=== PATIENT | female | born 1960 | race Caucasian/White ===

== ENCOUNTER 2018-05-29 12:53 | Observation (INO) | payer MEDICARE, BC ==
[~2018-05-29] VITALS: Ht 160 cm; Wt 66.4 kg
[~2018-05-29 12:53] MED LIST: ALBU18HF IH; BUME0.5T PO; DIGO250T PO; DOCU-144 PO; DULO60CA6 PO; FURO40TA4 PO; LISI2.5T80 PO; METO-448 PO; NITR0.4T39 SL; OMEP20CA9 PO; RANO500T2 PO; UBID50TA PO
--- NOTE | 2018-05-29 13:37 | ERD ---
ER Documentation Chief Complaint Chief Complaint Diarrhea HPI The patient is a 57-year-old female, presenting with chronic diarrhea, chronic dyspnea. She was seen by her physician Dr. Amaro who would like to admit her for further evaluation. She denies headache, fever, complains of chronic abdominal discomfort, denies dysuria, polyuria. She smokes and drinks lives alone Medical history: Depression, history of CVA, history of CHF, CAD, cardiomyopathy, hypertension, atrial fibrillation, insomnia Past surgical history: Pacemaker, cholecystectomy, urinary bladder surgery ROS All systems reviewed and are negative except as per history of present illness. Medications Home Meds Reported Medications Apixaban* (Eliquis*) 2.5 Mg Tablet, 5 MG PO BID, TAB 05/29/18 Metoprolol Tartrate* (Lopressor*) 50 Mg Tab, 50 MG PO BID 05/29/18 Zolpidem Tartrate* (Zolpidem Tartrate*) 10 Mg Tablet, 10 MG PO QHS PRN for SLEEP 05/29/18 Digoxin* (Digox*) 125 Mcg Tablet, 125 MG PO DAILY 05/29/18 Discontinued Reported Medications Nicotine* (Nicotine* Patch) 21 mg/day Patch, 1 EACH TD DAILY, PATCH 05/29/18 Propranolol Hcl* (Propranolol Hcl*) 20 Mg Tablet, 20 MG PO DAILY PRN for PRN, TAB 05/29/18 Dexlansoprazole (Dexilant) 30 Mg Cap., 30 MG PO DAILY, #30 CAP 05/29/18 Metoclopramide Hcl* (Metoclopramide Hcl*) 5 Mg Tablet, 5 MG PO BID PRN for NAUSEA 05/29/18 Hydrocodone/Acetaminophen ([place] 10-325 Tablet) 1 Each Tablet, 1 EACH PO DAILY PRN for SEVERE PAIN LEVEL 7-10, TAB 05/29/18 Digoxin* (Digoxin*) 0.25 Mg Tab, 0.25 MG PO DAILY, TAB 08/15/14 Furosemide* (Furosemide*) 40 Mg Tablet, 40 MG PO DAILY, TAB 08/15/14 Albuterol Sulfate* (Ventolin HFA*) 18 Gm Hfa.aer.ad, 2 PUFF IH Q4H PRN for WHEEZING AND RESP DISTRESS, EA 08/15/14 Ubidecarenone (COQ10) 50 Mg Tab.chew, 50 MG PO DAILY, TAB.CHEW 08/15/14 Duloxetine Hcl* (Cymbalta*) 60 Mg Capsule.dr, 60 MG PO DAILY, CAP 08/15/14 Omeprazole* (Prilosec*) 20 Mg Capsule.dr, 20 MG PO HS, CAP 02/17/14 Discontinued Scripts Bumetanide* (Bumetanide*) 0.5 Mg Tab, 0.5 MG PO BID DIURETICS for 30 Days Prov:REGTREERNINO 10/26/14 Nitroglycerin* (Nitrostat*) 25 Tab Subl, 0.4 MG SL Q5M PRN for CHEST PAIN, #30 Prov:REGIDONINO Koenig 10/26/14 Ranolazine* (Ranexa*) 500 Mg Tabsr, 1000 MG PO Q12 for 30 Days Prov:REGNINO BLACK 10/07/14 Metoprolol Tartrate* (Lopressor*) 25 Mg Tab, 25 MG PO BID for 30 Days, TAB Prov:REGNINO BLACK 10/07/14 Lisinopril* (Zestril*) 2.5 Mg Tablet, 2.5 MG PO DAILY for 30 Days, TAB Prov:REGNINO BLACK 09/27/14 Docusate Sodium* (Colace*) 100 Mg Cap, 100 MG PO BID for 30 Days Prov:REGNINO BLACK 09/27/14 Allergies Allergies: Coded Allergies: No Known Drug Allergies (Verified Allergy, Unknown, 12/01/14) PMhx/Soc Anesthesia Reaction: No Hx 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 Disorder: Yes (STROKE WITH LEFT FACIAL DROOP,"DON'T REMEMBER WHEN ") Hx Respiratory Disorders: Yes (CHF) Hx Cardiac Disorders: Yes (CAD,PACEMAKER,4X SMALL UT,CARDIOMYOPATHY) Hx Psychiatric Problems: No Hx Miscellaneous Medical Probl: Yes (R occipital stroke,A-fib, hyperlip., CAD w microvasc disuse, HTN, obesity, ) Hx Alcohol Use: No (DENIED) Hx Substance Use: No Hx Tobacco Use: Yes (5-6 CIGARETTES/D, LAST TIME WAS YESTERDAY) Physical Exam Vitals Vital Signs Date Temp Pulse Resp B/P (MAP) Pulse Ox O2 O2 Flow FiO2 Time Delivery Rate 05/29/18 99.5 70 18 107/68 92 13:06 (81) Physical Exam Const: No acute distress. Head: Atraumatic. Eyes: Normal Conjunctiva. ENT: Normal External Ears, Nose and Mouth. Neck: Full range of motion. No meningismus. Resp: Clear to auscultation bilaterally. Cardio: Irregularly irregular Abd: Soft, non distended, normal bowel sounds, non tender. Skin: No petechiae or rashes. Back: No midline or flank tenderness. Ext: No cyanosis, or edema. Neur: Awake and alert. No focal deficit Psych: Normal Mood and Affect. Result Diagram: 05/29/18 1450 05/29/18 1450 Results 24 hrs Laboratory Tests Test 05/29/18 14:50 White Blood Count 8.3 10^3/ul Red Blood Count 5.55 10^6/ul Hemoglobin 15.3 g/dl Hematocrit 48.3 % Mean Corpuscular Volume 87.0 fl Mean Corpuscular Hemoglobin 27.6 pg Mean Corpuscular Hemoglobin Concent 31.7 g/dl Red Cell Distribution Width 17.3 % Platelet Count 288 10^3/UL Mean Platelet Volume 10.6 fl Immature Granulocytes % 0.400 % Neutrophils % 71.0 % Lymphocytes % 16.9 % Monocytes % 7.0 % Eosinophils % 3.6 % Basophils % 1.1 % Nucleated Red Blood Cells % 0.0 /100WBC Immature Granulocytes # 0.030 10^3/ul Neutrophils # 5.9 10^3/ul Lymphocytes # 1.4 10^3/ul Monocytes # 0.6 10^3/ul Eosinophils # 0.3 10^3/ul Basophils # 0.1 10^3/ul Nucleated Red Blood Cells # 0.0 10^3/ul Sodium Level 140 mmol/L Potassium Level 4.2 mmol/L Chloride Level 103 mmol/L Carbon Dioxide Level 25 mmol/L Anion Gap 12 Blood Urea Nitrogen 10 mg/dl Creatinine 0.86 mg/dl Est Glomerular Filtrat Rate mL/min > 60 mL/min Glucose Level 97 mg/dl Calcium Level 10.3 mg/dl Total Bilirubin 1.2 mg/dl Direct Bilirubin 0.10 mg/dl Indirect Bilirubin 1.1 mg/dl Aspartate Amino Transf (AST/SGOT) 27 IU/L Alanine Aminotransferase (ALT/SGPT) 12 IU/L Alkaline Phosphatase 182 IU/L Total Protein 8.5 g/dl Albumin 4.5 g/dl Globulin 4.00 g/dl Albumin/Globulin Ratio 1.12 Lipase 68 U/L Ethyl Alcohol Level < 10.0 mg/dl Procedures/MDM MEDICAL MAKING DECISION: The patient is a 57-year-old female, presenting with g eneralized weakness, chronic diarrhea, chronic dyspnea and chronic abdominal discomfort. She will be admitted for further evaluation per her family doctor request The differential diagnoses considered include but are not limited to IBS, malabsorption, choledocholithiasis, cholangitis, pancreatitis, hepatitis, gastritis, peptic ulcer disease, gastric ulcer, appendicitis, cystitis, diverticulitis, partial small bowel obstruction. Departure Diagnosis: Primary Impression: Weakness Additional Impressions: Diarrhea Abnormal LFTs Condition: Stable Additional Instructions: I discussed the findings with the patient. I discussed the patient with Dr Amaro. who was made aware of the lab, the treatment, the patient condition. The patient is admitted to [facility] Disclaimer: Inadvertent spelling and grammatical errors are likely due to EHR/dictation software use and do not reflect on the overall quality of patient care. Also, please note that the electronic time recorded on this note does not necessarily reflect the actual time of the patient encounter. DORETHA RAMIREZ MD May 29, 2018 13:37
[2018-05-29] MEDS ORDERED: HYDR-3980 PO (14:40)
[2018-05-29] MEDS ORDERED: DEXL30CA2 PO (14:42)
[2018-05-29] MEDS ORDERED: ZOLP10TA5 PO (14:42)
[2018-05-29] MEDS ORDERED: METO5TAB2 PO (14:42)
[2018-05-29] MEDS ORDERED: DIGO125T19 PO (14:42)
[2018-05-29] MEDS ORDERED: METO-429 PO (14:42)
[2018-05-29] MEDS ORDERED: APIX2.5T PO (14:44)
[2018-05-29] MEDS ORDERED: PROP20TA4 PO (14:44)
[2018-05-29] MEDS ORDERED: NICO-546 TD (14:45)
[2018-05-29 18:20] VITALS: BP 130/82; PULSE 70; RESP 20
[2018-05-29 18:25] VITALS: Ht 160 cm; Wt 66.4 kg
[2018-05-29] MEDS ORDERED: METOCLOPRAMIDE 10 MG INJ IV PRN (20:30)
[2018-05-29] MEDS ORDERED: HYDROCODONE/APAP (10/325) TAB PO PRN (20:30)
[2018-05-29] MEDS ORDERED: PROPRANOLOL 20 MG TAB PO PRN (20:30)
[2018-05-29] MEDS ORDERED: ZOLPIDEM 5 MG TAB PO PRN (21:00)
[2018-05-29] MEDS: METOPROLOL 50 MG TAB PO SCH (21:00)
[2018-05-29] MEDS ORDERED: ACETAMINOPHEN 500 MG TAB PO PRN (21:00)
[2018-05-29] MEDS ORDERED: DEXTROSE 5%-0.9% NACL 1,000 ML IV SCH (21:00)
[2018-05-29 21:26] VITALS: BP 112/77; PULSE 70; RESP 16
[2018-05-29] MEDS: ALBUTEROL/IPRATROPIUM (NEB) 3 ML AMP HHN SCH (21:30)
[2018-05-29] MEDS: APIXABAN 5 MG TABLET PO SCH (22:41)
[2018-05-30 02:14] VITALS: BP 91/60; PULSE 66; RESP 16
[2018-05-30 03:30] VITALS: BP 100/64
[2018-05-30] MEDS: PANTOPRAZOLE 40 MG INJ IV SCH (05:44)
[2018-05-30 08:00] VITALS: BP 108/72; PULSE 72; RESP 18
[2018-05-30] MEDS: ALBUTEROL/IPRATROPIUM (NEB) 3 ML AMP HHN SCH ×3 (08:35→23:46)
--- NOTE | 2018-05-30 08:47 | HP ---
Date/Time of Note Date/Time of Note DATE: 05/30/18 TIME: 08:40 Assessment/Plan VTE Prophylaxis Risk score (from Ns)>0 risk: 5 SCD applied (from [facility] [place]): Yes SCD contraindicated: low risk/ambulating, other Pharmacological prophylaxis: LMWH Lines/Catheters IV C[facility]ter Type [facility]from [facility] [place] line still needed: No Urinary Cath still in place: No Reason Cath still needed: urinary retention Assessment/Plan Assessment/Plan 1. Respiratory distress got worse 2. COPD exacerbation 3. Status post left subclavian area pacemaker implantation AV sequential not checked for last 2 years. 4. Right pleural effusion-plan to tap 5. Diarrhea for years being on antimotility medications mainly low material with mild improvement. 6. Episodes of constipation 7. Significant weight loss according to her about 40 kg during the last 24 years,; but by calculations it becomes like about 25-20 kg. 8. Hearing impairment 9. Permanent deconditioning with severe muscular weakness unable to get up and stand by herself with severe decrease of muscular tone was strained mass 10. Urinary and fecal incontinence 11. Status post cholecystectomy 12. Nicotine addiction 13. PTSD 14. Mild elevation of the CEA 15. Kyphosis 16. Osteoporosis 17. Diabetes type 2 blood sugar improved after weight loss 18. Dehydration 19. Malnourishment 20. Noncompliance 21. Irritable bowel syndrome 22. Hemorrhoidal disease with recurrent rectal bleeding 23.incomplete data Result Diagram: 05/30/18 0515 05/30/18 0515 Results 24hrs Laboratory Tests Test 05/29/18 14:30 05/29/18 14:50 05/30/18 01:48 05/30/18 05:15 Magnesium Level 2.0 Iron Level 55 Total Iron Binding 545 H Capacity Percent Iron 10 L Saturation White Blood Count 8.3 5.7 # Red Blood Count 5.55 #H 4.85 Hemoglobin 15.3 # 13.2 Hematocrit 48.3 #H 42.6 Mean Corpuscular 87.0 87.8 Volume Mean Corpuscular 27.6 L 27.2 L Hemoglobin Mean Corpuscular 31.7 L 31.0 L Hemoglobin Concent Red Cell 17.3 H 17.0 H Distribution Width Platelet Count 288 229 # Mean Platelet Volume 10.6 #H 10.1 Immature 0.400 0.400 Granulocytes % Neutrophils % 71.0 59.7 Lymphocytes % 16.9 25.4 Monocytes % 7.0 9.3 Eosinophils % 3.6 4.1 Basophils % 1.1 1.1 Nucleated Red Blood 0.0 0.0 Cells % Immature 0.030 0.020 Granulocytes # Neutrophils # 5.9 3.4 Lymphocytes # 1.4 1.4 Monocytes # 0.6 0.5 Eosinophils # 0.3 0.2 Basophils # 0.1 0.1 Nucleated Red Blood 0.0 0.0 Cells # Sodium Level 140 139 Potassium Level 4.2 3.9 Chloride Level 103 105 Carbon Dioxide Level 25 22 Anion Gap 12 12 Blood Urea Nitrogen 10 11 Creatinine 0.86 0.73 Est Glomerular > 60 > 60 Filtrat Rate mL/min Glucose Level 97 78 Calcium Level 10.3 H 9.7 Total Bilirubin 1.2 1.0 Direct Bilirubin 0.10 0.00 Indirect Bilirubin 1.1 1.0 Aspartate Amino 27 27 Transf (AST/SGOT) Alanine 12 L 11 L Aminotransferase (AL T/SGPT) Alkaline Phosphatase 182 H 136 H Total Protein 8.5 H 7.0 # Albumin 4.5 3.8 Globulin 4.00 H 3.20 Albumin/Globulin 1.12 1.18 Ratio Lipase 68 Ethyl Alcohol Level < 10.0 H Carcinoembryonic 5.7 H Antigen HPI/ROS Admit Date/Time Admit Date/Time May 29, 2018 at 16:08 Hx of Present Illness Worsening of her shortness of breath. Status post episode of fall at home. I will sitting on the toilet seat. I was unable to get up myself. I am very weak. With night put a strained to my legs to get up I had darkness in front of my eyes my eyes and fell down no loss of consciousness but they do not remember exact sequence of events. No fever or chills. 3 days ago I had more frequent bowel movements with bad smell then the day before admission I was unable to go to the toilet and to abdominal bowel. I am having also irregular heartbeats. I could stop smoking I will wait a week. I can take care of myself. I am afraid to get up and walk because of recurrent episodes of fall. Can stand by myself. Totally I lost about 40-60 pounds may be more during the last couple of years. And I have mostly. I had also rectal bleeding I have hemorrhoids too. I am afraid to eat because every time when I eat. Immediately I would like to go to the toilet and I can. Now I realize it is better for me to drink 100 cc of alcohol-containing drinks usually balzam, like substituted calories not to eat because when I during bowel exam I am not going to toilet so frequently. ROS Constitutional: chills, disoriented, fatigue, nausea, poor po, weight change; No no complaints, No improved, No diaphoresis, No febrile, No other Eyes: redness, visual change, other (My vision is getting worse and worse particularly last 1 year without her glasses I do not see that he is getting more blurry.); No no complaints, No pain, No discharge ENT: congestion, sore throat; No no complaints, No bleeding, No pain, No discharge, No dysphagia, No other Respiratory: cough, pleuritic pain, shortness of breath, sputum, wheezing (.); No no complaints, No pain, No other Cardiovascular: chest pain, lightheadedness, orthopenea, palpitations, paroxysmal nocturnal dyspnea; No no complaints, No edema, No other Gastrointestinal: pain, blood, constipation, decreased appetite, diarrhea, flatus, nausea, passing stool, other (In the immediate they must go to the toilet this reason I am refusing to eat.); No no complaints, No vomiting Genitourinary: dysuria, flank pain; No no complaints, No bleeding, No discharge, No hematuria, No other Musculoskeletal: back pain, bone/joint pain, neck pain; No no complaints, No restricted range of motion, No swelling, No other Skin: rash; No no complaints, No bruising, No erythema, No laceration, No pruritis, No skin lesions, No other Neurologic: confusion, dizziness, headache, syncope (Near syncopal episodes but more frequent falls.); No no complaints, No focal-weakness, No seizure, No other Endocrine: No no complaints, No polyuria, No polydypsia, No dry skin, No temp intolerance, No weight change, No other Lymphatic: No no complaints, No adenopathy, No tender nodes, No lymphadema, No other Psychological: anxiety, depression, other (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 from other people for help.); No no complaints, No nl mood/affect, No confusion, No suicidal Immunologic: No no complaints, No immunodeficiency, No pruritis, No rhinitis, No urticaria, No other PMH/Family/Social Past Medical History Medical History: angina, colitis, congestive heart failure, coronary artery disease, diabetes, gallstones (Removed gallbladder.), GERD, GI bleed, hepatitis, high cholesterol, irritable bowel syndrome, pancreatitis, renal disease, urinary tract infection Medications Current Medications Albuterol/ Ipratropium (Duoneb) 3 ml Q8H RESP THERAPY HHN Last administered on 05/30/18at 08:35; Admin Dose 3 ML; Start 05/29/18 at 21:30 Acetaminophen/ Hydrocodone Bitart ([place] (10/325)) 1 tab Q8H PRN PO PAIN; Start 05/29/18 at 20:30 Metoclopramide HCl (Reglan) 5 mg Q8H PRN IV NAUSEA AND/OR VOMITING; Start 05/29/18 at 20:30 Nicotine (Nicoderm 14 Mg/ 24hr) 1 patch DAILY TRANSDERM ; Start 05/30/18 at 09:00 Propranolol HCl (Inderal) 20 mg Q8H PRN PO ELEVATED BP; Start 05/29/18 at 20:30 Pantoprazole (Protonix Iv) 40 mg DAILY@06 IV Last administered on 05/30/18at 05:44; Admin Dose 40 MG; Start 05/30/18 at 06:00 Digoxin (Digoxin) 125 mg DAILY@1300 PO ; Start 05/30/18 at 13:00 Metoprolol Tartrate (Lopressor) 50 mg BID PO ; Start 05/29/18 at 21:00 Zolpidem Tartrate (Ambien) 10 mg QHS PRN PO SLEEP Last administered on 05/29/18at 23:08; Admin Dose 10 MG; Start 05/29/18 at 21:00 Apixaban (Eliquis) 5 mg BID PO Last administered on 05/29/18at 22:41; Admin Dose 5 MG; Start 05/29/18 at 21:00 Dextrose/Sodium Chloride 1,000 ml @ 50 mls/hr Q20H IV Last administered on 05/29/18at 22:41; Admin Dose 50 MLS/HR; Start 05/29/18 at 21:00 Acetaminophen (Tylenol Tab) 500 mg Q6H PRN PO MILD PAIN(1-3)OR ELEVATED TEMP; Start 05/29/18 at 21:00 Multivitamins 10 ml/Thiamine HCl 100 mg/Folic Acid 1 mg/Sodium Chloride 1,011.2 ml @ 125 mls/ hr DAILY@09 IVPB ; Start 05/30/18 at 09:00; Stop 05/31/18 at 08:59 Coded Allergies: No Known Drug Allergies (Verified Allergy, Unknown, 12/01/14) Past Surgical History Past Surgical Hx: noncontributory, cholecystectomy, other (Status post pacemaker implantation in 2012; change of pacemaker from [employer] to 7 Jorge section in 1985 he has she has a son hemorrhoidal disease visual impairment) Family History Significant Family History: no pertinent family hx Social History Alcohol Use: other (On and off 100 cc according to the patientbalzam, to prevent going to the toilet frequently) Smoking Status: Heavy tobacco smoker Drug Use: none Exam/Review of Systems Vital Signs Vitals Vital Signs Date Temp Pulse Resp B/P (MAP) Pulse Ox O2 O2 Flow FiO2 Time Delivery Rate 05/30/18 2.0 08:36 05/30/18 18 96 Nasal 08:36 Cannula 05/30/18 100/64 03:30 (76) 05/30/18 98.1 66 02:14 Intake and Output 05/29/18 05/29/18 05/30/18 1515:00 23:00 07:00 IntakeIntake Total 150 ml 35 ml BalanceBalance 150 ml 35 ml Exam Constitutional: alert, oriented, well developed, distress, frail, other (Responds to questions slowly. Concentration intellectualize actions after explanation of presence of fluid in the right pleural cavity and her smoking h abit and intention to do the tap get the impression that she did not get the connection face between her smoking habit and COPD on the right pleural effusion. Otherwise very intelligent respect to again slowing response); No non-verbal Psych: anxiety, confusion, depression; No no complaints, No nl mood/affect, No suicidal, No other Head: normocephalic (On and off), atraumatic; No lacerations, No hematomas, No other Eyes: EOMI, nl lids, PERRL, other (Severe visual impairment 20/60 20/80.); No nl conjunctiva, No nl sclera, No icteric, No fundi, disc ENMT: nl lips & teeth (Dry blurry), nl nasal mucosa & septum (Mild septal deviation to right); No nl external ears & nose, No mucosa pink and moist, No intubated, No tympanic membranes, No other Neck: No supple, No non-tender, No jvd, No bruits, No masses, No thyromegaly, No nuchal rigidity, No other Respiratory: normal air movement (Decreased breath sounds on the right side.), congested cough, crackles/rales, diminished breath sounds, intercostal retraction, wheezing; No clear to auscultation, No labored breathing, No respirations, No tactile fremitus, No other Cardiovascular: regular rate and rhythm, nl pulses, bruits, edema, jugular venous distention (JVD), murmurs/extra sounds, systolic murmur; No diastolic murmur, No gallop, No irregular rhythm, No rub, No S3, No S4, No other Gastrointestinal: soft, nl liver, spleen, bowel sounds, surgical scars (Well- healed postsurgical scar in lower abdominal area after section.), other; No non-tender, No ascites, No distended, No firm, No hepatomegaly, No mass, No rebound or guarding, No splenomegaly, No tender Genitourinary - Female: nl adnexae, nl external genitalia; No CMT, No CVA tenderness, No uterus, No other Musculoskeletal: nl gait and stance (Very unstable gait.), joint tenderness, muscle tone (Tender joints), muscle weakness, range of motion ( severe decreased muscular tone severe muscular weakness and atrophy of muscles muscles), other; No nl extremities to inspection, No spine non-tender, No swelling Extremities: normal pulses, cyanosis, edema 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: IRON PILER II-XII intact (Visual and hearing impairment), nl mental status (Cooperative only slowing response forgetful), nl speech, nl strength (Severe decrease of a muscular strain); No confused, No DTR's symmetric, No focal weakness, No lethargic, No numbness, No reflexes, No unresponsive, No other Skin: nl turgor, ecchymosis; No rash or lesions, No diaphoresis, No laceration, No puncture, No other Lymph: No nl lymph nodes, No enlarged, No nontender, No other LANNY SMITH MD May 30, 2018 08:46
[2018-05-30] MEDS ORDERED: MULTIVITAMINS 10 ML, THIAMINE 100 MG, FOLIC ACID 1 MG in SOD CHLORIDE 0.9% 1,000 ML IVPB SCH (09:00)
[2018-05-30] MEDS: METOPROLOL 50 MG TAB PO SCH (09:00)
--- NOTE | 2018-05-30 09:36 | CONDCODE ---
Medicare Criteria-> INP to OBS Patient still in hospital: Yes SI/IS Criteria met: Yes Attending MD agrees w/change: Yes Order entered in Pt. record: Yes Pt. does not meet Inp Criteria: Yes Medicare Inp->Obs Criteria met: Yes UR Phys Advisor eSign required: Yes External PA Confirmation from External PA: Yes I personally scribed for SAMAN THOMASON MD ([email or web address]) on 05/30/18 at 09:36. Electronically submitted by Charly Navarro [facility] ([email or web address]). SAMAN THOMASON MD May 30, 2018 09:36
--- NOTE | 2018-05-30 09:36 | CONDCODE ---
Medicare Criteria-> INP to OBS Patient still in hospital: Yes SI/IS Criteria met: Yes Attending MD agrees w/change: Yes Order entered in Pt. record: Yes Pt. does not meet Inp Criteria: Yes Medicare Inp->Obs Criteria met: Yes UR Phys Advisor eSign required: Yes I personally scribed for LANNY SMITH MD ([email or web address]) on 05/30/18 at 09:36. [email or web address] LANNY SMITH MD May 30, 2018 09:36
[2018-05-30] MEDS: APIXABAN 5 MG TABLET PO SCH (09:44)
[2018-05-30] MEDS: NICOTINE (14 MG/24 HR) PATCH TRANSDERM SCH (09:44)
--- NOTE | 2018-05-30 10:47 | CONS ---
Assessment/Plan Assessment/Plan Hospital Course (Demo Recall) Acute on chronic systolic heart failure: mild rales on exam. Will hold fluids NICM (prior EF <30%) BiV ICD for primary prevention: ([employer], initial implant 2012, then 2014 with LV lead) Paroxysmal vs chronic afib: on Eliquis AV node ablation COPD Active tobacco use DM -hold IVF -check echo -agreeable to trying metoprolol succinate 25mg daily. Explained that propranolol is not approved for cardiomyopathy -will try adding ACEI tomorrow if she agrees -continue digoxin (being used for cardiomyopathy) -check dig level in am -Eliquis 5mg BID. Hold at least 24 hrs if thoracentesis needed -check ICD Consultation Date/Type/Reason Admit Date/Time May 29, 2018 at 16:08 Date of Consultation: May 30, 2018 Type of Consult Cardiology Reason for Consultation CHF, ICD Requesting Provider: LANNY SMITH MD Date/Time of Note DATE: 05/30/18 TIME: 10:38 Hx of Present Illness 57 yo F with a h/o chronic systolic heart failure, NICM (prior EF <30%), BiV ICD for primary prevention ([employer], initial implant 2012, then 2014 with LV lead), paroxysmal vs chronic afib, AV node ablation, COPD, active tobacco use, DM, who presented with weakness and loose stools. She has not seen a research and development chemist in >1 yr and has not had the ICD checked in 2 years. She has not had syncope but has had episodes of dizziness/weakness when she stands up. She also feels her heart beating harder but not necessarily faster. No chest pain. 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 Currently no SOB. per HPI Past Medical History per HPI Medical History: angina, colitis, congestive heart failure, coronary artery disease, diabetes, gallstones (Removed gallbladder.), GERD, GI bleed, hepatitis, high cholesterol, irritable bowel syndrome, pancreatitis, renal disease, urinary tract infection Home Meds Reported Medications Apixaban* (Eliquis*) 2.5 Mg Tablet, 5 MG PO BID, TAB 05/29/18 Metoprolol Tartrate* (Lopressor*) 50 Mg Tab, 50 MG PO BID 05/29/18 Zolpidem Tartrate* (Zolpidem Tartrate*) 10 Mg Tablet, 10 MG PO QHS PRN for SLEEP 05/29/18 Digoxin* (Digox*) 125 Mcg Tablet, 125 MG PO DAILY 05/29/18 Discontinued Reported Medications Nicotine* (Nicotine* Patch) 21 mg/day Patch, 1 EACH TD DAILY, PATCH 05/29/18 Propranolol Hcl* (Propranolol Hcl*) 20 Mg Tablet, 20 MG PO DAILY PRN for PRN, TAB 05/29/18 Dexlansoprazole (Dexilant) 30 Mg Cap..mp, 30 MG PO DAILY, #30 CAP 05/29/18 Metoclopramide Hcl* (Metoclopramide Hcl*) 5 Mg Tablet, 5 MG PO BID PRN for NAUSEA 05/29/18 Hydrocodone/Acetaminophen ([place] 10-325 Tablet) 1 Each Tablet, 1 EACH PO DAILY PRN for SEVERE PAIN LEVEL 7-10, TAB 05/29/18 Digoxin* (Digoxin*) 0.25 Mg Tab, 0.25 MG PO DAILY, TAB 08/15/14 Furosemide* (Furosemide*) 40 Mg Tablet, 40 MG PO DAILY, TAB 08/15/14 Albuterol Sulfate* (Ventolin HFA*) 18 Gm Hfa.aer.ad, 2 PUFF IH Q4H PRN for WHEEZING AND RESP DISTRESS, EA 08/15/14 Ubidecarenone (COQ10) 50 Mg Tab.chew, 50 MG PO DAILY, TAB.CHEW 08/15/14 Duloxetine Hcl* (Cymbalta*) 60 Mg Capsule.dr, 60 MG PO DAILY, CAP 08/15/14 Omeprazole* (Prilosec*) 20 Mg Capsule.dr, 20 MG PO HS, CAP 02/17/14 Discontinued Scripts Bumetanide* (Bumetanide*) 0.5 Mg Tab, 0.5 MG PO BID DIURETICS for 30 Days Prov:NINO RAMSEY 10/26/14 Nitroglycerin* (Nitrostat*) 25 Tab Subl, 0.4 MG SL Q5M PRN for CHEST PAIN, #30 Prov:NINO RAMSEY 10/26/14 Ranolazine* (Ranexa*) 500 Mg Tabsr, 1000 MG PO Q12 for 30 Days Prov:NINO RAMSEY 10/07/14 Metoprolol Tartrate* (Lopressor*) 25 Mg Tab, 25 MG PO BID for 30 Days, TAB Prov:NINO RAMSEY 10/07/14 Lisinopril* (Zestril*) 2.5 Mg Tablet, 2.5 MG PO DAILY for 30 Days, TAB Prov:MIKE RAMSEYNELL 09/27/14 Docusate Sodium* (Colace*) 100 Mg Cap, 100 MG PO BID for 30 Days Prov:MIKE RAMSEYNELL 09/27/14 Medications Current Medications Albuterol/ Ipratropium (Duoneb) 3 ml Q8H RESP THERAPY HHN Last administered on 05/30/18at 08:35; Admin Dose 3 ML; Start 05/29/18 at 21:30 Acetaminophen/ Hydrocodone Bitart ([place] (10325)) 1 tab Q8H PRN PO PAIN; Start 05/29/18 at 20:30 Metoclopramide HCl (Reglan) 5 mg Q8H PRN IV NAUSEA AND/OR VOMITING; Start 05/29/18 at 20:30 Nicotine (Nicoderm 14 Mg/ 24hr) 1 patch DAILY TRANSDERM ; Start 05/30/18 at 09:00 Propranolol HCl (Inderal) 20 mg Q8H PRN PO ELEVATED BP; Start 05/29/18 at 20:30 Pantoprazole (Protonix Iv) 40 mg DAILY@06 IV Last administered on 05/30/18at 05:44; Admin Dose 40 MG; Start 05/30/18 at 06:00 Digoxin (Digoxin) 125 mg DAILY@1300 PO ; Start 05/30/18 at 13:00 Metoprolol Tartrate (Lopressor) 50 mg BID PO ; Start 05/29/18 at 21:00 Zolpidem Tartrate (Ambien) 10 mg QHS PRN PO SLEEP Last administered on 05/29/18at 23:08; Admin Dose 10 MG; Start 05/29/18 at 21:00 Apixaban (Eliquis) 5 mg BID PO Last administered on 05/29/18at 22:41; Admin Dose 5 MG; Start 05/29/18 at 21:00 Dextrose/Sodium Chloride 1,000 ml @ 50 mls/hr Q20H IV Last administered on 05/29/18at 22:41; Admin Dose 50 MLS/HR; Start 05/29/18 at 21:00 Acetaminophen (Tylenol Tab) 500 mg Q6H PRN PO MILD PAIN(1-3)OR ELEVATED TEMP; Start 05/29/18 at 21:00 Multivitamins 10 ml/Thiamine HCl 100 mg/Folic Acid 1 mg/Sodium Chloride 1,011.2 ml @ 125 mls/ hr DAILY@09 IVPB ; Start 05/30/18 at 09:00; Stop 05/31/18 at 08:59 Allergies: Coded Allergies: No Known Drug Allergies (Verified Allergy, Unknown, 12/01/14) Past Surgical History Past Surgical Hx: noncontributory, cholecystectomy, other (Status post pacemaker implantation in 2012; change of pacemaker from [employer] to 7 Jorge section in 1985 he has she has a son hemorrhoidal disease visual impairment) Social History Alcohol Use: other (On and off 100 cc according to the patientbalzam, to prevent going to the toilet frequently) Smoking Status: Heavy tobacco smoker Drug Use: none Exam/Review of Systems Exam Vitals Vital Signs Date Temp Pulse Resp B/P (MAP) Pulse Ox O2 O2 Flow FiO2 Time Delivery Rate 05/30/18 2.0 08:36 05/30/18 18 96 Nasal 08:36 Cannula 05/30/18 98.7 72 108/72 08:00 (84) Intake and Output 05/29/18 05/29/18 05/30/18 1515:00 23:00 07:00 IntakeIntake Total 150 ml 35 ml BalanceBalance 150 ml 35 ml Constitutional: alert, oriented Psych: no complaints, nl mood/affect Head: normocephalic, atraumatic Neck: jvd (7-8cm) Respiratory: crackles/rales, diminished breath sounds; No clear to auscultation Cardiovascular: regular rate and rhythm, edema (trace-1+); No systolic murmur Gastrointestinal: soft, non-tender; No distended 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: nl mental status, nl speech Results Result Diagram: 05/30/1851405/30/1815 Results 24hrs Laboratory Tests Test 05/29/18 14:30 05/29/18 14:50 05/30/18 01:48 05/30/18 05:15 Magnesium Level 2.0 Iron Level 55 Total Iron Binding 545 H Capacity Percent Iron 10 L Saturation White Blood Count 8.3 5.7 # Red Blood Count 5.55 #H 4.85 Hemoglobin 15.3 # 13.2 Hematocrit 48.3 #H 42.6 Mean Corpuscular 87.0 87.8 Volume Mean Corpuscular 27.6 L 27.2 L Hemoglobin Mean Corpuscular 31.7 L 31.0 L Hemoglobin Concent Red Cell 17.3 H 17.0 H Distribution Width Platelet Count 288 229 # Mean Platelet Volume 10.6 #H 10.1 Immature 0.400 0.400 Granulocytes % Neutrophils % 71.0 59.7 Lymphocytes % 16.9 25.4 Monocytes % 7.0 9.3 Eosinophils % 3.6 4.1 Basophils % 1.1 1.1 Nucleated Red Blood 0.0 0.0 Cells % Immature 0.030 0.020 Granulocytes # Neutrophils # 5.9 3.4 Lymphocytes # 1.4 1.4 Monocytes # 0.6 0.5 Eosinophils # 0.3 0.2 Basophils # 0.1 0.1 Nucleated Red Blood 0.0 0.0 Cells # Sodium Level 140 139 Potassium Level 4.2 3.9 Chloride Level 103 105 Carbon Dioxide Level 25 22 Anion Gap 12 12 Blood Urea Nitrogen 10 11 Creatinine 0.86 0.73 Est Glomerular > 60 > 60 Filtrat Rate mL/min Glucose Level 97 78 Calcium Level 10.3 H 9.7 Total Bilirubin 1.2 1.0 Direct Bilirubin 0.10 0.00 Indirect Bilirubin 1.1 1.0 Aspartate Amino 27 27 Transf (AST/SGOT) Alanine 12 L 11 L Aminotransferase (AL T/SGPT) Alkaline Phosphatase 182 H 136 H Total Protein 8.5 H 7.0 # Albumin 4.5 3.8 Globulin 4.00 H 3.20 Albumin/Globulin 1.12 1.18 Ratio Lipase 68 Ethyl Alcohol Level < 10.0 H Carcinoembryonic 5.7 H Antigen Hemoglobin A1c 6.0 H Digoxin Level 0.9 L Medications Medication Current Medications Albuterol/ Ipratropium (Duoneb) 3 ml Q8H RESP THERAPY HHN Last administered on 05/30/18at 08:35; Admin Dose 3 ML; Start 05/29/18 at 21:30 Acetaminophen/ Hydrocodone Bitart ([place] (10/325)) 1 tab Q8H PRN PO PAIN; Start 05/29/18 at 20:30 Metoclopramide HCl (Reglan) 5 mg Q8H PRN IV NAUSEA AND/OR VOMITING; Start 05/29/18 at 20:30 Nicotine (Nicoderm 14 Mg/ 24hr) 1 patch DAILY TRANSDERM ; Start 05/30/18 at 09:00 Propranolol HCl (Inderal) 20 mg Q8H PRN PO ELEVATED BP; Start 05/29/18 at 20:30 Pantoprazole (Protonix Iv) 40 mg DAILY@06 IV Last administered on 05/30/18at 05:44; Admin Dose 40 MG; Start 05/30/18 at 06:00 Digoxin (Digoxin) 125 mg DAILY@1300 PO ; Start 05/30/18 at 13:00 Metoprolol Tartrate (Lopressor) 50 mg BID PO ; Start 05/29/18 at 21:00 Zolpidem Tartrate (Ambien) 10 mg QHS PRN PO SLEEP Last administered on 05/29/18at 23:08; Admin Dose 10 MG; Start 05/29/18 at 21:00 Apixaban (Eliquis) 5 mg BID PO Last administered on 05/29/18at 22:41; Admin Dose 5 MG; Start 05/29/18 at 21:00 Dextrose/Sodium Chloride 1,000 ml @ 50 mls/hr Q20H IV Last administered on 05/29/18at 22:41; Admin Dose 50 MLS/HR; Start 05/29/18 at 21:00 Acetaminophen (Tylenol Tab) 500 mg Q6H PRN PO MILD PAIN(1-3)OR ELEVATED TEMP; Start 05/29/18 at 21:00 Multivitamins 10 ml/Thiamine HCl 100 mg/Folic Acid 1 mg/Sodium Chloride 1,011.2 ml @ 125 mls/ hr DAILY@09 IVPB ; Start 05/30/18 at 09:00; Stop 05/31/18 at 08:59 KETAN GAMBOA May 30, 2018 10:47
[2018-05-30] MEDS: METOPROLOL (XL) 25 MG TAB PO SCH (11:00)
[2018-05-30] MEDS ORDERED: DIGOXIN 0.125 MG TAB PO SCH (13:00)
[2018-05-30] MEDS: DIGOXIN 0.125 MG TAB PO SCH (13:53)
[2018-05-30 14:00] VITALS: BP 110/75; PULSE 68; RESP 18
[2018-05-30] MEDS ORDERED: ALBUTEROL HFA 8 GM INHALER INH PRN (15:00)
[2018-05-30] MEDS ORDERED: LIDOCAINE 1% (MPF) 5 ML VIAL ONE (15:58)
--- NOTE | 2018-05-30 17:25 | CONS ---
Assessment/Plan Assessment/Plan Assessment/Plan (Daily) 1. Hypercalcemia 2. acute on chronic systolic heart failure 3. H/o NICM with EF 35% s/p AICD placement 4. H/o paroxysmal atrial fibrillation s/p AV node ablation 5. h/o HTN 6. H/o DM II 7. Fluid overload with moderate R pleural euffusion s/p R thoracentesis 1 L removed on 05/29/18 8. H/o HL Plan: S/p thoracentesis today 1 L removed, BP stable D/c IVF I will order UA, Urine prot/cr ration to asses for proteinuria, Pt has hyperclacemia with weight loss, Cardiology has been following pt will need GI consult for her chronic diarrhea and weight loss history Thanks for consultation, I will continue to follow up Consultation Date/Type/Reason Admit Date/Time May 29, 2018 at 16:08 Date of Consultation: May 30, 2018 Type of Consult NEPHROLOGY Reason for Consultation hypercalcemia, acute fluid overload, pleural effusion Right Requesting Provider: LANNY SMITH MD Date/Time of Note DATE: 05/30/18 TIME: 17:24 Hx of Present Illness 57 yo F with a h/o chronic systolic heart failure, NICM (prior EF <30%), BiV ICD for primary prevention ([employer], initial implant 2012, then 2014 with LV lead), paroxysmal vs chronic afib, AV node ablation, COPD, active tobacco use, DM, who presented with weakness and loose stools., pt lost approximately 40 lbs in last 6 months, she had al ow EF, on lab she is noted to have hypercalcemia with Ca level 10.3- due to hypercalcemi and weight loss and chronic diarrhea, worried about malignancy. renal has been consulted for acute hypercalcemia, fluid overload and pleural effusion. Constitutional: poor po, other (weakness) Eyes: no complaints ENT: no complaints Respiratory: no complaints Cardiovascular: no complaints Gastrointestinal: diarrhea, nausea Genitourinary: no complaints Musculoskeletal: bone/joint pain, neck pain; No no complaints Skin: no complaints Neurologic: no complaints Endocrine: no complaints Lymphatic: no complaints Psychological: no complaints Immunologic: no complaints Past Medical History Medical History: angina, colitis, congestive heart failure, coronary artery disease, diabetes, gallstones (Removed gallbladder.), GERD, GI bleed, hepatitis, high cholesterol, irritable bowel syndrome, pancreatitis, renal disease, urinary tract infection Home Meds Reported Medications Apixaban* (Eliquis*) 2.5 Mg Tablet, 5 MG PO BID, TAB 05/29/18 Metoprolol Tartrate* (Lopressor*) 50 Mg Tab, 50 MG PO BID 05/29/18 Zolpidem Tartrate* (Zolpidem Tartrate*) 10 Mg Tablet, 10 MG PO QHS PRN for SLEEP 05/29/18 Digoxin* (Digox*) 125 Mcg Tablet, 125 MG PO DAILY 05/29/18 Discontinued Reported Medications Nicotine* (Nicotine* Patch) 21 mg/day Patch, 1 EACH TD DAILY, PATCH 05/29/18 Propranolol Hcl* (Propranolol Hcl*) 20 Mg Tablet, 20 MG PO DAILY PRN for PRN, TAB 05/29/18 Dexlansoprazole (Dexilant) 30 Mg Cap., 30 MG PO DAILY, #30 CAP 05/29/18 Metoclopramide Hcl* (Metoclopramide Hcl*) 5 Mg Tablet, 5 MG PO BID PRN for NAUSEA 05/29/18 Hydrocodone/Acetaminophen ([place] 10-325 Tablet) 1 Each Tablet, 1 EACH PO DAILY PRN for SEVERE PAIN LEVEL 7-10, TAB 05/29/18 Digoxin* (Digoxin*) 0.25 Mg Tab, 0.25 MG PO DAILY, TAB 08/15/14 Furosemide* (Furosemide*) 40 Mg Tablet, 40 MG PO DAILY, TAB 08/15/14 Albuterol Sulfate* (Ventolin HFA*) 18 Gm Hfa.aer.ad, 2 PUFF IH Q4H PRN for WHEEZING AND RESP DISTRESS, EA 08/15/14 Ubidecarenone (COQ10) 50 Mg Tab.chew, 50 MG PO DAILY, TAB.CHEW 08/15/14 Duloxetine Hcl* (Cymbalta*) 60 Mg Capsule.dr, 60 MG PO DAILY, CAP 08/15/14 Omeprazole* (Prilosec*) 20 Mg Capsule.dr, 20 MG PO HS, CAP 02/17/14 Discontinued Scripts Bumetanide* (Bumetanide*) 0.5 Mg Tab, 0.5 MG PO BID DIURETICS for 30 Days Prov:NINO RAMSEY 10/26/14 Nitroglycerin* (Nitrostat*) 25 Tab Subl, 0.4 MG SL Q5M PRN for CHEST PAIN, #30 Prov:NINO RAMSEY 10/26/14 Ranolazine* (Ranexa*) 500 Mg Tabsr, 1000 MG PO Q12 for 30 Days Prov:MOUSTAPHANINO BLACK 10/07/14 Metoprolol Tartrate* (Lopressor*) 25 Mg Tab, 25 MG PO BID for 30 Days, TAB Prov:NINO RAMSEY 10/07/14 Lisinopril* (Zestril*) 2.5 Mg Tablet, 2.5 MG PO DAILY for 30 Days, TAB Prov:ROMEONINO Koenig 09/27/14 Docusate Sodium* (Colace*) 100 Mg Cap, 100 MG PO BID for 30 Days Prov:NINO RAMSEY 09/27/14 Medications Current Medications Albuterol/ Ipratropium (Duoneb) 3 ml Q8H RESP THERAPY HHN Last administered on 05/30/18at 08:35; Admin Dose 3 ML; Start 05/29/18 at 21:30 Acetaminophen/ Hydrocodone Bitart ([place] (10/325)) 1 tab Q8H PRN PO PAIN; Start 05/29/18 at 20:30 Metoclopramide HCl (Reglan) 5 mg Q8H PRN IV NAUSEA AND/OR VOMITING; Start 05/29/18 at 20:30 Nicotine (Nicoderm 14 Mg/ 24hr) 1 patch DAILY TRANSDERM Last administered on 05/30/18at 09:44; Admin Dose 1 PATCH; Start 05/30/18 at 09:00 Pantoprazole (Protonix Iv) 40 mg DAILY@06 IV Last administered on 05/30/18at 05:44; Admin Dose 40 MG; Start 05/30/18 at 06:00 Zolpidem Tartrate (Ambien) 10 mg QHS PRN PO SLEEP Last administered on 05/29/18at 23:08; Admin Dose 10 MG; Start 05/29/18 at 21:00 Acetaminophen (Tylenol Tab) 500 mg Q6H PRN PO MILD PAIN(1-3)OR ELEVATED TEMP; Start 05/29/18 at 21:00 Metoprolol Succinate (Toprol Xl) 25 mg DAILY PO ; Start 05/30/18 at 11:00 Digoxin (Digoxin) 0.125 mg DAILY@1300 PO Last administered on 05/30/18at 13:53; Admin Dose 0.125 MG; Start 05/30/18 at 13:46 Albuterol (Ventolin Hfa) 2 puff Q8H RESP THERAPY PRN INH SHORTNESS OF BREATH; Start 05/30/18 at 15:00 Allergies: Coded Allergies: No Known Drug Allergies (Verified Allergy, Unknown, 12/01/14) Past Surgical History Past Surgical Hx: noncontributory, cholecystectomy, other (Status post pacemaker implantation in 2012; change of pacemaker from [employer] to 7 Jorge section in 1985 he has she has a son hemorrhoidal disease visual impairment) Social History Alcohol Use: none Smoking Status: Heavy tobacco smoker Drug Use: none Exam/Review of Systems Exam Vitals Vital Signs Date Temp Pulse Resp B/P (MAP) Pulse Ox O2 O2 Flow FiO2 Time Delivery Rate 05/30/18 98.6 68 18 110/75 96 14:00 (87) 05/30/18 Nasal 2.0 10:45 Cannula Intake and Output 05/29/18 05/29/18 05/30/18 1515:00 23:00 07:00 IntakeIntake Total 150 ml 35 ml BalanceBalance 150 ml 35 ml Constitutional: alert Head: normocephalic Eyes: nl conjunctiva ENMT: nl external ears & nose Neck: supple Respiratory: crackles/rales, diminished breath sounds Cardiovascular: regular rate and rhythm, nl pulses Gastrointestinal: soft, non-tender Musculoskeletal: nl extremities to inspection, swelling Extremities: normal pulses 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: APPLIQUER II-XII intact, nl mental status, nl speech, nl strength Skin: nl turgor Lymph: nl lymph nodes Results Result Diagram: 05/30/18 1305 05/30/18 0515 Results 24hrs Laboratory Tests Test 05/30/18 01:48 05/30/18 05:15 05/30/18 10:00 05/30/18 13:05 Carcinoembryonic 5.7 H Antigen White Blood Count 5.7 # Red Blood Count 4.85 Hemoglobin 13.2 Hematocrit 42.6 Mean Corpuscular 87.8 Volume Mean Corpuscular 27.2 L Hemoglobin Mean Corpuscular 31.0 L Hemoglobin Concen t Red Cell 17.0 H Distribution Width Platelet Count 229 # 248 Mean Platelet 10.1 Volume Immature 0.400 Granulocytes % Neutrophils % 59.7 Lymphocytes % 25.4 Monocytes % 9.3 Eosinophils % 4.1 Basophils % 1.1 Nucleated Red 0.0 Blood Cells % Immature 0.020 Granulocytes # Neutrophils # 3.4 Lymphocytes # 1.4 Monocytes # 0.5 Eosinophils # 0.2 Basophils # 0.1 Nucleated Red 0.0 Blood Cells # Sodium Level 139 Potassium Level 3.9 Chloride Level 105 Carbon Dioxide 22 Level Anion Gap 12 Blood Urea 11 Nitrogen Creatinine 0.73 Est Glomerular > 60 Filtrat Rate mL/min Glucose Level 78 Hemoglobin A1c 6.0 H Calcium Level 9.7 Total Bilirubin 1.0 Direct Bilirubin 0.00 Indirect 1.0 Bilirubin Aspartate Amino 27 Transf (AST/SGOT) Alanine 11 L Aminotransferase (ALT/SGPT) Alkaline 136 H Phosphatase Total Protein 7.0 # Albumin 3.8 Globulin 3.20 Albumin/Globulin 1.18 Ratio Digoxin Level 0.9 L Stool Occult NEGATIVE Blood Prothrombin Time 22.9 H Prothrombin Time 1.8 Ratio INR International 2.02 Normalized Ratio Activated 41.9 H Partial Thrombopl ast Time Thrombin Time 15.7 Test 05/30/18 15:30 Body Fluid Type THORACENTESIS FL UID Body Fluid Volume 1050.0 Body Fluid Color YELLOW Body Fluid CLEAR Appearance Body Fluid WBC 173 Body Fluid RBC 0 (Auto) Body Fluid 28.4 Polynuclear WBCs (%) Body Fluid 71.6 Mononuclear Cells % Auto Body Fluid 87 Glucose Body Fluid Total 2.6 Protein Body Fluid 199 Lactate Dehydroge nase Medications Medication Current Medications Albuterol/ Ipratropium (Duoneb) 3 ml Q8H RESP THERAPY HHN Last administered on 05/30/18at 08:35; Admin Dose 3 ML; Start 05/29/18 at 21:30 Acetaminophen/ Hydrocodone Bitart ([place] (10/325)) 1 tab Q8H PRN PO PAIN; Start 05/29/18 at 20:30 Metoclopramide HCl (Reglan) 5 mg Q8H PRN IV NAUSEA AND/OR VOMITING; Start 05/29/18 at 20:30 Nicotine (Nicoderm 14 Mg/ 24hr) 1 patch DAILY TRANSDERM Last administered on 05/30/18at 09:44; Admin Dose 1 PATCH; Start 05/30/18 at 09:00 Pantoprazole (Protonix Iv) 40 mg DAILY@06 IV Last administered on 05/30/18at 05:44; Admin Dose 40 MG; Start 05/30/18 at 06:00 Zolpidem Tartrate (Ambien) 10 mg QHS PRN PO SLEEP Last administered on 05/29/18at 23:08; Admin Dose 10 MG; Start 05/29/18 at 21:00 Acetaminophen (Tylenol Tab) 500 mg Q6H PRN PO MILD PAIN(1-3)OR ELEVATED TEMP; Start 05/29/18 at 21:00 Metoprolol Succinate (Toprol Xl) 25 mg DAILY PO ; Start 05/30/18 at 11:00 Digoxin (Digoxin) 0.125 mg DAILY@1300 PO Last administered on 05/30/18at 13:53; Admin Dose 0.125 MG; Start 05/30/18 at 13:46 Albuterol (Ventolin Hfa) 2 puff Q8H RESP THERAPY PRN INH SHORTNESS OF BREATH; Start 05/30/18 at 15:00 MARIA M HOLT MD May 30, 2018 17:25
[2018-05-30] MEDS ORDERED: POLYETHYLENE GLYCOL 3350 119 GM POWDER PO ONE (18:30)
--- NOTE | 2018-05-30 18:58 | CONS ---
DATE OF ADMISSION: 05/29/2018 DATE OF CONSULTATION: TYPE OF CONSULTATION: Pulmonary. REASON FOR CONSULTATION: Shortness of breath. Thank you, Dr. Escalona, for this consultation. HISTORY OF PRESENT ILLNESS: This is a 57-year-old lady with a history of congestive cardiac failure, COPD, urinary incontinence, ongoing tobacco use, presents with several-day history of increasing debra rtness of breath, orthopnea, PND, found to have right pleural effusion versus significant pneumonia a nd recent mechanical fall. Per chart, it appears she has had significant weight loss also with decre ased appetite. In addition, the patient appears to have significant history of alcohol use. PAST MEDICAL HISTORY: As above. MEDICATIONS: Per chart. ALLERGIES: NONE. SOCIAL HISTORY: Positive tobacco and alcohol history. SYSTEMS REVIEW: A 12-point review of systems was negative other than that mentioned above. PHYSICAL EXAMINATION: GENERAL: Chronically ill-appearing lady, appears comfortable at rest, in no acute distress. VITAL SIGNS: Currently afebrile, pulse is 68, blood pressure 110/75, O2 saturation 96% on 2 liters n petr cannula. NECK: Supple. No JVD or lymphadenopathy. CARDIAC: S1, S2. No added sounds or murmur. CHEST: Diminished air entry bilaterally. ABDOMEN: Soft, nontender. No guarding or rebound. EXTREMITIES: No cyanosis, clubbing, edema. NEUROLOGIC: Generalized weakness. No focal deficits. DIAGNOSTIC DATA: Chest x-ray shows right pleural effusion. LABORATORIES: White count 5.7, hemoglobin 13.2. Chemistry: BUN 11, creatinine 0.73. INR was 2.02. IMPRESSION AND PLAN: Significant tobacco history and alcohol history with right pleural effusion con cerning for either malignant or transudative effusion from underlying possible liver disease. The mani danielle will require thoracentesis with pleural fluid studies; however currently has elevated INR and i s on Eliquis. I will stop her Eliquis. We will wait for INR to become subtherapeutic and then proce ed with pleural fluid studies and thoracentesis. Dictated By: ANA TREJO MD SV/NTS Conf#: [id number] DID#: [id number] CC: LANNY SMITH MD; KETAN GAMBOA MD;*End*
[2018-05-30] MEDS: LACTULOSE 30ML CUP PO SCH (20:24)
[2018-05-30] MEDS ORDERED: LACTULOSE 30ML CUP PO SCH (21:00)
[2018-05-30 21:27] VITALS: BP 120/61; PULSE 66; RESP 18
[2018-05-31] VITALS (8 sets, daily range): BP systolic 95–118; BP diastolic 56–78; PULSE 62–72; RESP 16–18
--- NOTE | 2018-05-31 00:02 | CONS ---
DATE OF ADMISSION: 05/29/2018 DATE OF CONSULTATION: TYPE OF CONSULTATION: Gastroenterology. Dear Dr. Blunt: Thank you for asking me to see Mrs. Hadley in GI consultation. HISTORY OF PRESENT ILLNESS: The patient, as you know, is a 57-year-old Stateless female, who was admit renetta to the hospital because of history of shortness of breath and she had a thoracentesis done today. She has multiple other medical problems including the fact that she is not able to walk. GI consulta tion was requested because of persistent diarrhea. She says the diarrhea has been going on for a num marni of years. Many years ago, she had a normal colonoscopy. She says she does have difficulty havin g bowel movements as soon as she eats. Sometimes she has diarrhea even when she does not eat. MEDICATIONS: She has been on multiple medications prior to the admission, which includes: 1. Albuterol 2. Hydrocodone. 3. Reglan. 4. Nicoderm. 5. Inderal. 6. Protonix. 7. Digoxin. 8. Lopressor. 9. Ambien. 10. Eliquis. 11. Tylenol. 12. Multivitamins. REVIEW OF SYSTEM: Uses a wheelchair and a walker because of the inability to walk from the stroke. From the GI standpoint, she has no nausea, no vomiting, no GI bleeding. She has no significant abdom inal pain. Apparently, she also smokes again. Again, review of system as mentioned earlier, she has multiple pr oblems which includes pacemaker insertion, pleural effusion, weight loss. She lost 80 pounds of weig ht. Hearing impairment. Sometimes she has got urinary and fecal incontinence, history of cholecyste ctomy, diabetes, irritable bowel syndrome. 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 PHYSICAL EXAMINATION: GENERAL: The patient is a 57-year-old Stateless female. She appears to be well-built. VITAL SIGNS: Temperature 98.6, pulse is 68, blood pressure is 110/75. CARDIOVASCULAR: Normal heart sounds. RESPIRATORY: Normal breath sounds. ABDOMEN: Showed soft abdomen with no palpable masses. No tenderness. No distention. LABORATORY WORKUP: WBC count is 5700, hemoglobin is 13.2. The chemistry shows potassium 3.9, biliru bin 1.2, AST 27, ALT 12, alkaline phosphatase 182, lipase of 68. CEA is 5.7. Chest x-ray shows bila teral pleural effusion with atelectasis. X-ray of the abdomen showed a haustral markings thickening, hepatomegaly, prior cholecystectomy. CLINICAL IMPRESSION: From the GI standpoint, the patient has chronic diarrhea. Based on the fact th at there is some haustral thickening, the KUB could be suggestive of chronic ulcerative colitis and d oubt C. difficile colitis, doubt colonic malignancy, although it could not be excluded. Other medical problems essentially as mentioned above. PLAN: Recommend colonoscopy then further management based on the colonoscopic findings. Once again, Dr. Blunt, thank you for this consultation. Dictated By: JULIO CARNES MD [place]/NTS Conf#: [id number] DID#: [id number] CC: LANNY BLUNT MD;*EndCC*
[2018-05-31] MEDS: LACTULOSE 30ML CUP PO SCH ×4 (00:33→11:50)
[2018-05-31] MEDS: PANTOPRAZOLE 40 MG INJ IV SCH (05:25)
--- NOTE | 2018-05-31 07:10 | CONS ---
DATE OF ADMISSION: 05/29/2018 DATE OF CONSULTATION: Dear Dr. Blunt: Thank you for asking me to see Mrs. Hadley in GI consultation. As you know, patient is a 57-yea r-old [place] female who was admitted to the hospital because of respiratory distress and that she naranjo d a thoracentesis done today. Dictated By: JULIO VALENCIA/NTS Conf#: [id number] DID#: [id number]
--- NOTE | 2018-05-31 07:56 | RADRPT ---
Echocardiogram Report Patient Name: Catalina CORRIGAN ID: [id number] : 1960 (57y 8m)Study Date: 05/30/2018 2:13:19 PM Gender: FAccession #: [id number] Tech: Driss Kelly [facility] Location: [facility]- Ref.Physician: KETAN GARNER Height(Cm): BSA: Weight(Kg): Quality: AdequateAccount #: Procedures: Echocardiographic Report: Transthoracic echocardiogram with complete 2D, M-Mode, and doppler examination. Indications: Cardiomyopathy, and Congestive Heart Failure. Measurements: 2D/M Mode Doppler Measurement Value Normal Range Measurement Value Normal Range LVIDd 2D 4.8 [ 3.8 - 5.2 ] cm AV Peak Eric 0.8 [ 100.0 - 170.0 ] cm/sec LVIDs 2D 3.9 [ 2.2 - 3.5 ] cm AV Peak PG 3.0 [ 2.0 - 9.0 ] mmHg LVPWd 2D 1.2 [ 0.6 - 0.9 ] cm LVOT Peak Eric 0.6 [ 70.0 - 110.0 ] cm/sec IVSd 2D 1.2 [ 0.6 - 0.9 ] cm LVOT Peak PG 2.0 [ 2.0 - 6.0 ] mmHg AoR Diam 2D 2.2 [ 2.3 - 3.1 ] cm MV E Peak Eric 0.7 [ 60.0 - 130.0 ] cm/sec EDV 2D 108.0 [ 46.0 - 106.0 ] ml MV A Peak Eric 0.2 [ 100.0 - 120.0 ] cm/sec ESV 2D 64.3 [ 14.0 - 42.0 ] ml MV E/A 3.7 [ 0.8 - 1.5 ] ratio EF 2D 40.5 [ 54.0 - 74.0 ] percent MV Decel Time 117 [ 104 - 258 ] msec LA Dimen 2D 4.7 [ 2.7 - 3.8 ] cm Lat E` Eric 0.1 [ 10.0 - 15.0 ] cm/sec Lateral E/E` 13.5 [ 1.0 - 2.0 ] ratio Med E` Eric 0.1 cm/sec MV E/A 3.7 [ 0.8 - 1.5 ] ratio TAPSE 1.3 [ 1.7 - 3.0 ] cm TR Peak Eric 3.8 [ 100.0 - 280.0 ] cm/sec TR Peak PG 58.0 mmHg RVSP 66.0 [ 10.0 - 36.0 ] mmHg Findings: Left Ventricle: Normal left ventricular cavity size. Mild concentric left ventricular hypertrophy. Severe global left ventricular systolic dysfunction. Ejection fraction is visually estimated at 25-30 %. Right Ventricle: Mild enlargement of right ventricle. Moderate right ventricular hypokinesis. Linear artifact in right ventricle suggestive of catheter, pacer lead, or ICD lead. Left Atrium: There is severe enlargement of left atrium. Right Atrium: There is severe enlargement of right atrium. Mitral Valve: Mild mitral leaflet calcification. Mild mitral annular calcification. Trace mitral regurgitation. Aortic Valve: Normal appearance of the aortic valve. No significant aortic stenosis or insufficiency. Tricuspid Valve: Normal appearance of the tricuspid valve. Estimated peak PA systolic pressure 66 mmHg. There is mild to moderate tricuspid regurgitation. Pulmonic Valve: Pulmonic valve not well visualized. Pericardium: Normal pericardium with no significant pericardial effusion. Aorta: Normal aortic root. IVC: Normal size with poor respiratory collapse consistent with elevated right atrial pressure. Conclusions: Normal left ventricular cavity size. Mild concentric left ventricular hypertrophy. Severe global left ventricular systolic dysfunction. Ejection fraction is visually estimated at 25-30 %. Mild enlargement of right ventricle. Moderate right ventricular hypokinesis. There is mild to moderate tricuspid regurgitation. Linear artifact in right ventricle suggestive of catheter, pacer lead, or ICD lead. There is severe enlargement of left atrium.There is severe enlargement of right atrium. Moderate pulmonary hypertension with estimated peak PA systolic pressure 66 mmHg based on RA pressure of 8 mmHg. Electronically Signed By: Ketan Garner 2018-05-31 07:55:33 PST
--- NOTE | 2018-05-31 08:21 | CONS ---
Assessment/Plan Assessment/Plan Hospital Course (Demo Recall) Acute on chronic systolic heart failure: euvolemic now NICM: EF 25-30% BiV ICD for primary prevention: ([employer], initial implant 2012, then 2014 with LV lead). Interrogation 05/30 normal, no events, 4.5 yrs left Paroxysmal vs chronic afib: on Eliquis AV node ablation Pulm HTN: PAP 60s on echo. Multifactorial including intrinsic lung disease and left heart failure Pleural effusion: s/p thora 05/30 with 1 L removed Chronic diarrhea COPD Active tobacco use DM -ok to proceed with colonoscopy as pt is optimized. -metoprolol succinate 25mg daily -will try adding ACEI if she agrees -continue digoxin (being used for cardiomyopathy). Level ok -restart Eliquis 5mg BID after procedures complete Consultation Date/Type/Reason Admit Date/Time May 29, 2018 at 16:08 Initial Consult Date 05/30/18 Type of Consult Cardiology Requesting Provider: LANNY SMITH MD Date/Time of Note DATE: 05/31/18 TIME: 08:17 24 HR Interval Summary Free Text/Dictation s/p thoracentesis yesterday with 1 L removed. Plan for colonoscopy today No complaints Exam/Review of Systems Exam Vitals Vital Signs Date Temp Pulse Resp B/P (MAP) Pulse Ox O2 O2 Flow FiO2 Time Delivery Rate 05/31/18 98.1 71 16 97/62 (74) 96 02:45 05/30/18 21 23:46 05/30/18 Nasal 2.0 19:30 Cannula Intake and Output 05/30/18 05/30/18 05/31/18 1515:00 23:00 07:00 IntakeIntake Total 150 ml BalanceBalance 150 ml Constitutional: alert, oriented Psych: no complaints, nl mood/affect Neck: No jvd Respiratory: wheezing (mild anterior ); No clear to auscultation Cardiovascular: regular rate and rhythm; No edema, No systolic murmur Gastrointestinal: soft, non-tender; No distended 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: nl mental status, nl speech Results Result Diagram: 05/31/182 05/31/18441 Results 24hrs Laboratory Tests Test 05/30/18 10:00 05/30/18 13:05 05/30/18 15:30 05/31/18 02:30 Stool Occult NEGATIVE Blood Platelet Count 248 Prothrombin Time 22.9 H Prothrombin Time 1.8 Ratio INR International 2.02 Normalized Ratio Activated 41.9 H Partial Thrombopl ast Time Thrombin Time 15.7 Body Fluid Type THORACENTESIS FL UID Body Fluid Volume 1050.0 Body Fluid Color YELLOW Body Fluid CLEAR Appearance Body Fluid WBC 173 Body Fluid RBC 0 (Auto) Body Fluid 28.4 Polynuclear WBCs (%) Body Fluid 71.6 Mononuclear Cells % Auto Body Fluid 87 Glucose Body Fluid Total 2.6 Protein Body Fluid 199 Lactate Dehydroge nase Urine Color YELLOW Urine Clarity CLEAR Urine pH 6.0 Urine Specific 1.008 [place] Urine Ketones NEGATIVE Urine Nitrite NEGATIVE Urine Bilirubin NEGATIVE Urine 2+ H Urobilinogen Urine Leukocyte NEGATIVE Esterase Urine Eosinophils 0.0 % Urine Hemoglobin NEGATIVE Urine Random 65.42 Creatinine Urine Random 24 L Sodium Urine 0.36 Protein/Creatinin e Ratio Urine Glucose NEGATIVE Urine Total NEGATIVE Protein Urine Opiates Positive Screen Urine Negative Barbiturates Urine Negative Amphetamines Screen Urine Positive Benzodiazepines Screen Urine Cocaine Negative Screen Urine Negative Cannabinoids Test 05/31/18 04:42 Platelet Count 246 Prothrombin Time 18.7 H Prothrombin Time 1.5 Ratio INR International 1.55 Normalized Ratio Activated 37.0 H Partial Thrombopl ast Time Thrombin Time 16.0 Sodium Level 141 Potassium Level 3.9 Chloride Level 106 Carbon Dioxide 25 Level Anion Gap 10 Blood Urea 9 Nitrogen Creatinine 0.84 Est Glomerular > 60 Filtrat Rate mL/min Glucose Level 96 Calcium Level 10.0 Total Bilirubin 1.5 H Direct Bilirubin 0.30 #H Indirect 1.2 H Bilirubin Aspartate Amino 26 Transf (AST/SGOT) Alanine 7 L Aminotransferase (ALT/SGPT) Alkaline 146 H Phosphatase Total Protein 7.4 Albumin 4.1 Digoxin Level 0.7 L Medications Medication Current Medications Albuterol/ Ipratropium (Duoneb) 3 ml Q8H RESP THERAPY HHN Last administered on 05/30/18at 23:46; Admin Dose 3 ML; Start 05/29/18 at 21:30 Acetaminophen/ Hydrocodone Bitart ([place] (10/325)) 1 tab Q8H PRN PO PAIN; Start 05/29/18 at 20:30 Metoclopramide HCl (Reglan) 5 mg Q8H PRN IV NAUSEA AND/OR VOMITING; Start 05/29/18 at 20:30 Nicotine (Nicoderm 14 Mg/ 24hr) 1 patch DAILY TRANSDERM Last administered on 05/30/18at 09:44; Admin Dose 1 PATCH; Start 05/30/18 at 09:00 Pantoprazole (Protonix Iv) 40 mg DAILY@06 IV Last administered on 05/31/18at 05:25; Admin Dose 40 MG; Start 05/30/18 at 06:00 Zolpidem Tartrate (Ambien) 10 mg QHS PRN PO SLEEP Last administered on 05/29/18at 23:08; Admin Dose 10 MG; Start 05/29/18 at 21:00 Acetaminophen (Tylenol Tab) 500 mg Q6H PRN PO MILD PAIN(1-3)OR ELEVATED TEMP; Start 05/29/18 at 21:00 Metoprolol Succinate (Toprol Xl) 25 mg DAILY PO ; Start 05/30/18 at 11:00 Digoxin (Digoxin) 0.125 mg DAILY@1300 PO Last administered on 05/30/18at 13:53; Admin Dose 0.125 MG; Start 05/30/18 at 13:46 Albuterol (Ventolin Hfa) 2 puff Q8H RESP THERAPY PRN INH SHORTNESS OF BREATH; Start 05/30/18 at 15:00 Lactulose (Enulose) 20 gm Q3 PO Last administered on 05/31/18at 05:25; Admin Dos e 20 GM; Start 05/30/18 at 21:00 KETAN GAMBOA May 31, 2018 08:21
--- NOTE | 2018-05-31 08:47 | PN ---
Date/Time of Note Date/Time of Note DATE: 05/31/18 TIME: 08:40 Assessment/Plan VTE Prophylaxis Risk score (from Nsg)>0 risk: 5 SCD applied (from Ns): Yes SCD contraindicated: low risk/ambulating Pharmacological prophylaxis: apixaban Lines/Catheters IV Catheter Type (from Nrs): [place] Lock Central line still needed: No Urinary Cath still in place: No Reason Cath still needed: urinary retention, other (indicate) (On and off incontinent. On and off fecal incontinence.) Assessment/Plan Assessment/Plan 1. Respiratory distress got worse 2. COPD exacerbation 3. Status post left subclavian area pacemaker implantation AV sequential not checked for last 2 years. 4. Right pleural effusion-s/p one liter of pleural fluid evacuation. 5. Diarrhea for years being on antimotility medications mainly low material with mild improvement. 6. Episodes of constipation 7. Significant weight loss according to her about 40 kg during the last 24 years,; but by calculations it becomes like about 25-20 kg. 8. Hearing impairment 9. Permanent deconditioning with severe muscular weakness unable to get up and stand by herself with severe decrease of muscular tone was strained mass 10. Urinary and fecal incontinence 11. Status post cholecystectomy 12. Nicotine addiction 13. PTSD 14. Mild elevation of the CEA 15. Kyphosis 16. Osteoporosis 17. Diabetes type 2 blood sugar improved after weight loss 18. Dehydration 19. Malnourishment 20. Noncompliance 21. Irritable bowel syndrome 22. Hemorrhoidal disease with recurrent rectal bleeding 23.Hx of paroxysmal a. fibrillation with low LVEF- on ICD 24. Tricuspid insufficiency with a very large left and right atrium on echo cardiography 25. Pulmonary hypertension with systolic pressure in the pulmonary artery 66 mm of hg. 26. Elevation of central venous pressure 25.incomplete data Result Diagram: 05/31/18 0442 05/31/18 0442 Results 24hrs Laboratory Tests Test 05/30/18 10:00 05/30/18 13:05 05/30/18 15:30 05/31/18 02:30 Stool Occult NEGATIVE Blood Platelet Count 248 Prothrombin Time 22.9 H Prothrombin Time 1.8 Ratio INR International 2.02 Normalized Ratio Activated 41.9 H Partial Thrombopl ast Time Thrombin Time 15.7 Body Fluid Type THORACENTESIS FL UID Body Fluid Volume 1050.0 Body Fluid Color YELLOW Body Fluid CLEAR Appearance Body Fluid WBC 173 Body Fluid RBC 0 (Auto) Body Fluid 28.4 Polynuclear WBCs (%) Body Fluid 71.6 Mononuclear Cells % Auto Body Fluid 87 Glucose Body Fluid Total 2.6 Protein Body Fluid 199 Lactate Dehydroge nase Urine Color YELLOW Urine Clarity CLEAR Urine pH 6.0 Urine Specific 1.008 [place] Urine Ketones NEGATIVE Urine Nitrite NEGATIVE Urine Bilirubin NEGATIVE Urine 2+ H Urobilinogen Urine Leukocyte NEGATIVE Esterase Urine Eosinophils 0.0 % Urine Hemoglobin NEGATIVE Urine Random 65.42 Creatinine Urine Random 24 L Sodium Urine 0.36 Protein/Creatinin e Ratio Urine Glucose NEGATIVE Urine Total NEGATIVE Protein Urine Opiates Positive Screen Urine Negative Barbiturates Urine Negative Amphetamines Screen Urine Positive Benzodiazepines Screen Urine Cocaine Negative Screen Urine Negative Cannabinoids Test 05/31/18 04:42 Platelet Count 246 Prothrombin Time 18.7 H Prothrombin Time 1.5 Ratio INR International 1.55 Normalized Ratio Activated 37.0 H Partial Thrombopl ast Time Thrombin Time 16.0 Sodium Level 141 Potassium Level 3.9 Chloride Level 106 Carbon Dioxide 25 Level Anion Gap 10 Blood Urea 9 Nitrogen Creatinine 0.84 Est Glomerular > 60 Filtrat Rate mL/min Glucose Level 96 Calcium Level 10.0 Total Bilirubin 1.5 H Direct Bilirubin 0.30 #H Indirect 1.2 H Bilirubin Aspartate Amino 26 Transf (AST/SGOT) Alanine 7 L Aminotransferase (ALT/SGPT) Alkaline 146 H Phosphatase Total Protein 7.4 Albumin 4.1 Digoxin Level 0.7 L Subjective 24 Hr Interval Summary Free Text/Dictation My breathing improved. Having diarrhea. I cannot control my urination and defecation. No fever and chills. Afraid to eat. Discussed the necessity of colonoscopy. Discussed elevation of liver function tests including alkaline phosphatase and total bili. Constitutional: poor po, requiring IVF, requiring O2 Eyes: No no complaints, No pain, No discharge, No redness, No visual change, No other ENT: No no complaints, No bleeding, No pain, No congestion, No discharge, No dysphagia, No sore throat, No other Respiratory: cough, shortness of breath, sputum, wheezing; No no complaints, No pain, No pleuritic pain, No other Cardiovascular: chest pain, edema, orthopenea, palpitations, paroxysmal nocturnal dyspnea; No no complaints, No lightheadedness, No other Gastrointestinal: pain, decreased appetite, diarrhea, flatus, nausea, passing stool; No no complaints, No blood, No constipation, No vomiting, No other Genitourinary: dysuria, flank pain; No no complaints, No bleeding, No discharge, No hematuria, No other Musculoskeletal: back pain, bone/joint pain, neck pain; No no complaints, No restricted range of motion, No swelling, No other Skin: pruritis, rash; No no complaints, No bruising, No erythema, No laceration, No skin lesions, No other Neurologic: confusion (On and off. Very passive. Also very cautious with the fearful unable to get up without assistance. Severe deconditioning.), dizziness, headache; No no complaints, No focal-weakness, No syncope, No seizure, No other Endocrine: dry skin; No no complaints, No polyuria, No polydypsia, No temp intolerance, No other Lymphatic: No no complaints, No adenopathy, No tender nodes, No lymphadema, No other Psychological: anxiety, confusion; No no complaints, No nl mood/affect, No depression, No suicidal, No other Exam/Review of Systems Exam Vitals Vital Signs Date Temp Pulse Resp B/P (MAP) Pulse Ox O2 O2 Flow FiO2 Time Delivery Rate 05/31/18 97.8 70 16 97/63 (74) 96 Room Air 07:20 05/30/18 21 23:46 05/30/18 2.0 19:30 Intake and Output 05/30/18 05/30/18 05/31/18 1515:00 23:00 07:00 IntakeIntake Total 150 ml BalanceBalance 150 ml Constitutional: alert, oriented, well developed, distress, frail, obese; No non-verbal, No other Psych: anxiety, depression; No no complaints, No nl mood/affect, No confusion, No suicidal, No other Head: normocephalic, atraumatic; No lacerations, No hematomas, No other Eyes: EOMI, nl lids, PERRL; No nl conjunctiva, No nl sclera, No icteric, No fundi, disc, No other ENMT: mucosa pink and moist, tympanic membranes; No nl external ears & nose, No nl lips & teeth, No nl nasal mucosa & septum, No intubated, No other Neck: jvd, bruits, thyromegaly, nuchal rigidity; No supple, No non-tender, No masses, No other Respiratory: normal air movement, congested cough, crackles/rales, diminished breath sounds, intercostal retraction Cardiovascular: nl pulses, bruits, edema, jugular venous distention (JVD), systolic murmur; No regular rate and rhythm, No diastolic murmur, No gallop, No irregular rhythm, No murmurs/extra sounds, No rub, No S3, No S4, No other Gastrointestinal: soft, nl liver, spleen, bowel sounds (Increased.), distended; No non-tender, No ascites, No firm, No hepatomegaly, No mass, No rebound or guarding, No splenomegaly, No surgical scars, No tender, No other Musculoskeletal: muscle tone, muscle weakness (Severely decreased.); No nl extremities to inspection, No nl gait and stance, No joint tenderness, No range of motion, No spine non-tender, No swelling, No other Extremities: No normal pulses, No calf tenderness, No cyanosis, No clubbing, No edema, No pitting pedal edema, No palpable cord, No tenderness, No other 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: ELECTRICAL JOURNEYMAN II-XII intact; No nl mental status, No nl speech, No nl strength, No confused, No DTR's symmetric, No focal weakness, No lethargic, No numbness, No reflexes, No unrespo nsive, No other Results Results 24hrs Laboratory Tests Test 05/30/18 10:00 05/30/18 13:05 05/30/18 15:30 05/31/18 02:30 Stool Occult NEGATIVE Blood Platelet Count 248 Prothrombin Time 22.9 H Prothrombin Time 1.8 Ratio INR International 2.02 Normalized Ratio Activated 41.9 H Partial Thrombopl ast Time Thrombin Time 15.7 Body Fluid Type THORACENTESIS FL UID Body Fluid Volume 1050.0 Body Fluid Color YELLOW Body Fluid CLEAR Appearance Body Fluid WBC 173 Body Fluid RBC 0 (Auto) Body Fluid 28.4 Polynuclear WBCs (%) Body Fluid 71.6 Mononuclear Cells % Auto Body Fluid 87 Glucose Body Fluid Total 2.6 Protein Body Fluid 199 Lactate Dehydroge nase Urine Color YELLOW Urine Clarity CLEAR Urine pH 6.0 Urine Specific 1.008 [place] Urine Ketones NEGATIVE Urine Nitrite NEGATIVE Urine Bilirubin NEGATIVE Urine 2+ H Urobilinogen Urine Leukocyte NEGATIVE Esterase Urine Eosinophils 0.0 % Urine Hemoglobin NEGATIVE Urine Random 65.42 Creatinine Urine Random 24 L Sodium Urine 0.36 Protein/Creatinin e Ratio Urine Glucose NEGATIVE Urine Total NEGATIVE Protein Urine Opiates Positive Screen Urine Negative Barbiturates Urine Negative Amphetamines Screen Urine Positive Benzodiazepines Screen Urine Cocaine Negative Screen Urine Negative Cannabinoids Test 05/31/18 04:42 Platelet Count 246 Prothrombin Time 18.7 H Prothrombin Time 1.5 Ratio INR International 1.55 Normalized Ratio Activated 37.0 H Partial Thrombopl ast Time Thrombin Time 16.0 Sodium Level 141 Potassium Level 3.9 Chloride Level 106 Carbon Dioxide 25 Level Anion Gap 10 Blood Urea 9 Nitrogen Creatinine 0.84 Est Glomerular > 60 Filtrat Rate mL/min Glucose Level 96 Calcium Level 10.0 Total Bilirubin 1.5 H Direct Bilirubin 0.30 #H Indirect 1.2 H Bilirubin Aspartate Amino 26 Transf (AST/SGOT) Alanine 7 L Aminotransferase (ALT/SGPT) Alkaline 146 H Phosphatase Total Protein 7.4 Albumin 4.1 Digoxin Level 0.7 L Medications Medication Current Medications Albuterol/ Ipratropium (Duoneb) 3 ml Q8H RESP THERAPY HHN Last administered on 05/30/18at 23:46; Admin Dose 3 ML; Start 05/29/18 at 21:30 Acetaminophen/ Hydrocodone Bitart ([place] (10/325)) 1 tab Q8H PRN PO PAIN; Start 05/29/18 at 20:30 Metoclopramide HCl (Reglan) 5 mg Q8H PRN IV NAUSEA AND/OR VOMITING; Start 05/29/18 at 20:30 Nicotine (Nicoderm 14 Mg/ 24hr) 1 patch DAILY TRANSDERM Last administered on 05/30/18at 09:44; Admin Dose 1 PATCH; Start 05/30/18 at 09:00 Pantoprazole (Protonix Iv) 40 mg DAILY@06 IV Last administered on 05/31/18at 05:25; Admin Dose 40 MG; Start 05/30/18 at 06:00 Zolpidem Tartrate (Ambien) 10 mg QHS PRN PO SLEEP Last administered on 05/29/18at 23:08; Admin Dose 10 MG; Start 05/29/18 at 21:00 Acetaminophen (Tylenol Tab) 500 mg Q6H PRN PO MILD PAIN(1-3)OR ELEVATED TEMP; Start 05/29/18 at 21:00 Metoprolol Succinate (Toprol Xl) 25 mg DAILY PO ; Start 05/30/18 at 11:00 Digoxin (Digoxin) 0.125 mg DAILY@1300 PO Last administered on 05/30/18at 13:53; Admin Dose 0.125 MG; Start 05/30/18 at 13:46 Albuterol (Ventolin Hfa) 2 puff Q8H RESP THERAPY PRN INH SHORTNESS OF BREATH; Start 05/30/18 at 15:00 Lactulose (Enulose) 20 gm Q3 PO Last administered on 05/31/18at 05:25; Admin Dose 20 GM; Start 05/30/18 at 21:00 LANNY SMITH MD May 31, 2018 08:47
[2018-05-31] MEDS: ALBUTEROL/IPRATROPIUM (NEB) 3 ML AMP HHN SCH ×2 (09:41→16:00)
[2018-05-31] MEDS: NICOTINE (14 MG/24 HR) PATCH TRANSDERM SCH (09:58)
[2018-05-31] MEDS: METOPROLOL (XL) 25 MG TAB PO SCH (09:58)
--- NOTE | 2018-05-31 10:25 | CONS ---
Assessment/Plan Assessment/Plan Assessment/Plan (Daily) 1. Hypercalcemia 2. acute on chronic systolic heart failure 3. H/o NICM with EF 35% s/p AICD placement 4. H/o paroxysmal atrial fibrillation s/p AV node ablation 5. h/o HTN 6. H/o DM II 7. Fluid overload with moderate R pleural euffusion s/p R thoracentesis 1 L removed on 05/29/18 8. H/o HL Plan: S/p thoracentesis today 1 L removed, BUN/Cr remained stable, IVF stopped Pulmonary has been consulted on the case will follow up , Ca normal today Consultation Date/Type/Reason Admit Date/Time May 29, 2018 at 16:08 Initial Consult Date 05/30/18 Type of Consult NEPHROLOGY Requesting Provider: LANNY SMITH MD Date/Time of Note DATE: 05/31/18 TIME: 10:25 Exam/Review of Systems Exam Vitals Vital Signs Date Temp Pulse Resp B/P (MAP) Pulse Ox O2 O2 Flow FiO2 Time Delivery Rate 05/31/18 70 18 98 21 09:41 05/31/18 97.8 97/63 (74) Room Air 07:20 05/30/18 2.0 19:30 Intake and Output 05/30/18 05/30/18 05/31/18 1515:00 23:00 07:00 IntakeIntake Total 150 ml BalanceBalance 150 ml Exam Constitutional: alert Respiratory: crackles/rales, diminished breath sounds Cardiovascular: regular rate and rhythm, nl pulses Gastrointestinal: soft, non-tender Musculoskeletal: nl extremities to inspection, swelling Extremities: normal pulses 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: EXCHANGE OPERATOR II-XII intact, nl mental status, nl speech, nl strength Results Result Diagram: 05/31/1844105/31/18441 Results 24hrs Laboratory Tests Test 05/30/18 13:05 05/30/18 15:30 05/31/18 02:30 05/31/18 04:42 Platelet Count 248 246 Prothrombin Time 22.9 H 18.7 H Prothrombin Time 1.8 1.5 Ratio INR International 2.02 1.55 Normalized Ratio Activated 41.9 H 37.0 H Partial Thrombopl ast Time Thrombin Time 15.7 16.0 Body Fluid Type THORACENTESIS FL UID Body Fluid Volume 1050.0 Body Fluid Color YELLOW Body Fluid CLEAR Appearance Body Fluid WBC 173 Body Fluid RBC 0 (Auto) Body Fluid 28.4 Polynuclear WBCs (%) Body Fluid 71.6 Mononuclear Cells % Auto Body Fluid 87 Glucose Body Fluid Total 2.6 Protein Body Fluid 199 Lactate Dehydroge nase Urine Color YELLOW Urine Clarity CLEAR Urine pH 6.0 Urine Specific 1.008 [place] Urine Ketones NEGATIVE Urine Nitrite NEGATIVE Urine Bilirubin NEGATIVE Urine 2+ H Urobilinogen Urine Leukocyte NEGATIVE Esterase Urine Eosinophils 0.0 % Urine Hemoglobin NEGATIVE Urine Random 65.42 Creatinine Urine Random 24 L Sodium Urine 0.36 Protein/Creatinin e Ratio Urine Glucose NEGATIVE Urine Total NEGATIVE Protein Urine Opiates Positive Screen Urine Negative Barbiturates Urine Negative Amphetamines Screen Urine Positive Benzodiazepines Screen Urine Cocaine Negative Screen Urine Negative Cannabinoids Sodium Level 141 Potassium Level 3.9 Chloride Level 106 Carbon Dioxide 25 Level Anion Gap 10 Blood Urea 9 Nitrogen Creatinine 0.84 Est Glomerular > 60 Filtrat Rate mL/min Glucose Level 96 Calcium Level 10.0 Total Bilirubin 1.5 H Direct Bilirubin 0.30 #H Indirect 1.2 H Bilirubin Aspartate Amino 26 Transf (AST/SGOT) Alanine 7 L Aminotransferase (ALT/SGPT) Alkaline 146 H Phosphatase Total Protein 7.4 Albumin 4.1 Digoxin Level 0.7 L Medications Medication Current Medications Albuterol/ Ipratropium (Duoneb) 3 ml Q8H RESP THERAPY HHN Last administered on 05/31/18at 09:41; Admin Dose 3 ML; Start 05/29/18 at 21:30 Acetaminophen/ Hydrocodone Bitart ([place] (10/325)) 1 tab Q8H PRN PO PAIN; Start 05/29/18 at 20:30 Metoclopramide HCl (Reglan) 5 mg Q8H PRN IV NAUSEA AND/OR VOMITING; Start 05/29/18 at 20:30 Nicotine (Nicoderm 14 Mg/ 24hr) 1 patch DAILY TRANSDERM Last administered on 05/31/18at 09:58; Admin Dose 1 PATCH; Start 05/30/18 at 09:00 Pantoprazole (Protonix Iv) 40 mg DAILY@06 IV Last administered on 05/31/18at 05:25; Admin Dose 40 MG; Start 05/30/18 at 06:00 Zolpidem Tartrate (Ambien) 10 mg QHS PRN PO SLEEP Last administered on 05/29/18at 23:08; Admin Dose 10 MG; Start 05/29/18 at 21:00 Acetaminophen (Tylenol Tab) 500 mg Q6H PRN PO MILD PAIN(1-3)OR ELEVATED TEMP; Start 05/29/18 at 21:00 Metoprolol Succinate (Toprol Xl) 25 mg DAILY PO Last administered on 05/31/18at 09:58; Admin Dose 25 MG; Start 05/30/18 at 11:00 Digoxin (Digoxin) 0.125 mg DAILY@1300 PO Last administered on 05/30/18at 13:53; Admin Dose 0.125 MG; Start 05/30/18 at 13:46 Albuterol (Ventolin Hfa) 2 puff Q8H RESP THERAPY PRN INH SHORTNESS OF BREATH; Start 05/30/18 at 15:00 Lactulose (Enulose) 20 gm Q3 PO Last administered on 05/31/18at 05:25; Admin Dose 20 GM; Start 05/30/18 at 21:00 MARIA M HOLT MD May 31, 2018 10:25
--- NOTE | 2018-05-31 12:22 | CONS ---
Consult Date/Type/Reason Admit Date/Time May 29, 2018 at 16:08 Initial Consult Date 05/30/18 Type of Consult Pulmonary Requesting Provider: LANNY SMITH MD Date/Time of Note DATE: 05/31/18 TIME: 12:21 Subjective Patient comfortable this morning following thoracentesis 1 L. Pending EGD and colonoscopy. Objective Vital Signs Date Temp Pulse Resp B/P (MAP) Pulse Ox O2 O2 Flow FiO2 Time Delivery Rate 05/31/18 70 18 98 21 09:41 05/31/18 Nasal 2.0 08:30 Cannula 05/31/18 97.8 97/63 (74) 07:20 Intake and Output 05/30/18 05/30/18 05/31/18 1515:00 23:00 07:00 IntakeIntake Total 150 ml BalanceBalance 150 ml Exam PHYSICAL EXAMINATION: GENERAL: Chronically ill-appearing lady, appears comfortable at rest, in no acute distress. VITAL SIGNS: NECK: Supple. No JVD or lymphadenopathy. CARDIAC: S1, S2. No added sounds or murmur. CHEST: Diminished air entry bilaterally. ABDOMEN: Soft, nontender. No guarding or rebound. EXTREMITIES: No cyanosis, clubbing, edema. NEUROLOGIC: Generalized weakness. No focal deficits. Vent Setting Fraction of Inspired Oxygen pe: 21 Results/Medications Result Diagram: 05/31/182 05/31/182 Results 24 hrs Laboratory Tests Test 05/30/18 13:05 05/30/18 15:30 05/31/18 02:30 05/31/18 04:42 Platelet Count 248 246 Prothrombin Time 22.9 H 18.7 H Prothrombin Time 1.8 1.5 Ratio INR International 2.02 1.55 Normalized Ratio Activated 41.9 H 37.0 H Partial Thrombopl ast Time Thrombin Time 15.7 16.0 Body Fluid Type THORACENTESIS FL UID Body Fluid Volume 1050.0 Body Fluid Color YELLOW Body Fluid CLEAR Appearance Body Fluid WBC 173 Body Fluid RBC 0 (Auto) Body Fluid 28.4 Polynuclear WBCs (%) Body Fluid 71.6 Mononuclear Cells % Auto Body Fluid 87 Glucose Body Fluid Total 2.6 Protein Body Fluid 199 Lactate Dehydroge nase Urine Color YELLOW Urine Clarity CLEAR Urine pH 6.0 Urine Specific 1.008 [place] Urine Ketones NEGATIVE Urine Nitrite NEGATIVE Urine Bilirubin NEGATIVE Urine 2+ H Urobilinogen Urine Leukocyte NEGATIVE Esterase Urine Eosinophils 0.0 % Urine Hemoglobin NEGATIVE Urine Random 65.42 Creatinine Urine Random 24 L Sodium Urine 0.36 Protein/Creatinin e Ratio Urine Glucose NEGATIVE Urine Total NEGATIVE Protein Urine Opiates Positive Screen Urine Negative Barbiturates Urine Negative Amphetamines Screen Urine Positive Benzodiazepines Screen Urine Cocaine Negative Screen Urine Negative Cannabinoids Sodium Level 141 Potassium Level 3.9 Chloride Level 106 Carbon Dioxide 25 Level Anion Gap 10 Blood Urea 9 Nitrogen Creatinine 0.84 Est Glomerular > 60 Filtrat Rate mL/min Glucose Level 96 Calcium Level 10.0 Total Bilirubin 1.5 H Direct Bilirubin 0.30 #H Indirect 1.2 H Bilirubin Aspartate Amino 26 Transf (AST/SGOT) Alanine 7 L Aminotransferase (ALT/SGPT) Alkaline 146 H Phosphatase Total Protein 7.4 Albumin 4.1 Digoxin Level 0.7 L Medications Current Medications Albuterol/ Ipratropium (Duoneb) 3 ml Q8H RESP THERAPY HHN Last administered on 05/31/18 09:41; Admin Dose 3 ML; Start 05/29/18 at 21:30 Acetaminophen/ Hydrocodone Bitart ([place] (10/325)) 1 tab Q8H PRN PO PAIN; Start 05/29/18 at 20:30 Metoclopramide HCl (Reglan) 5 mg Q8H PRN IV NAUSEA AND/OR VOMITING; Start 05/29/18 at 20:30 Nicotine (Nicoderm 14 Mg/ 24hr) 1 patch DAILY TRANSDERM Last administered on 05/31/18 09:58; Admin Dose 1 PATCH; Start 05/30/18 at 09:00 Pantoprazole (Protonix Iv) 40 mg DAILY@06 IV Last administered on 05/31/18 05 :25; Admin Dose 40 MG; Start 05/30/18 at 06:00 Zolpidem Tartrate (Ambien) 10 mg QHS PRN PO SLEEP Last administered on 05/29/18 23:08; Admin Dose 10 MG; Start 05/29/18 at 21:00 Acetaminophen (Tylenol Tab) 500 mg Q6H PRN PO MILD PAIN(1-3)OR ELEVATED TEMP; Start 05/29/18 at 21:00 Metoprolol Succinate (Toprol Xl) 25 mg DAILY PO Last administered on 05/31/18 09:58; Admin Dose 25 MG; Start 05/30/18 at 11:00 Digoxin (Digoxin) 0.125 mg DAILY@1300 PO Last administered on 05/30/18at 13:53; Admin Dose 0.125 MG; Start 05/30/18 at 13:46 Albuterol (Ventolin Hfa) 2 puff Q8H RESP THERAPY PRN INH SHORTNESS OF BREATH; Start 05/30/18 at 15:00 Lactulose (Enulose) 20 gm Q3 PO Last administered on 05/31/18at 11:50; Admin Dose 20 GM; Start 05/30/18 at 21:00 Assessment/Plan Hospital Course (Demo Recall) Impression 1. Pleural effusion of unclear etiology. Patient has significant prior tobacco history concerning for malignant effusion. 2. Significant anemia of unclear source. 3. History of significant EtOH Plan 1. Await cytology 2. Colonoscopy EGD today GI recommendations 3. Encourage out of bed ANA TREJO MD, [facility] May 31, 2018 12:22
[2018-05-31] MEDS: DIGOXIN 0.125 MG TAB PO SCH (13:49)
--- NOTE | 2018-05-31 16:34 | PREAC ---
Date/Time of Note Date/Time of Note DATE: 05/31/18 TIME: 16:30 Anesthesia Eval and Record Evaluation Time Pre-Procedure Interview DATE: 05/31/18 TIME: 16:30 Age 57 Sex female NPO: 8 hrs Preoperative diagnosis Chronic Diarrhea Planned procedure Colonoscopy Past Medical History Past Medical History: Includes Cardio: CHF, Other (ICD placement) Pulm: COPD GI: Other (IBD) Surgery & Anesthesia Issues No known issue Meds Anticoagulation: No Beta Arturo within 24 hr: Yes Reported Medications Apixaban* (Eliquis*) 2.5 Mg Tablet, 5 MG PO BID, TAB 05/29/18 Metoprolol Tartrate* (Lopressor*) 50 Mg Tab, 50 MG PO BID 05/29/18 Zolpidem Tartrate* (Zolpidem Tartrate*) 10 Mg Tablet, 10 MG PO QHS PRN for SLEEP 05/29/18 Digoxin* (Digox*) 125 Mcg Tablet, 125 MG PO DAILY 05/29/18 Discontinued Reported Medications Nicotine* (Nicotine* Patch) 21 mg/day Patch, 1 EACH TD DAILY, PATCH 05/29/18 Propranolol Hcl* (Propranolol Hcl*) 20 Mg Tablet, 20 MG PO DAILY PRN for PRN, TAB 05/29/18 Dexlansoprazole (Dexilant) 30 Mg Cap., 30 MG PO DAILY, #30 CAP 05/29/18 Metoclopramide Hcl* (Metoclopramide Hcl*) 5 Mg Tablet, 5 MG PO BID PRN for NAUSEA 05/29/18 Hydrocodone/Acetaminophen ([place] 10-325 Tablet) 1 Each Tablet, 1 EACH PO DAILY PRN for SEVERE PAIN LEVEL 7-10, TAB 05/29/18 Digoxin* (Digoxin*) 0.25 Mg Tab, 0.25 MG PO DAILY, TAB 08/15/14 Furosemide* (Furosemide*) 40 Mg Tablet, 40 MG PO DAILY, TAB 08/15/14 Albuterol Sulfate* (Ventolin HFA*) 18 Gm Hfa.aer.ad, 2 PUFF IH Q4H PRN for WHEEZING AND RESP DISTRESS, EA 08/15/14 Ubidecarenone (COQ10) 50 Mg Tab.chew, 50 MG PO DAILY, TAB.CHEW 08/15/14 Duloxetine Hcl* (Cymbalta*) 60 Mg Capsule.dr, 60 MG PO DAILY, CAP 08/15/14 Omeprazole* (Prilosec*) 20 Mg Capsule.dr, 20 MG PO HS, CAP 02/17/14 Discontinued Scripts Bumetanide* (Bumetanide*) 0.5 Mg Tab, 0.5 MG PO BID DIURETICS for 30 Days Prov:NINO RAMSEY 10/26/14 Nitroglycerin* (Nitrostat*) 25 Tab Subl, 0.4 MG SL Q5M PRN for CHEST PAIN, #30 Prov:NINO RAMSEY 10/26/14 Ranolazine* (Ranexa*) 500 Mg Tabsr, 1000 MG PO Q12 for 30 Days Prov:NINO RAMSEY 10/07/14 Metoprolol Tartrate* (Lopressor*) 25 Mg Tab, 25 MG PO BID for 30 Days, TAB Prov:NINO RAMSEY 10/07/14 Lisinopril* (Zestril*) 2.5 Mg Tablet, 2.5 MG PO DAILY for 30 Days, TAB Prov:NINO RAMSEY 09/27/14 Docusate Sodium* (Colace*) 100 Mg Cap, 100 MG PO BID for 30 Days Prov:NINO RAMSEY 09/27/14 Current Medications Albuterol/ Ipratropium (Duoneb) 3 ml Q8H RESP THERAPY HHN Last administered on 05/31/18at 09:41; Admin Dose 3 ML; Start 05/29/18 at 21:30 Acetaminophen/ Hydrocodone Bitart ([place] (10/325)) 1 tab Q8H PRN PO PAIN; Start 05/29/18 at 20:30 Metoclopramide HCl (Reglan) 5 mg Q8H PRN IV NAUSEA AND/OR VOMITING; Start 05/29/18 at 20:30 Nicotine (Nicoderm 14 Mg/ 24hr) 1 patch DAILY TRANSDERM Last administered on 05/31/18at 09:58; Admin Dose 1 PATCH; Start 05/30/18 at 09:00 Pantoprazole (Protonix Iv) 40 mg DAILY@06 IV Last administered on 05/31/18at 05:25; Admin Dose 40 MG; Start 05/30/18 at 06:00 Zolpidem Tartrate (Ambien) 10 mg QHS PRN PO SLEEP Last administered on 05/29/18at 23:08; Admin Dose 10 MG; Start 05/29/18 at 21:00 Acetaminophen (Tylenol Tab) 500 mg Q6H PRN PO MILD PAIN(1-3)OR ELEVATED TEMP; Start 05/29/18 at 21:00 Metoprolol Succinate (Toprol Xl) 25 mg DAILY PO Last administered on 05/31/18at 09:58; Admin Dose 25 MG; Start 05/30/18 at 11:00 Digoxin (Digoxin) 0.125 mg DAILY@1300 PO Last administered on 05/31/18at 13:49; Admin Dose 0.125 MG; Start 05/30/18 at 13:46 Albuterol (Ventolin Hfa) 2 puff Q8H RESP THERAPY PRN INH SHORTNESS OF BREATH; Start 05/30/18 at 15:00 Meds reviewed: Yes Allergies Coded Allergies: No Known Drug Allergies (Verified Allergy, Unknown, 12/01/14) Allergies Reviewed: Yes Labs/Studies Labs Reviewed: Reviewed by anesthesiologist Result Diagram: 05/31/18 0442 05/31/18 044 Laboratory Tests 05/31/18 04:42 test: N/A Studies: ECG (n/a), CXR (n/a) Pre-procedure Exam Last vitals Vital Signs Date Temp Pulse Resp B/P (MAP) Pulse Ox O2 O2 Flow FiO2 Time Delivery Rate 05/31/18 97.1 70 18 112/75 98 Room Air 16:21 (87) 05/31/18 21 09:41 05/31/18 2.0 08:30 Airway: Adequate mouth opening, Adequate thyromental dist Mallampati: Mallampati II Teeth: Normal Lung: Normal Heart: Normal ASA Physical Status ASA physical status: 3 Emergency: None Planned Anesthetic General/MAC: MAC Planned Pain Management Parenteral pain med Pre-operative Attestations Prior to commencing anesthesia and surgery, the patient was re-evaluated, there was verification of: *The patient's identity *The results of appropriate recent lab work and preoperative vital signs *The above evaluation not changing prior to induction *Anesthetic plan, risk benefits, alternative and complications discussed with patient/family; questions answered; patient/family understands, accepts and wishes to proceed. DAVID GARDNER MD May 31, 2018 16:34
[2018-05-31] MEDS ORDERED: PHENYLephrine (100 MCG/ML) 10ML SYG ONE (16:39)
[2018-05-31] MEDS ORDERED: PROPOFOL 20 ML ONE (16:56)
[2018-05-31] MEDS ORDERED: EPHEDrine 25 MG/5 ML SYG ONE (16:57)
--- NOTE | 2018-05-31 16:58 | PAC ---
Date/Time of Note Date/Time of Note DATE: 05/31/18 TIME: 16:58 Post-Anesthesia Notes Post-Anesthesia Note Last documented vital signs Vital Signs Date Temp Pulse Resp B/P (MAP) Pulse Ox O2 O2 Flow FiO2 Time Delivery Rate 05/31/18 97.1 70 18 112/75 98 Room Air 17:21 (87) 05/31/18 21 09:41 05/31/18 2.0 08:30 Activity: WNL Respiratory function: WNL Cardiovascular function: WNL Mental status: Baseline Pain reasonably controlled: Yes Hydration appropriate: Yes Nausea/Vomiting absent: Yes DAVID GARDNER MD May 31, 2018 16:58
[2018-05-31] MEDS ORDERED: HYDROmorphONE 1 MG/5 ML IV SYRINGE IV PRN (17:00)
[2018-05-31] MEDS ORDERED: hydrALAzine 20 MG INJ IV PRN (17:00)
[2018-05-31] MEDS ORDERED: METOCLOPRAMIDE 10 MG INJ IV PRN (17:00)
[2018-05-31] MEDS ORDERED: ONDANSETRON 4 MG INJ IV PRN (17:00)
[2018-05-31] MEDS ORDERED: EPHEDrine SULFATE 50 MG/5 ML SYG IV PRN (17:00)
[2018-05-31] MEDS ORDERED: FENTAnyl 50 MCG/ML VIAL IV PRN (17:00)
[2018-05-31] MEDS ORDERED: LABETALOL HCL 20MG INJ IV PRN (17:00)
[2018-05-31] MEDS ORDERED: PANTOPRAZOLE 40 MG INJ IV ONE (23:00)
[2018-05-31] MEDS ORDERED: PANT40VI7 PO (23:51)
--- NOTE | 2018-05-31 23:52 | PDOCDIS ---
Discharge Instructions DIAGNOSIS Discharge Diagnosis 1. Respiratory distress got worse 2. COPD exacerbation 3. Status post left subclavian area pacemaker implantation AV sequential not checked for last 2 years. 4. Right pleural effusion-s/p one liter of pleural fluid evacuation. 5. Diarrhea for years being on antimotility medications mainly low material with mild improvement. 6. Episodes of constipation 7. Significant weight loss according to her about 40 kg during the last 24 years,; but by calculations it becomes like about 25-20 kg. 8. Hearing impairment 9. Permanent deconditioning with severe muscular weakness unable to get up and stand by herself with severe decrease of muscular tone was strained mass 10. Urinary and fecal incontinence 11. Status post cholecystectomy 12. Nicotine addiction 13. PTSD 14. Mild elevation of the CEA 15. Kyphosis 16. Osteoporosis 17. Diabetes type 2 blood sugar improved after weight loss 18. Dehydration 19. Malnourishment 20. Noncompliance 21. Irritable bowel syndrome 22. Hemorrhoidal disease with recurrent rectal bleeding 23.Hx of paroxysmal a. fibrillation with low LVEF- on ICD 24. Tricuspid insufficiency with a very large left and right atrium on echo cardiography 25. Pulmonary hypertension with systolic pressure in the pulmonary artery 66 mm of hg. 26. Elevation of central venous pressure 25.incomplete data Result Diagram: CONDITION [id number] Patient Condition: [id number] Guarded HOME CARE INSTRUCTIONS: [id number] Diet Instructions: [id number] y [id number] Bathing Restrictions: [id number] Shower FOLLOW UP/APPOINTMENTS Follow-up Plan In one week to in 2 weeks to . SCHOOL/WORK RELEASE May return to School/Work with: With Restrictions (no.) LANNY SMITH MD May 31, 2018 23:52
[2018-06-01] MEDS: ALBUTEROL/IPRATROPIUM (NEB) 3 ML AMP HHN SCH ×2 (00:55→08:40)
[2018-06-01 02:00] VITALS: BP 95/65; PULSE 68; RESP 18
[2018-06-01] MEDS: PANTOPRAZOLE 40 MG INJ IV SCH (05:08)
[2018-06-01 08:00] VITALS: BP 100/72; PULSE 68; RESP 18
[2018-06-01] MEDS: NICOTINE (14 MG/24 HR) PATCH TRANSDERM SCH (09:06)
[2018-06-01] MEDS: METOPROLOL (XL) 25 MG TAB PO SCH (09:08)
--- NOTE | 2018-06-01 11:43 | CONS ---
Assessment/Plan Assessment/Plan Assessment/Plan (Daily) 1. Hypercalcemia 2. acute on chronic systolic heart failure 3. H/o NICM with EF 35% s/p AICD placement 4. H/o paroxysmal atrial fibrillation s/p AV node ablation 5. h/o HTN 6. H/o DM II 7. Fluid overload with moderate R pleural euffusion s/p R thoracentesis 1 L removed on 05/29/18 8. H/o HL Plan: S/p thoracentesis today 1 L removed, BUN/Cr remained stable, IVF stopped Pulmonary has been consulted on the case ok to d/c home today Consultation Date/Type/Reason Admit Date/Time May 29, 2018 at 16:08 Initial Consult Date 05/30/18 Type of Consult NEPHROLOGY Requesting Provider: LANNY SMITH MD Date/Time of Note DATE: 06/01/18 TIME: 11:43 Exam/Review of Systems Exam Vitals Vital Signs Date Temp Pulse Resp B/P (MAP) Pulse Ox O2 O2 Flow FiO2 Time Delivery Rate 06/01/18 Nasal 2.0 10:20 Cannula 06/01/18 71 18 95 21 08:40 06/01/18 98.8 100/72 08:00 (81) Intake and Output 05/31/18 05/31/18 06/01/18 1515:00 23:00 07:00 IntakeIntake Total 1500 ml BalanceBalance 1500 ml Exam Constitutional: alert Respiratory: crackles/rales, diminished breath sounds Cardiovascular: regular rate and rhythm, nl pulses Gastrointestinal: soft, non-tender Musculoskeletal: nl extremities to inspection, swelling Extremities: normal pulses 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: COIL WINDER REPAIR II-XII intact, nl mental status, nl speech, nl strength Results Result Diagram: 05/31/1844105/31/18441 Medications Medication Current Medications Albuterol/ Ipratropium (Duoneb) 3 ml Q8H RESP THERAPY HHN Last administered on 06/01/18at 08:40; Admin Dose 3 ML; Start 05/29/18 at 21:30 Acetaminophen/ Hydrocodone Bitart ([place] (10/325)) 1 tab Q8H PRN PO PAIN; S tart 05/29/18 at 20:30 Metoclopramide HCl (Reglan) 5 mg Q8H PRN IV NAUSEA AND/OR VOMITING Last admin istered on 05/31/18 22:41; Admin Dose 5 MG; Start 05/29/18 at 20:30 Nicotine (Nicoderm 14 Mg/ 24hr) 1 patch DAILY TRANSDERM Last administered on 06/01/18 09:06; Admin Dose 1 PATCH; Start 05/30/18 at 09:00 Pantoprazole (Protonix Iv) 40 mg DAILY@06 IV Last administered on 06/01/18 05:08; Admin Dose 40 MG; Start 05/30/18 at 06:00 Zolpidem Tartrate (Ambien) 10 mg QHS PRN PO SLEEP Last administered on 05/29/18 23:08; Admin Dose 10 MG; Start 05/29/18 at 21:00 Acetaminophen (Tylenol Tab) 500 mg Q6H PRN PO MILD PAIN(1-3)OR ELEVATED TEMP; Start 05/29/18 at 21:00 Metoprolol Succinate (Toprol Xl) 25 mg DAILY PO Last administered on 06/01/18 09:08; Admin Dose 25 MG; Start 05/30/18 at 11:00 Digoxin (Digoxin) 0.125 mg DAILY@1300 PO Last administered on 05/31/18at 13:49; Admin Dose 0.125 MG; Start 05/30/18 at 13:46 Albuterol (Ventolin Hfa) 2 puff Q8H RESP THERAPY PRN INH SHORTNESS OF BREATH; Start 05/30/18 at 15:00 MARIA M HOLT MD Jun 01, 2018 11:43
--- NOTE | 2018-06-01 13:36 | RADRPT ---
Vent Rate: 70 bpm RR Interval: 0 msec IA Interval: 0 msec QRS Duration: 158 msec QT Interval: 444 msec QTC Interval: 479 msec P-R-T [place]: 0 - 0 - 71 degrees Suspect arm lead reversal, interpretation assumes no reversal Atrial flutter Nonspecific intraventricular block Possible Right ventricular hypertrophy Lateral infarct , age undetermined Inferior infarct , age undetermined Abnormal ECG Electronically Signed By: Abran Blanc
== END 2018-06-01 13:14 | disposition home or self-care (01) ==
LOC: E/R 12:53 → PP2 16:08 → UNDOADMOB 16:08 → INTOOBSV 16:08 → CANBEDREQ 20:36
PROVIDERS: ADMIT Family Medicine; ATTEND Family Medicine
DX: R19.7 Diarrhea, unspecified (principal); I11.0 Hypertensive heart disease with heart failure; I50.23 Acute on chronic systolic (congestive) heart failure; E11.9 Type 2 diabetes mellitus without complications; J90 Pleural effusion, not elsewhere classified; I25.10 Atherosclerotic heart disease of native coronary artery without angina pectoris; I48.0 Paroxysmal atrial fibrillation; F32.9 Major depressive disorder, single episode, unspecified; E78.5 Hyperlipidemia, unspecified; F17.210 Nicotine dependence, cigarettes, uncomplicated; D64.9 Anemia, unspecified; G47.00 Insomnia, unspecified; Z95.0 Presence of cardiac pacemaker; Z86.73 Personal history of transient ischemic attack (TIA), and cerebral infarction without residual deficits; Z79.01 Long term (current) use of anticoagulants
CPT/HCPCS: 32555; 36415; 45380; 71045; 74018; 76705; 80048; 80053; 80076; 80162; 80307; 81003; 82042; 82270; 82378; 82570; 82945; 83036; 83540; 83615; 83690; 83735; 84157; 84300; 85025; 85049; 85610; 85670; 85730; 87070; 87102; 87116; 87205; 88104; 88305; 89051; 89190; 93005; 93306; 94640; 94664; 97162; 99285; C9113; G0378; J2370; J2765; J3411; J7030; J7042; 99217

== ENCOUNTER 2018-06-27 10:18 | Observation (INO) | payer MEDICARE, BC ==
[~2018-06-27] VITALS: Ht 160 cm; Wt 65.2 kg
[~2018-06-27 10:18] MED LIST changes: -ALBU18HF IH; +APIX2.5T PO; -BUME0.5T PO; +DIGO125T19 PO; -DIGO250T PO; -DOCU-144 PO; -DULO60CA6 PO; -FURO40TA4 PO; -LISI2.5T80 PO; +METO-429 PO; -METO-448 PO; -NITR0.4T39 SL; -OMEP20CA9 PO; +PANT40VI7 PO; -RANO500T2 PO; -UBID50TA PO; +ZOLP10TA5 PO
--- NOTE | 2018-06-27 12:33 | ERD ---
ER Documentation Chief Complaint Chief Complaint SEND BY DR TREVIZO FOR THORACENTHESIS HPI 57-year-old woman with a greater than [id number] history of tobacco smoking presents with increasing shortness of breath, she was referred here by her PMD for bilateral thoracentesis as she does have a recent history of large pleural effusions. She states she has been feeling weak recently as well and has not been eating or drinking much. She denies chest pain, no fevers or chills, no calf or leg swelling, no headache or blurry vision, no loss of consciousness. ROS All systems reviewed and are negative except as per history of present illness. Medications Home Meds Reported Medications Pantoprazole* (Pantoprazole*) 40 Mg Tablet.dr, 40 MG PO AC BREAKFAST, TAB 06/27/18 Ubidecarenone* (Co Q-10*) 200 Mg Capsule, 200 MG PO BID, CAP 06/27/18 Diphenhydramine Hcl* (Benadryl*) 25 Mg Cap, 25 MG PO NEEDED PRN for ITCHING, CAP 06/27/18 Apixaban* (Eliquis*) 5 Mg Tablet, 5 MG PO BID, TAB 06/27/18 Hydrocodone/Acetaminophen ([place] 10-325 Tablet) 1 Each Tablet, 1 EACH PO NEEDED, TAB 06/27/18 Lorazepam* (Lorazepam*) 1 Mg Tablet, 1 MG PO NEEDED PRN for ANXIETY, #30 TAB 06/27/18 Furosemide* (Furosemide*) 40 Mg Tablet, 40 MG PO DAILY, TAB 06/27/18 Zolpidem Tartrate* (Zolpidem Tartrate*) 10 Mg Tablet, 10 MG PO QHS PRN for SLEEP 05/29/18 Digoxin* (Digox*) 125 Mcg Tablet, 125 MG PO DAILY 05/29/18 Discontinued Reported Medications Apixaban* (Eliquis*) 2.5 Mg Tablet, 5 MG PO BID, TAB 05/29/18 Metoprolol Tartrate* (Lopressor*) 50 Mg Tab, 50 MG PO BID 05/29/18 Discontinued Scripts Pantoprazole* (Protonix* IV) 40 Mg Soln, 40 MG PO DAILY@06 for 30 Days, #30 Prov:LANNY SMITH MD 05/31/18 Allergies Allergies: Coded Allergies: No Known Drug Allergies (Verified Allergy, Unknown, 06/27/18) PMhx/Soc History of hypercalcemia and nonischemic cardiomyopathy with LVEF of 35%, AICD placement, paroxysmal atrial fibrillation status post ablation, hypertension, diabetes mellitus type 2, history of pleural effusions, hyperlipidemia, COPD History of Surgery: Yes (pacemaker, cholecystectomy, blader, cataract, c- section) Anesthesia Reaction: No Hx 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 Disorder: Yes (Chronic pain in legs) Hx Respiratory Disorders: Yes (COPD) Hx Cardiac Disorders: Yes (stroke, Heart failure, pacemaker, PA) Hx Psychiatric Problems: Yes (anxiety, depression) Hx Miscellaneous Medical Probl: No Hx Alcohol Use: Yes (social) Hx Substance Use: No Hx Tobacco Use: Yes FmHx Family History: No diabetes Physical Exam Vitals Vital Signs Date Temp Pulse Resp B/P (MAP) Pulse Ox O2 O2 Flow FiO2 Time Delivery Rate 06/27/18 98.0 69 20 121/82 95 Room Air 16:21 (95) 06/27/18 98.2 71 18 115/77 100 Room Air 14:56 (90) 06/27/18 98.2 87 18 110/72 99 10:36 (85) Physical Exam GENERAL: Well-developed, well-nourished, appears dehydrated, afebrile HEENT: Dry mucous membranes, pink conjunctiva, no cervical spine tenderness or step-off deformities, no goiter NEURO: Alert and oriented 3, cranial nerves II through XII intact bilaterally, pupils equal round reactive to light, no focal deficits or facial asymmetry, sensation intact distally Strength 5/5 in upper and lower extremities bilaterally CARDIAC: Regular rate and rhythm, no murmurs rubs or gallops LUNGS: Crackles at the bases, no wheezing or stridor ABDOMEN: Soft nontender, no guarding, no rigidity, no rebound, no psoas sign no obturator sign. SKIN: Warm and dry to touch, no abrasions, contusions, or hematomas, no lacerations, no ecchymosis, no target lesions, and without ulcers EXTREMITIES: No clubbing cyanosis or edema, calves are bilaterally symmetrical, no Homans sign, no popliteal cord sign. Distal pulses equal and bilateral PSYCH: Normal affect without agitation or irritability Result Diagram: 06/27/18 1523 06/27/18 1523 Results 24 hrs Laboratory Tests Test 3/27/19 15:23 White Blood Count 6.4 10^3/ul Red Blood Count 5.54 10^6/ul Hemoglobin 15.2 g/dl Hematocrit 48.5 % Mean Corpuscular Volume 87.5 fl Mean Corpuscular Hemoglobin 27.4 pg Mean Corpuscular Hemoglobin Concent 31.3 g/dl Red Cell Distribution Width 17.5 % Platelet Count 220 10^3/UL Mean Platelet Volume 10.1 fl Immature Granulocytes % 0.300 % Neutrophils % 61.0 % Lymphocytes % 27.3 % Monocytes % 6.6 % Eosinophils % 3.9 % Basophils % 0.9 % Nucleated Red Blood Cells % 0.0 /100WBC Immature Granulocytes # 0.020 10^3/ul Neutrophils # 3.9 10^3/ul Lymphocytes # 1.8 10^3/ul Monocytes # 0.4 10^3/ul Eosinophils # 0.3 10^3/ul Basophils # 0.1 10^3/ul Nucleated Red Blood Cells # 0.0 10^3/ul Prothrombin Time 14.6 Sec Prothrombin Time Ratio 1.1 INR International Normalized Ratio 1.13 Activated Partial Thromboplast Time 34.7 Sec Sodium Level 141 mmol/L Potassium Level 3.9 mmol/L Chloride Level 102 mmol/L Carbon Dioxide Level 25 mmol/L Anion Gap 14 Blood Urea Nitrogen 8 mg/dl Creatinine 0.76 mg/dl Est Glomerular Filtrat Rate mL/min > 60 mL/min Glucose Level 103 mg/dl Calcium Level 10.4 mg/dl Total Bilirubin 0.8 mg/dl Direct Bilirubin 0.00 mg/dl Indirect Bilirubin 0.8 mg/dl Aspartate Amino Transf (AST/SGOT) 32 IU/L Alanine Aminotransferase (ALT/SGPT) 16 IU/L Alkaline Phosphatase 166 IU/L Troponin I 0.042 ng/ml B-Type Natriuretic Peptide 2770 PG/ML Total Protein 8.9 g/dl Albumin 4.8 g/dl Globulin 4.10 g/dl Albumin/Globulin Ratio 1.17 Lipase 52 U/L Procedures/MDM IV line was established patient was placed on monitoring manager rhythm strip revealed a sinus rhythm at about 70 bpm with upright P and T waves. Patient was afebrile EKG performed, read by me revealed a paced wide-complex rhythm at 70 bpm, left axis deviation, no concerning ST elevation or depression noted. 1 view chest x-ray performed, read by me reveals a large right pleural effusion and a pacemaker in the left chest, no acute infiltrates, no pneumothorax. CBC and electrolytes were within normal limits, liver function tests were normal, troponin was negative, BNP elevated consistent with decompensated heart failure. I spoke to her PMD Dr. Smith who recommended admission to telemetry setting and thoracentesis. I placed the order for thoracentesis with radiology department and spoke to radiologist who agreed to plan. Departure Diagnosis: Primary Impression: Pleural effusion Additional Impressions: Dehydration CHF (congestive heart failure) Heart failure type: combined systolic and diastolic Heart failure chronicity: acute on chronic Qualified Codes: I50.43 - Acute on chronic combined systolic (congestive) and diastolic (congestive) heart failure Condition: JULI Farr MD Jun 27, 2018 12:33
[2018-06-27] MEDS ORDERED: FURO40TA4 PO (15:37)
[2018-06-27] MEDS ORDERED: LORA1TAB PO (15:38)
[2018-06-27] MEDS ORDERED: APIX5TAB PO (15:39)
[2018-06-27] MEDS ORDERED: HYDR-3980 PO (15:39)
[2018-06-27] MEDS ORDERED: BEN25 PO (15:40)
[2018-06-27] MEDS ORDERED: UBID200C36 PO (15:41)
[2018-06-27] MEDS ORDERED: PANT40TA4 PO (16:02)
[2018-06-27 16:21] VITALS: BP 121/82; PULSE 69; RESP 20
[2018-06-27] MEDS ORDERED: LIDOCAINE 1% (MPF) 5 ML VIAL ONE (16:43)
[2018-06-27 16:51] VITALS: BP 114/70; PULSE 72; RESP 20
[2018-06-27 21:39] VITALS: PULSE 71
[2018-06-27 21:47] VITALS: BP 104/69; PULSE 70; RESP 20
[2018-06-27 21:56] VITALS: Ht 160 cm; Wt 65.2 kg
--- NOTE | 2018-06-27 21:58 | HP ---
Date/Time of Note Date/Time of Note DATE: 06/27/18 TIME: 21:45 Assessment/Plan VTE Prophylaxis SCD contraindicated: low risk/ambulating Pharmacological prophylaxis: LMWH Pharm contraindication: low risk/ambulating (High risk of bladder) Lines/Catheters IV Catheter Type (from Nrsg): Sal[place] [employer] Central line still needed: No Urinary Cath still in place: No Reason Cath still needed: urinary retention Assessment/Plan Assessment/Plan 1. Respiratory distress got worse 2. COPD exacerbation 3. Status post left subclavian area pacemaker implantation AV sequential not checked for last 2 years. 4. Right pleural effusion-s/p one liter of pleural fluid evacuation. 5. Diarrhea for years being on antimotility medications mainly low material with mild improvement. 6. Episodes of constipation 7. Significant weight loss according to her about 40 kg during the last 24 years,; but by calculations it becomes like about 25-20 kg. 8. Hearing impairment 9. Permanent deconditioning with severe muscular weakness unable to get up and stand by herself with severe decrease of muscular tone was strained mass 10. Urinary and fecal incontinence 11. Status post cholecystectomy 12. Nicotine addiction 13. PTSD 14. Mild elevation of the CEA 15. Kyphosis 16. Osteoporosis 17. Diabetes type 2 blood sugar improved after weight loss 18. Dehydration 19. Malnourishment 20. Noncompliance 21. Irritable bowel syndrome 22. Hemorrhoidal disease with recurrent rectal bleeding 23.Hx of paroxysmal a. fibrillation with low LVEF- on ICD 24. Tricuspid insufficiency with a very large left and right atrium on echo cardiography 25. Pulmonary hypertension with systolic pressure in the pulmonary artery 66 mm of hg. 26. Elevation of central venous pressure 25.incomplete data Result Diagram: 06/27/18 1523 06/27/18 1523 Results 24hrs Laboratory Tests Test 06/27/18 15:23 White Blood Count 6.4 Red Blood Count 5.54 H Hemoglobin 15.2 Hematocrit 48.5 H Mean Corpuscular Volume 87.5 Mean Corpuscular Hemoglobin 27.4 L Mean Corpuscular Hemoglobin Concent 31.3 L Red Cell Distribution Width 17.5 H Platelet Count 220 Mean Platelet Volume 10.1 Immature Granulocytes % 0.300 Neutrophils % 61.0 Lymphocytes % 27.3 Monocytes % 6.6 Eosinophils % 3.9 Basophils % 0.9 Nucleated Red Blood Cells % 0.0 Immature Granulocytes # 0.020 Neutrophils # 3.9 Lymphocytes # 1.8 Monocytes # 0.4 Eosinophils # 0.3 Basophils # 0.1 Nucleated Red Blood Cells # 0.0 Prothrombin Time 14.6 # Prothrombin Time Ratio 1.1 INR International Normalized Ratio 1.13 Activated Partial Thromboplast Time 34.7 Sodium Level 141 Potassium Level 3.9 Chloride Level 102 Carbon Dioxide Level 25 Anion Gap 14 H Blood Urea Nitrogen 8 Creatinine 0.76 Est Glomerular Filtrat Rate mL/min > 60 Glucose Level 103 Calcium Level 10.4 H Total Bilirubin 0.8 Direct Bilirubin 0.00 Indirect Bilirubin 0.8 Aspartate Amino Transf (AST/SGOT) 32 Alanine Aminotransferase (ALT/SGPT) 16 Alkaline Phosphatase 166 H Troponin I 0.042 B-Type Natriuretic Peptide 2770 H Total Protein 8.9 H Albumin 4.8 Globulin 4.10 H Albumin/Globulin Ratio 1.17 Lipase 52 HPI/ROS Admit Date/Time Admit Date/Time Jun 27, 2018 at 16:19 Hx of Present Illness Worsening of her shortness of breath. Unable to take care of herself. Wheelchair-bound. Persistent diarrhea. Refusing to eat. Made a home visit. It was evident that she needs hospitalization because of her respiratory distress CHF unable to take care of herself and having episodes of confusion while being depressed and refusing to take her medications. ROS Conversation with ER physician. Decision was made to perform a thoracentesis as soon as possible. About a liter of fluid was evacuated. Patient's condition improved. She wanted to go home. I think it was too risky for her. Asked to stay overnight to recheck the chest x-ray to rule out pneumothorax reassess her condition and is discharged tomorrow if stable. Subjective hx not possible: pt critical Constitutional: chills, fatigue, febrile, nausea; No no complaints, No improved, No diaphoresis, No disoriented, No poor po, No weight change, No other Eyes: redness; No no complaints, No pain, No discharge, No visual change, No other ENT: congestion, dysphagia, sore throat; No no complaints, No bleeding, No pain, No discharge, No other Respiratory: cough, pleuritic pain, shortness of breath, wheezing Cardiovascular: chest pain, edema, lightheadedness, orthopenea, palpitations Gastrointestinal: decreased appetite, flatus, passing stool; No no complaints, No pain, No blood, No constipation, No diarrhea, No nausea, No vomiting, No other Genitourinary: dysuria, flank pain; No no complaints, No bleeding, No discharge, No hematuria, No other Musculoskeletal: back pain, bone/joint pain, neck pain; No no complaints, No restricted range of motion, No swelling, No other Skin: bruising, pruritis, rash; No no complaints, No erythema, No laceration, No skin lesions, No other Neurologic: confusion, dizziness, headache Endocrine: polydypsia, dry skin, temp intolerance, weight change Lymphatic: No no complaints, No adenopathy, No tender nodes, No lymphadema, No other Psychological: anxiety, confusion, depression; No no complaints, No nl mood/affect, No suicidal, No other Immunologic: No no complaints, No immunodeficiency, No pruritis, No rhinitis, No urticaria, No other PMH/Family/Social Past Medical History Medical History: angina, colitis, congestive heart failure, coronary artery disease, GERD, GI bleed, high cholesterol, hypertension, irritable bowel syndrome, pancreatitis, peptic ulcer disease, urinary tract infection Coded Allergies: No Known Drug Allergies (Verified Allergy, Unknown, 06/27/18) Past Surgical History Past Surgical Hx: noncontributory, cholecystectomy, other Family History Significant Family History: no pertinent family hx Social History Alcohol Use: none Smoking Status: Current every day smoker Drug Use: none Exam/Review of Systems Vital Signs Vitals Vital Signs Date Temp Pulse Resp B/P (MAP) Pulse Ox O2 O2 Flow FiO2 Time Delivery Rate 06/27/18 72 20 114/70 95 Room Air 16:51 (85) 06/27/18 98.0 16:21 Exam Constitutional: alert, oriented, well developed, distress, frail; No non-verbal, No other Psych: anxiety, confusion, depression; No no complaints, No nl mood/affect, No suicidal, No other Head: normocephalic, atraumatic, hematomas; No lacerations, No other Eyes: EOMI, nl lids, PERRL; No nl conjunctiva, No nl sclera, No icteric, No fundi, disc, No other ENMT: nl nasal mucosa & septum; No nl external ears & nose, No nl lips & teeth, No mucosa pink and moist, No intubated, No tympanic membranes, No other Neck: jvd, bruits, masses, nuchal rigidity; No supple, No non-tender, No thyromegaly, No other Respiratory: congested cough, crackles/rales, diminished breath sounds, tactile fremitus, other (Pleural friction rub left side.) Cardiovascular: nl pulses, bruits, edema, jugular venous distention (JVD), systolic murmur, other (Left-sided subclavian pacemaker bodies palpable with no fluid accumulation no erythema.); No regular rate and rhythm, No diastolic murmur, No gallop, No irregular rhythm, No murmurs/extra sounds, No rub, No S3, No S4 Gastrointestinal: soft, nl liver, spleen, bowel sounds, distended, rebound or guarding; No non-tender, No ascites, No firm, No hepatomegaly, No mass, No splenomegaly, No surgical scars, No tender, No other Genitourinary - Female: CVA tenderness; No nl adnexae, No nl external genitalia, No CMT, No uterus, No other Musculoskeletal: nl gait and stance, joint tenderness (Abnormal unable to walk), muscle tone, muscle weakness (Decrease of muscular tone almost absence severe weakness of all muscular groups with folding of the skin in all parts of the body.); No nl extremities to inspection, No range of motion, No spine non-tender, No swelling, No other 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: MINER HELPER II-XII intact, nl speech, confused, numbness, unresponsive (Getting lethargic) Skin: nl turgor, ecchymosis; No rash or lesions, No diaphoresis, No laceration, No puncture, No other Lymph: nl lymph nodes; No enlarged, No nontender, No other LANNY SMITH MD Jun 27, 2018 21:57
[2018-06-27] MEDS ORDERED: HYDROCODONE/APAP (10/325) TAB PO PRN (22:15)
[2018-06-27] MEDS ORDERED: NACL 3% FOR INHALATION 15 ML NEBU NEB ONE (22:30)
[2018-06-27] MEDS ORDERED: LORAZEPAM 1 MG TAB PO PRN (22:30)
[2018-06-27] MEDS ORDERED: DIPHENHYDRAMINE 25 MG CAP PO PRN (22:30)
[2018-06-27] MEDS ORDERED: METHYLPREDNISOLONE 125 MG INJ IV ONE (22:30)
[2018-06-27] MEDS: AZITHROMYCIN 500MG/NS (PMX) 250 ML IVPB SCH (22:30)
[2018-06-27] MEDS ORDERED: ZOLPIDEM 5 MG TAB PO PRN (22:30)
[2018-06-27] MEDS: ALBUTEROL/IPRATROPIUM (NEB) 3 ML AMP HHN SCH (23:21)
[2018-06-28] VITALS (12 sets, daily range): BP systolic 97–110; BP diastolic 54–73; PULSE 70–76; RESP 18–19
[2018-06-28] MEDS: ALBUTEROL/IPRATROPIUM (NEB) 3 ML AMP HHN SCH ×4 (03:00→20:39)
[2018-06-28] MEDS ORDERED: METHYLPREDNISOLONE 125 MG INJ IV ONE ×3 (06:30→21:00)
[2018-06-28] MEDS: PANTOPRAZOLE (EC) 40 MG TAB PO SCH (06:46)
[2018-06-28] MEDS: FUROSEMIDE 40 MG TAB PO SCH (09:21)
--- NOTE | 2018-06-28 10:44 | PN ---
Date/Time of Note Date/Time of Note DATE: 06/28/18 TIME: 10:39 Assessment/Plan VTE Prophylaxis SCD applied (from Nsg): Yes SCD contraindicated: low risk/ambulating Pharmacological prophylaxis: LMWH Lines/Catheters IV Catheter Type (from Nrsg): [place] [employer] Central line still needed: No Urinary Cath still in place: No Reason Cath still needed: urinary retention Assessment/Plan Assessment/Plan 1. Respiratory distress got worse 2. COPD exacerbation 3. Status post left subclavian area pacemaker implantation AV sequential not checked for last 2 years. 4. Right pleural effusion-s/p one liter of pleural fluid evacuation. 5. Diarrhea for years being on antimotility medications mainly low material with mild improvement. 6. Episodes of constipation 7. Significant weight loss according to her about 40 kg during the last 24 years,; but by calculations it becomes like about 25-20 kg. 8. Hearing impairment 9. Permanent deconditioning with severe muscular weakness unable to get up and stand by herself with severe decrease of muscular tone was strained mass 10. Urinary and fecal incontinence 11. Status post cholecystectomy 12. Nicotine addiction 13. PTSD 14. Mild elevation of the CEA 15. Kyphosis 16. Osteoporosis 17. Diabetes type 2 blood sugar improved after weight loss 18. Dehydration 19. Malnourishment 20. Noncompliance 21. Irritable bowel syndrome 22. Hemorrhoidal disease with recurrent rectal bleeding 23.Hx of paroxysmal a. fibrillation with low LVEF- on ICD 24. Tricuspid insufficiency with a very large left and right atrium on echo cardiography 25. Pulmonary hypertension with systolic pressure in the pulmonary artery 66 mm of hg. 26. Elevation of central venous pressure 25.incomplete data Result Diagram: 06/28/1827 06/28/18 0627 Results 24hrs Laboratory Tests Test 06/27/18 15:23 06/27/18 15:52 06/28/18 06:27 White Blood Count 6.4 6.6 Red Blood Count 5.54 H 5.49 H Hemoglobin 15.2 14.8 Hematocrit 48.5 H 48.2 H Mean Corpuscular Volume 87.5 87.8 Mean Corpuscular Hemoglobin 27.4 L 27.0 L Mean Corpuscular Hemoglobin Concent 31.3 L 30.7 L Red Cell Distribution Width 17.5 H 18.2 H Platelet Count 220 233 Mean Platelet Volume 10.1 11.1 H Immature Granulocytes % 0.300 0.300 Neutrophils % 61.0 72.9 Lymphocytes % 27.3 18.2 Monocytes % 6.6 5.7 Eosinophils % 3.9 2.0 Basophils % 0.9 0.9 Nucleated Red Blood Cells % 0.0 0.0 Immature Granulocytes # 0.020 0.020 Neutrophils # 3.9 4.8 Lymphocytes # 1.8 1.2 Monocytes # 0.4 0.4 Eosinophils # 0.3 0.1 Basophils # 0.1 0.1 Nucleated Red Blood Cells # 0.0 0.0 Prothrombin Time 14.6 # Prothrombin Time Ratio 1.1 INR International Normalized Ratio 1.13 Activated Partial Thromboplast Time 34.7 Sodium Level 141 143 Potassium Level 3.9 4.0 Chloride Level 102 98 Carbon Dioxide Level 25 30 Anion Gap 14 H 15 H Blood Urea Nitrogen 8 10 Creatinine 0.76 0.87 Est Glomerular Filtrat Rate mL/min > 60 > 60 Glucose Level 103 104 Calcium Level 10.4 H 10.3 H Total Bilirubin 0.8 1.0 Direct Bilirubin 0.00 0.00 Indirect Bilirubin 0.8 1.0 Aspartate Amino Transf (AST/SGOT) 32 33 Alanine Aminotransferase (ALT/SGPT) 16 11 L Alkaline Phosphatase 166 H 138 H Troponin I 0.042 B-Type Natriuretic Peptide 2770 H Total Protein 8.9 H 8.3 H Albumin 4.8 4.6 Globulin 4.10 H 3.70 H Albumin/Globulin Ratio 1.17 1.24 Lipase 52 Magnesium Level 1.9 Iron Level 60 Total Iron Binding Capacity 493 H Percent Iron Saturation 12 L Digoxin Level 1.0 Subjective 24 Hr Interval Summary Free Text/Dictation Severe weakness. Unable to get up without help. On unable to turn from [id number]. Weakness memory impairment. Admits of being unable to decrease given the amount of cigarettes while knowing the negative side effects including exacerbation of shortness of breath. Positive for nausea positive for vomiting on and off posterior diarrhea with episodes of inability to hold his. She is unable to control urination. Subjective hx not possible: pt critical, pt critical status Constitutional: diaphoresis, disoriented, poor po, requiring IVF, requiring O2; No no complaints, No improved, No chills, No febrile, No other Eyes: discharge, redness; No no complaints, No pain, No visual change, No other ENT: congestion, discharge; No no complaints, No bleeding, No pain, No dysphagia, No sore throat, No other Respiratory: cough, pleuritic pain, shortness of breath; No no complaints, No pain, No sputum, No wheezing, No other Cardiovascular: chest pain, lightheadedness, orthopenea Gastrointestinal: pain, decreased appetite, flatus, nausea; No no complaints, No blood, No constipation, No diarrhea, No passing stool, No vomiting, No other Genitourinary: flank pain; No no complaints, No bleeding, No dysuria, No discharge, No hematuria, No other Musculoskeletal: back pain, bone/joint pain, neck pain Skin: erythema, pruritis Neurologic: confusion, dizziness, headache; No no complaints, No focal-weakness, No syncope, No seizure, No other Endocrine: polyuria, polydypsia, dry skin, temp intolerance Lymphatic: No no complaints, No adenopathy, No tender nodes, No lymphadema, No other Psychological: anxiety, confusion, depression; No no complaints, No nl mood/affect, No suicidal, No other Exam/Review of Systems Exam Vitals Vital Signs Date Temp Pulse Resp B/P (MAP) Pulse Ox O2 O2 Flow FiO2 Time Delivery Rate 06/28/18 70 08:34 06/28/18 18 97 21 08:12 06/28/18 97.5 110/72 07:44 (85) 06/28/18 Room Air 03:40 Intake and Output 06/27/18 06/27/18 06/28/18 1515:00 23:00 07:00 IntakeIntake Total 1000 ml BalanceBalance 1000 ml Constitutional: alert, oriented, well developed, distress, frail Psych: anxiety, depression; No no complaints, No nl mood/affect, No confusion, No suicidal, No other Head: normocephalic, atraumatic; No lacerations, No hematomas, No other Eyes: EOMI, nl lids, PERRL; No nl conjunctiva, No nl sclera, No icteric, No fundi, disc, No other ENMT: No nl external ears & nose, No nl lips & teeth, No nl nasal mucosa & septum, No mucosa pink and moist, No intubated, No tympanic membranes, No other Neck: jvd, bruits, thyromegaly, nuchal rigidity; No supple, No non-tender, No masses, No other Respiratory: congested cough, crackles/rales, diminished breath sounds, labored breathing; No clear to auscultation, No normal air movement, No intercostal retraction, No respirations, No tactile fremitus, No wheezing, No other Cardiovascular: regular rate and rhythm, nl pulses, bruits, systolic murmur; No diastolic murmur, No edema, No gallop, No irregular rhythm, No jugular venous distention (JVD), No murmurs/extra sounds, No rub, No S3, No S4, No other Gastrointestinal: nl liver, spleen, ascites, bowel sounds, surgical scars Musculoskeletal: joint tenderness, muscle tone, muscle weakness (Decreased muscle strength and mass.); No nl extremities to inspection, No nl gait and stance, No range of motion, No spine non-tender, No swelling, No other Extremities: edema, pitting pedal edema 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: DEFENSIVE SECONDARY COACH II-XII intact, confused, lethargic; No nl mental status, No nl speech, No nl strength, No DTR's symmetric, No focal weakness, No numbness, No reflexes, No unresponsive, No other Skin: nl turgor (Decreased turgor.), ecchymosis; No rash or lesions, No diaphoresis, No laceration, No puncture, No other Results Results 24hrs Laboratory Tests Test 06/27/18 15:23 06/27/18 15:52 06/28/18 06:27 White Blood Count 6.4 6.6 Red Blood Count 5.54 H 5.49 H Hemoglobin 15.2 14.8 Hematocrit 48.5 H 48.2 H Mean Corpuscular Volume 87.5 87.8 Mean Corpuscular Hemoglobin 27.4 L 27.0 L Mean Corpuscular Hemoglobin Concent 31.3 L 30.7 L Red Cell Distribution Width 17.5 H 18.2 H Platelet Count 220 233 Mean Platelet Volume 10.1 11.1 H Immature Granulocytes % 0.300 0.300 Neutrophils % 61.0 72.9 Lymphocytes % 27.3 18.2 Monocytes % 6.6 5.7 Eosinophils % 3.9 2.0 Basophils % 0.9 0.9 Nucleated Red Blood Cells % 0.0 0.0 Immature Granulocytes # 0.020 0.020 Neutrophils # 3.9 4.8 Lymphocytes # 1.8 1.2 Monocytes # 0.4 0.4 Eosinophils # 0.3 0.1 Basophils # 0.1 0.1 Nucleated Red Blood Cells # 0.0 0.0 Prothrombin Time 14.6 # Prothrombin Time Ratio 1.1 INR International Normalized Ratio 1.13 Activated Partial Thromboplast Time 34.7 Sodium Level 141 143 Potassium Level 3.9 4.0 Chloride Level 102 98 Carbon Dioxide Level 25 30 Anion Gap 14 H 15 H Blood Urea Nitrogen 8 10 Creatinine 0.76 0.87 Est Glomerular Filtrat Rate mL/min > 60 > 60 Glucose Level 103 104 Calcium Level 10.4 H 10.3 H Total Bilirubin 0.8 1.0 Direct Bilirubin 0.00 0.00 Indirect Bilirubin 0.8 1.0 Aspartate Amino Transf (AST/SGOT) 32 33 Alanine Aminotransferase (ALT/SGPT) 16 11 L Alkaline Phosphatase 166 H 138 H Troponin I 0.042 B-Type Natriuretic Peptide 2770 H Total Protein 8.9 H 8.3 H Albumin 4.8 4.6 Globulin 4.10 H 3.70 H Albumin/Globulin Ratio 1.17 1.24 Lipase 52 Magnesium Level 1.9 Iron Level 60 Total Iron Binding Capacity 493 H Percent Iron Saturation 12 L Digoxin Level 1.0 Medications Medication Current Medications Acetaminophen/ Hydrocodone Bitart ([place] (10/325)) 1 tab Q8H PRN PO MODERATE PAIN LEVEL 4-6; Start 06/27/18 at 22:15 Digoxin (Digoxin) 0.125 mg DAILY@1300 PO ; Start 06/28/18 at 13:00 Diphenhydramine HCl (Benadryl) 25 mg QID PRN PO ITCHING; Start 06/27/18 at 22 :30 Furosemide (Lasix) 40 mg DAILY PO Last administered on 06/28/18at 09:21; Admin Dose 40 MG; Start 06/28/18 at 09:00 Lorazepam (Ativan) 1 mg Q8HWA RESP THERAPY PRN PO ANXIETY; Start 06/27/18 at 22:30 Pantoprazole (Protonix Tab) 40 mg AC BREAKFAST PO Last administered on 06/28/18at 06:46; Admin Dose 40 MG; Start 06/28/18 at 07:25 Zolpidem Tartrate (Ambien) 10 mg QHS PRN PO SLEEP; Start 06/27/18 at 22:30 Albuterol/ Ipratropium (Duoneb) 3 ml Q6H RESP THERAPY HHN Last administered on 06/28/18at 08:02; Admin Dose 3 ML; Start 06/27/18 at 22:30 Methylprednisolone Sodium Succinate (Solu-Medrol) 40 mg ONCE ONCE IV ; Start 06/29/18 at 06:30; Stop 06/29/18 at 06:31 LANNY SMITH MD Jun 28, 2018 10:44
[2018-06-28] MEDS: AZITHROMYCIN 500MG/NS (PMX) 250 ML IVPB SCH (11:12)
--- NOTE | 2018-06-28 11:25 | CONS ---
Assessment/Plan Assessment/Plan Assessment/Plan (Daily) Assessment and recommendations; 1. Patient admitted with shortness of breath due to CHF exacerbation with right pleural effusion, status post right thoracentesis with significant clinical and radiological improvement. Chest x-ray post thoracentesis not showing any infiltrative changes in the right lung. 2. Multiple other comorbidities include history of cardiac arrhythmia, history of GI bleed, irritable bowel syndrome, history of pancreatitis, and possibly underlying COPD as well. Continue current supportive care. Patient possibly could benefit from being placed in a [facility] facility. Consultation Date/Type/Reason Admit Date/Time Jun 27, 2018 at 16:19 Date of Consultation: Jun 28, 2018 Type of Consult Pulmonary Pulmonary consult requested for evaluation of right pleural effusion. Patient is a 57-year-old lady who saw Dr. Smith and was found to be hypoxemic patient was advised admission. Upon further evaluation chest x-ray was done which showed a moderate right pleural effusion, patient underwent right thoracentesis yesterday a liter of fluid was removed. Patient reports improved shortness of breath. She had been complaining of shortness of breath and coughing for the last 2 weeks. Denies any fever chills sputum production hemoptysis. Patient has a multiple comorbidities. However by the time I saw her, patient is laying comfortably in bed and was given a meaningful history by himself. Past medical history; 1. CHF. 2. Cardiomyopathy. 3. Cardiac arrhythmia, status post pacemaker placement in the past. 4. History of GI bleed due to peptic ulcer disease. 5. History of pancreatitis. 6. CAD. 7. Irritable bowel syndrome. Medications; reviewed. Allergies; none. Social history; smokes about a pack a day. Family history; she is single, lives with her son. Occupational history; patient is on disability. Review of systems; denies any headache, seizures, visual changes. Any postnasal drip. Denies any chest pain, complains of scant cough. Shortness of breath has improved. Denies any sputum production hemoptysis. Denies any abdominal pain, nausea vomiting. Complains of chronic diarrhea due to irritable bowel syndrome. Patient is not much active physically. Denies any weight loss. Has good appetite. Denies any urinary symptoms. General exam; middle-aged woman, awake alert, currently in no distress. Date/Time of Note DATE: 06/28/18 TIME: 11:20 Past Medical History Medical History: angina, colitis, congestive heart failure, coronary artery disease, GERD, GI bleed, high cholesterol, hypertension, irritable bowel syndrome, pancreatitis, peptic ulcer disease, urinary tract infection Home Meds Reported Medications Pantoprazole* (Pantoprazole*) 40 Mg Tablet.dr, 40 MG PO AC BREAKFAST, TAB 06/27/18 Ubidecarenone* (Co Q-10*) 200 Mg Capsule, 200 MG PO BID, CAP 06/27/18 Diphenhydramine Hcl* (Benadryl*) 25 Mg Cap, 25 MG PO NEEDED PRN for ITCHING, CAP 06/27/18 Apixaban* (Eliquis*) 5 Mg Tablet, 5 MG PO BID, TAB 06/27/18 Hydrocodone/Acetaminophen ([place] 10-325 Tablet) 1 Each Tablet, 1 EACH PO NEEDED, TAB 06/27/18 Lorazepam* (Lorazepam*) 1 Mg Tablet, 1 MG PO NEEDED PRN for ANXIETY, #30 TAB 06/27/18 Furosemide* (Furosemide*) 40 Mg Tablet, 40 MG PO DAILY, TAB 06/27/18 Zolpidem Tartrate* (Zolpidem Tartrate*) 10 Mg Tablet, 10 MG PO QHS PRN for SLEEP 05/29/18 Digoxin* (Digox*) 125 Mcg Tablet, 125 MG PO DAILY 05/29/18 Discontinued Reported Medications Apixaban* (Eliquis*) 2.5 Mg Tablet, 5 MG PO BID, TAB 05/29/18 Metoprolol Tartrate* (Lopressor*) 50 Mg Tab, 50 MG PO BID 05/29/18 Discontinued Scripts Pantoprazole* (Protonix* IV) 40 Mg Soln, 40 MG PO DAILY@06 for 30 Days, #30 Prov:LANNY SMITH MD 05/31/18 Medications Current Medications Acetaminophen/ Hydrocodone Bitart ([place] (10/325)) 1 tab Q8H PRN PO MODERATE PAIN LEVEL 4-6; Start 06/27/18 at 22:15 Digoxin (Digoxin) 0.125 mg DAILY@1300 PO ; Start 06/28/18 at 13:00 Diphenhydramine HCl (Benadryl) 25 mg QID PRN PO ITCHING; Start 06/27/18 at 22:30 Furosemide (Lasix) 40 mg DAILY PO Last administered on 06/28/18at 09:21; Admin D ose 40 MG; Start 06/28/18 at 09:00 Lorazepam (Ativan) 1 mg Q8HWA RESP THERAPY PRN PO ANXIETY; Start 06/27/18 at 22:30 Pantoprazole (Protonix Tab) 40 mg AC BREAKFAST PO Last administered on 06/28/18at 06:46; Admin Dose 40 MG; Start 06/28/18 at 07:25 Zolpidem Tartrate (Ambien) 10 mg QHS PRN PO SLEEP; Start 06/27/18 at 22:30 Albuterol/ Ipratropium (Duoneb) 3 ml Q6H RESP THERAPY HHN Last administered on 06/28/18at 08:02; Admin Dose 3 ML; Start 06/27/18 at 22:30 Methylprednisolone Sodium Succinate (Solu-Medrol) 40 mg ONCE ONCE IV ; Start 06/29/18 at 06:30; Stop 06/29/18 at 06:31 Allergies: Coded Allergies: No Known Drug Allergies (Verified Allergy, Unknown, 06/27/18) Past Surgical History Past Surgical Hx: noncontributory, cholecystectomy, other Social History Alcohol Use: none Smoking Status: Current some day smoker Drug Use: none Exam/Review of Systems Exam Vitals Vital Signs Date Temp Pulse Resp B/P (MAP) Pulse Ox O2 O2 Flow FiO2 Time Delivery Rate 06/28/18 70 08:34 06/28/18 18 97 21 08:12 06/28/18 97.5 110/72 07:44 (85) 06/28/18 Room Air 03:40 Intake and Output 06/27/18 06/27/18 06/28/18 1515:00 23:00 07:00 IntakeIntake Total 1000 ml BalanceBalance 1000 ml Exam HEENT exam; supple neck, positive JVD. No lymphadenopathy. Midline trachea. No thyromegaly. Pharynx is clear. Patient has fair dentition. No neck masses. Chest exam; diminished but clear breath sounds. S1-S2 audible, no murmurs. Regular rhythm. Pacemaker in left chest wall. Abdomen exam; soft, no organomegaly. Bowel sounds audible. Nontender. Nondistended. Extremity exam; trace edema. GOVERNMENT PROPERTY INSPECTOR exam; no focal motor deficit. Results Result Diagram: 3/28/19 0627 06/28/18 0627 Results 24hrs Laboratory Tests Test 06/27/18 15:23 06/27/18 15:52 06/28/18 06:27 White Blood Count 6.4 6.6 Red Blood Count 5.54 H 5.49 H Hemoglobin 15.2 14.8 Hematocrit 48.5 H 48.2 H Mean Corpuscular Volume 87.5 87.8 Mean Corpuscular Hemoglobin 27.4 L 27.0 L Mean Corpuscular Hemoglobin Concent 31.3 L 30.7 L Red Cell Distribution Width 17.5 H 18.2 H Platelet Count 220 233 Mean Platelet Volume 10.1 11.1 H Immature Granulocytes % 0.300 0.300 Neutrophils % 61.0 72.9 Lymphocytes % 27.3 18.2 Monocytes % 6.6 5.7 Eosinophils % 3.9 2.0 Basophils % 0.9 0.9 Nucleated Red Blood Cells % 0.0 0.0 Immature Granulocytes # 0.020 0.020 Neutrophils # 3.9 4.8 Lymphocytes # 1.8 1.2 Monocytes # 0.4 0.4 Eosinophils # 0.3 0.1 Basophils # 0.1 0.1 Nucleated Red Blood Cells # 0.0 0.0 Prothrombin Time 14.6 # Prothrombin Time Ratio 1.1 INR International Normalized Ratio 1.13 Activated Partial Thromboplast Time 34.7 Sodium Level 141 143 Potassium Level 3.9 4.0 Chloride Level 102 98 Carbon Dioxide Level 25 30 Anion Gap 14 H 15 H Blood Urea Nitrogen 8 10 Creatinine 0.76 0.87 Est Glomerular Filtrat Rate mL/min > 60 > 60 Glucose Level 103 104 Calcium Level 10.4 H 10.3 H Total Bilirubin 0.8 1.0 Direct Bilirubin 0.00 0.00 Indirect Bilirubin 0.8 1.0 Aspartate Amino Transf (AST/SGOT) 32 33 Alanine Aminotransferase (ALT/SGPT) 16 11 L Alkaline Phosphatase 166 H 138 H Troponin I 0.042 B-Type Natriuretic Peptide 2770 H Total Protein 8.9 H 8.3 H Albumin 4.8 4.6 Globulin 4.10 H 3.70 H Albumin/Globulin Ratio 1.17 1.24 Lipase 52 Magnesium Level 1.9 Iron Level 60 Total Iron Binding Capacity 493 H Percent Iron Saturation 12 L Digoxin Level 1.0 Medications Medication Current Medications Acetaminophen/ Hydrocodone Bitart ([place] (10/325)) 1 tab Q8H PRN PO MODERATE PAIN LEVEL 4-6; Start 06/27/18 at 22:15 Digoxin (Digoxin) 0.125 mg DAILY@1300 PO ; Start 06/28/18 at 13:00 Diphenhydramine HCl (Benadryl) 25 mg QID PRN PO ITCHING; Start 06/27/18 at 22:30 Furosemide (Lasix) 40 mg DAILY PO Last administered on 06/28/18at 09:21; Admin Dose 40 MG; Start 06/28/18 at 09:00 Lorazepam (Ativan) 1 mg Q8HWA RESP THERAPY PRN PO ANXIETY; Start 06/27/18 at 22:30 Pantoprazole (Protonix Tab) 40 mg AC BREAKFAST PO Last administered on 06/28/18at 06:46; Admin Dose 40 MG; Start 06/28/18 at 07:25 Zolpidem Tartrate (Ambien) 10 mg QHS PRN PO SLEEP; Start 06/27/18 at 22:30 Albuterol/ Ipratropium (Duoneb) 3 ml Q6H RESP THERAPY HHN Last administered on 06/28/18at 08:02; Admin Dose 3 ML; Start 06/27/18 at 22:30 Methylprednisolone Sodium Succinate (Solu-Medrol) 40 mg ONCE ONCE IV ; Start 06/29/18 at 06:30; Stop 06/29/18 at 06:31 TRACEE DEE 28, 2019 11:25
[2018-06-28] MEDS: DIGOXIN 0.125 MG TAB PO SCH (13:00)
[2018-06-29] VITALS (7 sets, daily range): BP systolic 71–110; BP diastolic 65–73; PULSE 70–76; RESP 17–19
[2018-06-29] MEDS: ALBUTEROL/IPRATROPIUM (NEB) 3 ML AMP HHN SCH ×3 (01:53→13:26)
[2018-06-29] MEDS: PANTOPRAZOLE (EC) 40 MG TAB PO SCH (05:27)
[2018-06-29] MEDS ORDERED: METHYLPREDNISOLONE 40 MG INJ IV ONE ×2 (06:30→08:00)
[2018-06-29] MEDS ORDERED: AZITHROMYCIN 250 MG TAB PO ONE (08:00)
[2018-06-29] MEDS: FUROSEMIDE 40 MG TAB PO SCH (08:54)
--- NOTE | 2018-06-29 10:37 | CONS ---
Assessment/Plan Assessment/Plan Assessment/Plan (Daily) Chest x-ray was reviewed from yesterday afternoon which are essentially clear. Assessment recommendations; 1. Patient admitted with shortness of breath due to CHF exacerbation with right pleural effusion, status post thoracentesis with significant improvement in symptoms as well as radiological stability without any evidence of further recurrence of pleural effusion. 2. Other comorbidities include history of irritable bowel syndrome, history of GI bleed, pancreatitis, cardiac arrhythmia, pacemaker placement, 3. Possibly acute bronchitis as well. Clinically improved. Continue current supportive care. Consider discharge. Obtain follow-up chest x-ray on an outpatient basis in about a week's time. Consultation Date/Type/Reason Admit Date/Time Jun 27, 2018 at 16:19 Initial Consult Date 06/28/18 Type of Consult Pulmonary Pulmonary consult requested for evaluation of right pleural effusion. Patient is a 57-year-old lady who saw Dr. Blunt and was found to be hypoxemic patient was advised admission. Upon further evaluation chest x-ray was done which showed a moderate right pleural effusion, patient underwent right thoracentesis yesterday a liter of fluid was removed. Patient reports improved shortness of breath. She had been complaining of shortness of breath and coughing for the last 2 weeks. Denies any fever chills sputum production hemoptysis. Patient has a multiple comorbidities. However by the time I saw her, patient is laying comfortably in bed and was given a meaningful history by himself. Past medical history; 1. CHF. 2. Cardiomyopathy. 3. Cardiac arrhythmia, status post pacemaker placement in the past. 4. History of GI bleed due to peptic ulcer disease. 5. History of pancreatitis. 6. CAD. 7. Irritable bowel syndrome. Medications; reviewed. Allergies; none. Social history; smokes about a pack a day. Family history; she is single, lives with her son. Occupational history; patient is on disability. Review of systems; denies any headache, seizures, visual changes. Any postnasal drip. Denies any chest pain, complains of scant cough. Shortness of breath has improved. Denies any sputum production hemoptysis. Denies any abdominal pain, nausea vomiting. Complains of chronic diarrhea due to irritable bowel syndrome. Patient is not much active physically. Denies any weight loss. Has good appetite. Denies any urinary symptoms. General exam; middle-aged woman, awake alert, currently in no distress. Date/Time of Note DATE: 06/29/18 TIME: 10:34 24 HR Interval Summary Free Text/Dictation Patient's condition is stable. Wants to go home. Denies any shortness of breath at rest, complains of minimal dyspnea on exertion, denies any coughing, sputum production wheezing. General exam; middle-aged female, awake alert, currently no distress. Exam/Review of Systems Exam Vitals Vital Signs Date Temp Pulse Resp B/P (MAP) Pulse Ox O2 O2 Flow FiO2 Time Delivery Rate 06/29/18 93 21 09:50 06/29/18 68 20 09:49 06/29/18 98.2 110/73 07:15 (85) 06/29/18 2.0 02:03 06/28/18 Room Air 03:40 Intake and Output 06/28/18 06/28/18 06/29/18 1515:00 23:00 07:00 IntakeIntake Total 200 ml 700 ml 800 ml BalanceBalance 200 ml 700 ml 800 ml Exam H EENT exam; supple neck, positive JVD. No lymphadenopathy. Midline trachea. No thyromegaly. Pharynx is clear. No neck masses. Chest exam; clear to auscultation. S1-S2 audible, no murmurs. Regular rhythm. Pacemaker in left chest wall. Abdomen exam; soft, no organomegaly. Bowel sounds audible. Nontender. Extremity exam; no peripheral edema clubbing. TEMPERATURE INSPECTOR exam; no focal deficit. Results Result Diagram: 06/28/1862606/28/18626 Medications Medication Current Medications Acetaminophen/ Hydrocodone Bitart ([place] (10/325)) 1 tab Q8H PRN PO MODERATE PAIN LEVEL 4-6; Start 06/27/18 at 22:15 Digoxin (Digoxin) 0.125 mg DAILY@1300 PO ; Start 06/28/18 at 13:00 Diphenhydramine HCl (Benadryl) 25 mg QID PRN PO ITCHING Last administered on 06/28/18at 13:11; Admin Dose 25 MG; Start 06/27/18 at 22:30 Furosemide (Lasix) 40 mg DAILY PO Last administered on 06/29/18at 08:54; Admin Dose 40 MG; Start 06/28/18 at 09:00 Lorazepam (Ativan) 1 mg Q8HWA RESP THERAPY PRN PO ANXIETY; Start 06/27/18 at 22:30 Pantoprazole (Protonix Tab) 40 mg AC BREAKFAST PO Last administered on 06/29/18at 05:27; Admin Dose 40 MG; Start 06/28/18 at 07:25 Zolpidem Tartrate (Ambien) 10 mg QHS PRN PO SLEEP; Start 06/27/18 at 22:30 Albuterol/ Ipratropium (Duoneb) 3 ml Q6H RESP THERAPY HHN Last administered on 06/29/18at 01:53; Admin Dose 3 ML; Start 06/27/18 at 22:30 TRACEE DEE Jun 29, 2018 10:37
[2018-06-29] MEDS: DIGOXIN 0.125 MG TAB PO SCH (12:29)
--- NOTE | 2018-06-29 18:05 | PDOCDIS ---
Discharge Instructions DIAGNOSIS Discharge Diagnosis 1. Respiratory distress got worse 2. COPD exacerbation 3. Status post left subclavian area pacemaker implantation AV sequential not checked for last 2 years. 4. Right pleural effusion-s/p one liter of pleural fluid evacuation. 5. Diarrhea for years being on antimotility medications mainly low material with mild improvement. 6. Episodes of constipation 7. Significant weight loss according to her about 40 kg during the last 24 years,; but by calculations it becomes like about 25-20 kg. 8. Hearing impairment 9. Permanent deconditioning with severe muscular weakness unable to get up and stand by herself with severe decrease of muscular tone was strained mass 10. Urinary and fecal incontinence 11. Status post cholecystectomy 12. Nicotine addiction 13. PTSD 14. Mild elevation of the CEA 15. Kyphosis 16. Osteoporosis 17. Diabetes type 2 blood sugar improved after weight loss 18. Dehydration 19. Malnourishment 20. Noncompliance 21. Irritable bowel syndrome 22. Hemorrhoidal disease with recurrent rectal bleeding 23.Hx of paroxysmal a. fibrillation with low LVEF- on ICD 24. Tricuspid insufficiency with a very large left and right atrium on echo cardiography 25. Pulmonary hypertension with systolic pressure in the pulmonary artery 66 mm of hg. 26. Elevation of central venous pressure 25.incomplete data CONDITION [id number] Patient Condition: [id number] Guarded HOME CARE INSTRUCTIONS: [id number] Diet Instructions: [id number] Reduced Sodium ACTIVITY: [id number] Activity Restrictions: [id number] Slowly Increase Activity [id number] Bathing Restrictions: [id number] Tub Bath FOLLOW UP/APPOINTMENTS Follow-up Plan In 3-4 days to primary care physician. SCHOOL/WORK RELEASE May return to School/Work with: None. LANNY SMITH MD Jun 29, 2018 18:05
--- NOTE | 2018-06-29 18:11 | DS ---
Date/Time of Note Date/Time of Note DATE: 06/29/18 TIME: 18:06 Discharge Summary Admission/Discharge Info Admit Date/Time Jun 27, 2018 at 16:19 Discharge Date/Time Jun 29, 2018 at 14:54 Discharge Diagnosis 1. Respiratory distress got worse 2. COPD exacerbation 3. Status post left subclavian area pacemaker implantation AV sequential not checked for last 2 years. 4. Right pleural effusion-s/p one liter of pleural fluid evacuation. 5. Diarrhea for years being on antimotility medications mainly low material with mild improvement. 6. Episodes of constipation 7. Significant weight loss according to her about 40 kg during the last 24 years,; but by calculations it becomes like about 25-20 kg. 8. Hearing impairment 9. Permanent deconditioning with severe muscular weakness unable to get up and stand by herself with severe decrease of muscular tone was strained mass 10. Urinary and fecal incontinence 11. Status post cholecystectomy 12. Nicotine addiction 13. PTSD 14. Mild elevation of the CEA 15. Kyphosis 16. Osteoporosis 17. Diabetes type 2 blood sugar improved after weight loss 18. Dehydration 19. Malnourishment 20. Noncompliance 21. Irritable bowel syndrome 22. Hemorrhoidal disease with recurrent rectal bleeding 23.Hx of paroxysmal a. fibrillation with low LVEF- on ICD 24. Tricuspid insufficiency with a very large left and right atrium on echo cardiography 25. Pulmonary hypertension with systolic pressure in the pulmonary artery 66 mm of hg. 26. Elevation of central venous pressure 25.incomplete data Patient Condition: Guarded Hx of Present Illness Worsening of her shortness of breath. Unable to take care of herself. Wheelchair-bound. Persistent diarrhea. Refusing to eat. Made a home visit. It was evident that she needs hospitalization because of her respiratory distress CHF unable to take care of herself and having episodes of confusion while being depressed and refusing to take her medications. Hospital Course The patient was admitted for worsening of the CHF along with diarrhea and episode of fall. The patient had explained me that at night prior to coming to hospital to 4 days before she felt some shock in her chest now she is getting realization probably that was a ICD. Neither before nor after that patient did not have similar episodes. Patient is noticing that on and off she is forg etting what is happening with her. She disclosed that she is using the alcohol in the form of whiskey or vodka for about 50 cc for sleep. She regrets that amount of cigarettes she smokes is more than pack a day reaching to 2 packs. After reviewing above-mentioned comments including her continued diarrhea advised the patient as much as she can decrease to decrease the amount of the cigarettes and stop alcohol because of its interference with current medications. After thoracentesis there was no pneumothorax by repeat chest x- ray. She had a skin reaction to the Zithromax which she did not have before. Initially she refused to take the Solu-Medrol. I explained that the at least inflammatory component to control this is a good medication to start with while continuing tapering down at home. She agreed. She continues to lose significant weight she is very much concerned about her mother. She is unable to concentrate well for her future plans and she interrupts conversation in the middle way later coming back and forgetting what we are talking about. While in the hospital condition improved significantly particularly breathing incentive spirometry was used. She continues to have a lot of secretions. Home Meds Reported Medications Pantoprazole* (Pantoprazole*) 40 Mg Tablet.dr, 40 MG PO AC BREAKFAST, TAB 06/27/18 Ubidecarenone* (Co Q-10*) 200 Mg Capsule, 200 MG PO BID, CAP 06/27/18 Diphenhydramine Hcl* (Benadryl*) 25 Mg Cap, 25 MG PO NEEDED PRN for ITCHING, CAP 06/27/18 Apixaban* (Eliquis*) 5 Mg Tablet, 5 MG PO BID, TAB 06/27/18 Hydrocodone/Acetaminophen ([place] 10-325 Tablet) 1 Each Tablet, 1 EACH PO NEEDED, TAB 06/27/18 Lorazepam* (Lorazepam*) 1 Mg Tablet, 1 MG PO NEEDED PRN for ANXIETY, #30 TAB 06/27/18 Furosemide* (Furosemide*) 40 Mg Tablet, 40 MG PO DAILY, TAB 06/27/18 Zolpidem Tartrate* (Zolpidem Tartrate*) 10 Mg Tablet, 10 MG PO QHS PRN for SLEEP 05/29/18 Digoxin* (Digox*) 125 Mcg Tablet, 125 MG PO DAILY 05/29/18 Discontinued Reported Medications Apixaban* (Eliquis*) 2.5 Mg Tablet, 5 MG PO BID, TAB 05/29/18 Metoprolol Tartrate* (Lopressor*) 50 Mg Tab, 50 MG PO BID 05/29/18 Discontinued Scripts Pantoprazole* (Protonix* IV) 40 Mg Soln, 40 MG PO DAILY@06 for 30 Days, #30 Prov:LESLIE SMITH MD 05/31/18 Follow-up Plan In 3-4 days to primary care physician. Primary Care Provider Leslie Smith MD Time spent on discharge: > 30 minutes LESLIE SMITH MD Jun 29, 2018 18:11
== END 2018-06-29 14:54 | disposition home or self-care (01) ==
LOC: E/R 10:18 → TEL 16:19
PROVIDERS: ADMIT Family Medicine; ATTEND Family Medicine
DX: R06.03 Acute respiratory distress (principal); J44.9 Chronic obstructive pulmonary disease, unspecified; R19.7 Diarrhea, unspecified; H91.90 Unspecified hearing loss, unspecified ear; F17.200 Nicotine dependence, unspecified, uncomplicated; E11.9 Type 2 diabetes mellitus without complications; K58.9 Irritable bowel syndrome, unspecified; R32 Unspecified urinary incontinence; M40.209 Unspecified kyphosis, site unspecified; E86.0 Dehydration; I27.20 Pulmonary hypertension, unspecified
CPT/HCPCS: 32555; 36415; 71045; 71046; 80053; 80162; 83540; 83690; 83735; 83880; 84155; 84165; 84484; 85025; 85610; 85730; 87070; 89220; 93005; 94640; 94664; 97116; 97162; 97530; 99285; G0378; J0456; J2920; J2930

== ENCOUNTER 2018-07-19 10:41 | Observation (INO) | payer MEDICARE, BC ==
[~2018-07-19] VITALS: Ht 160 cm; Wt 58.7 kg
[~2018-07-19 10:41] MED LIST changes: -APIX2.5T PO; +APIX5TAB PO; +BEN25 PO; +FURO40TA4 PO; +HYDR-3980 PO; +LORA1TAB PO; -METO-429 PO; +PANT40TA4 PO; -PANT40VI7 PO; +UBID200C36 PO
[2018-07-19] MEDS ORDERED: OMEP20CA16 PO (11:47)
[2018-07-19] MEDS ORDERED: BUPR100T7 PO (11:47)
[2018-07-19] MEDS ORDERED: PROP20TA4 PO (12:05)
[2018-07-19] MEDS ORDERED: ACETAMINOPHEN 325 MG TAB PO PRN (13:30)
[2018-07-19] MEDS ORDERED: ONDANSETRON 4 MG INJ IV PRN (13:30)
[2018-07-19 14:34] VITALS: BP 102/74; PULSE 72; RESP 18
[2018-07-19 14:43] VITALS: Ht 160 cm; Wt 58.7 kg
--- NOTE | 2018-07-19 15:16 | HP ---
Date/Time of Note Date/Time of Note DATE: 07/19/18 TIME: 15:04 Assessment/Plan VTE Prophylaxis SCD contraindicated: other (high risk .) Pharmacological prophylaxis: apixaban, other (now on hold.) Lines/Catheters IV Catheter Type (from Nrsg): Saline Lock Central line still needed: No Urinary Cath still in place: No Reason Cath still needed: urinary retention Assessment/Plan Assessment/Plan 1. Respiratory distress got worse-planned right thoracentesis. 2. COPD exacerbation 3. Status post left subclavian area pacemaker implantation AV sequential not ch ecked for last 2 years. 4. Right pleural effusion-s/p one liter of pleural fluid evacuation. 5. Diarrhea for years being on antimotility medications mainly low material with mild improvement.Now less frequent. 6. Episodes of constipation 7. Significant weight loss according to her about 40 kg during the last 24 years,; but by calculations it becomes like about 25-20 kg. 8. Hearing impairment 9. Permanent deconditioning with severe muscular weakness unable to get up and stand by herself with severe decrease of muscular tone was strained mass 10. Urinary and fecal incontinence 11. Status post cholecystectomy 12. Nicotine addiction-making progress 13. PTSD 14. Mild elevation of the CEA 15. Kyphosis 16. Osteoporosis 17. Diabetes type 2 blood sugar improved after weight loss 18. Dehydration 19. Malnourishment 20. Noncompliance 21. Irritable bowel syndrome 22. Hemorrhoidal disease with recurrent rectal bleeding 23.Hx of paroxysmal a. fibrillation with low LVEF- on ICD 24. Tricuspid insufficiency with a very large left and right atrium on echo cardiography 25. Pulmonary hypertension with systolic pressure in the pulmonary artery 66 mm of hg. 26. Elevation of central venous pressure 25.incomplete data Result Diagram: 07/19/18 1158 07/19/18 1158 Results 24hrs Laboratory Tests Test 07/19/18 11:58 07/19/18 12:00 White Blood Count 6.2 Red Blood Count 5.37 Hemoglobin 15.0 Hematocrit 47.3 H Mean Corpuscular Volume 88.1 Mean Corpuscular Hemoglobin 27.9 L Mean Corpuscular Hemoglobin Concent 31.7 L Red Cell Distribution Width 18.2 H Platelet Count 257 Mean Platelet Volume 10.3 Immature Granulocytes % 0.500 H Neutrophils % 62.1 Lymphocytes % 24.6 Monocytes % 8.3 Eosinophils % 3.2 Basophils % 1.3 Nucleated Red Blood Cells % 0.0 Immature Granulocytes # 0.030 Neutrophils # 3.9 Lymphocytes # 1.5 Monocytes # 0.5 Eosinophils # 0.2 Basophils # 0.1 Nucleated Red Blood Cells # 0.0 Prothrombin Time 14.3 Prothrombin Time Ratio 1.1 INR International Normalized Ratio 1.10 Activated Partial Thromboplast Time 34.2 Sodium Level 140 Potassium Level 4.1 Chloride Level 97 Carbon Dioxide Level 30 Anion Gap 13 Blood Urea Nitrogen 12 Creatinine 0.89 Est Glomerular Filtrat Rate mL/min > 60 Glucose Level 108 Calcium Level 10.4 H Total Bilirubin 0.8 Direct Bilirubin 0.00 Indirect Bilirubin 0.8 Aspartate Amino Transf (AST/SGOT) 31 Alanine Aminotransferase (ALT/SGPT) 20 Alkaline Phosphatase 104 Troponin I 0.096 B-Type Natriuretic Peptide 2850 H Total Protein 8.3 H Albumin 4.6 Globulin 3.70 H Albumin/Globulin Ratio 1.24 Amylase Level 74 Lipase 59 POC Venous Lactate 1.4 HPI/ROS Admit Date/Time Admit Date/Time Jul 19, 2018 at 13:21 Hx of Present Illness Worsening of sob and dizziness. Unstable gate. ROS Subjective hx not possible: pt critical Constitutional: chills, disoriented, fatigue, nausea, poor po, weight change; No no complaints, No improved, No diaphoresis, No febrile, No other Eyes: discharge; No no complaints, No pain, No redness, No visual change, No other ENT: pain, dysphagia; No no complaints, No bleeding, No discharge, No sore throat, No other Respiratory: cough, pleuritic pain, shortness of breath, wheezing; No no complaints, No pain, No sputum, No other Cardiovascular: chest pain, edema, orthopenea, palpitations, paroxysmal nocturnal dyspnea; No no complaints, No lightheadedness, No other Gastrointestinal: blood, constipation, diarrhea, flatus, nausea, passing stool; No no complaints, No pain, No decreased appetite, No vomiting, No other Genitourinary: dysuria, flank pain Musculoskeletal: back pain, bone/joint pain, neck pain; No no complaints, No restricted range of motion, No swelling, No other Skin: bruising, erythema, pruritis, rash Neurologic: confusion, dizziness, headache, other (s/p fall.); No no complaints, No focal-weakness, No syncope, No seizure Endocrine: polydypsia, dry skin, weight change; No no complaints, No polyuria, No temp intolerance, No other Lymphatic: No no complaints, No adenopathy, No tender nodes, No lymphadema, No other Psychological: anxiety, confusion, depression; No no complaints, No nl mood/affect, No suicidal, No other Immunologic: pruritis, rhinitis PMH/Family/Social Past Medical History Medical History: angina, colitis, congestive heart failure, coronary artery disease, deep vein thrombosis, diverticulitis, gallstones, GERD, GI bleed, high cholesterol, hypertension, irritable bowel syndrome, peptic ulcer disease Medications Current Medications Ondansetron HCl (Zofran Inj) 4 mg BRIDGE ORDER PRN IV NAUSEA/VOMITING; Start 07/19/18 at 13:30; Stop 07/20/18 at 13:29 Acetaminophen (Tylenol Tab) 650 mg ER BRIDGE PRN PO .MILD PAIN 1-3 OR TEMP; Start 07/19/18 at 13:30; Stop 07/20/18 at 13:29 Coded Allergies: No Known Drug Allergies (Verified Allergy, Unknown, 07/19/18) Past Surgical History Past Surgical Hx: noncontributory, cholecystectomy, other Family History Significant Family History: no pertinent family hx Social History Alcohol Use: occasionally Smoking Status: Current every day smoker Drug Use: none Exam/Review of Systems Vital Signs Vitals Vital Signs Date Temp Pulse Resp B/P (MAP) Pulse Ox O2 O2 Flow FiO2 Time Delivery Rate 07/19/18 97.2 72 18 102/74 99 14:34 (83) 07/19/18 Room Air 13:28 Exam Constitutional: alert, oriented, well developed, distress; No non-verbal, No frail, No other Psych: anxiety, confusion, depression; No no complaints, No nl mood/affect, No suicidal, No other Head: normocephalic, atraumatic Eyes: EOMI, nl lids, PERRL; No nl conjunctiva, No nl sclera, No icteric, No fundi, disc, No other ENMT: tympanic membranes; No nl external ears & nose, No nl lips & teeth, No nl nasal mucosa & septum, No mucosa pink and moist, No intubated, No other Neck: non-tender, jvd, bruits, masses, nuchal rigidity; No supple, No thyromegaly, No other Respiratory: clear to auscultation Cardiovascular: nl pulses, bruits, edema, jugular venous distention (JVD), systolic murmur, other (s/p pacemaker implantation.) Gastrointestinal: No soft, No nl liver, spleen, No non-tender, No ascites, No bowel sounds, No distended, No firm, No hepatomegaly, No mass, No rebound or guarding, No splenomegaly, No surgical scars, No tender, No other Genitourinary - Female: nl adnexae, nl external genitalia; No CMT, No CVA tenderness, No uterus, No other Musculoskeletal: joint tenderness, muscle tone, muscle weakness; No nl extremities to inspection, No nl gait and stance, No range of motion, No spine non-tender, No swelling, No other Extremities: normal pulses, pitting pedal edema; No calf tenderness, No cyanosis, No clubbing, No edema, No palpable cord, No tenderness, No other 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: [employer] II-XII intact (hearing impairment.), confused (on and off.), lethargic, numbness Skin: nl turgor (decresed.), rash or lesions, ecchymosis; No diaphoresis, No laceration, No puncture, No other Lymph: nl lymph nodes; No enlarged, No nontender, No other LANNY SMITH MD Jul 19, 2018 15:14
[2018-07-19] MEDS ORDERED: ZOLPIDEM 5 MG TAB PO PRN (15:30)
[2018-07-19] MEDS ORDERED: LORAZEPAM 1 MG TAB PO PRN (15:30)
[2018-07-19] MEDS ORDERED: DIPHENHYDRAMINE 25 MG CAP PO PRN (15:30)
[2018-07-19 16:16] VITALS: BP 99/70; PULSE 71; RESP 19
[2018-07-19] MEDS ORDERED: LIDOCAINE 1% (MPF) 5 ML VIAL ONE (16:50)
[2018-07-19 17:05] VITALS: BP 95/68; PULSE 72; RESP 19
--- NOTE | 2018-07-19 17:48 | PDOCDIS ---
Discharge Instructions DIAGNOSIS Discharge Diagnosis 1. Respiratory distress got worse-s/p right thoracentesis. 2. COPD exacerbation 3. Status post left subclavian area pacemaker implantation AV sequential not checked for last 2 years. 4. Right pleural effusion-s/p one liter of pleural fluid evacuation. 5. Diarrhea for years being on antimotility medications mainly low material with mild improvement.Now less frequent. 6. Episodes of constipation 7. Significant weight loss according to her about 40 kg during the last 24 years,; but by calculations it becomes like about 25-20 kg. 8. Hearing impairment 9. Permanent deconditioning with severe muscular weakness unable to get up and stand by herself with severe decrease of muscular tone was strained mass 10. Urinary and fecal incontinence 11. Status post cholecystectomy 12. Nicotine addiction-making progress 13. PTSD 14. Mild elevation of the CEA 15. Kyphosis 16. Osteoporosis 17. Diabetes type 2 blood sugar improved after weight loss 18. Dehydration 19. Malnourishment 20. Noncompliance 21. Irritable bowel syndrome 22. Hemorrhoidal disease with recurrent rectal bleeding 23.Hx of paroxysmal a. fibrillation with low LVEF- on ICD 24. Tricuspid insufficiency with a very large left and right atrium on echo cardiography 25. Pulmonary hypertension with systolic pressure in the pulmonary artery 66 mm of hg. 26. Elevation of central venous pressure 25.incomplete data CONDITION [id number] Patient Condition: [id number] Guarded HOME CARE INSTRUCTIONS: [id number] Diet Instructions: [id number] Regular ACTIVITY: [id number] Activity Restrictions: [id number] Slowly Increase Activity [id number] Bathing Restrictions: [id number] Sponge Bath FOLLOW UP/APPOINTMENTS Follow-up Plan in 3 days to in 5 days to LANNY Morales MD Jul 19, 2018 17:48
[2018-07-19] MEDS ORDERED: UBID200C36 PO (17:50)
[2018-07-19] MEDS ORDERED: PANT40TA4 PO (17:50)
[2018-07-19] MEDS ORDERED: NICO-544 TRANSDERM (17:50)
[2018-07-19] MEDS ORDERED: PROPRANOLOL 20 MG TAB ONE (19:44)
[2018-07-19 20:00] VITALS: BP 106/69; PULSE 71; RESP 19
[2018-07-19] MEDS ORDERED: HYDROCODONE/APAP (10/325) TAB PO SCH (21:00)
[2018-07-19] MEDS ORDERED: NON-FORMULARY/PATIENT OWN MED (Ubidecarenone* (Co Q-10*) 200 MG) PO SCH (21:00)
[2018-07-19] MEDS ORDERED: HYDROCODONE/APAP (10/325) TAB PO PRN (21:00)
[2018-07-19] MEDS: PROPRANOLOL 20 MG TAB PO SCH (21:06)
[2018-07-19] MEDS: NICOTINE (14 MG/24 HR) PATCH TRANSDERM SCH (21:23)
[2018-07-20 02:00] VITALS: BP 95/60; PULSE 70; RESP 18
[2018-07-20] MEDS ORDERED: PANTOPRAZOLE (EC) 40 MG TAB PO SCH (06:00)
[2018-07-20] MEDS: PROPRANOLOL 20 MG TAB PO SCH (06:00)
[2018-07-20 06:04] VITALS: BP 99/59; PULSE 70
--- NOTE | 2018-07-20 07:24 | ERD ---
ER Documentation Chief Complaint Chief Complaint SENT FOR THORACENTESIS; C/O DIZZINESS, SOB. SENT BY PMD. HPI This is a 57-year-old very pleasant female with a past medical history of COPD, left subclavian pacemaker, pulmonary hypertension, type 2 diabetes, and previous pleural effusions requiring thoracentesis. Patient was seen 3 days ago at her primary care physician's office for difficulty breathing. She was instructed to come to the emergency department to be further evaluated. She attempted to improve her symptoms at home but given that the difficulty breathing worsened she presented to the emergency department today. Her primary care physician is Dr. Smith. She had no fevers or shaking or chills. She denies any swelling of her lower extremities. ROS All systems reviewed and are negative except as per history of present illness. Medications Home Meds Active Scripts Pantoprazole* (Pantoprazole*) 40 Mg Tablet.dr, 40 MG PO DAILY@06 for 30 Days, #30 Prov:LANNY SMITH MD 07/19/18 Nicotine* (Nicotine* Patch) 7 mg/day Patch, 1 PATCH TRANSDERM DAILY for 28 Days, #30 Prov:LANNY SMITH MD 07/19/18 Ubidecarenone* (Co Q-10*) 200 Mg Capsule, 200 MG PO BID for 30 Days, #60 CAP Prov:LANNY SMITH MD 07/19/18 Reported Medications Bupropion Hcl* (Bupropion Hcl SR*) 100 Mg Tablet.sa, 100 MG PO NEEDED, TAB.SA 07/19/18 Diphenhydramine Hcl* (Benadryl*) 25 Mg Cap, 25 MG PO NEEDED PRN for ITCHING, CAP 06/27/18 Hydrocodone/Acetaminophen ([place] 10-325 Tablet) 1 Each Tablet, 1 EACH PO NEEDED, TAB 06/27/18 Lorazepam* (Lorazepam*) 1 Mg Tablet, 1 MG PO NEEDED PRN for ANXIETY, #30 TAB 06/27/18 Furosemide* (Furosemide*) 40 Mg Tablet, 40 MG PO DAILY, TAB 06/27/18 Zolpidem Tartrate* (Zolpidem Tartrate*) 10 Mg Tablet, 10 MG PO QHS PRN for SLEEP 05/29/18 Digoxin* (Digox*) 125 Mcg Tablet, 125 MG PO DAILY 05/29/18 Discontinued Reported Medications Propranolol Hcl* (Propranolol Hcl*) 20 Mg Tablet, 20 MG PO NEEDED, TAB 07/19/18 Omeprazole* (Omeprazole*) 20 Mg Capsule.dr, 20 MG PO DAILY, #30 CAP 07/19/18 Pantoprazole* (Pantoprazole*) 40 Mg Tablet.dr, 40 MG PO AC BREAKFAST, TAB 06/27/18 Apixaban* (Eliquis*) 5 Mg Tablet, 5 MG PO BID, TAB 06/27/18 Allergies Allergies: Coded Allergies: No Known Drug Allergies (Verified Allergy, Unknown, 07/19/18) PMhx/Soc History of Surgery: Yes ( 1985, Cholcystectomy 1999, Tubal Ligation, cataract sx,bladder sx) Anesthesia Reaction: No Hx 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 Disorder: No Hx Respiratory Disorders: Yes (COPD) Hx Cardiac Disorders: Yes (CHF, Cardiomyopathy, Afib, Pacemaker/AICD, CAD,[place], Stroke) Hx Miscellaneous Medical Probl: No Hx Alcohol Use: Yes (socially) Hx Substance Use: No Hx Tobacco Use: Yes Smoking Status: Current every day smoker Physical Exam Vitals Vital Signs Date Temp Pulse Resp B/P (MAP) Pulse Ox O2 O2 Flow FiO2 Time Delivery Rate 07/19/18 97.6 74 22 112/70 97 10:58 (84) Physical Exam Constitutional:Well-developed. Cachectic HEENT:Normocephalic. Atraumatic.Pupils were equal round reactive to light. Moist mucous membranes.No tonsillar exudates. Neck: No nuchal rigidity. No lymphadenopathy. No posterior cervical spine tenderness or step-offs. Respiratory: Not using accessory muscles of respiration. Lungs are clear to auscultation on the left. Decreased breath sounds heard in the right lower lung base.. No rhonchi. No rales. No wheezing. Cardiovascular: Regular rate regular rhythm.No murmurs. No rubs were appreciated.S1, S2 normal. Distal pulses are palpable 2+ bilaterally. GI: Abdomen was soft. Nontender. Non Distended. No pulsatile abdominal masses or bruits. No rebound. No guarding. Bowel sounds were present and normal. Muscle skeletal: Full range of motion of both the upper and lower extremities bilaterally.Normal muscle tone.No assymetrical calf tenderness or swelling. Skin: No petechia, no purpura. No lesions on the palms or the soles of the feet. No maculopapular rash. NEURO: Patient was alert, awake, orientated x3.No facial droop. Gait observed and normal with no ataxia.Speech had regular rate and rhythm. No focal ne urological deficits. Result Diagram: 07/19/18 1158 07/19/18 1158 Results 24 hrs Laboratory Tests Test 07/19/18 11:58 07/19/18 12:00 White Blood Count 6.2 10^3/ul Red Blood Count 5.37 10^6/ul Hemoglobin 15.0 g/dl Hematocrit 47.3 % Mean Corpuscular Volume 88.1 fl Mean Corpuscular Hemoglobin 27.9 pg Mean Corpuscular Hemoglobin Concent 31.7 g/dl Red Cell Distribution Width 18.2 % Platelet Count 257 10^3/UL Mean Platelet Volume 10.3 fl Immature Granulocytes % 0.500 % Neutrophils % 62.1 % Lymphocytes % 24.6 % Monocytes % 8.3 % Eosinophils % 3.2 % Basophils % 1.3 % Nucleated Red Blood Cells % 0.0 /100WBC Immature Granulocytes # 0.030 10^3/ul Neutrophils # 3.9 10^3/ul Lymphocytes # 1.5 10^3/ul Monocytes # 0.5 10^3/ul Eosinophils # 0.2 10^3/ul Basophils # 0.1 10^3/ul Nucleated Red Blood Cells # 0.0 10^3/ul Prothrombin Time 14.3 Sec Prothrombin Time Ratio 1.1 INR International Normalized Ratio 1.10 Activated Partial Thromboplast Time 34.2 Sec Sodium Level 140 mmol/L Potassium Level 4.1 mmol/L Chloride Level 97 mmol/L Carbon Dioxide Level 30 mmol/L Anion Gap 13 Blood Urea Nitrogen 12 mg/dl Creatinine 0.89 mg/dl Est Glomerular Filtrat Rate mL/min > 60 mL/min Glucose Level 108 mg/dl Calcium Level 10.4 mg/dl Total Bilirubin 0.8 mg/dl Direct Bilirubin 0.00 mg/dl Indirect Bilirubin 0.8 mg/dl Aspartate Amino Transf (AST/SGOT) 31 IU/L Alanine Aminotransferase (ALT/SGPT) 20 IU/L Alkaline Phosphatase 104 IU/L Troponin I 0.096 ng/ml B-Type Natriuretic Peptide 2850 PG/ML Total Protein 8.3 g/dl Albumin 4.6 g/dl Globulin 3.70 g/dl Albumin/Globulin Ratio 1.24 Amylase Level 74 U/L Lipase 59 U/L POC Venous Lactate 1.4 mmol/L Procedures/MDM The patient presented to the emergency department with dyspnea. My differential diagnosis included but was not limited to upper airway obstruction, CHF, pulmonary embolism, cardiac ischemia, pneumonia, pneumothorax, anemia, drug overdose, pulmonary edema, COPD or asthma. The patient was refusing any nebulizer treatments at this time and she did not appear to be having a COPD exacerbation. I did feel the patient's dyspnea was likely secondary to her right pleural effusion. I spoke with her primary care physician Dr. Smith and who kindly stated he will admit the patient to undergo a pleurocentesis. 1 view chest radiograph have been ordered and reviewed by myself and the radiologist and indicated the following: Mild cardiomegaly. Mild pulmonary vascular congestion. Moderate right pleural effusion Calcified aorta consistent with atherosclerotic disease. The patient had an elevated BNP at 2850. She had no rhonchi on physical examination no shortness of breath. I did feel her symptoms were more likely result of the pleural effusion versus a congestive heart failure exacerbation. She will be admitted to the medical surgical floor to undergo paracentesis. Departure Diagnosis: Primary Impression: Pleural effusion Condition: Serious RYAN GILMORE MD Jul 20, 2018 07:24
[2018-07-20 07:45] VITALS: BP 96/64; PULSE 76; RESP 16
[2018-07-20] MEDS ORDERED: FUROSEMIDE 40 MG TAB PO SCH (09:00)
[2018-07-20] MEDS ORDERED: DIGOXIN 0.125 MG TAB PO SCH ×2 (09:00→10:00)
[2018-07-20] MEDS ORDERED: BUPROPION (SR) 100 MG TAB PO SCH (09:00)
[2018-07-20] MEDS ORDERED: FUROSEMIDE 20 MG INJ IV SCH (09:00)
[2018-07-20] MEDS ORDERED: NICOTINE (7 MG/24 HR) PATCH TRANSDERM SCH (09:00)
[2018-07-20] MEDS: NICOTINE (14 MG/24 HR) PATCH TRANSDERM SCH (09:07)
--- NOTE | 2018-07-20 09:19 | DS ---
Date/Time of Note Date/Time of Note DATE: 07/20/18 TIME: 09:17 Discharge Summary Admission/Discharge Info Admit Date/Time Jul 19, 2018 at 13:21 Discharge Date/Time After 2018 10 AM. Discharge Diagnosis 1. Respiratory distress got worse-s/p right thoracentesis. 2. COPD exacerbation 3. Status post left subclavian area pacemaker implantation AV sequential not checked for last 2 years. 4. Right pleural effusion-s/p one liter of pleural fluid evacuation. 5. Diarrhea for years being on antimotility medications mainly low material with mild improvement.Now less frequent. 6. Episodes of constipation 7. Significant weight loss according to her about 40 kg during the last 24 years,; but by calculations it becomes like about 25-20 kg. 8. Hearing impairment 9. Permanent deconditioning with severe muscular weakness unable to get up and stand by herself with severe decrease of muscular tone was strained mass 10. Urinary and fecal incontinence 11. Status post cholecystectomy 12. Nicotine addiction-making progress 13. PTSD 14. Mild elevation of the CEA 15. Kyphosis 16. Osteoporosis 17. Diabetes type 2 blood sugar improved after weight loss 18. Dehydration 19. Malnourishment 20. Noncompliance 21. Irritable bowel syndrome 22. Hemorrhoidal disease with recurrent rectal bleeding 23.Hx of paroxysmal a. fibrillation with low LVEF- on ICD 24. Tricuspid insufficiency with a very large left and right atrium on echo cardiography 25. Pulmonary hypertension with systolic pressure in the pulmonary artery 66 mm of hg. 26. Elevation of central venous pressure 25.incomplete data Patient Condition: Guarded Hx of Present Illness Worsening of sob and dizziness. Unstable gate. Hospital Course The patient was admitted mainly for performing a thoracentesis. Due to of multiple medical problems and very fragile health condition being unable to take care of herself and having frequent complications decision was made to keep the patient 1 more day to check in the morning chest x-rays for the absence of pneumothorax the discharge. No pneumothorax on the chest x-ray DC home. Hemodynamically she is stable although she is slightly hypotensive but overall condition is improved we will see as an outpatient in 3-4 days. Home Meds Active Scripts Pantoprazole* (Pantoprazole*) 40 Mg Tablet., 40 MG PO DAILY@06 for 30 Days, #30 Prov:LESLIE SMITH MD 07/19/18 Nicotine* (Nicotine* Patch) 7 mg/day Patch, 1 PATCH TRANSDERM DAILY for 28 Days, #30 Prov:LESLIE SMITH MD 07/19/18 Ubidecarenone* (Co Q-10*) 200 Mg Capsule, 200 MG PO BID for 30 Days, #60 CAP Prov:LESLIE SMITH MD 07/19/18 Reported Medications Bupropion Hcl* (Bupropion Hcl SR*) 100 Mg Tablet.sa, 100 MG PO NEEDED, TAB.SA 07/19/18 Diphenhydramine Hcl* (Benadryl*) 25 Mg Cap, 25 MG PO NEEDED PRN for ITCHING, CAP 06/27/18 Hydrocodone/Acetaminophen ([place] 10-325 Tablet) 1 Each Tablet, 1 EACH PO NEEDED, TAB 06/27/18 Lorazepam* (Lorazepam*) 1 Mg Tablet, 1 MG PO NEEDED PRN for ANXIETY, #30 TAB 06/27/18 Furosemide* (Furosemide*) 40 Mg Tablet, 40 MG PO DAILY, TAB 06/27/18 Zolpidem Tartrate* (Zolpidem Tartrate*) 10 Mg Tablet, 10 MG PO QHS PRN for SLEEP 05/29/18 Digoxin* (Digox*) 125 Mcg Tablet, 125 MG PO DAILY 05/29/18 Discontinued Reported Medications Propranolol Hcl* (Propranolol Hcl*) 20 Mg Tablet, 20 MG PO NEEDED, TAB 07/19/18 Omeprazole* (Omeprazole*) 20 Mg Capsule.dr, 20 MG PO DAILY, #30 CAP 07/19/18 Pantoprazole* (Pantoprazole*) 40 Mg Tablet.dr, 40 MG PO AC BREAKFAST, TAB 06/27/18 Apixaban* (Eliquis*) 5 Mg Tablet, 5 MG PO BID, TAB 06/27/18 Follow-up Plan in 3 days to in [address] Garner Primary Care Provider Leslie Smith MD Time spent on discharge: > 30 minutes Pending Labs Laboratory Tests Test 07/19/18 11:58 07/19/18 12:00 07/19/18 16:00 07/19/18 18:50 White Blood 6.2 Count 10^3/ul (4.8-10 .8) Red Blood 5.37 Count 10^6/ul (4.20-5 .40) Hemoglobin 15.0 g/dl (12.0-16.0 ) Hematocrit 47.3 % (37.0-47.0) Mean 88.1 Corpuscular fl (82.0-101.0) Volume Mean 27.9 Corpuscular pg (29.0-33.0) Hemoglobin Mean 31.7 Corpuscular g/dl (32.0-37.0 Hemoglobin Conc ) ent Red Cell 18.2 Distribution % (11.5-14.5) Width Platelet Count 257 10^3/UL (140-41 5) Mean Platelet 10.3 Volume fl (7.4-10.4) Immature 0.500 Granulocytes % % (0.001-0.429) Neutrophils % 62.1 % (39.0-77.0) Lymphocytes % 24.6 % (15.0-51.0) Monocytes % 8.3 % (0.0-11.0) Eosinophils % 3.2 % (0.0-7.0) Basophils % 1.3 % (0.0-2.0) Nucleated Red 0.0 Blood Cells % /100WBC (0.0-0. 0) Immature 0.030 Granulocytes # 10^3/ul (0.0-0. 031) Neutrophils # 3.9 10^3/ul (1.6-7. 5) Lymphocytes # 1.5 10^3/ul (0.8-2. 9) Monocytes # 0.5 10^3/ul (0.3-0. 9) Eosinophils # 0.2 10^3/ul (0.0-0. 5) Basophils # 0.1 10^3/ul (0.0-0. 1) Nucleated Red 0.0 Blood Cells # 10^3/ul (0.0-0. 0) Prothrombin 14.3 Time Sec (11.9-14.9) Prothrombin 1.1 Time Ratio INR 1.10 International Normalized Rati o Activated 34.2 Partial Thrombo Sec (23.0-35.0) plast Time Sodium Level 140 mmol/L (135-144 ) Potassium 4.1 Level mmol/L (3.5-5.1 ) Chloride Level 97 mmol/L (97-110) Carbon Dioxide 30 Level mmol/L (21-31) Anion Gap 13 (5-13) Blood Urea 12 mg/dl (7-20) Nitrogen Creatinine 0.89 mg/dl (0.44-1.0 0) Est Glomerular > 60 Filtrat mL/min (>60) Rate mL/min Glucose Level 108 mg/dl (70-220) Calcium Level 10.4 mg/dl (8.4-10.2 ) Total 0.8 Bilirubin mg/dl (0.2-1.3) Direct 0.00 Bilirubin mg/dl (0.00-0.2 0) Indirect 0.8 Bilirubin mg/dl (0-1.1) Aspartate Amino 31 IU/L (15-46) Transf (AST/SGO T) Alanine 20 IU/L (13-69) Aminotransferas e (ALT/SGPT) Alkaline 104 Phosphatase IU/L (42-121) Troponin I 0.096 ng/ml (0.000-0. 120) B-Type 2850 2670 Natriuretic PG/ML (0-125) PG/ML (0-125) Peptide Total Protein 8.3 g/dl (6.1-8.1) Albumin 4.6 g/dl (3.3-4.9) Globulin 3.70 g/dl (1.3-3.2) Albumin/Globuli 1.24 n Ratio Amylase Level 74 U/L (11-123) Lipase 59 U/L (23-300) POC Venous 1.4 Lactate mmol/L (0.5-2. 0) Body Fluid Type PLEURAL Body Fluid 750.0 ml Volume Body Fluid YELLOW Color Body Fluid SLIGHTLY CLOUD Appearance Y Body Fluid WBC 272 /cmm Body Fluid RBC 1000 /uL (Auto) Body Fluid 34.2 % Polynuclear WBCs (%) Body Fluid 65.8 % Mononuclear Cells % Auto Magnesium 2.2 Level mg/dl (1.7-2.5 ) Iron Level 37 ug/dl (35-150) Total Iron 488 Binding ug/dl (241-421 Capacity ) Percent Iron 8 % Saturation SAT (22-52) Digoxin Level 0.8 ng/ml (1.0-2.0 ) LESLIE SMITH MD Jul 20, 2018 09:19
== END 2018-07-20 11:40 | disposition home or self-care (01) ==
LOC: E/R 10:41 → PP2 13:21
PROVIDERS: ADMIT Family Medicine; ATTEND Family Medicine
DX: J44.1 Chronic obstructive pulmonary disease with (acute) exacerbation (principal); R06.03 Acute respiratory distress; J90 Pleural effusion, not elsewhere classified; K59.00 Constipation, unspecified; F17.200 Nicotine dependence, unspecified, uncomplicated; E11.9 Type 2 diabetes mellitus without complications; K58.9 Irritable bowel syndrome, unspecified; I48.2 Chronic atrial fibrillation; E86.0 Dehydration; R06.02 Shortness of breath
CPT/HCPCS: 32555; 71045; 71046; 80053; 80162; 82042; 82150; 83540; 83605; 83690; 83735; 83880; 83986; 84155; 84165; 84484; 85025; 85610; 85730; 87070; 87102; 87116; 88104; 88305; 89051; 93005; 99285; G0378; J1940

== ENCOUNTER 2018-09-03 18:59 | Inpatient (IN) | payer MEDICARE, BC ==
[~2018-09-03] VITALS: Ht 160 cm; Wt 68.0 kg
[~2018-09-03 18:59] MED LIST changes: -APIX5TAB PO; +BUPR100T7 PO; +NICO-544 TRANSDERM
[2018-09-03 22:24] VITALS: PULSE 64
[2018-09-03 23:14] VITALS: Ht 160 cm; Wt 68.0 kg
[2018-09-03 23:22] VITALS: PULSE 85
[2018-09-04] VITALS (23 sets, daily range): BP systolic 91–131; BP diastolic 55–93; PULSE 70–74; RESP 18–36
[2018-09-04] MEDS: FUROSEMIDE 20 MG INJ IV SCH ×4 (01:00→21:04)
[2018-09-04] MEDS ORDERED: ALBUTEROL/IPRATROPIUM (NEB) 3 ML AMP HHN SCH (01:00)
[2018-09-04] MEDS: POTASSIUM CHLORIDE (SR) 20 MEQ TAB PO SCH ×4 (01:36→21:03)
[2018-09-04] MEDS: ZOLPIDEM 5 MG TAB PO PRN ×2 (01:37→21:02)
[2018-09-04] MEDS: NICOTINE (7 MG/24 HR) PATCH TRANSDERM SCH ×2 (01:52→09:00)
[2018-09-04] MEDS: ALBUTEROL/IPRATROPIUM (NEB) 3 ML AMP HHN SCH ×4 (08:00→22:17)
[2018-09-04] MEDS: SPIRONOLACTONE 25 MG TAB PO SCH (08:28)
[2018-09-04] MEDS: ENALAPRIL 2.5 MG TAB PO SCH (08:30)
[2018-09-04] MEDS ORDERED: SPIRONOLACTONE 25 MG TAB PO SCH (09:00)
--- NOTE | 2018-09-04 09:02 | HP ---
Date/Time of Note Date/Time of Note DATE: 09/04/18 TIME: 08:52 Assessment/Plan VTE Prophylaxis SCD applied (from Nsg): Yes SCD contraindicated: other (on) Pharmacological prophylaxis: other (No; for thoracentesis.) Pharm contraindication: patient refusal Lines/Catheters IV Catheter Type (from Nrsg): Peripheral IV Central line still needed: No Urinary Cath still in place: Yes Reason Cath still needed: other (indicate) (incontinence.) Assessment/Plan Hospital Course Patient was seen 1:30 PM in ICU. Chest x-ray reviewed no basilar pneumothorax as was stated in previous chest x-ray. She is doing fine we will keep in ICU repeat one more time x-rays at about 6 PM and if stable transfer to the floor. Assessment/Plan 1. Respiratory distress got worse-planned right thoracentesis. 2. COPD exacerbation-still smokes. Discussed. 3. Status post left subclavian area pacemaker implantation AV sequential not checked for last 2 years. 4. Right pleural effusion-s/p one liter of pleural fluid evacuation. 5. Diarrhea for years being on antimotility medications mainly, with mild improvement.Now less frequent. 6. Episodes of constipation 7. Significant weight loss according to her about 38 kg during the last 24 years,; but by calculations it becomes like about 25-20 kg. 8. Hearing impairment 9. Permanent deconditioning with severe muscular weakness unable to get up and stand by herself with severe decrease of muscular tone was strained mass 10. Urinary and fecal incontinence 11. Status post cholecystectomy 12. Nicotine addiction-making progress 13. PTSD 14. Mild elevation of the CEA 15. Kyphosis 16. Osteoporosis 17. Diabetes type 2 blood sugar improved after weight loss 18. Dehydration 19. Malnourishment 20. Noncompliance 21. Irritable bowel syndrome 22. Hemorrhoidal disease with recurrent rectal bleeding 23. Hx of paroxysmal a. fibrillation with low LVEF- on ICD 24. Tricuspid insufficiency with a very large left and right atrium on echo cardiography 25. Pulmonary hypertension with systolic pressure in the pulmonary artery 66 mm of hg. 26. Elevation of central venous pressure 25.incomplete data Result Diagram: 09/04/1810109/04/18 0102 Results 24hrs Laboratory Tests Test 09/04/18 01:02 White Blood Count 7.6 # Red Blood Count 4.60 Hemoglobin 13.1 Hematocrit 41.4 Mean Corpuscular Volume 90.0 Mean Corpuscular Hemoglobin 28.5 L Mean Corpuscular Hemoglobin Concent 31.6 L Red Cell Distribution Width 17.9 H Platelet Count 283 Mean Platelet Volume 10.4 Immature Granulocytes % 0.400 Neutrophils % 65.5 Lymphocytes % 17.8 Monocytes % 8.2 Eosinophils % 6.9 Basophils % 1.2 Nucleated Red Blood Cells % 0.0 Immature Granulocytes # 0.030 Neutrophils # 5.0 Lymphocytes # 1.4 Monocytes # 0.6 Eosinophils # 0.5 Basophils # 0.1 Nucleated Red Blood Cells # 0.0 Erythrocyte Sedimentation Rate 25 Prothrombin Time 16.0 H Prothrombin Time Ratio 1.3 INR International Normalized Ratio 1.27 Activated Partial Thromboplast Time 37.6 H Sodium Level 141 Potassium Level 3.7 Chloride Level 101 Carbon Dioxide Level 31 Anion Gap 9 Blood Urea Nitrogen 8 Creatinine 0.89 Est Glomerular Filtrat Rate mL/min > 60 Glucose Level 89 Calcium Level 9.7 Magnesium Level 2.1 Iron Level 38 Total Iron Binding Capacity 431 H Percent Iron Saturation 9 L C-Reactive Protein High Sensitivity 0.96 H Thyroid Stimulating Hormone (TSH) 2.420 HPI/ROS Admit Date/Time Admit Date/Time Sep 03, 2018 at 22:34 Hx of Present Illness Worsening of her shortness of breath developing gradually after the last discharge more than a month ago. She felt much better after quitting more than a liter of fluid from the right pleural cavity. Viral warts last year she never felt so good in terms of improving breathing and decreasing edema of both lower extremities and being able to sleep. Seen patient patient 3 days ago at home recommended hospitalization due to of decreased breathing sounds on the right side on JVD and worsening of shortness of breath. Lasix was increased to twice a day with potassium chloride before coming to the hospital. She was having problems with the transportation I advised her not to call 911 but the consultation service with somebody we will will drive her to the hospital finally she did eat yesterday. Patient is getting also home health service. It is apparent that she continues to smoke. Occasionally uses alcohol. He forgets to take medications. ROS Subjective hx not possible: pt critical Constitutional: improved, chills, diaphoresis, fatigue, nausea, poor po, weight change; No no complaints, No disoriented, No febrile, No other Eyes: No no complaints, No pain, No discharge, No redness, No visual change, No other ENT: congestion, dysphagia, sore throat; No no complaints, No bleeding, No pain, No discharge, No other Respiratory: cough, shortness of breath; No no complaints, No pain, No pleuritic pain, No sputum, No wheezing, No other Cardiovascular: chest pain, edema; No no complaints, No lightheadedness, No orthopenea, No palpitations, No paroxysmal nocturnal dyspnea, No other Gastrointestinal: diarrhea, flatus, nausea, passing stool; No no complaints, No pain, No blood, No constipation, No decreased appetite, No vomiting, No other Genitourinary: dysuria; No no complaints, No bleeding, No discharge, No flank pain, No hematuria, No other Musculoskeletal: back pain, bone/joint pain, neck pain, restricted range of motion; No no complaints, No swelling, No other Skin: No no complaints, No bruising, No erythema, No laceration, No pruritis, No rash, No skin lesions, No other Neurologic: confusion, headache; No no complaints, No dizziness, No focal-weakness, No syncope, No seizure, No other Endocrine: polydypsia; No no complaints, No polyuria, No dry skin, No temp intolerance, No weight change, No other Lymphatic: No no complaints, No adenopathy, No tender nodes, No lymphadema, No other Psychological: anxiety, depression; No no complaints, No nl mood/affect, No confusion, No suicidal, No other Immunologic: No no complaints, No immunodeficiency, No pruritis, No rhinitis, No urticaria, No other PMH/Family/Social Past Medical History Medical History: angina, colitis, congestive heart failure, coronary artery disease, diabetes, diverticulitis, gallstones, GERD, GI bleed, high cholesterol, hypertension, irritable bowel syndrome, renal disease, urinary tract infection Medications Current Medications Potassium Chloride (Klor-Con 20) 20 meq Q8 PO Last administered on 09/04/18at 05:16; Admin Dose 20 MEQ; Start 09/04/18 at 01:00 Furosemide (Lasix) 20 mg Q8 IV ; Start 09/04/18 at 01:00 Nicotine (Nicoderm 7 Mg/ 24 Hr) 1 patch DAILY TRANSDERM Last administered on 09/04/18at 01:52; Admin Dose 1 PATCH; Start 09/04/18 at 01:00 Albuterol/ Ipratropium (Duoneb) 3 ml Q8 PRN HHN SHORTNESS OF BREATH; Start 09/04/18 at 01:00 Enalapril Maleate (Vasotec) 2.5 mg DAILY PO ; Start 09/04/18 at 09:00 Carvedilol (Coreg) 3.125 mg BID PO Last administered on 09/04/18at 08:29; Admin Dose 3.125 MG; Start 09/04/18 at 09:00 Spironolactone (Aldactone) 25 mg DAILY PO Last administered on 09/04/18at 08:28; Admin Dose 25 MG; Start 09/04/18 at 09:00 Zolpidem Tartrate (Ambien) 5 mg HS MAY REPEAT X 1 PRN PO INSOMNIA Last administered on 09/04/18at 01:37; Admin Dose 5 MG; Start 09/04/18 at 01:30 Albuterol/ Ipratropium (Duoneb) 3 ml Q8 HHN ; Start 09/04/18 at 08:00 Coded Allergies: No Known Drug Allergies (Verified Allergy, Unknown, 07/19/18) Past Surgical History Past Surgical Hx: noncontributory, cholecystectomy, other Family History Significant Family History: no pertinent family hx Social History Alcohol Use: occasionally Smoking Status: Current every day smoker Drug Use: none Exam/Review of Systems Vital Signs Vitals Vital Signs Date Temp Pulse Resp B/P (MAP) Pulse Ox O2 O2 Flow FiO2 Time Delivery Rate 09/04/18 70 08:12 09/04/18 98.0 18 110/75 98 07:42 (87) Intake and Output 09/03/18 09/03/18 09/04/18 1515:00 23:00 07:00 IntakeIntake Total 400 ml BalanceBalance 400 ml Exam Constitutional: alert, oriented, well developed, distress, frail (Very high risk of fall and actual episodes of fall..); No non-verbal, No other Psych: anxiety, depression; No no complaints, No nl mood/affect, No confusion, No suicidal, No other Head: normocephalic, atraumatic; No lacerations, No hematomas, No other Eyes: EOMI, nl lids, PERRL; No nl conjunctiva, No nl sclera, No icteric, No fundi, disc, No other ENMT: nl external ears & nose, nl nasal mucosa & septum, tympanic membranes; No nl lips & teeth, No mucosa pink and moist, No intubated, No other Neck: jvd, bruits, thyromegaly; No supple, No non-tender, No masses, No nuchal rigidity, No other Respiratory: congested cough, crackles/rales, diminished breath sounds (Right more than left side.); No clear to auscultation, No normal air movement, No intercostal retraction, No labored breathing, No respirations, No tactile fremitus, No wheezing, No other Cardiovascular: regular rate and rhythm, bruits, edema, jugular venous distention (JVD), systolic murmur, other (Left subclavian area palpable body of a pacemaker.); No nl pulses, No diastolic murmur, No gallop, No irregular rhythm, No murmurs/extra sounds, No rub, No S3, No S4 Gastrointestinal: soft, ascites, bowel sounds, distended, rebound or guarding; No nl liver, spleen, No non-tender, No firm, No hepatomegaly, No mass, No splenomegaly, No surgical scars, No tender, No other Genitourinary - Female: nl adnexae, nl external genitalia; No CMT, No CVA tenderness, No uterus, No other Musculoskeletal: muscle tone, muscle weakness; No nl extremities to inspection, No nl gait and stance, No joint tenderness, No range of motion, No spine non-tender, No swelling, No other Extremities: No normal pulses, No calf tenderness, No cyanosis, No clubbing, No edema, No pitting pedal edema, No palpable cord, No tenderness, No other 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: 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
--- NOTE | 2018-09-04 09:14 | CONS ---
Consultation Date/Type/Reason Admit Date/Time Sep 03, 2018 at 22:34 Type of Consult Cardiology Date/Time of Note DATE: 09/04/18 TIME: 09:12 Hx of Present Illness Pt with recurrent pleural effusion - CHF/ICD - Dr. Meyers saw last months with good fxn. Will monitor post thoracocenteses # [id number]. Past Medical History Home Meds Active Scripts Pantoprazole* (Pantoprazole*) 40 Mg Tablet.dr, 40 MG PO DAILY@06 for 30 Days, #30 Prov:LANNY SMITH MD 07/19/18 Nicotine* (Nicotine* Patch) 7 mg/day Patch, 1 PATCH TRANSDERM DAILY for 28 Days, #30 Prov:LANNY SMITH MD 07/19/18 Ubidecarenone* (Co Q-10*) 200 Mg Capsule, 200 MG PO BID for 30 Days, #60 CAP Prov:LANNY SMITH MD 07/19/18 Reported Medications Bupropion Hcl* (Bupropion Hcl SR*) 100 Mg Tablet.sa, 100 MG PO NEEDED, TAB.SA 07/19/18 Diphenhydramine Hcl* (Benadryl*) 25 Mg Cap, 25 MG PO NEEDED PRN for ITCHING, CAP 06/27/18 Hydrocodone/Acetaminophen ([place] 10-325 Tablet) 1 Each Tablet, 1 EACH PO NEEDED, TAB 06/27/18 Lorazepam* (Lorazepam*) 1 Mg Tablet, 1 MG PO NEEDED PRN for ANXIETY, #30 TAB 06/27/18 Furosemide* (Furosemide*) 40 Mg Tablet, 40 MG PO DAILY, TAB 06/27/18 Zolpidem Tartrate* (Zolpidem Tartrate*) 10 Mg Tablet, 10 MG PO QHS PRN for SLEEP 05/29/18 Digoxin* (Digox*) 125 Mcg Tablet, 125 MG PO DAILY 05/29/18 Medications Current Medications Potassium Chloride (Klor-Con 20) 20 meq Q8 PO Last administered on 09/04/18at 05:16; Admin Dose 20 MEQ; Start 09/04/18 at 01:00 Furosemide (Lasix) 20 mg Q8 IV ; Start 09/04/18 at 01:00 Nicotine (Nicoderm 7 Mg/ 24 Hr) 1 patch DAILY TRANSDERM Last administered on 09/04/18at 01:52; Admin Dose 1 PATCH; Start 09/04/18 at 01:00 Albuterol/ Ipratropium (Duoneb) 3 ml Q8 PRN HHN SHORTNESS OF BREATH; Start 09/04/18 at 01:00 Enalapril Maleate (Vasotec) 2.5 mg DAILY PO ; Start 09/04/18 at 09:00 Carvedilol (Coreg) 3.125 mg BID PO Last administered on 09/04/18at 08:29; Admin Dose 3.125 MG; Start 09/04/18 at 09:00 Spironolactone (Aldactone) 25 mg DAILY PO Last administered on 09/04/18at 08:28; Admin Dose 25 MG; Start 09/04/18 at 09:00 Zolpidem Tartrate (Ambien) 5 mg HS MAY REPEAT X 1 PRN PO INSOMNIA Last administered on 09/04/18at 01:37; Admin Dose 5 MG; Start 09/04/18 at 01:30 Albuterol/ Ipratropium (Duoneb) 3 ml Q8 HHN ; Start 09/04/18 at 08:00 Ferric Sodium Gluconate Complex 125 mg/Sodium Chloride 100 ml @ 100 mls/hr DAILY@1300 IVPB ; Start 09/04/18 at 13:00; Stop 09/06/18 at 13:59 Pantoprazole (Protonix Iv) 40 mg DAILY@06 IV ; Start 09/05/18 at 06:00; Status UNV Allergies: Coded Allergies: No Known Drug Allergies (Verified Allergy, Unknown, 07/19/18) Past Surgical History Past Surgical Hx: noncontributory, cholecystectomy, other Social History Alcohol Use: occasionally Smoking Status: Current every day smoker Drug Use: none Exam/Review of Systems Vital Signs Vitals Vital Signs Date Temp Pulse Resp B/P (MAP) Pulse Ox O2 O2 Flow FiO2 Time Delivery Rate 09/04/18 70 08:12 09/04/18 98.0 18 110/75 98 07:42 (87) Intake and Output 09/03/18 09/03/18 09/04/18 1515:00 23:00 07:00 IntakeIntake Total 400 ml BalanceBalance 400 ml Labs Result Diagram: 09/04/18 0102 09/04/18 0102 Results 24hrs Laboratory Tests Test 09/04/18 01:02 09/04/18 02:40 White Blood Count 7.6 # Red Blood Count 4.60 Hemoglobin 13.1 Hematocrit 41.4 Mean Corpuscular Volume 90.0 Mean Corpuscular Hemoglobin 28.5 L Mean Corpuscular Hemoglobin Concent 31.6 L Red Cell Distribution Width 17.9 H Platelet Count 283 Mean Platelet Volume 10.4 Immature Granulocytes % 0.400 Neutrophils % 65.5 Lymphocytes % 17.8 Monocytes % 8.2 Eosinophils % 6.9 Basophils % 1.2 Nucleated Red Blood Cells % 0.0 Immature Granulocytes # 0.030 Neutrophils # 5.0 Lymphocytes # 1.4 Monocytes # 0.6 Eosinophils # 0.5 Basophils # 0.1 Nucleated Red Blood Cells # 0.0 Erythrocyte Sedimentation Rate 25 Prothrombin Time 16.0 H Prothrombin Time Ratio 1.3 INR International Normalized Ratio 1.27 Activated Partial Thromboplast Time 37.6 H Sodium Level 141 Potassium Level 3.7 Chloride Level 101 Carbon Dioxide Level 31 Anion Gap 9 Blood Urea Nitrogen 8 Creatinine 0.89 Est Glomerular Filtrat Rate mL/min > 60 Glucose Level 89 Calcium Level 9.7 Magnesium Level 2.1 Iron Level 38 Total Iron Binding Capacity 431 H Percent Iron Saturation 9 L C-Reactive Protein High Sensitivity 0.96 H Thyroid Stimulating Hormone (TSH) 2.420 Urine Color YELLOW Urine Clarity CLEAR Urine pH 6.0 Urine Specific [place] 1.011 Urine Ketones NEGATIVE Urine Nitrite NEGATIVE Urine Bilirubin NEGATIVE Urine Urobilinogen 2+ H Urine Leukocyte Esterase NEGATIVE Urine Hemoglobin NEGATIVE Urine Glucose NEGATIVE Urine Total Protein NEGATIVE Medications Medications Current Medications Potassium Chloride (Klor-Con 20) 20 meq Q8 PO Last administered on 09/04/18at 05:16; Admin Dose 20 MEQ; Start 09/04/18 at 01:00 Furosemide (Lasix) 20 mg Q8 IV ; Start 09/04/18 at 01:00 Nicotine (Nicoderm 7 Mg/ 24 Hr) 1 patch DAILY TRANSDERM Last administered on 09/04/18at 01:52; Admin Dose 1 PATCH; Start 09/04/18 at 01:00 Albuterol/ Ipratropium (Duoneb) 3 ml Q8 PRN HHN SHORTNESS OF BREATH; Start 09/04/18 at 01:00 Enalapril Maleate (Vasotec) 2.5 mg DAILY PO ; Start 6/4/19 at 09:00 Carvedilol (Coreg) 3.125 mg BID PO Last administered on 09/04/18at 08:29; Admin Dose 3.125 MG; Start 09/04/18 at 09:00 Spironolactone (Aldactone) 25 mg DAILY PO Last administered on 09/04/18at 08:28; Admin Dose 25 MG; Start 09/04/18 at 09:00 Zolpidem Tartrate (Ambien) 5 mg HS MAY REPEAT X 1 PRN PO INSOMNIA Last administered on 09/04/18at 01:37; Admin Dose 5 MG; Start 09/04/18 at 01:30 Albuterol/ Ipratropium (Duoneb) 3 ml Q8 HHN ; Start 09/04/18 at 08:00 Ferric Sodium Gluconate Complex 125 mg/Sodium Chloride 100 ml @ 100 mls/hr DAILY@1300 IVPB ; Start 09/04/18 at 13:00; Stop 09/06/18 at 13:59 Pantoprazole (Protonix Iv) 40 mg DAILY@06 IV ; Start 09/05/18 at 06:00; Status MELBA REDDY MD Sep 04, 2018 09:14
[2018-09-04] MEDS ORDERED: LIDOCAINE 1% (MPF) 5 ML VIAL ONE (10:03)
--- NOTE | 2018-09-04 10:11 | CONS ---
DATE OF ADMISSION: 09/03/2018 DATE OF CONSULTATION: 09/04/2018 TYPE OF CONSULTATION: Cardiology. REFERRING PHYSICIAN: Dr. Blunt. REASON FOR EVALUATION: Shortness of breath, pacemaker. HISTORY OF PRESENT ILLNESS: Ms. Hadley is a 57-year-old woman known from prior admission, has a history of hypertension, dyslipidemia, history of recurrent pleural effusion with negative malignanc y workup, history of pacemaker per Dr. Damon, history of mildly elevated CA, diabetes, noncomplianc e, irritable bowel syndrome who comes in hospital now for solution of increased shortness of breath. The patient is with bilateral pleural effusion and she is going to have thoracocentesis to follow up and I see patient in consultation because of cardiac problem. The patient was on apixaban prior to 5 mg p.o. b.i.d. The patient's pacemaker has been checked by Dr. Damon according to her months ago and it was with good function. I think for now, we are going to wait for a pleural effusion to be d rained and follow expectantly. I think the patient does have a history of paroxysmal atrial fibrilla tion. She is with low EF and defibrillator and I think it is reasonable to hold her Eliquis as neede d. ALLERGIES: No known rashes. SOCIAL HISTORY: The patient has history of tobacco. She does not drink, does not use drugs. FAMILY HISTORY: Negative for sudden cardiac or premature coronary artery disease. History of diabetes in the family. MEDICATIONS: The patient's medications include: 1. Protonix. 2. Coreg 3.125. 3. Prolactin 25. 4. Albuterol 5. Zolpidem. 6. Lasix 20 mg IV. 7. Nicotine patch. 8. Albuterol nebulizer has been held. REVIEW OF SYSTEMS: CONSTITUTIONAL: No fever, no chills. Recent increased shortness of breath. HEENT: No changes in vision or hearing. CARDIAC: Chest pain reported now. RESPIRATORY: Short of breath. Acute on chronic. GASTROINTESTINAL: No nausea, vomiting. GENITOURINARY: No dysuria or hematuria. NEUROLOGIC: No focal deficits. HEMATOLOGIC: No easy bruising. PSYCHIATRIC: History of anxiety.: IMAGING STUDIES: Chest x-ray reviewed by me shows that the patient has ICD in place. She has a larg e right-sided effusion as well as a likely small pleural effusion. PHYSICAL EXAMINATION: VITAL SIGNS: Temperature 98.0, heart rate is 70, blood pressure 110/75. GENERAL: She is thin woman in no acute distress, alert and oriented x3, aware of her condition. HEAD: Normocephalic, atraumatic. Eyes are anicteric. NECK: Supple. JVD 6 cm. There is no lymphadenopathy. HEART: Regular, ICD is in place. LUNGS: Coarse with decreased lung sounds on the right side at the base. ABDOMEN: Soft. GENITOURINARY: Intact. EXTREMITIES: Shows no edema. LABORATORY DATA: White blood cell count 7.6, hemoglobin 7.1, platelets 283. INR is 1.2. Sodium 140 , potassium 3.7, BUN is 8, creatinine 0.8. Troponin is negative at 0.096. ASSESSMENT AND PLAN: 1. Cardiomyopathy. The patient has cardiomyopathy with poor systolic. The patient does have recurr ent pleural effusion, which will be followed upon. For now continue gentle diuresis. 2. Secondary hypercoagulable state, the patient has history of secondary hypercoagulable state, paro xysmal atrial fibrillation, now in sinus rhythm. She was on Eliquis prior, but now it has been held for the procedure. 3. ICD. The patient has ICD per self-report, it is a [employer] device. It was checked by Dr. Ordonez r months ago. She is placed on telemetry. No further intervention required. 4. Chronic obstructive pulmonary disease. Continue chronic obstructive pulmonary disease therapy as indicated. 5. Hypertension. Blood pressure well controlled. 6. Chronic obstructive pulmonary disease. Continue chronic obstructive pulmonary disease therapy as noted. I would like to thank Dr. Blunt for referring this patient for my evaluation. Dictated By: MELBA REYES MD ML/NTS Conf#: [id number] DID#: [id number] CC: LANNY BLUNT MD;*EndCC*
[2018-09-04] MEDS: SOD FERRIC GLUC COMPLX 125 MG in SOD CHLORIDE 0.9% 100 ML IVPB SCH (13:51)
[2018-09-04] MEDS: PANTOPRAZOLE (EC) 40 MG TAB PO SCH (14:41)
--- NOTE | 2018-09-04 17:33 | CONS ---
DATE OF ADMISSION: 09/03/2018 DATE OF CONSULTATION: REASON FOR CONSULTATION: Pneumothorax and pleural effusion. Thank you, Dr. Silva, for this consultation. HISTORY OF PRESENT ILLNESS: This is a 57-year-old lady with extensive tobacco history, smoking 2 pac ks per day, presented with increasing shortness of breath, orthopnea, PND, also have moderate right p leural effusion, underwent thoracentesis today with 1300 mL removed but development of a small locula renetta pneumothorax. The patient had mild respiratory distress, was transferred down to the intensive c are unit for further monitoring. Here, she remains hemodynamically stable with no repeat chest x-ray showing interval improvement in right basilar pneumothorax. PAST MEDICAL HISTORY: 1. COPD with extensive tobacco use. 2. History of congestive cardiac failure with ICD. 3. Prior history of cholecystectomy. MEDICATIONS: Per chart. ALLERGIES: NONE. SOCIAL HISTORY: Positive tobacco history. No alcohol, no history of drug use. FAMILY HISTORY: Noncontributory. SYSTEMS REVIEW: A 12-point review of systems was negative, other than mentioned as above. PHYSICAL EXAMINATION: GENERAL: Well-nourished, well-developed lady, comfortable at rest, no acute distress. VITAL SIGNS: Currently afebrile, pulse is 70, blood pressure 112/73, O2 saturation 97% on 4 liters. NECK: Supple. No JVD or lymphadenopathy. CARDIAC: S1, S2, no added sounds or murmurs. CHEST: Diminished air entry bilaterally. ABDOMEN: Soft, nontender. No guarding or rebound. DIAGNOSTIC STUDIES: Chest x-ray findings as above. LABORATORY DATA: White count 7.6, hemoglobin 13.1, platelets of 283. BUN 8, creatinine 0.89. BNP w as elevated at 3100. Arterial blood gas post-thoracentesis, pH 7.37, pCO2 of 26, pO2 of 72, bicarbon ate was 15.1. IMPRESSION AND PLAN: 1. Right pleural effusion in a patient with extensive tobacco history concerning for possible malign tae. 2. Underlying history of severe chronic obstructive pulmonary disease with ongoing tobacco use. 3. Congestive cardiac failure with AICD. 4. Post-pneumothorax residual loculated pneumothorax. The patient will require: 1. Continued on a nonrebreather O2 for nitrogen washout and reexpansion of pneumothorax. 2. Continue bronchodilator use. 3. Trial of steroids for probable chronic obstructive pulmonary disease exacerbation. 4. CT chest to evaluate lung parenchyma. 5. Advice on smoking cessation. 6. Correction of metabolic acidosis. 7. Deep vein thrombosis and gastrointestinal prophylaxis. Dictated By: ANA TREJO MD SV/[place] Conf#: [id number] DID#: [id number] CC: LANNY SMITH MD;*EndCC*
[2018-09-04] MEDS: ALBUTEROL/IPRATROPIUM (NEB) 3 ML AMP HHN PRN (17:40)
[2018-09-04] MEDS: CHLORDIAZEPOXIDE 5 MG CAP PO SCH ×2 (18:18→23:17)
[2018-09-05] VITALS (23 sets, daily range): BP systolic 88–123; BP diastolic 20–98; PULSE 70–94; RESP 17–43
[2018-09-05] MEDS: ALBUTEROL/IPRATROPIUM (NEB) 3 ML AMP HHN PRN (00:57)
[2018-09-05] MEDS: PANTOPRAZOLE (EC) 40 MG TAB PO SCH (05:05)
[2018-09-05] MEDS: POTASSIUM CHLORIDE (SR) 20 MEQ TAB PO SCH (05:05)
[2018-09-05] MEDS: CHLORDIAZEPOXIDE 5 MG CAP PO SCH ×3 (05:06→17:36)
[2018-09-05] MEDS: FUROSEMIDE 20 MG INJ IV SCH ×3 (05:06→22:00)
[2018-09-05] MEDS ORDERED: PANTOPRAZOLE 40 MG INJ IV SCH (06:00)
[2018-09-05] MEDS: ALBUTEROL/IPRATROPIUM (NEB) 3 ML AMP HHN SCH ×5 (06:01→19:44)
[2018-09-05] MEDS ORDERED: ALBUTEROL/IPRATROPIUM (NEB) 3 ML AMP HHN PRN (06:30)
--- NOTE | 2018-09-05 08:43 | CONS ---
Consult Date/Type/Reason Admit Date/Time Sep 03, 2018 at 22:34 Initial Consult Date Type of Consult Pulmonary Date/Time of Note DATE: 09/05/18 TIME: 08:41 Subjective Patient continues nonrebreather. Still having difficulty breathing. Objective Vital Signs Date Temp Pulse Resp B/P (MAP) Pulse Ox O2 O2 Flow FiO2 Time Delivery Rate 09/05/18 70 33 100 Non 15.0 100 08:05 Rebreather Mask 09/05/18 98.6 123/91 06:00 (102) Intake and Output 09/04/18 09/04/18 09/05/18 1515:00 23:00 07:00 IntakeIntake Total 350 ml 400 ml 150 ml OutputOutput Total 300 ml 650 ml BalanceBalance 350 ml 100 ml -500 ml Exam PHYSICAL EXAMINATION: GENERAL: Well-nourished, well-developed lady, comfortable at rest, no acute distress. VITAL SIGNS: NECK: Supple. No JVD or lymphadenopathy. CARDIAC: S1, S2, no added sounds or murmurs. CHEST: Diminished air entry bilaterally. Bilateral expiratory wheezing ABDOMEN: Soft, nontender. No guarding or rebound. Vent Setting Fraction of Inspired Oxygen pe: 100 Results/Medications Result Diagram: 09/05/18 0429 09/05/18 0429 Results 24 hrs Laboratory Tests Test 09/04/18 10:00 09/04/18 11:30 09/05/18 04:29 09/05/18 07:00 Pathologist Y Review (Hematol ogy) Body Fluid Type PLEURAL FLUID Body Fluid 1050.0 Volume Body Fluid YELLOW Color Body Fluid SLIGHTLY HAZY Appearance Body Fluid WBC 229 Body Fluid RBC 0 (Auto) Body Fluid 39.8 Polynuclear WBCs (%) Body Fluid 60.2 Mononuclear Cells % Auto Body Fluid 107 Glucose Body Fluid 2.4 Total Protein Body Fluid 212 Lactate Dehydro genase Blood Gas Blood arterial Blood arterial Specimen Source Arterial Blood 09/04/2018 1:15:4 09/05/2018 7:02:1 Date Drawn 7 PM 1 AM Arterial Blood 7.379 7.346 L pH (Temp corrected ) Arterial Blood 26.1 L 48.9 H pCO2 (Temp correct) Arterial Blood 72.5 L 168.7 H pO2 (Temp corrected ) Arterial Blood 15.1 L 26.1 H HCO3 Arterial Blood -8.2 L -0.2 Base Excess Arterial Blood 92.0 L 99.2 H Oxygen Saturati on Dandre Test ACCEPTAB ACCEPTAB Arterial Blood Left Radial Left Radial Gas Puncture Site Arterial 0.4 0.5 Blood Carboxyhe moglobin Arterial Blood 0.3 0.3 Methemoglobin Blood Gas A-a 132.3 H 495.4 H O2 Differential Oxyhemoglobin 91.4 L 98.4 Percent Blood Gas 37.0 37.0 Temperature Blood Gas NASAL CANNULA MASK - NRB Modality FiO2 33.0 100.0 Blood Gas TM TM Notified Whom Blood Gas 09/04/2018 1:24:4 09/05/2018 7:15:4 Notified Time 2 PM 4 AM White Blood 12.2 #H Count Red Blood Count 4.91 Hemoglobin 14.1 Hematocrit 46.1 Mean 93.9 Corpuscular Volume Mean 28.7 L Corpuscular Hemoglobin Mean 30.6 L Corpuscular Hemoglobin Conc ent Red Cell 17.2 H Distribution Width Platelet Count 297 Mean Platelet 10.4 Volume Immature 0.500 H Granulocytes % Neutrophils % 82.6 H Lymphocytes % 8.9 L Monocytes % 5.6 Eosinophils % 1.7 Basophils % 0.7 Nucleated Red 0.0 Blood Cells % Immature 0.060 H Granulocytes # Neutrophils # 10.1 H Lymphocytes # 1.1 Monocytes # 0.7 Eosinophils # 0.2 Basophils # 0.1 Nucleated Red 0.0 Blood Cells # Sodium Level 140 Potassium Level 5.2 H Chloride Level 102 Carbon Dioxide 30 Level Anion Gap 8 Blood Urea 10 Nitrogen Creatinine 0.78 Est Glomerular > 60 Filtrat Rate mL/min Glucose Level 89 Calcium Level 9.8 Phosphorus 3.5 Level Magnesium Level 2.2 Total Bilirubin 1.4 H Direct 0.00 Bilirubin Indirect 1.4 H Bilirubin Aspartate Amino 40 Transf (AST/SGO T) Alanine 16 Aminotransferas e (ALT/SGPT) Alkaline 108 Phosphatase Total Protein 7.9 Albumin 4.2 Globulin 3.70 H Albumin/Globuli 1.13 n Ratio Medications Current Medications Potassium Chloride (Klor-Con 20) 20 meq Q8 PO Last administered on 09/05/18at 05:05; Admin Dose 20 MEQ; Start 09/04/18 at 01:00 Furosemide (Lasix) 20 mg Q8 IV Last administered on 09/05/18at 05:06; Admin Dose 20 MG; Start 09/04/18 at 01:00 Nicotine (Nicoderm 7 Mg/ 24 Hr) 1 patch DAILY TRANSDERM Last administered on 09/04/18at 01:52; Admin Dose 1 PATCH; Start 09/04/18 at 01:00 Enalapril Maleate (Vasotec) 2.5 mg DAILY PO ; Start 09/04/18 at 09:00 Carvedilol (Coreg) 3.125 mg BID PO Last administered on 09/04/18at 08:29; Admin Dose 3.125 MG; Start 09/04/18 at 09:00 Spironolactone (Aldactone) 25 mg DAILY PO Last administered on 09/04/18at 08:28; Admin Dose 25 MG; Start 09/04/18 at 09:00 Zolpidem Tartrate (Ambien) 5 mg HS MAY REPEAT X 1 PRN PO INSOMNIA Last administered on 09/04/18at 21:02; Admin Dose 5 MG; Start 09/04/18 at 01:30 Ferric Sodium Gluconate Complex 125 mg/Sodium Chloride 100 ml @ 100 mls/hr DAILY@1300 IVPB Last administered on 09/04/18at 13:51; Admin Dose 100 MLS/HR; Start 09/04/18 at 13:00; Stop 09/06/18 at 13:59 Pantoprazole (Protonix Tab) 40 mg DAILY@06 PO Last administered on 09/05/18at 05:05; Admin Dose 40 MG; Start 09/04/18 at 10:00 Multivitamins Therapeutic (Theragran) 1 tab DAILY PO ; Start 09/05/18 at 09:00 Chlordiazepoxide (Librium) 20 mg Q6 PO Last administered on 09/05/18at 05:06; Admin Dose 20 MG; Start 09/04/18 at 18:00 Albuterol/ Ipratropium (Duoneb) 3 ml Q8H RESP THERAPY PRN HHN SHORTNESS OF BREATH Last administered on 09/05/18at 08:05; Admin Dose 3 ML; Start 09/05/18 at 06:30 Albuterol/ Ipratropium (Duoneb) 3 ml Q4H RESP THERAPY HHN ; Start 09/05/18 at 09:00 Assessment/Plan Hospital Course (Demo Recall) IMPRESSION 1. Right pleural effusion in a patient with extensive tobacco history concerning for possible malignancy. Status post thoracentesis with iatrogenic pneumothorax 2. Underlying history of severe chronic obstructive pulmonary disease with ongoing tobacco use. 3. Congestive cardiac failure with AICD. 4. Probable acute COPD exacerbation Plan 1. Continued on a nonrebreather O2 for nitrogen washout and reexpansion of pneumothorax. CT chest noncontrast 2. Continue bronchodilator use. 3. Trial of steroids for probable chronic obstructive pulmonary disease exacerbation. 4. Aspiration precautions 5. Advice on smoking cessation. 6. Deep vein thrombosis and gastrointestinal prophylaxis. Critical care time 40 minutes Keep in ICU. ANA TREJO MD, [facility] Sep 05, 2018 08:43
[2018-09-05] MEDS: NICOTINE (7 MG/24 HR) PATCH TRANSDERM SCH (08:51)
[2018-09-05] MEDS: MULTIVITAMINS THERAPEUTIC TAB PO SCH (08:53)
[2018-09-05] MEDS: SPIRONOLACTONE 25 MG TAB PO SCH (08:53)
[2018-09-05] MEDS: ENALAPRIL 2.5 MG TAB PO SCH (09:00)
--- NOTE | 2018-09-05 09:26 | PN ---
Date/Time of Note Date/Time of Note DATE: 09/05/18 TIME: 09:21 Assessment/Plan VTE Prophylaxis Risk score (from Nsg)>0 risk: 3 SCD applied (from Nsg): Yes SCD contraindicated: other (on.) Pharmacological prophylaxis: LMWH Lines/Catheters IV Catheter Type (from Nrsg): Peripheral IV Central line still needed: No Urinary Cath still in place: No Assessment/Plan Hospital Course Patient was seen 1:30 PM in ICU. Chest x-ray reviewed no basilar pneumothorax as was stated in previous chest x-ray. She is doing fine we will keep in ICU repeat one more time x-rays at about 6 PM and if stable transfer to the floor. Assessment/Plan 1. Respiratory distress status post right thoracentesis. Pneumothorax resolved. 2. COPD exacerbation-still smokes. Discussed. 3. Status post left subclavian area pacemaker implantation AV sequential not checked for last 2 years. 4. Right pleural effusion-s/p one liter of pleural fluid evacuation. 5. Diarrhea for years being on antimotility medications mainly, with mild improvement.Now less frequent. 6. Episodes of constipation 7. Significant weight loss according to her about 38 kg during the last 24 years,; but by calculations it becomes like about 25-20 kg. 8. Hearing impairment 9. Permanent deconditioning with severe muscular weakness unable to get up and stand by herself with severe decrease of muscular tone was strained mass 10. Urinary and fecal incontinence 11. Status post cholecystectomy 12. Nicotine addiction-making progress 13. PTSD 14. Mild elevation of the CEA 15. Kyphosis 16. Osteoporosis 17. Diabetes type 2 blood sugar improved after weight loss 18. Dehydration 19. Malnourishment 20. Noncompliance 21. Irritable bowel syndrome 22. Hemorrhoidal disease with recurrent rectal bleeding 23. Hx of paroxysmal a. fibrillation with low LVEF- on ICD 24. Tricuspid insufficiency with a very large left and right atrium on echo car diography 25. Pulmonary hypertension with systolic pressure in the pulmonary artery 66 mm of hg. 26. Elevation of central venous pressure 27. Hyperkalemia-continue monitoring 28. Altered level of consciousness on and off being lethargic most of the time which did not happen with her during my previous months of follow-up. 26.incomplete data Result Diagram: 09/05/18 0429 09/05/18 0429 Results 24hrs Laboratory Tests Test 09/04/18 10:00 09/04/18 11:30 09/05/18 04:29 09/05/18 07:00 Pathologist Y Review (Hematol ogy) Body Fluid Type PLEURAL FLUID Body Fluid 1050.0 Volume Body Fluid YELLOW Color Body Fluid SLIGHTLY HAZY Appearance Body Fluid WBC 229 Body Fluid RBC 0 (Auto) Body Fluid 39.8 Polynuclear WBCs (%) Body Fluid 60.2 Mononuclear Cells % Auto Body Fluid 107 Glucose Body Fluid 2.4 Total Protein Body Fluid 212 Lactate Dehydro genase Blood Gas Blood arterial Blood arterial Specimen Source Arterial Blood 09/04/2018 1:15:4 09/05/2018 7:02:1 Date Drawn 7 PM 1 AM Arterial Blood 7.379 7.346 L pH (Temp corrected ) Arterial Blood 26.1 L 48.9 H pCO2 (Temp correct) Arterial Blood 72.5 L 168.7 H pO2 (Temp corrected ) Arterial Blood 15.1 L 26.1 H HCO3 Arterial Blood -8.2 L -0.2 Base Excess Arterial Blood 92.0 L 99.2 H Oxygen Saturati on Dandre Test ACCEPTAB ACCEPTAB Arterial Blood Left Radial Left Radial Gas Puncture Site Arterial 0.4 0.5 Blood Carboxyhe moglobin Arterial Blood 0.3 0.3 Methemoglobin Blood Gas A-a 132.3 H 495.4 H O2 Differential Oxyhemoglobin 91.4 L 98.4 Percent Blood Gas 37.0 37.0 Temperature Blood Gas NASAL CANNULA MASK - NRB Modality FiO2 33.0 100.0 Blood Gas TM TM Notified Whom Blood Gas 09/04/2018 1:24:4 09/05/2018 7:15:4 Notified Time 2 PM 4 AM White Blood 12.2 #H Count Red Blood Count 4.91 Hemoglobin 14.1 Hematocrit 46.1 Mean 93.9 Corpuscular Volume Mean 28.7 L Corpuscular Hemoglobin Mean 30.6 L Corpuscular Hemoglobin Conc ent Red Cell 17.2 H Distribution Width Platelet Count 297 Mean Platelet 10.4 Volume Immature 0.500 H Granulocytes % Neutrophils % 82.6 H Lymphocytes % 8.9 L Monocytes % 5.6 Eosinophils % 1.7 Basophils % 0.7 Nucleated Red 0.0 Blood Cells % Immature 0.060 H Granulocytes # Neutrophils # 10.1 H Lymphocytes # 1.1 Monocytes # 0.7 Eosinophils # 0.2 Basophils # 0.1 Nucleated Red 0.0 Blood Cells # Sodium Level 140 Potassium Level 5.2 H Chloride Level 102 Carbon Dioxide 30 Level Anion Gap 8 Blood Urea 10 Nitrogen Creatinine 0.78 Est Glomerular > 60 Filtrat Rate mL/min Glucose Level 89 Calcium Level 9.8 Phosphorus 3.5 Level Magnesium Level 2.2 Total Bilirubin 1.4 H Direct 0.00 Bilirubin Indirect 1.4 H Bilirubin Aspartate Amino 40 Transf (AST/SGO T) Alanine 16 Aminotransferas e (ALT/SGPT) Alkaline 108 Phosphatase Total Protein 7.9 Albumin 4.2 Globulin 3.70 H Albumin/Globuli 1.13 n Ratio Subjective 24 Hr Interval Summary Free Text/Dictation Shortness of breath. I am sleepy. More detailed questioning revealed that patient is using alcohol more than usual. She states that she decreased the amount of cigarette numbers recently. Exam/Review of Systems Exam Vitals Vital Signs Date Temp Pulse Resp B/P (MAP) Pulse Ox O2 O2 Flow FiO2 Time Delivery Rate 09/05/18 70 33 100 Non 15.0 100 08:05 Rebreather Mask 09/05/18 98.6 123/91 06:00 (102) Intake and Output 09/04/18 09/04/18 09/05/18 1515:00 23:00 07:00 IntakeIntake Total 350 ml 400 ml 150 ml OutputOutput Total 300 ml 650 ml BalanceBalance 350 ml 100 ml -500 ml Constitutional: alert, oriented (Not in time.), well developed, distress, frail, obese Psych: nl mood/affect, anxiety, confusion; No no complaints, No depression, No suicidal, No other Head: normocephalic, atraumatic Eyes: EOMI, nl lids, PERRL; No nl conjunctiva, No nl sclera, No icteric, No fundi, disc, No other ENMT: nl external ears & nose, nl lips & teeth, nl nasal mucosa & septum Neck: No supple, No non-tender, No jvd, No bruits, No masses, No thyromegaly, No nuchal rigidity, No other Respiratory: crackles/rales, diminished breath sounds, wheezing; No clear to auscultation, No normal air movement, No congested cough, No intercostal retraction, No labored breathing, No respirations, No tactile fremitus, No other Cardiovascular: regular rate and rhythm, edema, jugular venous distention (JVD), systolic murmur; No nl pulses, No bruits, No diastolic murmur, No gallop, No irregular rhythm, No murmurs/extra sounds, No rub, No S3, No S4, No other Gastrointestinal: soft, non-tender, bowel sounds, distended; No nl liver, spleen, No ascites, No firm, No hepatomegaly, No mass, No rebound or guarding, No splenomegaly, No surgical scars, No tender, No other Genitourinary - Female: nl adnexae, nl external genitalia Musculoskeletal: joint tenderness, muscle tone, muscle weakness; No nl extremities to inspection, No nl gait and stance, No range of motion, No spine non-tender, No swelling, No other Extremities: normal pulses, clubbing, pitting pedal edema 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: 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 intact, nl speech (Slurred speech getting tired even by talking.), confused, lethargic; No nl mental status, No nl strength, No DTR's symmetric, No focal weakness, No numbness, No reflexes, No unresponsive, No other Skin: nl turgor (decreased.), ecchymosis Lymph: No nl lymph nodes, No enlarged, No nontender, No other Results Results 24hrs Laboratory Tests Test 09/04/18 10:00 09/04/18 11:30 09/05/18 04:29 09/05/18 07:00 Pathologist Y Review (Hematol ogy) Body Fluid Type PLEURAL FLUID Body Fluid 1050.0 Volume Body Fluid YELLOW Color Body Fluid SLIGHTLY HAZY Appearance Body Fluid WBC 229 Body Fluid RBC 0 (Auto) Body Fluid 39.8 Polynuclear WBCs (%) Body Fluid 60.2 Mononuclear Cells % Auto Body Fluid 107 Glucose Body Fluid 2.4 Total Protein Body Fluid 212 Lactate Dehydro genase Blood Gas Blood arterial Blood arterial Specimen Source Arterial Blood 09/04/2018 1:15:4 09/05/2018 7:02:1 Date Drawn 7 PM 1 AM Arterial Blood 7.379 7.346 L pH (Temp corrected ) Arterial Blood 26.1 L 48.9 H pCO2 (Temp correct) Arterial Blood 72.5 L 168.7 H pO2 (Temp corrected ) Arterial Blood 15.1 L 26.1 H HCO3 Arterial Blood -8.2 L -0.2 Base Excess Arterial Blood 92.0 L 99.2 H Oxygen Saturati on Dandre Test ACCEPTAB ACCEPTAB Arterial Blood Left Radial Left Radial Gas Puncture Site Arterial 0.4 0.5 Blood Carboxyhe moglobin Arterial Blood 0.3 0.3 Methemoglobin Blood Gas A-a 132.3 H 495.4 H O2 Differential Oxyhemoglobin 91.4 L 98.4 Percent Blood Gas 37.0 37.0 Temperature Blood Gas NASAL CANNULA MASK - NRB Modality FiO2 33.0 100.0 Blood Gas TM TM Notified Whom Blood Gas 09/04/2018 1:24:4 09/05/2018 7:15:4 Notified Time 2 PM 4 AM White Blood 12.2 #H Count Red Blood Count 4.91 Hemoglobin 14.1 Hematocrit 46.1 Mean 93.9 Corpuscular Volume Mean 28.7 L Corpuscular Hemoglobin Mean 30.6 L Corpuscular Hemoglobin Conc ent Red Cell 17.2 H Distribution Width Platelet Count 297 Mean Platelet 10.4 Volume Immature 0.500 H Granulocytes % Neutrophils % 82.6 H Lymphocytes % 8.9 L Monocytes % 5.6 Eosinophils % 1.7 Basophils % 0.7 Nucleated Red 0.0 Blood Cells % Immature 0.060 H Granulocytes # Neutrophils # 10.1 H Lymphocytes # 1.1 Monocytes # 0.7 Eosinophils # 0.2 Basophils # 0.1 Nucleated Red 0.0 Blood Cells # Sodium Level 140 Potassium Level 5.2 H Chloride Level 102 Carbon Dioxide 30 Level Anion Gap 8 Blood Urea 10 Nitrogen Creatinine 0.78 Est Glomerular > 60 Filtrat Rate mL/min Glucose Level 89 Calcium Level 9.8 Phosphorus 3.5 Level Magnesium Level 2.2 Total Bilirubin 1.4 H Direct 0.00 Bilirubin Indirect 1.4 H Bilirubin Aspartate Amino 40 Transf (AST/SGO T) Alanine 16 Aminotransferas e (ALT/SGPT) Alkaline 108 Phosphatase Total Protein 7.9 Albumin 4.2 Globulin 3.70 H Albumin/Globuli 1.13 n Ratio Medications Medication Current Medications Potassium Chloride (Klor-Con 20) 20 meq Q8 PO Last administered on 09/05/18at 05:05; Admin Dose 20 MEQ; Start 09/04/18 at 01:00 Furosemide (Lasix) 20 mg Q8 IV Last administered on 09/05/18at 05:06; Admin Dose 20 MG; Start 09/04/18 at 01:00 Nicotine (Nicoderm 7 Mg/ 24 Hr) 1 patch DAILY TRANSDERM Last administered on 09/05/18 08:51; Admin Dose 1 PATCH; Start 09/04/18 at 01:00 Enalapril Maleate (Vasotec) 2.5 mg DAILY PO ; Start 09/04/18 at 09:00 Carvedilol (Coreg) 3.125 mg BID PO Last administered on 09/05/18 08:54; Admin Dose 3.125 MG; Start 09/04/18 at 09:00 Spironolactone (Aldactone) 25 mg DAILY PO Last administered on 09/05/18 08:53; Admin Dose 25 MG; Start 09/04/18 at 09:00 Zolpidem Tartrate (Ambien) 5 mg HS MAY REPEAT X 1 PRN PO INSOMNIA Last administered on 09/04/18 21:02; Admin Dose 5 MG; Start 09/04/18 at 01:30 Ferric Sodium Gluconate Complex 125 mg/Sodium Chloride 100 ml @ 100 mls/hr DAILY@1300 IVPB Last administered on 09/04/18 13:51; Admin Dose 100 MLS/HR; Start 09/04/18 at 13:00; Stop 09/06/18 at 13:59 Pantoprazole (Protonix Tab) 40 mg DAILY@06 PO Last administered on 09/05/18 05:05; Admin Dose 40 MG; Start 09/04/18 at 10:00 Multivitamins Therapeutic (Theragran) 1 tab DAILY PO Last administered on 09/05/18 08:53; Admin Dose 1 TAB; Start 09/05/18 at 09:00 Chlordiazepoxide (Librium) 20 mg Q6 PO Last administered on 09/05/18 05:06; Admin Dose 20 MG; Start 09/04/18 at 18:00 Albuterol/ Ipratropium (Duoneb) 3 ml Q8H RESP THERAPY PRN HHN SHORTNESS OF BREATH Last administered on 09/05/18 08:05; Admin Dose 3 ML; Start 09/05/18 at 06:30 Albuterol/ Ipratropium (Duoneb) 3 ml Q4H RESP THERAPY HHN ; Start 09/05/18 at 09:00 LANNY SMITH MD Sep 05, 2018 09:26
[2018-09-05] MEDS ORDERED: SOD CHLORIDE 0.9% 100 ML ONE (09:44)
[2018-09-05] MEDS ORDERED: IOHEXOL 100 ML ONE (09:44)
--- NOTE | 2018-09-05 12:45 | CONS ---
Assessment/Plan Assessment/Plan Assessment/Plan Renal Consult dictated Mild hyperkalemia sec to aldactone and KCL admin in setting of needed ARB Meds modified and will repeat K+ now Will follow. Consultation Date/Type/Reason Admit Date/Time Sep 03, 2018 at 22:34 Type of Consult Nephrology Date/Time of Note DATE: 09/05/18 TIME: 12:43 Past Medical History Home Meds Active Scripts Pantoprazole* (Pantoprazole*) 40 Mg Tablet.dr, 40 MG PO DAILY@06 for 30 Days, #30 Prov:LANNY SMITH MD 07/19/18 Nicotine* (Nicotine* Patch) 7 mg/day Patch, 1 PATCH TRANSDERM DAILY for 28 Days, #30 Prov:LANNY SMITH MD 07/19/18 Ubidecarenone* (Co Q-10*) 200 Mg Capsule, 200 MG PO BID for 30 Days, #60 CAP Prov:LANNY SMITH MD 07/19/18 Reported Medications Bupropion Hcl* (Bupropion Hcl SR*) 100 Mg Tablet.sa, 100 MG PO NEEDED, TAB.SA 07/19/18 Diphenhydramine Hcl* (Benadryl*) 25 Mg Cap, 25 MG PO NEEDED PRN for ITCHING, CAP 06/27/18 Hydrocodone/Acetaminophen ([place] 10-325 Tablet) 1 Each Tablet, 1 EACH PO NEEDED, TAB 06/27/18 Lorazepam* (Lorazepam*) 1 Mg Tablet, 1 MG PO NEEDED PRN for ANXIETY, #30 TAB 06/27/18 Furosemide* (Furosemide*) 40 Mg Tablet, 40 MG PO DAILY, TAB 06/27/18 Zolpidem Tartrate* (Zolpidem Tartrate*) 10 Mg Tablet, 10 MG PO QHS PRN for SLEEP 05/29/18 Digoxin* (Digox*) 125 Mcg Tablet, 125 MG PO DAILY 05/29/18 Medications Current Medications Potassium Chloride (Klor-Con 20) 20 meq Q8 PO Last administered on 09/05/18at 05:05; Admin Dose 20 MEQ; Start 09/04/18 at 01:00 Furosemide (Lasix) 20 mg Q8 IV Last administered on 09/05/18at 05:06; Admin Dose 20 MG; Start 09/04/18 at 01:00 Nicotine (Nicoderm 7 Mg/ 24 Hr) 1 patch DAILY TRANSDERM Last administered on 09/05/18at 08:51; Admin Dose 1 PATCH; Start 09/04/18 at 01:00 Enalapril Maleate (Vasotec) 2.5 mg DAILY PO ; Start 09/04/18 at 09:00 Carvedilol (Coreg) 3.125 mg BID PO Last administered on 09/05/18 08:54; Admin Dose 3.125 MG; Start 09/04/18 at 09:00 Spironolactone (Aldactone) 25 mg DAILY PO Last administered on 09/05/18 08:53; Admin Dose 25 MG; Start 09/04/18 at 09:00 Zolpidem Tartrate (Ambien) 5 mg HS MAY REPEAT X 1 PRN PO INSOMNIA Last administered on 09/04/18at 21:02; Admin Dose 5 MG; Start 09/04/18 at 01:30 Ferric Sodium Gluconate Complex 125 mg/Sodium Chloride 100 ml @ 100 mls/hr DAILY@1300 IVPB Last administered on 09/04/18at 13:51; Admin Dose 100 MLS/HR; Start 09/04/18 at 13:00; Stop 09/06/18 at 13:59 Pantoprazole (Protonix Tab) 40 mg DAILY@06 PO Last administered on 09/05/18 05:05; Admin Dose 40 MG; Start 09/04/18 at 10:00 Multivitamins Therapeutic (Theragran) 1 tab DAILY PO Last administered on 09/05/18 08:53; Admin Dose 1 TAB; Start 09/05/18 at 09:00 Chlordiazepoxide (Librium) 20 mg Q6 PO Last administered on 09/05/18 05:06; Admin Dose 20 MG; Start 09/04/18 at 18:00 Albuterol/ Ipratropium (Duoneb) 3 ml Q8H RESP THERAPY PRN HHN SHORTNESS OF BREATH Last administered on 09/05/18 08:05; Admin Dose 3 ML; Start 09/05/18 at 06:30 Albuterol/ Ipratropium (Duoneb) 3 ml Q4H RESP THERAPY HHN ; Start 09/05/18 at 09:00 Allergies: Coded Allergies: No Known Drug Allergies (Verified Allergy, Unknown, 07/19/18) Past Surgical History Past Surgical Hx: noncontributory, cholecystectomy, other Social History Alcohol Use: occasionally Smoking Status: Current every day smoker Drug Use: none Exam/Review of Systems Vital Signs Vitals Vital Signs Date Temp Pulse Resp B/P (MAP) Pulse Ox O2 O2 Flow FiO2 Time Delivery Rate 09/05/18 70 30 100 60 11:10 09/05/18 109/58 Non 15.0 11:00 (75) Rebreather 09/05/18 98.6 06:00 Intake and Output 09/04/18 09/04/18 09/05/18 1515:00 23:00 07:00 IntakeIntake Total 350 ml 400 ml 150 ml OutputOutput Total 300 ml 650 ml BalanceBalance 350 ml 100 ml -500 ml Labs Result Diagram: 09/05/18 0429 09/05/18 0429 Results 24hrs Laboratory Tests Test 09/05/18 04:29 09/05/18 07:00 White Blood Count 12.2 #H Red Blood Count 4.91 Hemoglobin 14.1 Hematocrit 46.1 Mean Corpuscular Volume 93.9 Mean Corpuscular Hemoglobin 28.7 L Mean Corpuscular Hemoglobin Concent 30.6 L Red Cell Distribution Width 17.2 H Platelet Count 297 Mean Platelet Volume 10.4 Immature Granulocytes % 0.500 H Neutrophils % 82.6 H Lymphocytes % 8.9 L Monocytes % 5.6 Eosinophils % 1.7 Basophils % 0.7 Nucleated Red Blood Cells % 0.0 Immature Granulocytes # 0.060 H Neutrophils # 10.1 H Lymphocytes # 1.1 Monocytes # 0.7 Eosinophils # 0.2 Basophils # 0.1 Nucleated Red Blood Cells # 0.0 Sodium Level 140 Potassium Level 5.2 H Chloride Level 102 Carbon Dioxide Level 30 Anion Gap 8 Blood Urea Nitrogen 10 Creatinine 0.78 Est Glomerular Filtrat Rate mL/min > 60 Glucose Level 89 Calcium Level 9.8 Phosphorus Level 3.5 Magnesium Level 2.2 Total Bilirubin 1.4 H Direct Bilirubin 0.00 Indirect Bilirubin 1.4 H Aspartate Amino Transf (AST/SGOT) 40 Alanine Aminotransferase (ALT/SGPT) 16 Alkaline Phosphatase 108 Total Protein 7.9 Albumin 4.2 Globulin 3.70 H Albumin/Globulin Ratio 1.13 Blood Gas Specimen Source Blood arterial Arterial Blood Date Drawn 09/05/2018 7:02:11 AM Arterial Blood pH (Temp corrected) 7.346 L Arterial Blood pCO2 (Temp correct) 48.9 H Arterial Blood pO2 (Temp corrected) 168.7 H Arterial Blood HCO3 26.1 H Arterial Blood Base Excess -0.2 Arterial Blood Oxygen Saturation 99.2 H Dandre Test ACCEPTAB Arterial Blood Gas Puncture Site Left Radial Arterial Blood Carboxyhemoglobin 0.5 Arterial Blood Methemoglobin 0.3 Blood Gas A-a O2 Differential 495.4 H Oxyhemoglobin Percent 98.4 Blood Gas Temperature 37.0 Blood Gas Modality MASK - NRB FiO2 100.0 Blood Gas Notified Whom TM Blood Gas Notified Time 09/05/2018 7:15:44 AM Medications Medications Current Medications Potassium Chloride (Klor-Con 20) 20 meq Q8 PO Last administered on 09/05/18 05:05; Admin Dose 20 MEQ; Start 09/04/18 at 01:00 Furosemide (Lasix) 20 mg Q8 IV Last administered on 09/05/18 05:06; Admin Dose 20 MG; Start 09/04/18 at 01:00 Nicotine (Nicoderm 7 Mg/ 24 Hr) 1 patch DAILY TRANSDERM Last administered on 09/05/18 08:51; Admin Dose 1 PATCH; Start 09/04/18 at 01:00 Enalapril Maleate (Vasotec) 2.5 mg DAILY PO ; Start 09/04/18 at 09:00 Carvedilol (Coreg) 3.125 mg BID PO Last administered on 09/05/18 08:54; Admin Dose 3.125 MG; Start 09/04/18 at 09:00 Spironolactone (Aldactone) 25 mg DAILY PO Last administered on 09/05/18 08:53; Admin Dose 25 MG; Start 09/04/18 at 09:00 Zolpidem Tartrate (Ambien) 5 mg HS MAY REPEAT X 1 PRN PO INSOMNIA Last administered on 09/04/18 21:02; Admin Dose 5 MG; Start 09/04/18 at 01:30 Ferric Sodium Gluconate Complex 125 mg/Sodium Chloride 100 ml @ 100 mls/hr DAILY@1300 IVPB Last administered on 09/04/18 13:51; Admin Dose 100 MLS/HR; Start 09/04/18 at 13:00; Stop 09/06/18 at 13:59 Pantoprazole (Protonix Tab) 40 mg DAILY@06 PO Last administered on 09/05/18at 05:05; Admin Dose 40 MG; Start 09/04/18 at 10:00 Multivitamins Therapeutic (Theragran) 1 tab DAILY PO Last administered on 09/05/18at 08:53; Admin Dose 1 TAB; Start 09/05/18 at 09:00 Chlordiazepoxide (Librium) 20 mg Q6 PO Last administered on 09/05/18at 05:06; Admin Dose 20 MG; Start 09/04/18 at 18:00 Albuterol/ Ipratropium (Duoneb) 3 ml Q8H RESP THERAPY PRN HHN SHORTNESS OF BREATH Last administered on 09/05/18at 08:05; Admin Dose 3 ML; Start 09/05/18 at 06:30 Albuterol/ Ipratropium (Duoneb) 3 ml Q4H RESP THERAPY HHN ; Start 09/05/18 at 09:00 MELBA SINHA MD Sep 05, 2018 12:45
[2018-09-05] MEDS: SOD FERRIC GLUC COMPLX 125 MG in SOD CHLORIDE 0.9% 100 ML IVPB SCH (13:07)
--- NOTE | 2018-09-05 13:44 | CONS ---
Assessment/Plan Assessment/Plan Hospital Course (Demo Recall) IMP: 1.CHF-systolic acute on chronic 2.Cardiomyopathy-EF 25-30% by echo 05/22 3.pleural effusion s/p thoracentesis c/b PTX and transferred to ICU 4..Hypotension-borderline 5.Renal insufficiency/hyperkalemia-mild 6.H/O ICD-v pacing 100% 7.Tobacco dependence 8. ? COPD 9. AF/AFL REcc: -Now in ICU -Follow PTX ith possible need for CT placement -Contineu coreg -Continue lasix diuresis as tolerated -CT surgical consult pnding -Contineu bronchodilators -Follow K with ARB currently held for this reason Consultation Date/Type/Reason Admit Date/Time Sep 03, 2018 at 22:34 Initial Consult Date 09/04/18 Type of Consult Cardiology Reason for Consultation cardiomyopathy/CHF Requesting Provider: LANNY SMITH MD Date/Time of Note DATE: 09/05/18 TIME: 13:37 Exam/Review of Systems Vital Signs Vitals Vital Signs Date Temp Pulse Resp B/P (MAP) Pulse Ox O2 O2 Flow FiO2 Time Delivery Rate 09/05/18 70 26 100 60 12:45 09/05/18 109/58 Non 15.0 11:00 (75) Rebreather 09/05/18 98.6 06:00 Intake and Output 09/04/18 09/04/18 09/05/18 1515:00 23:00 07:00 IntakeIntake Total 350 ml 400 ml 150 ml OutputOutput Total 300 ml 650 ml BalanceBalance 350 ml 100 ml -500 ml Exam Exam Review of Systems: CONSTITUTIONAL: No fevers, chills. PULMONARY: mild sob CARDIOVASCULAR: No chest pain/palpitations GASTROINTESTINAL: No nausea/vomiting. GENITOURINARY: No hematuria/dysuria. MUSCULOSKELETAL: No myagias/arthalgias. PSYCHIATRIC: The patient denies depression. NEUROLOGIC: No weakness Constitutional: alert Psych: no complaints Head: normocephalic ENMT: mucosa pink and moist Neck: supple, jvd (9 cm water) Respiratory: diminished breath sounds Cardiovascular: regular rate and rhythm Gastrointestinal: soft, non-tender Musculoskeletal: muscle tone (normal) Extremities: edema (normal) 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: other (No focal deficits) Labs Result Diagram: 09/05/18 0429 09/05/189 Results 24hrs Laboratory Tests Test 09/05/18 04:29 09/05/18 07:00 White Blood Count 12.2 #H Red Blood Count 4.91 Hemoglobin 14.1 Hematocrit 46.1 Mean Corpuscular Volume 93.9 Mean Corpuscular Hemoglobin 28.7 L Mean Corpuscular Hemoglobin Concent 30.6 L Red Cell Distribution Width 17.2 H Platelet Count 297 Mean Platelet Volume 10.4 Immature Granulocytes % 0.500 H Neutrophils % 82.6 H Lymphocytes % 8.9 L Monocytes % 5.6 Eosinophils % 1.7 Basophils % 0.7 Nucleated Red Blood Cells % 0.0 Immature Granulocytes # 0.060 H Neutrophils # 10.1 H Lymphocytes # 1.1 Monocytes # 0.7 Eosinophils # 0.2 Basophils # 0.1 Nucleated Red Blood Cells # 0.0 Sodium Level 140 Potassium Level 5.2 H Chloride Level 102 Carbon Dioxide Level 30 Anion Gap 8 Blood Urea Nitrogen 10 Creatinine 0.78 Est Glomerular Filtrat Rate mL/min > 60 Glucose Level 89 Calcium Level 9.8 Phosphorus Level 3.5 Magnesium Level 2.2 Total Bilirubin 1.4 H Direct Bilirubin 0.00 Indirect Bilirubin 1.4 H Aspartate Amino Transf (AST/SGOT) 40 Alanine Aminotransferase (ALT/SGPT) 16 Alkaline Phosphatase 108 Total Protein 7.9 Albumin 4.2 Globulin 3.70 H Albumin/Globulin Ratio 1.13 Blood Gas Specimen Source Blood arterial Arterial Blood Date Drawn 09/05/2018 7:02:11 AM Arterial Blood pH (Temp corrected) 7.346 L Arterial Blood pCO2 (Temp correct) 48.9 H Arterial Blood pO2 (Temp corrected) 168.7 H Arterial Blood HCO3 26.1 H Arterial Blood Base Excess -0.2 Arterial Blood Oxygen Saturation 99.2 H Dandre Test ACCEPTAB Arterial Blood Gas Puncture Site Left Radial Arterial Blood Carboxyhemoglobin 0.5 Arterial Blood Methemoglobin 0.3 Blood Gas A-a O2 Differential 495.4 H Oxyhemoglobin Percent 98.4 Blood Gas Temperature 37.0 Blood Gas Modality MASK - NRB FiO2 100.0 Blood Gas Notified Whom TM Blood Gas Notified Time 09/05/2018 7:15:44 AM Medications Medications Current Medications Furosemide (Lasix) 20 mg Q8 IV Last administered on 09/05/18at 05:06; Admin Dose 20 MG; Start 09/04/18 at 01:00 Nicotine (Nicoderm 7 Mg/ 24 Hr) 1 patch DAILY TRANSDERM Last administered on 09/05/18 08:51; Admin Dose 1 PATCH; Start 09/04/18 at 01:00 Carvedilol (Coreg) 3.125 mg BID PO Last administered on 09/05/18 08:54; Admin Dose 3.125 MG; Start 09/04/18 at 09:00 Zolpidem Tartrate (Ambien) 5 mg HS MAY REPEAT X 1 PRN PO INSOMNIA Last administered on 09/04/18 21:02; Admin Dose 5 MG; Start 09/04/18 at 01:30 Ferric Sodium Gluconate Complex 125 mg/Sodium Chloride 100 ml @ 100 mls/hr DAILY@1300 IVPB Last administered on 09/05/18 13:07; Admin Dose 100 MLS/HR; Start 09/04/18 at 13:00; Stop 09/06/18 at 13:59 Pantoprazole (Protonix Tab) 40 mg DAILY@06 PO Last administered on 09/05/18 05:05; Admin Dose 40 MG; Start 09/04/18 at 10:00 Multivitamins Therapeutic (Theragran) 1 tab DAILY PO Last administered on 09/05/18 08:53; Admin Dose 1 TAB; Start 09/05/18 at 09:00 Chlordiazepoxide (Librium) 20 mg Q6 PO Last administered on 09/05/18 13:08; Admin Dose 20 MG; Start 09/04/18 at 18:00 Albuterol/ Ipratropium (Duoneb) 3 ml Q8H RESP THERAPY PRN HHN SHORTNESS OF BREATH Last administered on 09/05/18 08:05; Admin Dose 3 ML; Start 09/05/18 at 06:30 Albuterol/ Ipratropium (Duoneb) 3 ml Q4H RESP THERAPY HHN Last administered on 09/05/18 12:45; Admin Dose 3 ML; Start 09/05/18 at 09:00 ALLAN WARD Sep 05, 2018 13:43
--- NOTE | 2018-09-05 15:57 | CONS ---
DATE OF ADMISSION: 09/03/2018 DATE OF CONSULTATION: 09/05/2018 TYPE OF CONSULTATION: Nephrology. Thank you very much, Dr. Smith, for allowing me to evaluate the above patient admitted with short ness of breath and mild hyperkalemia. HISTORICAL EVENTS: As you well know, this patient was admitted via the ER with increasing shortness of breath and recurrent right pleural effusion. She underwent a thoracentesis yesterday with post-in tervention pneumothorax for which chest tube was required. She remains dyspneic but has no presently substernal chest pain. She denies any abdominal pain. Has no difficulty voiding, albeit there is n o Zabala catheter in place. PAST MEDICAL HISTORY INCLUDES: 1. Known coronary artery disease, having suffered a prior infarction. 2. History of pulmonary hypertension. 3. Chronic obstructive pulmonary disease. 4. History of diabetes. PRESENT MEDICATIONS: 1. IV iron. 2. Coreg 3.125 b.i.d. 3. Librium p.r.n. 4. Enalapril 2.5 mg daily. 5. Lasix 20 mg q.8h. 6. Transdermal Nicotine patch. 7. Protonix 40 mg per day. 8. KCl 20 mEq q.8h. 9. Aldactone 25 mg per day. 10. Ambien. PHYSICAL EXAMINATION: VITAL SIGNS: BP 109/58, pulse was 80, respirations were 22. She was afebrile. EYES: Extraocular muscles were full. NOSE, MOUTH, AND THROAT: Mucous membranes unrevealing. NECK: No JVD. LUNGS: Wheezes bilaterally. No rales. HEART: Rhythm regular. ABDOMEN: Nontender. EXTREMITIES: No edema, no calf tenderness. Flanks no edema. LABORATORY AND DIAGNOSTIC STUDIES: Hematocrit 41.4 on admission, 46.1 today. White count increased from 7600 to 12,200, platelets were normal. Digoxin was 1.0. Urinalysis: 2+ urobilinogen, otherwis e unrevealing. On admission, electrolytes were normal. BUN and creatinine 8 and 0.9 respectively. Potassium was 5.2 today. BNP was 3100. TSH was normal. Liver tests were normal. Protime INR 1.27, PTT 37.6, blood gases on 100% oxygen, pH 7.346, pCO2 48.9, pO2 168.7. IMAGING STUDIES including a CTA of the chest with no PE was noted. There was right-sided pneumothora x measuring 20% to 30%, moderate large right pleural effusion with compressive atelectasis and pulmon davida edema. Chest x-ray on admission revealing moderate pleural effusion and right basilar consolidat ion consistent with compressive atelectasis with no evidence of congestive heart failure. IMPRESSION: 1. Mild hyperkalemia related to Aldactone, KCl replacement in the setting of being on an ARB. Her m eds were modified. 2. Recurrent right pleural effusion with CHF thought the likely cause. Malignancy is being consider ed. 3. History of diabetes. 4. Known coronary artery disease. PLAN: Will follow with you. Dictated By: MELBA SINHA MD MR/NTS Conf#: [id number] DID#: [id number] CC: LANNY SMITH MD;*EndCC*
[2018-09-05] MEDS ORDERED: ALBUTEROL/IPRATROPIUM (NEB) 3 ML AMP HHN SCH (16:00)
[2018-09-06] VITALS (25 sets, daily range): BP systolic 50–109; BP diastolic 17–76; PULSE 70–76; RESP 18–36
[2018-09-06] MEDS: CHLORDIAZEPOXIDE 5 MG CAP PO SCH ×5 (00:29→23:44)
[2018-09-06] MEDS: ALBUTEROL/IPRATROPIUM (NEB) 3 ML AMP HHN SCH ×6 (01:15→20:04)
[2018-09-06] MEDS: FUROSEMIDE 20 MG INJ IV SCH ×3 (05:29→22:00)
[2018-09-06] MEDS: PANTOPRAZOLE (EC) 40 MG TAB PO SCH (06:01)
--- NOTE | 2018-09-06 07:56 | CONS ---
Assessment/Plan Assessment/Plan Assessment/Plan (Daily) 1. Hyperkalemia has resolvedwith dc aldactone, ARB and kcl, resume now per cards 2. Right pleural effusion sec to cardiac dysfx (reduced eject fx), if continue to diurese may need BP support. 3. Well preserved renal function 4. Will gladly see on request. Consultation Date/Type/Reason Admit Date/Time Sep 03, 2018 at 22:34 Initial Consult Date Requesting Provider: LANNY SMITH MD Date/Time of Note DATE: 09/06/18 TIME: 07:53 Detailed Summary Respiratory: shortness of breath (is less) Cardiovascular: No chest pain Gastrointestinal: no complaints Genitourinary: no complaints Exam/Review of Systems Exam Vitals Vital Signs Date Temp Pulse Resp B/P (MAP) Pulse Ox O2 O2 Flow FiO2 Time Delivery Rate 09/06/18 70 27 98/76 (83) 99 High Flow 06:00 09/06/18 60 05:31 09/06/18 98.7 04:00 09/05/18 15.0 11:00 Intake and Output 09/05/18 09/05/18 09/06/18 1515:00 23:00 07:00 IntakeIntake Total 340 ml 500 ml 500 ml BalanceBalance 340 ml 500 ml 500 ml Neck: No jvd Respiratory: diminished breath sounds; No crackles/rales, No wheezing Cardiovascular: regular rate and rhythm; No S3 Gastrointestinal: soft Extremities: No edema (leg and sacral) Results Result Diagram: 09/06/18 0431 09/06/18 0431 Results 24hrs Laboratory Tests Test 09/05/18 14:21 09/06/18 04:31 09/06/18 07:00 Sodium Level 137 138 Potassium Level 4.6 4.1 Chloride Level 101 101 Carbon Dioxide Level 30 28 Anion Gap 6 9 Blood Urea Nitrogen 10 11 Creatinine 0.84 0.72 Est Glomerular Filtrat > 60 > 60 Rate mL/min Glucose Level 95 104 Calcium Level 9.4 9.5 White Blood Count 12.1 H Red Blood Count 4.39 Hemoglobin 12.6 Hematocrit 40.3 Mean Corpuscular Volume 91.8 Mean Corpuscular Hemoglobin 28.7 L Mean Corpuscular 31.3 L Hemoglobin Concent Red Cell Distribution Width 17.2 H Platelet Count 278 Mean Platelet Volume 10.5 H Immature Granulocytes % 0.400 Neutrophils % 80.1 H Lymphocytes % 8.9 L Monocytes % 6.5 Eosinophils % 3.6 Basophils % 0.5 Nucleated Red Blood Cells % 0.0 Immature Granulocytes # 0.050 H Neutrophils # 9.7 H Lymphocytes # 1.1 Monocytes # 0.8 Eosinophils # 0.4 Basophils # 0.1 Nucleated Red Blood Cells # 0.0 Phosphorus Level 2.6 Magnesium Level 2.0 Blood Gas Specimen Source Blood arterial Arterial Blood Date Drawn 09/06/2018 7:24:06 AM Arterial Blood pH 7.440 (Temp corrected) Arterial Blood pCO2 41.0 (Temp correct) Arterial Blood pO2 112.2 H (Temp corrected) Arterial Blood HCO3 27.2 H Arterial Blood Base Excess 2.8 Arterial Blood 98.3 H Oxygen Saturation Dandre Test ACCEPTAB Arterial Blood Gas Left Radial Puncture Site Arterial 0.5 Blood Carboxyhemoglobin Arterial Blood Methemoglobin 0.4 Blood Gas A-a O2 Differential 270.5 H Oxyhemoglobin Percent 97.4 Blood Gas Temperature 37.0 Blood Gas Modality HFNC FiO2 60.0 Blood Gas Notified Whom TM Blood Gas Notified Time 09/06/2018 7:47:41 AM Medications Medication Current Medications Furosemide (Lasix) 20 mg Q8 IV Last administered on 09/05/18 05:06; Admin Dose 20 MG; Start 09/04/18 at 01:00 Nicotine (Nicoderm 7 Mg/ 24 Hr) 1 patch DAILY TRANSDERM Last administered on 09/05/18 08:51; Admin Dose 1 PATCH; Start 09/04/18 at 01:00 Carvedilol (Coreg) 3.125 mg BID PO Last administered on 09/05/18at 08:54; Admin Dose 3.125 MG; Start 09/04/18 at 09:00 Zolpidem Tartrate (Ambien) 5 mg HS MAY REPEAT X 1 PRN PO INSOMNIA Last administered on 09/04/18 21:02; Admin Dose 5 MG; Start 09/04/18 at 01:30 Ferric Sodium Gluconate Complex 125 mg/Sodium Chloride 100 ml @ 100 mls/hr DAILY@1300 IVPB Last administered on 09/05/18 13:07; Admin Dose 100 MLS/HR; Start 09/04/18 at 13:00; Stop 09/06/18 at 13:59 Pantoprazole (Protonix Tab) 40 mg DAILY@06 PO Last administered on 09/06/18 06:01; Admin Dose 40 MG; Start 09/04/18 at 10:00 Multivitamins Therapeutic (Theragran) 1 tab DAILY PO Last administered on 09/05/18at 08:53; Admin Dose 1 TAB; Start 09/05/18 at 09:00 Chlordiazepoxide (Librium) 20 mg Q6 PO Last administered on 09/06/18 06:01; Admin Dose 20 MG; Start 09/04/18 at 18:00 Albuterol/ Ipratropium (Duoneb) 3 ml Q8H RESP THERAPY PRN HHN SHORTNESS OF BREATH Last administered on 09/05/18 08:05; Admin Dose 3 ML; Start 09/05/18 at 06:30 Albuterol/ Ipratropium (Duoneb) 3 ml Q4H RESP THERAPY HHN Last administered on 09/06/18 05:31; Admin Dose 3 ML; Start 09/05/18 at 09:00 MELBA SINHA MD Sep 06, 2018 07:56
[2018-09-06] MEDS: NICOTINE (7 MG/24 HR) PATCH TRANSDERM SCH (08:32)
[2018-09-06] MEDS: MULTIVITAMINS THERAPEUTIC TAB PO SCH (08:32)
--- NOTE | 2018-09-06 08:58 | CONS ---
Assessment/Plan Assessment/Plan Assessment/Plan (Daily) Chest x-ray was reviewed from today which is showing CHF pattern I could not appreciate any pneumothorax on the right side. Assessment and recommendations; 1. Patient admitted with CHF exacerbation status post right thoracentesis with postprocedure small right pneumothorax with significant clinical and radiological improvement. 2. History of tobacco abuse. Pleural fluid cytology is pending. 3. History of hypertension. 4. History of cardiac arrhythmia. 5. History of systemic hypertension. Continue current supportive care. Wean down FiO2 as tolerated. Based upon examination and chest x-ray I do not see an indication for chest tube placement at this time. Consultation Date/Type/Reason Admit Date/Time Sep 03, 2018 at 22:34 Initial Consult Date Type of Consult Pulmonary/critical care Patient's condition is stable. Remains hemodynamically stable. Still on high flow nasal cannula at 60% FiO2. General exam; middle-aged female, awake alert, currently no distress. Reason for Consultation HEENT exam; supple neck, positive JVD. No lymphadenopathy. Midline trachea. No thyromegaly. Patient has fair dentition. On high flow nasal cannula. Chest exam; diminished breath sounds bilaterally with scattered crackles.. S1- S2 audible, no murmurs. Regular rhythm. Pacemaker in left chest wall. Abdomen exam; soft, nontender. No organomegaly. Bowel sounds audible. Extremity exam; no edema clubbing. 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 Requesting Provider: LANNY SMITH MD Date/Time of Note DATE: 09/06/18 TIME: 08:55 Exam/Review of Systems Exam Vitals Vital Signs Date Temp Pulse Resp B/P (MAP) Pulse Ox O2 O2 Flow FiO2 Time Delivery Rate 09/06/18 98.6 70 26 101/70 99 High Flow 08:00 (80) 09/06/18 60 05:31 09/05/18 15.0 11:00 Intake and Output 09/05/18 09/05/18 09/06/18 1515:00 23:00 07:00 IntakeIntake Total 340 ml 500 ml 500 ml BalanceBalance 340 ml 500 ml 500 ml Results Result Diagram: 09/06/18 0431 09/06/18 0431 Results 24hrs Laboratory Tests Test 09/05/18 14:21 09/06/18 04:31 09/06/18 07:00 Sodium Level 137 138 Potassium Level 4.6 4.1 Chloride Level 101 101 Carbon Dioxide Level 30 28 Anion Gap 6 9 Blood Urea Nitrogen 10 11 Creatinine 0.84 0.72 Est Glomerular Filtrat > 60 > 60 Rate mL/min Glucose Level 95 104 Calcium Level 9.4 9.5 White Blood Count 12.1 H Red Blood Count 4.39 Hemoglobin 12.6 Hematocrit 40.3 Mean Corpuscular Volume 91.8 Mean Corpuscular Hemoglobin 28.7 L Mean Corpuscular 31.3 L Hemoglobin Concent Red Cell Distribution Width 17.2 H Platelet Count 278 Mean Platelet Volume 10.5 H Immature Granulocytes % 0.400 Neutrophils % 80.1 H Lymphocytes % 8.9 L Monocytes % 6.5 Eosinophils % 3.6 Basophils % 0.5 Nucleated Red Blood Cells % 0.0 Immature Granulocytes # 0.050 H Neutrophils # 9.7 H Lymphocytes # 1.1 Monocytes # 0.8 Eosinophils # 0.4 Basophils # 0.1 Nucleated Red Blood Cells # 0.0 Phosphorus Level 2.6 Magnesium Level 2.0 Blood Gas Specimen Source Blood arterial Arterial Blood Date Drawn 09/06/2018 7:24:06 AM Arterial Blood pH 7.440 (Temp corrected) Arterial Blood pCO2 41.0 (Temp correct) Arterial Blood pO2 112.2 H (Temp corrected) Arterial Blood HCO3 27.2 H Arterial Blood Base Excess 2.8 Arterial Blood 98.3 H Oxygen Saturation Dandre Test ACCEPTAB Arterial Blood Gas Left Radial Puncture Site Arterial 0.5 Blood Carboxyhemoglobin Arterial Blood Methemoglobin 0.4 Blood Gas A-a O2 Differential 270.5 H Oxyhemoglobin Percent 97.4 Blood Gas Temperature 37.0 Blood Gas Modality HFNC FiO2 60.0 Blood Gas Notified Whom TM Blood Gas Notified Time 09/06/2018 7:47:41 AM Medications Medication Current Medications Furosemide (Lasix) 20 mg Q8 IV Last administered on 09/05/18 05:06; Admin Dose 20 MG; Start 09/04/18 at 01:00 Nicotine (Nicoderm 7 Mg/ 24 Hr) 1 patch DAILY TRANSDERM Last administered on 09/06/18 08:32; Admin Dose 1 PATCH; Start 09/04/18 at 01:00 Carvedilol (Coreg) 3.125 mg BID PO Last administered on 09/05/18 08:54; Admin Dose 3.125 MG; Start 09/04/18 at 09:00 Zolpidem Tartrate (Ambien) 5 mg HS MAY REPEAT X 1 PRN PO INSOMNIA Last administered on 09/04/18at 21:02; Admin Dose 5 MG; Start 09/04/18 at 01:30 Ferric Sodium Gluconate Complex 125 mg/Sodium Chloride 100 ml @ 100 mls/hr DAILY@1300 IVPB Last administered on 09/05/18 13:07; Admin Dose 100 MLS/HR; Start 09/04/18 at 13:00; Stop 09/06/18 at 13:59 Pantoprazole (Protonix Tab) 40 mg DAILY@06 PO Last administered on 09/06/18 06:01; Admin Dose 40 MG; Start 09/04/18 at 10:00 Multivitamins Therapeutic (Theragran) 1 tab DAILY PO Last administered on 09/06/18at 08:32; Admin Dose 1 TAB; Start 09/05/18 at 09:00 Chlordiazepoxide (Librium) 20 mg Q6 PO Last administered on 09/06/18at 06:01; Admin Dose 20 MG; Start 09/04/18 at 18:00 Albuterol/ Ipratropium (Duoneb) 3 ml Q8H RESP THERAPY PRN HHN SHORTNESS OF BREATH Last administered on 09/05/18 08:05; Admin Dose 3 ML; Start 09/05/18 at 06:30 Albuterol/ Ipratropium (Duoneb) 3 ml Q4H RESP THERAPY HHN Last administered on 09/06/18 05:31; Admin Dose 3 ML; Start 09/05/18 at 09:00 TRACEE DEE Sep 06, 2018 08:58
--- NOTE | 2018-09-06 09:12 | PN ---
Date/Time of Note Date/Time of Note DATE: 09/06/18 TIME: 09:05 Assessment/Plan VTE Prophylaxis Risk score (from Ns)>0 risk: 3 SCD applied (from Ns): Yes SCD contraindicated: other Pharmacological prophylaxis: other (Pending thoracentesis.) Pharm contraindication: other (Pending thoracentesis.) Lines/Catheters [facility] [place] [employer] line still needed: No Urinary Cath still in place: No Reason Cath still needed: urinary retention Assessment/Plan Hospital Course Patient was seen 1:30 PM in ICU. Chest x-ray reviewed no basilar pneumothorax as was stated in previous chest x-ray. She is doing fine we will keep in ICU repeat one more time x-rays at about 6 PM and if stable transfer to the floor. Assessment/Plan 1. Respiratory distress status post right thoracentesis. Pneumothorax resolved. 2. COPD exacerbation-still smokes. Discussed. 3. Status post left subclavian area pacemaker implantation AV sequential not checked for last 2 years. 4. Right pleural effusion-s/p one liter of pleural fluid evacuation. 5. Diarrhea for years being on antimotility medications mainly, with mild improvement.Now less frequent. 6. Episodes of constipation 7. Significant weight loss according to her about 38 kg during the last 24 years,; but by calculations it becomes like about 25-20 kg. 8. Hearing impairment 9. Permanent deconditioning with severe muscular weakness unable to get up and stand by herself with severe decrease of muscular tone was strained mass 10. Urinary and fecal incontinence 11. Status post cholecystectomy 12. Nicotine addiction-making progress 13. PTSD 14. Mild elevation of the CEA 15. Kyphosis 16. Osteoporosis 17. Diabetes type 2 blood sugar improved after weight loss 18. Dehydration 19. Malnourishment 20. Noncompliance 21. Irritable bowel syndrome 22. Hemorrhoidal disease with recurrent rectal bleeding 23. Hx of paroxysmal a. fibrillation with low LVEF- on ICD 24. Tricuspid insufficiency with a very large left and right atrium on echo cardiography 25. Pulmonary hypertension with systolic pressure in the pulmonary artery 66 mm of hg. 26. Elevation of central venous pressure 27. Hyperkalemia-improved. 28. Altered level of consciousness on and off being lethargic most of the time which did not happen with her during my previous months of follow-up. 26.incomplete data Result Diagram: 09/06/18 0431 09/06/18 0431 Results 24hrs Laboratory Tests Test 09/05/18 14:21 09/06/18 04:31 09/06/18 07:00 Sodium Level 137 138 Potassium Level 4.6 4.1 Chloride Level 101 101 Carbon Dioxide Level 30 28 Anion Gap 6 9 Blood Urea Nitrogen 10 11 Creatinine 0.84 0.72 Est Glomerular Filtrat > 60 > 60 Rate mL/min Glucose Level 95 104 Calcium Level 9.4 9.5 White Blood Count 12.1 H Red Blood Count 4.39 Hemoglobin 12.6 Hematocrit 40.3 Mean Corpuscular Volume 91.8 Mean Corpuscular Hemoglobin 28.7 L Mean Corpuscular 31.3 L Hemoglobin Concent Red Cell Distribution Width 17.2 H Platelet Count 278 Mean Platelet Volume 10.5 H Immature Granulocytes % 0.400 Neutrophils % 80.1 H Lymphocytes % 8.9 L Monocytes % 6.5 Eosinophils % 3.6 Basophils % 0.5 Nucleated Red Blood Cells % 0.0 Immature Granulocytes # 0.050 H Neutrophils # 9.7 H Lymphocytes # 1.1 Monocytes # 0.8 Eosinophils # 0.4 Basophils # 0.1 Nucleated Red Blood Cells # 0.0 Phosphorus Level 2.6 Magnesium Level 2.0 Blood Gas Specimen Source Blood arterial Arterial Blood Date Drawn 09/06/2018 7:24:06 AM Arterial Blood pH 7.440 (Temp corrected) Arterial Blood pCO2 41.0 (Temp correct) Arterial Blood pO2 112.2 H (Temp corrected) Arterial Blood HCO3 27.2 H Arterial Blood Base Excess 2.8 Arterial Blood 98.3 H Oxygen Saturation Dandre Test ACCEPTAB Arterial Blood Gas Left Radial Puncture Site Arterial 0.5 Blood Carboxyhemoglobin Arterial Blood Methemoglobin 0.4 Blood Gas A-a O2 Differential 270.5 H Oxyhemoglobin Percent 97.4 Blood Gas Temperature 37.0 Blood Gas Modality HFNC FiO2 60.0 Blood Gas Notified Whom TM Blood Gas Notified Time 09/06/2018 7:47:41 AM Subjective 24 Hr Interval Summary Free Text/Dictation I am tired. Can you give me more medications that they will be able to sleep. I am forgetful. Constitutional: improved, diaphoresis, poor po; No no complaints, No chills, No disoriented, No febrile, No requiring IVF, No requiring O2, No other Eyes: No no complaints, No pain, No discharge, No redness, No visual change, No other ENT: congestion, dysphagia; No no complaints, No bleeding, No pain, No discharge, No sore throat, No other Respiratory: cough, pleuritic pain, shortness of breath; No no complaints, No pain, No sputum, No wheezing, No other Cardiovascular: chest pain, edema; No no complaints, No lightheadedness, No orthopenea, No palpitations, No paroxysmal nocturnal dyspnea, No other Gastrointestinal: decreased appetite; No no complaints, No pain, No blood, No constipation, No diarrhea, No flatus, No nausea, No passing stool, No vomiting, No other Genitourinary: dysuria; No no complaints, No bleeding, No discharge, No flank pain, No hematuria, No other Musculoskeletal: back pain, bone/joint pain Skin: erythema, pruritis; No no complaints, No bruising, No laceration, No rash, No skin lesions, No other Neurologic: confusion, dizziness Endocrine: No no complaints, No polyuria, No polydypsia, No dry skin, No temp intolerance, No other Lymphatic: adenopathy, tender nodes; No no complaints, No lymphadema, No other Psychological: no complaints, anxiety, confusion Immunologic: No no complaints, No immunodeficiency, No pruritis, No rhinitis, No urticaria, No other Exam/Review of Systems Exam Vitals Vital Signs Date Temp Pulse Resp B/P (MAP) Pulse Ox O2 O2 Flow FiO2 Time Delivery Rate 09/06/18 98.6 70 26 101/70 99 High Flow 08:00 (80) 09/06/18 60 05:31 09/05/18 15.0 11:00 Intake and Output 09/05/18 09/05/18 09/06/18 1515:00 23:00 07:00 IntakeIntake Total 340 ml 500 ml 500 ml BalanceBalance 340 ml 500 ml 500 ml Constitutional: distress, frail, other (Lethargic arousable goes by to sleep after 2 to 3 minutes of conversation.); No alert, No oriented, No well developed, No non-verbal, No obese Psych: anxiety, confusion (On and off), depression; No no complaints, No nl mood/affect, No suicidal, No other Head: normocephalic, atraumatic; No lacerations, No hematomas, No other Eyes: EOMI, nl lids, PERRL; No nl conjunctiva, No nl sclera, No icteric, No fundi, disc, No other ENMT: nl external ears & nose, nl lips & teeth; No nl nasal mucosa & septum, No mucosa pink and moist, No intubated, No tympanic membranes, No other Neck: jvd, bruits, nuchal rigidity; No supple, No non-tender, No masses, No thyromegaly, No other Respiratory: congested cough, crackles/rales, diminished breath sounds; No clear to auscultation, No normal air movement, No intercostal retraction, No labored breathing, No respirations, No tactile fremitus, No wheezing, No other Cardiovascular: regular rate and rhythm, nl pulses, jugular venous distention (JVD), systolic murmur; No bruits, No diastolic murmur, No edema, No gallop, No irregular rhythm, No murmurs/extra sounds, No rub, No S3, No S4, No other Gastrointestinal: soft, nl liver, spleen, bowel sounds; No non-tender, No ascites, No distended, No firm, No hepatomegaly, No mass, No rebound or guarding, No splenomegaly, No surgical scars, No tender, No other Musculoskeletal: joint tenderness; No nl extremities to inspection, No nl gait and stance, No muscle tone, No muscle weakness, No range of motion, No spine non-tender, No swelling, No other Extremities: edema; No normal pulses, No calf tenderness, No cyanosis, No clubbing, No pitting pedal edema, No palpable cord, No tenderness, No other 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: 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, nl mental status (Asks more questions now which are inappropriate to the current situation of [facility] nl strength (Severely decreased.), confused, lethargic, numbness, other (Is becoming more evident that she is using alcohol more than I was expecting and longer than that I was informed.); No nl speech, No DTR's symmetric, No focal weakness, No reflexes, No unresponsive Skin: nl turgor (Decreased.), ecchymosis; No rash or lesions, No diaphoresis, No laceration, No puncture, No other Results Results 24hrs Laboratory Tests Test 09/05/18 14:21 6/6/19 04:31 09/06/18 07:00 Sodium Level 137 138 Potassium Level 4.6 4.1 Chloride Level 101 101 Carbon Dioxide Level 30 28 Anion Gap 6 9 Blood Urea Nitrogen 10 11 Creatinine 0.84 0.72 Est Glomerular Filtrat > 60 > 60 Rate mL/min Glucose Level 95 104 Calcium Level 9.4 9.5 White Blood Count 12.1 H Red Blood Count 4.39 Hemoglobin 12.6 Hematocrit 40.3 Mean Corpuscular Volume 91.8 Mean Corpuscular Hemoglobin 28.7 L Mean Corpuscular 31.3 L Hemoglobin Concent Red Cell Distribution Width 17.2 H Platelet Count 278 Mean Platelet Volume 10.5 H Immature Granulocytes % 0.400 Neutrophils % 80.1 H Lymphocytes % 8.9 L Monocytes % 6.5 Eosinophils % 3.6 Basophils % 0.5 Nucleated Red Blood Cells % 0.0 Immature Granulocytes # 0.050 H Neutrophils # 9.7 H Lymphocytes # 1.1 Monocytes # 0.8 Eosinophils # 0.4 Basophils # 0.1 Nucleated Red Blood Cells # 0.0 Phosphorus Level 2.6 Magnesium Level 2.0 Blood Gas Specimen Source Blood arterial Arterial Blood Date Drawn 09/06/2018 7:24:06 AM Arterial Blood pH 7.440 (Temp corrected) Arterial Blood pCO2 41.0 (Temp correct) Arterial Blood pO2 112.2 H (Temp corrected) Arterial Blood HCO3 27.2 H Arterial Blood Base Excess 2.8 Arterial Blood 98.3 H Oxygen Saturation Dandre Test ACCEPTAB Arterial Blood Gas Left Radial Puncture Site Arterial 0.5 Blood Carboxyhemoglobin Arterial Blood Methemoglobin 0.4 Blood Gas A-a O2 Differential 270.5 H Oxyhemoglobin Percent 97.4 Blood Gas Temperature 37.0 Blood Gas Modality HFNC FiO2 60.0 Blood Gas Notified Whom TM Blood Gas Notified Time 09/06/2018 7:47:41 AM Medications Medication Current Medications Furosemide (Lasix) 20 mg Q8 IV Last administered on 09/05/18at 05:06; Admin Dose 20 MG; Start 09/04/18 at 01:00 Nicotine (Nicoderm 7 Mg/ 24 Hr) 1 patch DAILY TRANSDERM Last administered on 09/06/18at 08:32; Admin Dose 1 PATCH; Start 09/04/18 at 01:00 Carvedilol (Coreg) 3.125 mg BID PO Last administered on 09/05/18 08:54; Admin Dose 3.125 MG; Start 09/04/18 at 09:00 Zolpidem Tartrate (Ambien) 5 mg HS MAY REPEAT X 1 PRN PO INSOMNIA Last administered on 09/04/18 21:02; Admin Dose 5 MG; Start 09/04/18 at 01:30 Ferric Sodium Gluconate Complex 125 mg/Sodium Chloride 100 ml @ 100 mls/hr DAILY@1300 IVPB Last administered on 09/05/18 13:07; Admin Dose 100 MLS/HR; Start 09/04/18 at 13:00; Stop 09/06/18 at 13:59 Pantoprazole (Protonix Tab) 40 mg DAILY@06 PO Last administered on 09/06/18 06:01; Admin Dose 40 MG; Start 09/04/18 at 10:00 Multivitamins Therapeutic (Theragran) 1 tab DAILY PO Last administered on 09/06/18 08:32; Admin Dose 1 TAB; Start 09/05/18 at 09:00 Chlordiazepoxide (Librium) 20 mg Q6 PO Last administered on 09/06/18 06:01; Admin Dose 20 MG; Start 09/04/18 at 18:00 Albuterol/ Ipratropium (Duoneb) 3 ml Q8H RESP THERAPY PRN HHN SHORTNESS OF BREATH Last administered on 09/05/18 08:05; Admin Dose 3 ML; Start 09/05/18 at 06:30 Albuterol/ Ipratropium (Duoneb) 3 ml Q4H RESP THERAPY HHN Last administered on 09/06/18 05:31; Admin Dose 3 ML; Start 09/05/18 at 09:00 LANNY SMITH MD Sep 06, 2018 09:12
[2018-09-06] MEDS ORDERED: LIDOCAINE 1% (MPF) 5 ML VIAL ONE (11:07)
--- NOTE | 2018-09-06 12:25 | CONS ---
Assessment/Plan Assessment/Plan Hospital Course (Demo Recall) IMP: 1.CHF-systolic acute on chronic 2.Cardiomyopathy-EF 25-30% by echo 05/22 3.pleural effusion s/p thoracentesis c/b PTX and transferred to ICU and reamsins 4..Hypotension-borderline 5.Renal insufficiency/hyperkalemia-mild 6.H/O ICD-v pacing 100% 7.Tobacco dependence 8. ? COPD 9. AF/AFL REcc: -Now in ICU -On high flow O2 -Follow PTX ith possible need for CT placement -Contineu coreg -resume low dose afterload reduction as tolerated -Continue lasix diuresis as tolerated -CT surgical consult pnding -Contineu bronchodilators -wean o2 support as possible -start lovenox sytemic anticoagulation for AFL in lieu of eliquis while PTX is followed for need of CT Consultation Date/Type/Reason Admit Date/Time Sep 03, 2018 at 22:34 Initial Consult Date 09/04/18 Type of Consult Cardiology Reason for Consultation CHF Requesting Provider: LANNY SMITH MD Date/Time of Note DATE: 09/06/18 TIME: 12:22 Exam/Review of Systems Vital Signs Vitals Vital Signs Date Temp Pulse Resp B/P (MAP) Pulse Ox O2 O2 Flow FiO2 Time Delivery Rate 09/06/18 96 50 12:17 09/06/18 97.8 74 24 94/64 (74) High Flow 12:00 09/05/18 15.0 11:00 Intake and Output 09/05/18 09/05/18 09/06/18 1515:00 23:00 07:00 IntakeIntake Total 340 ml 500 ml 500 ml BalanceBalance 340 ml 500 ml 500 ml Exam Exam Review of Systems: CONSTITUTIONAL: No fevers, chills. PULMONARY: ongoing sob CARDIOVASCULAR: No chest pain/palpitations GASTROINTESTINAL: No nausea/vomiting. GENITOURINARY: No hematuria/dysuria. MUSCULOSKELETAL: No myagias/arthalgias. PSYCHIATRIC: The patient denies depression. NEUROLOGIC: No weakness Constitutional: alert Psych: no complaints Head: normocephalic ENMT: mucosa pink and moist Neck: supple, jvd (9 cm water) Respiratory: diminished breath sounds (at bases/B) Cardiovascular: regular rate and rhythm Gastrointestinal: soft, non-tender Musculoskeletal: muscle tone (normal) Extremities: edema (trace/B) Labs Result Diagram: 09/06/18 0431 09/06/18 0431 Results 24hrs Laboratory Tests Test 09/05/18 14:21 09/06/18 04:31 09/06/18 07:00 Sodium Level 137 138 Potassium Level 4.6 4.1 Chloride Level 101 101 Carbon Dioxide Level 30 28 Anion Gap 6 9 Blood Urea Nitrogen 10 11 Creatinine 0.84 0.72 Est Glomerular Filtrat > 60 > 60 Rate mL/min Glucose Level 95 104 Calcium Level 9.4 9.5 White Blood Count 12.1 H Red Blood Count 4.39 Hemoglobin 12.6 Hematocrit 40.3 Mean Corpuscular Volume 91.8 Mean Corpuscular Hemoglobin 28.7 L Mean Corpuscular 31.3 L Hemoglobin Concent Red Cell Distribution Width 17.2 H Platelet Count 278 Mean Platelet Volume 10.5 H Immature Granulocytes % 0.400 Neutrophils % 80.1 H Lymphocytes % 8.9 L Monocytes % 6.5 Eosinophils % 3.6 Basophils % 0.5 Nucleated Red Blood Cells % 0.0 Immature Granulocytes # 0.050 H Neutrophils # 9.7 H Lymphocytes # 1.1 Monocytes # 0.8 Eosinophils # 0.4 Basophils # 0.1 Nucleated Red Blood Cells # 0.0 Phosphorus Level 2.6 Magnesium Level 2.0 Blood Gas Specimen Source Blood arterial Arterial Blood Date Drawn 09/06/2018 7:24:06 AM Arterial Blood pH 7.440 (Temp corrected) Arterial Blood pCO2 41.0 (Temp correct) Arterial Blood pO2 112.2 H (Temp corrected) Arterial Blood HCO3 27.2 H Arterial Blood Base Excess 2.8 Arterial Blood 98.3 H Oxygen Saturation Dandre Test ACCEPTAB Arterial Blood Gas Left Radial Puncture Site Arterial 0.5 Blood Carboxyhemoglobin Arterial Blood Methemoglobin 0.4 Blood Gas A-a O2 Differential 270.5 H Oxyhemoglobin Percent 97.4 Blood Gas Temperature 37.0 Blood Gas Modality HFNC FiO2 60.0 Blood Gas Notified Whom TM Blood Gas Notified Time 09/06/2018 7:47:41 AM Medications Medications Current Medications Furosemide (Lasix) 20 mg Q8 IV Last administered on 09/05/18at 05:06; Admin Dose 20 MG; Start 09/04/18 at 01:00 Nicotine (Nicoderm 7 Mg/ 24 Hr) 1 patch DAILY TRANSDERM Last administered on 09/06/18 08:32; Admin Dose 1 PATCH; Start 09/04/18 at 01:00 Carvedilol (Coreg) 3.125 mg BID PO Last administered on 09/05/18 08:54; Admin Dose 3.125 MG; Start 09/04/18 at 09:00 Zolpidem Tartrate (Ambien) 5 mg HS MAY REPEAT X 1 PRN PO INSOMNIA Last administered on 09/04/18 21:02; Admin Dose 5 MG; Start 09/04/18 at 01:30 Ferric Sodium Gluconate Complex 125 mg/Sodium Chloride 100 ml @ 100 mls/hr DAILY@1300 IVPB Last administered on 09/05/18 13:07; Admin Dose 100 MLS/HR; Start 09/04/18 at 13:00; Stop 09/06/18 at 13:59 Pantoprazole (Protonix Tab) 40 mg DAILY@06 PO Last administered on 09/06/18 06:01; Admin Dose 40 MG; Start 09/04/18 at 10:00 Multivitamins Therapeutic (Theragran) 1 tab DAILY PO Last administered on 09/06/18 08:32; Admin Dose 1 TAB; Start 09/05/18 at 09:00 Albuterol/ Ipratropium (Duoneb) 3 ml Q8H RESP THERAPY PRN HHN SHORTNESS OF BREATH Last administered on 09/05/18 08:05; Admin Dose 3 ML; Start 09/05/18 at 06:30 Albuterol/ Ipratropium (Duoneb) 3 ml Q4H RESP THERAPY HHN Last administered on 09/06/18 09:54; Admin Dose 3 ML; Start 09/05/18 at 09:00 Chlordiazepoxide (Librium) 10 mg Q6 PO Last administered on 09/06/18 12:11; Admin Dose 10 MG; Start 09/06/18 at 12:00 ALLAN WARD Sep 06, 2018 12:25
[2018-09-06] MEDS: SOD FERRIC GLUC COMPLX 125 MG in SOD CHLORIDE 0.9% 100 ML IVPB SCH (13:23)
[2018-09-06] MEDS: ENOXAPARIN 60 MG/0.6 ML SYG SC SCH (21:41)
[2018-09-07] VITALS (24 sets, daily range): BP systolic 82–102; BP diastolic 40–69; PULSE 70–76; RESP 3–37
[2018-09-07] MEDS: ALBUTEROL/IPRATROPIUM (NEB) 3 ML AMP HHN SCH ×5 (00:21→21:00)
[2018-09-07] MEDS: CHLORDIAZEPOXIDE 5 MG CAP PO SCH ×2 (06:00→12:00)
[2018-09-07] MEDS: FUROSEMIDE 20 MG INJ IV SCH ×3 (06:00→22:00)
[2018-09-07] MEDS: PANTOPRAZOLE (EC) 40 MG TAB PO SCH (06:17)
--- NOTE | 2018-09-07 06:40 | PN ---
Date/Time of Note Date/Time of Note DATE: 09/07/18 TIME: 06:38 Assessment/Plan VTE Prophylaxis Risk score (from Ns)>0 risk: 3 SCD applied (from Ns): Yes SCD contraindicated: other (on) Pharmacological prophylaxis: LMWH Lines/Catheters IV Catheter Type (from [facility]): [place] [employer] line still needed: No Urinary Cath still in place: No Reason Cath still needed: urinary retention, skin wounds contaminated by urine Assessment/Plan Hospital Course Patient was seen 1:30 PM in ICU. Chest x-ray reviewed no basilar pneumothorax as was stated in previous chest x-ray. She is doing fine we will keep in ICU repeat one more time x-rays at about 6 PM and if stable transfer to the floor. Assessment/Plan 1. Respiratory distress status post right thoracentesis. Pneumothorax resolved.s/p second thoracentesis during this admission with 850cc of fluid removal. Rather rapid reaccumulation of the fluid with the plan to remove another treatment tomorrow. 2. COPD exacerbation-still smokes. Discussed. 3. Status post left subclavian area pacemaker implantation AV sequential not checked for last 2 years. 4. Right pleural effusion-s/p one liter of pleural fluid evacuation. 5. Diarrhea for years being on antimotility medications mainly, with mild improvement.Now less frequent. 6. Episodes of constipation 7. Significant weight loss according to her about 38 kg during the last 24 years,; but by calculations it becomes like about 25-20 kg. 8. Hearing impairment 9. Permanent deconditioning with severe muscular weakness unable to get up and stand by herself with severe decrease of muscular tone was strained mass 10. Urinary and fecal incontinence 11. Status post cholecystectomy 12. Nicotine addiction-making progress 13. PTSD 14. Mild elevation of the CEA 15. Kyphosis 16. Osteoporosis 17. Diabetes type 2 blood sugar improved after weight loss 18. Dehydration 19. Malnourishment 20. Noncompliance 21. Irritable bowel syndrome 22. Hemorrhoidal disease with recurrent rectal bleeding 23. Hx of paroxysmal a. fibrillation with low LVEF- on ICD 24. Tricuspid insufficiency with a very large left and right atrium on echo cardiography 25. Pulmonary hypertension with systolic pressure in the pulmonary artery 66 mm of hg. 26. Elevation of central venous pressure 27. Hyperkalemia-improved. 28. Altered level of consciousness on and off being lethargic most of the time which did not happen with her during my previous months of follow-up. 26.incomplete data Result Diagram: 09/07/18 0432 09/07/18 0432 Results 24hrs Laboratory Tests Test 09/06/18 07:00 09/07/18 04:32 Blood Gas Specimen Source Blood arterial Arterial Blood Date Drawn 09/06/2018 7:24:06 AM Arterial Blood pH (Temp corrected) 7.440 Arterial Blood pCO2 (Temp correct) 41.0 Arterial Blood pO2 (Temp corrected) 112.2 H Arterial Blood HCO3 27.2 H Arterial Blood Base Excess 2.8 Arterial Blood Oxygen Saturation 98.3 H Dandre Test ACCEPTAB Arterial Blood Gas Puncture Site Left Radial Arterial Blood Carboxyhemoglobin 0.5 Arterial Blood Methemoglobin 0.4 Blood Gas A-a O2 Differential 270.5 H Oxyhemoglobin Percent 97.4 Blood Gas Temperature 37.0 Blood Gas Modality HFNC FiO2 60.0 Blood Gas Notified Whom TM Blood Gas Notified Time 09/06/2018 7:47:41 AM White Blood Count 10.7 Red Blood Count 4.33 Hemoglobin 12.4 Hematocrit 39.5 Mean Corpuscular Volume 91.2 Mean Corpuscular Hemoglobin 28.6 L Mean Corpuscular Hemoglobin Concent 31.4 L Red Cell Distribution Width 17.2 H Platelet Count 277 Mean Platelet Volume 10.6 H Immature Granulocytes % 0.500 H Neutrophils % 69.2 Lymphocytes % 14.6 L Monocytes % 8.4 Eosinophils % 6.6 Basophils % 0.7 Nucleated Red Blood Cells % 0.0 Immature Granulocytes # 0.050 H Neutrophils # 7.4 Lymphocytes # 1.6 Monocytes # 0.9 Eosinophils # 0.7 H Basophils # 0.1 Nucleated Red Blood Cells # 0.0 Sodium Level 138 Potassium Level 3.9 Chloride Level 102 Carbon Dioxide Level 30 Anion Gap 6 Blood Urea Nitrogen 13 Creatinine 0.72 Est Glomerular Filtrat Rate mL/min > 60 Glucose Level 91 Calcium Level 9.5 Subjective 24 Hr Interval Summary Free Text/Dictation I never slept so much. I feel no energy. My breathing improved. I cannot lay down on left side. Constitutional: improved, poor po, requiring O2; No no complaints, No chills, No diaphoresis, No disoriented, No febrile, No requiring IVF, No other Eyes: No no complaints, No pain, No discharge, No redness, No visual change, No other ENT: congestion; No no complaints, No bleeding, No pain, No discharge, No dysphagia, No sore throat, No other Respiratory: cough, pleuritic pain, shortness of breath; No no complaints, No pain, No sputum, No wheezing, No other Cardiovascular: chest pain, lightheadedness, orthopenea; No no complaints, No edema, No palpitations, No paroxysmal nocturnal dyspnea, No other Gastrointestinal: constipation, decreased appetite, nausea; No no complaints, No pain, No blood, No diarrhea, No flatus, No passing stool, No vomiting, No other Genitourinary: dysuria; No no complaints, No bleeding, No discharge, No flank pain, No hematuria, No other Musculoskeletal: back pain, bone/joint pain, neck pain; No no complaints, No restricted range of motion, No swelling, No other Skin: pruritis; No no complaints, No bruising, No erythema, No laceration, No rash, No skin lesions, No other Neurologic: dizziness, headache; No no complaints, No confusion, No focal-weakness, No syncope, No seizure, No other Endocrine: polyuria; No no complaints, No polydypsia, No dry skin, No temp intolerance, No other Lymphatic: tender nodes; No no complaints, No adenopathy, No lymphadema, No other Psychological: anxiety, depression; No no complaints, No nl mood/affect, No confusion, No suicidal, No other Exam/Review of Systems Exam Vitals Vital Signs Date Temp Pulse Resp B/P (MAP) Pulse Ox O2 O2 Flow FiO2 Time Delivery Rate 09/07/18 70 30 94/62 (73) 99 Nasal 4.0 06:00 Cannula 09/07/18 98.0 04:00 09/06/18 30 20:04 Intake and Output 09/06/18 09/06/18 09/07/18 1515:00 23:00 07:00 IntakeIntake Total 450 ml 200 ml 150 ml OutputOutput Total 235 ml 150 ml 300 ml BalanceBalance 215 ml 50 ml -150 ml Constitutional: alert, oriented, well developed, distress, frail, obese, other (Lethargic getting exhausted.) Psych: anxiety, depression; No no complaints, No nl mood/affect, No confusion, No suicidal, No other Head: normocephalic, atraumatic; No lacerations, No hematomas, No other Eyes: EOMI, nl lids, PERRL; No nl conjunctiva, No nl sclera, No icteric, No fundi, disc, No other ENMT: nl external ears & nose; No nl lips & teeth, No nl nasal mucosa & septum, No mucosa pink and moist, No intubated, No tympanic membranes, No other Neck: jvd, bruits, thyromegaly, nuchal rigidity Respiratory: congested cough, crackles/rales, diminished breath sounds; No clear to auscultation, No normal air movement, No intercostal retraction, No labored breathing, No respirations, No tactile fremitus, No wheezing, No other Cardiovascular: regular rate and rhythm, bruits, systolic murmur; No nl pulses, No diastolic murmur, No edema, No gallop, No irregular rhythm, No jugular venous distention (JVD), No murmurs/extra sounds, No rub, No S3, No S4, No other Gastrointestinal: soft, bowel sounds, distended, rebound or guarding Musculoskeletal: joint tenderness, muscle tone, muscle weakness, other (Unable to get up without help extreme weakness.); No nl extremities to inspection, No nl gait and stance, No range of motion, No spine non-tender, No swelling Extremities: normal pulses, edema, tenderness, other (Severe weakness of all muscle groups); No calf tenderness, No cyanosis, No clubbing, No pitting pedal edema 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: [employer] SPECIALIST II-XII intact; No nl mental status, No nl speech, No nl strength, No confused, No DTR's symmetric, No focal weakness, No lethargic, No numbness, No reflexes, No unresponsive, No other Skin: nl turgor (Decreased.), rash or lesions, ecchymosis; No diaphoresis, No laceration, No puncture, No other Lymph: nl lymph nodes; No enlarged, No nontender, No other Results Results 24hrs Laboratory Tests Test 09/06/18 07:00 09/07/18 04:32 Blood Gas Specimen Source Blood arterial Arterial Blood Date Drawn 09/06/2018 7:24:06 AM Arterial Blood pH (Temp corrected) 7.440 Arterial Blood pCO2 (Temp correct) 41.0 Arterial Blood pO2 (Temp corrected) 112.2 H Arterial Blood HCO3 27.2 H Arterial Blood Base Excess 2.8 Arterial Blood Oxygen Saturation 98.3 H Dandre Test ACCEPTAB Arterial Blood Gas Puncture Site Left Radial Arterial Blood Carboxyhemoglobin 0.5 Arterial Blood Methemoglobin 0.4 Blood Gas A-a O2 Differential 270.5 H Oxyhemoglobin Percent 97.4 Blood Gas Temperature 37.0 Blood Gas Modality HFNC FiO2 60.0 Blood Gas Notified Whom TM Blood Gas Notified Time 09/06/2018 7:47:41 AM White Blood Count 10.7 Red Blood Count 4.33 Hemoglobin 12.4 Hematocrit 39.5 Mean Corpuscular Volume 91.2 Mean Corpuscular Hemoglobin 28.6 L Mean Corpuscular Hemoglobin Concent 31.4 L Red Cell Distribution Width 17.2 H Platelet Count 277 Mean Platelet Volume 10.6 H Immature Granulocytes % 0.500 H Neutrophils % 69.2 Lymphocytes % 14.6 L Monocytes % 8.4 Eosinophils % 6.6 Basophils % 0.7 Nucleated Red Blood Cells % 0.0 Immature Granulocytes # 0.050 H Neutrophils # 7.4 Lymphocytes # 1.6 Monocytes # 0.9 Eosinophils # 0.7 H Basophils # 0.1 Nucleated Red Blood Cells # 0.0 Sodium Level 138 Potassium Level 3.9 Chloride Level 102 Carbon Dioxide Level 30 Anion Gap 6 Blood Urea Nitrogen 13 Creatinine 0.72 Est Glomerular Filtrat Rate mL/min > 60 Glucose Level 91 Calcium Level 9.5 Medications Medication Current Medications Furosemide (Lasix) 20 mg Q8 IV Last administered on 09/05/18at 05:06; Admin Dose 20 MG; Start 09/04/18 at 01:00 Nicotine (Nicoderm 7 Mg/ 24 Hr) 1 patch DAILY TRANSDERM Last administered on 09/06/18at 08:32; Admin Dose 1 PATCH; Start 09/04/18 at 01:00 Carvedilol (Coreg) 3.125 mg BID PO Last administered on 09/05/18at 08:54; Admin Dose 3.125 MG; Start 09/04/18 at 09:00 Zolpidem Tartrate (Ambien) 5 mg HS MAY REPEAT X 1 PRN PO INSOMNIA Last administered on 09/04/18at 21:02; Admin Dose 5 MG; Start 09/04/18 at 01:30 Pantoprazole (Protonix Tab) 40 mg DAILY@06 PO Last administered on 09/07/18at 0 6:17; Admin Dose 40 MG; Start 09/04/18 at 10:00 Multivitamins Therapeutic (Theragran) 1 tab DAILY PO Last administered on 09/06/18 08:32; Admin Dose 1 TAB; Start 09/05/18 at 09:00 Albuterol/ Ipratropium (Duoneb) 3 ml Q8H RESP THERAPY PRN HHN SHORTNESS OF BREATH Last administered on 09/05/18 08:05; Admin Dose 3 ML; Start 09/05/18 at 06:30 Albuterol/ Ipratropium (Duoneb) 3 ml Q4H RESP THERAPY HHN Last administered on 09/07/18 04:14; Admin Dose 3 ML; Start 09/05/18 at 09:00 Chlordiazepoxide (Librium) 10 mg Q6 PO Last administered on 09/06/18at 18:28; Admin Dose 10 MG; Start 09/06/18 at 12:00 Lisinopril (Zestril) 2.5 mg DAILY PO ; Start 09/07/18 at 09:00 Enoxaparin Sodium (Lovenox) 60 mg BID SC Last administered on 09/06/18 21:41; Admin Dose 60 MG; Start 09/06/18 at 21:00 LANNY SIMTH MD Sep 07, 2018 06:40
[2018-09-07] MEDS: NICOTINE (7 MG/24 HR) PATCH TRANSDERM SCH (09:02)
[2018-09-07] MEDS: MULTIVITAMINS THERAPEUTIC TAB PO SCH (09:05)
[2018-09-07] MEDS: ENOXAPARIN 60 MG/0.6 ML SYG SC SCH ×2 (09:05→20:56)
[2018-09-07] MEDS: LISINOPRIL 5 MG TAB PO SCH (10:00)
--- NOTE | 2018-09-07 10:30 | CONS ---
Assessment/Plan Assessment/Plan Hospital Course (Demo Recall) IMP: 1.CHF-systolic acute on chronic 2.Cardiomyopathy-EF 25-30% by echo 05/22 3.pleural effusion s/p thoracentesis c/b PTX and transferred to ICU and reamsins 4..Hypotension-borderline 5.Renal insufficiency/hyperkalemia-mild 6.H/O ICD-v pacing 100% 7.Tobacco dependence 8. ? COPD 9. AF/AFL REcc: -Now in ICU -On high flow O2 -Follow PTX with possible need for CT placement -Contineu coreg/low dose afterload reduction as tolerated -resume low dose afterload reduction as tolerated -Continue lasix diuresis as tolerated -CT surgical consult pnding -Contineu bronchodilators -wean o2 support as possible -Continue lovenox sytemic anticoagulation for AFL in lieu of eliquis while PTX is followed for need of CT Consultation Date/Type/Reason Admit Date/Time Sep 03, 2018 at 22:34 Initial Consult Date 09/04/18 Type of Consult Cardiology Reason for Consultation Cardiomyopathy Requesting Provider: LANNY SMITH MD Date/Time of Note DATE: 09/07/18 TIME: 10:27 Exam/Review of Systems Vital Signs Vitals Vital Signs Date Temp Pulse Resp B/P (MAP) Pulse Ox O2 O2 Flow FiO2 Time Delivery Rate 09/07/18 72 28 96/67 (77) 100 Nasal 4.0 10:00 Cannula 09/07/18 98.0 04:00 09/06/18 30 20:04 Intake and Output 09/06/18 09/06/18 09/07/18 1515:00 23:00 07:00 IntakeIntake Total 450 ml 200 ml 150 ml OutputOutput Total 235 ml 150 ml 300 ml BalanceBalance 215 ml 50 ml -150 ml Exam Exam Review of Systems: CONSTITUTIONAL: No fevers, chills. PULMONARY: No sob CARDIOVASCULAR: No chest pain/palpitations GASTROINTESTINAL: No nausea/vomiting. GENITOURINARY: No hematuria/dysuria. MUSCULOSKELETAL: No myagias/arthalgias. PSYCHIATRIC: The patient denies depression. NEUROLOGIC: No weakness Constitutional: other (sleeping) Head: normocephalic ENMT: mucosa pink and moist Neck: supple, jvd (9 cm water) Respiratory: clear to auscultation Cardiovascular: regular rate and rhythm Gastrointestinal: soft, non-tender Musculoskeletal: muscle tone (normal) Extremities: edema (none) Labs Result Diagram: 09/07/1843109/07/18431 Results 24hrs Laboratory Tests Test 09/07/18 04:32 White Blood Count 10.7 Red Blood Count 4.33 Hemoglobin 12.4 Hematocrit 39.5 Mean Corpuscular Volume 91.2 Mean Corpuscular Hemoglobin 28.6 L Mean Corpuscular Hemoglobin Concent 31.4 L Red Cell Distribution Width 17.2 H Platelet Count 277 Mean Platelet Volume 10.6 H Immature Granulocytes % 0.500 H Neutrophils % 69.2 Lymphocytes % 14.6 L Monocytes % 8.4 Eosinophils % 6.6 Basophils % 0.7 Nucleated Red Blood Cells % 0.0 Immature Granulocytes # 0.050 H Neutrophils # 7.4 Lymphocytes # 1.6 Monocytes # 0.9 Eosinophils # 0.7 H Basophils # 0.1 Nucleated Red Blood Cells # 0.0 Sodium Level 138 Potassium Level 3.9 Chloride Level 102 Carbon Dioxide Level 30 Anion Gap 6 Blood Urea Nitrogen 13 Creatinine 0.72 Est Glomerular Filtrat Rate mL/min > 60 Glucose Level 91 Calcium Level 9.5 Medications Medications Current Medications Furosemide (Lasix) 20 mg Q8 IV Last administered on 09/05/18 05:06; Admin Dose 20 MG; Start 09/04/18 at 01:00 Nicotine (Nicoderm 7 Mg/ 24 Hr) 1 patch DAILY TRANSDERM Last administered on 09/07/18 09:02; Admin Dose 1 PATCH; Start 09/04/18 at 01:00 Carvedilol (Coreg) 3.125 mg BID PO Last administered on 09/05/18at 08:54; Admin Dose 3.125 MG; Start 09/04/18 at 09:00 Zolpidem Tartrate (Ambien) 5 mg HS MAY REPEAT X 1 PRN PO INSOMNIA Last administered on 09/04/18 21:02; Admin Dose 5 MG; Start 09/04/18 at 01:30 Pantoprazole (Protonix Tab) 40 mg DAILY@06 PO Last administered on 09/07/18 06:17; Admin Dose 40 MG; Start 09/04/18 at 10:00 Multivitamins Therapeutic (Theragran) 1 tab DAILY PO Last administered on 09/07/18 09:05; Admin Dose 1 TAB; Start 09/05/18 at 09:00 Albuterol/ Ipratropium (Duoneb) 3 ml Q8H RESP THERAPY PRN HHN SHORTNESS OF BREATH Last administered on 09/05/18at 08:05; Admin Dose 3 ML; Start 09/05/18 at 06:30 Albuterol/ Ipratropium (Duoneb) 3 ml Q4H RESP THERAPY HHN Last administered on 09/07/18at 09:50; Admin Dose 3 ML; Start 09/05/18 at 09:00 Chlordiazepoxide (Librium) 10 mg Q6 PO Last administered on 09/06/18at 18:28; Admin Dose 10 MG; Start 09/06/18 at 12:00 Lisinopril (Zestril) 2.5 mg DAILY PO ; Start 09/07/18 at 09:00 Enoxaparin Sodium (Lovenox) 60 mg BID SC Last administered on 09/07/18at 09:05; Admin Dose 60 MG; Start 09/06/18 at 21:00 ALLAN WARD Sep 07, 2018 10:30
--- NOTE | 2018-09-07 10:57 | CONS ---
Consult Date/Type/Reason Admit Date/Time Sep 03, 2018 at 22:34 Initial Consult Date Type of Consult Pulmonary Requesting Provider: LANNY SMITH MD Date/Time of Note DATE: 09/07/18 TIME: 10:55 Subjective Patient underwent repeat thoracentesis with 850 cc removed yesterday. Chest x- ray today shows no pneumothorax and resolution of pneumothorax.. Objective Vital Signs Date Temp Pulse Resp B/P (MAP) Pulse Ox O2 O2 Flow FiO2 Time Delivery Rate 09/07/18 72 28 96/67 (77) 100 Nasal 4.0 10:00 Cannula 09/07/18 98.0 04:00 09/06/18 30 20:04 Intake and Output 09/06/18 09/06/18 09/07/18 1515:00 23:00 07:00 IntakeIntake Total 450 ml 200 ml 150 ml OutputOutput Total 235 ml 150 ml 300 ml BalanceBalance 215 ml 50 ml -150 ml Exam PHYSICAL EXAMINATION: GENERAL: Well-nourished, well-developed lady, comfortable at rest, no acute distress. Continues high flow O2 VITAL SIGNS: NECK: Supple. No JVD or lymphadenopathy. CARDIAC: S1, S2, no added sounds or murmurs. CHEST: Diminished air entry bilaterally. Bilateral expiratory wheezing ABDOMEN: Soft, nontender. No guarding or rebound. Vent Setting Fraction of Inspired Oxygen pe: 30 Results/Medications Result Diagram: 09/07/18 0432 09/07/18 0432 Results 24 hrs Laboratory Tests Test 09/07/18 04:32 White Blood Count 10.7 Red Blood Count 4.33 Hemoglobin 12.4 Hematocrit 39.5 Mean Corpuscular Volume 91.2 Mean Corpuscular Hemoglobin 28.6 L Mean Corpuscular Hemoglobin Concent 31.4 L Red Cell Distribution Width 17.2 H Platelet Count 277 Mean Platelet Volume 10.6 H Immature Granulocytes % 0.500 H Neutrophils % 69.2 Lymphocytes % 14.6 L Monocytes % 8.4 Eosinophils % 6.6 Basophils % 0.7 Nucleated Red Blood Cells % 0.0 Immature Granulocytes # 0.050 H Neutrophils # 7.4 Lymphocytes # 1.6 Monocytes # 0.9 Eosinophils # 0.7 H Basophils # 0.1 Nucleated Red Blood Cells # 0.0 Sodium Level 138 Potassium Level 3.9 Chloride Level 102 Carbon Dioxide Level 30 Anion Gap 6 Blood Urea Nitrogen 13 Creatinine 0.72 Est Glomerular Filtrat Rate mL/min > 60 Glucose Level 91 Calcium Level 9.5 Medications Current Medications Furosemide (Lasix) 20 mg Q8 IV Last administered on 09/05/18 05:06; Admin Dose 20 MG; Start 09/04/18 at 01:00 Nicotine (Nicoderm 7 Mg/ 24 Hr) 1 patch DAILY TRANSDERM Last administered on 09/07/18 09:02; Admin Dose 1 PATCH; Start 09/04/18 at 01:00 Carvedilol (Coreg) 3.125 mg BID PO Last administered on 09/05/18 08:54; Admin Dose 3.125 MG; Start 09/04/18 at 09:00 Zolpidem Tartrate (Ambien) 5 mg HS MAY REPEAT X 1 PRN PO INSOMNIA Last administered on 09/04/18 21:02; Admin Dose 5 MG; Start 09/04/18 at 01:30 Pantoprazole (Protonix Tab) 40 mg DAILY@06 PO Last administered on 09/07/18 06:17; Admin Dose 40 MG; Start 09/04/18 at 10:00 Multivitamins Therapeutic (Theragran) 1 tab DAILY PO Last administered on 09/07/18 09:05; Admin Dose 1 TAB; Start 09/05/18 at 09:00 Albuterol/ Ipratropium (Duoneb) 3 ml Q8H RESP THERAPY PRN HHN SHORTNESS OF BREATH Last administered on 09/05/18 08:05; Admin Dose 3 ML; Start 09/05/18 at 06:30 Albuterol/ Ipratropium (Duoneb) 3 ml Q4H RESP THERAPY HHN Last administered on 09/07/18 09:50; Admin Dose 3 ML; Start 09/05/18 at 09:00 Chlordiazepoxide (Librium) 10 mg Q6 PO Last administered on 09/06/18 18:28; Admin Dose 10 MG; Start 09/06/18 at 12:00 Lisinopril (Zestril) 2.5 mg DAILY PO ; Start 09/07/18 at 09:00 Enoxaparin Sodium (Lovenox) 60 mg BID SC Last administered on 09/07/18 09:05; Admin Dose 60 MG; Start 09/06/18 at 21:00 Assessment/Plan Hospital Course (Demo Recall) IMPRESSION 1. Right pleural effusion in a patient with extensive tobacco history concerning for possible malignancy. Status post thoracentesis with iatrogenic pneumothorax, repeat thoracentesis now with resolution of pneumothorax. 2. Underlying history of severe chronic obstructive pulmonary disease with ongoing tobacco use. 3. Congestive cardiac failure with AICD. 4. Probable acute COPD exacerbation Plan 1. Continue high flow O2. Decrease as tolerated 2. Continue bronchodilator use. 3. Slow steroid taper 4. Aspiration precautions 5. Advice on smoking cessation. 6. Deep vein thrombosis and gastrointestinal prophylaxis. Critical care time 40 minutes Transfer to telemetry okay from pulmonary standpoint ANA TREJO MD, [facility] Sep 07, 2018 10:56
[2018-09-08] VITALS (24 sets, daily range): BP systolic 78–94; BP diastolic 52–69; PULSE 70–84; RESP 16–34
[2018-09-08] MEDS: ALBUTEROL/IPRATROPIUM (NEB) 3 ML AMP HHN SCH ×6 (01:21→20:33)
[2018-09-08] MEDS: PANTOPRAZOLE (EC) 40 MG TAB PO SCH (06:03)
[2018-09-08] MEDS: FUROSEMIDE 20 MG INJ IV SCH ×2 (06:03→17:33)
[2018-09-08] MEDS: LISINOPRIL 5 MG TAB PO SCH (08:01)
--- NOTE | 2018-09-08 08:48 | PN ---
Date/Time of Note Date/Time of Note DATE: 09/08/18 TIME: 08:44 Assessment/Plan VTE Prophylaxis Risk score (from Nsg)>0 risk: 4 SCD applied (from Ns): No SCD contraindicated: other (on.) Pharmacological prophylaxis: LMWH Lines/Catheters IV Catheter Type [facility]from [facility] [place] [employer] Central line still needed: No Urinary Cath still in place: No Reason Cath still needed: urinary retention Assessment/Plan Hospital Course Patient was seen 1:30 PM in ICU. Chest x-ray reviewed no basilar pneumothorax as was stated in previous chest x-ray. She is doing fine we will keep in ICU repeat one more time x-rays at about 6 PM and if stable transfer to the floor. Assessment/Plan 1. Respiratory distress status post right thoracentesis. Pneumothorax resolved.s/p second thoracentesis during this admission with 850cc of fluid removal. Rather rapid reaccumulation of the fluid with the plan to rem ove another treatment tomorrow. 2. COPD exacerbation-still smokes. Discussed. 3. Status post left subclavian area pacemaker implantation AV sequential not checked for last 2 years. 4. Right pleural effusion-s/p one liter of pleural fluid evacuation. 5. Diarrhea for years being on antimotility medications mainly, with mild improvement.Now less frequent. 6. Episodes of constipation 7. Significant weight loss according to her about 38 kg during the last 24 years,; but by calculations it becomes like about 25-20 kg. 8. Hearing impairment 9. Permanent deconditioning with severe muscular weakness unable to get up and stand by herself with severe decrease of muscular tone was strained mass 10. Urinary and fecal incontinence 11. Status post cholecystectomy 12. Nicotine addiction-making progress 13. PTSD 14. Mild elevation of the CEA 15. Kyphosis 16. Osteoporosis 17. Diabetes type 2 blood sugar improved after weight loss 18. Dehydration 19. Malnourishment 20. Noncompliance 21. Irritable bowel syndrome 22. Hemorrhoidal disease with recurrent rectal bleeding 23. Hx of paroxysmal a. fibrillation with low LVEF- on ICD 24. Tricuspid insufficiency with a very large left and right atrium on echo cardiography 25. Pulmonary hypertension with systolic pressure in the pulmonary artery 66 mm of hg. 26. Elevation of central venous pressure 27. Hyperkalemia-improved. 28. Altered level of consciousness on and off being lethargic most of the time which did not happen with her during my previous months of follow-up. 26.incomplete dataon. Result Diagram: 09/08/18 0447 09/08/18 0447 Results 24hrs Laboratory Tests Test 09/08/18 04:47 White Blood Count 8.9 Red Blood Count 4.69 Hemoglobin 13.4 Hematocrit 43.2 Mean Corpuscular Volume 92.1 Mean Corpuscular Hemoglobin 28.6 L Mean Corpuscular Hemoglobin Concent 31.0 L Red Cell Distribution Width 17.7 H Platelet Count 300 Mean Platelet Volume 10.5 H Immature Granulocytes % 0.300 Neutrophils % 68.9 Lymphocytes % 14.3 L Monocytes % 6.8 Eosinophils % 8.9 H Basophils % 0.8 Nucleated Red Blood Cells % 0.0 Immature Granulocytes # 0.030 Neutrophils # 6.1 Lymphocytes # 1.3 Monocytes # 0.6 Eosinophils # 0.8 H Basophils # 0.1 Nucleated Red Blood Cells # 0.0 Sodium Level 140 Potassium Level 4.1 Chloride Level 103 Carbon Dioxide Level 27 Anion Gap 10 Blood Urea Nitrogen 13 Creatinine 0.76 Est Glomerular Filtrat Rate mL/min > 60 Glucose Level 122 Calcium Level 9.9 Total Bilirubin 1.1 Direct Bilirubin 0.00 Indirect Bilirubin 1.1 Aspartate Amino Transf (AST/SGOT) 22 Alanine Aminotransferase (ALT/SGPT) 7 L Alkaline Phosphatase 93 Total Protein 7.6 Albumin 4.1 Globulin 3.50 H Albumin/Globulin Ratio 1.17 Subjective 24 Hr Interval Summary Free Text/Dictation sob. I feel better. I am very weak. Constitutional: improved, poor po, requiring O2; No no complaints, No chills, No diaphoresis, No disoriented, No febrile, No requiring IVF, No other Eyes: redness; No no complaints, No pain, No discharge, No visual change, No other ENT: No no complaints, No bleeding, No pain, No congestion, No discharge, No dysphagia, No sore throat, No other Respiratory: cough, pleuritic pain, shortness of breath, wheezing; No no complaints, No pain, No sputum, No other Cardiovascular: edema, lightheadedness, orthopenea, palpitations Gastrointestinal: constipation, decreased appetite; No no complaints, No pain, No blood, No diarrhea, No flatus, No nausea, No passing stool, No vomiting, No other Genitourinary: dysuria Musculoskeletal: neck pain, restricted range of motion; No no complaints, No back pain, No bone/joint pain, No swelling, No other Neurologic: confusion, focal-weakness; No no complaints, No dizziness, No headache, No syncope, No seizure, No other Lymphatic: tender nodes; No no complaints, No adenopathy, No lymphadema, No other Psychological: anxiety, confusion; No no complaints, No nl mood/affect, No depression, No suicidal, No other Exam/Review of Systems Exam Vitals Vital Signs Date Temp Pulse Resp B/P (MAP) Pulse Ox O2 O2 Flow FiO2 Time Delivery Rate 09/08/18 70 23 99 Nasal 3.0 08:40 Cannula 09/08/18 05:00 09/08/18 97.7 04:00 09/06/18 30 20:04 Intake and Output 09/07/18 09/07/18 09/08/18 1515:00 23:00 07:00 IntakeIntake Total 350 ml 100 ml 120 ml OutputOutput Total 1200 ml 650 ml 200 ml BalanceBalance -850 ml -550 ml -80 ml Constitutional: alert, oriented, well developed, frail Psych: anxiety; No no complaints, No nl mood/affect, No confusion, No depression, No suicidal, No other Head: normocephalic, atraumatic; No lacerations, No hematomas, No other Eyes: EOMI, nl lids, PERRL; No nl conjunctiva, No nl sclera, No icteric, No fundi, disc, No other ENMT: nl external ears & nose, nl nasal mucosa & septum; No nl lips & teeth, No mucosa pink and moist, No intubated, No tympanic membranes, No other Neck: jvd, bruits, nuchal rigidity; No supple, No non-tender, No masses, No thyromegaly, No other Respiratory: congested cough, crackles/rales, diminished breath sounds; No clear to auscultation, No normal air movement, No intercostal retraction, No labored breathing, No respirations, No tactile fremitus, No wheezing, No other Cardiovascular: regular rate and rhythm, bruits, edema, jugular venous distention (JVD), systolic murmur; No nl pulses, No diastolic murmur, No gallop, No irregular rhythm, No murmurs/extra sounds, No rub, No S3, No S4, No other Gastrointestinal: soft, nl liver, spleen, bowel sounds, distended, rebound or guarding; No non-tender, No ascites, No firm, No hepatomegaly, No mass, No splenomegaly, No surgical scars, No tender, No other Genitourinary - Female: nl adnexae, nl external genitalia; No CMT, No CVA tenderness, No uterus, No other Musculoskeletal: joint tenderness, muscle tone, muscle weakness; No nl extremities to inspection, No nl gait and stance, No range of motion, No spine non-tender, No swelling, No other Extremities: normal pulses, pitting pedal edema; No calf tenderness, No cyanosis, No clubbing, No edema, No palpable cord, No tenderness, No other 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: 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 II-XII 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; No nl mental status, No nl speech, No nl strength, No confused, No DTR's symmetric, No focal weakness, No lethargic, No numbness, No reflexes, No unresponsive, No other Results Results 24hrs Laboratory Tests Test 09/08/18 04:47 White Blood Count 8.9 Red Blood Count 4.69 Hemoglobin 13.4 Hematocrit 43.2 Mean Corpuscular Volume 92.1 Mean Corpuscular Hemoglobin 28.6 L Mean Corpuscular Hemoglobin Concent 31.0 L Red Cell Distribution Width 17.7 H Platelet Count 300 Mean Platelet Volume 10.5 H Immature Granulocytes % 0.300 Neutrophils % 68.9 Lymphocytes % 14.3 L Monocytes % 6.8 Eosinophils % 8.9 H Basophils % 0.8 Nucleated Red Blood Cells % 0.0 Immature Granulocytes # 0.030 Neutrophils # 6.1 Lymphocytes # 1.3 Monocytes # 0.6 Eosinophils # 0.8 H Basophils # 0.1 Nucleated Red Blood Cells # 0.0 Sodium Level 140 Potassium Level 4.1 Chloride Level 103 Carbon Dioxide Level 27 Anion Gap 10 Blood Urea Nitrogen 13 Creatinine 0.76 Est Glomerular Filtrat Rate mL/min > 60 Glucose Level 122 Calcium Level 9.9 Total Bilirubin 1.1 Direct Bilirubin 0.00 Indirect Bilirubin 1.1 Aspartate Amino Transf (AST/SGOT) 22 Alanine Aminotransferase (ALT/SGPT) 7 L Alkaline Phosphatase 93 Total Protein 7.6 Albumin 4.1 Globulin 3.50 H Albumin/Globulin Ratio 1.17 Medications Medication Current Medications Furosemide (Lasix) 20 mg Q8 IV Last administered on 09/08/18 06:03; Admin Dose 20 MG; Start 09/04/18 at 01:00 Nicotine (Nicoderm 7 Mg/ 24 Hr) 1 patch DAILY TRANSDERM Last administered on 09/07/18 09:02; Admin Dose 1 PATCH; Start 09/04/18 at 01:00 Carvedilol (Coreg) 3.125 mg BID PO Last administered on 09/07/18 20:55; Admin Dose 3.125 MG; Start 09/04/18 at 09:00 Zolpidem Tartrate (Ambien) 5 mg HS MAY REPEAT X 1 PRN PO INSOMNIA Last administered on 09/04/18 21:02; Admin Dose 5 MG; Start 09/04/18 at 01:30 Pantoprazole (Protonix Tab) 40 mg DAILY@06 PO Last administered on 09/08/18 06:03; Admin Dose 40 MG; Start 09/04/18 at 10:00 Multivitamins Therapeutic (Theragran) 1 tab DAILY PO Last administered on 09/07/18 09:05; Admin Dose 1 TAB; Start 09/05/18 at 09:00 Albuterol/ Ipratropium (Duoneb) 3 ml Q8H RESP THERAPY PRN HHN SHORTNESS OF BREATH Last administered on 09/05/18 08:05; Admin Dose 3 ML; Start 09/05/18 at 06:30 Albuterol/ Ipratropium (Duoneb) 3 ml Q4H RESP THERAPY HHN Last administered on 09/08/18 08:38; Admin Dose 3 ML; Start 09/05/18 at 09:00 Lisinopril (Zestril) 2.5 mg DAILY PO ; Start 09/07/18 at 09:00 Enoxaparin Sodium (Lovenox) 60 mg BID SC Last administered on 09/07/18 20:56; Admin Dose 60 MG; Start 09/06/18 at 21:00 LANNY SMITH MD Sep 08, 2018 08:48
--- NOTE | 2018-09-08 08:57 | CONS ---
Assessment/Plan Assessment/Plan Assessment/Plan (Daily) Assessment and recommendations; 1. Patient admitted with hypoxemia due to CHF exacerbation with interval improvement. 2. History of cardiac arrhythmia, status post pacemaker placement in the past. 3. Status post 2 right thoracentesis. There is complete resolution of small iatrogenic pneumothorax. 4. History of hypertension. Continue current supportive care. Transfer to medical floor. Consultation Date/Type/Reason Admit Date/Time Sep 03, 2018 at 22:34 Initial Consult Date Type of Consult Pulmonary/critical care Patient's condition is stable. Remains hemodynamically stable. Still on high flow nasal cannula at 60% FiO2. General exam; middle-aged female, awake alert, currently no distress. Requesting Provider: LANNY SMITH MD Date/Time of Note DATE: 09/08/18 TIME: 08:56 24 HR Interval Summary Free Text/Dictation Patient's condition is stable. Remains completely awake and alert. Has remained hemodynamically stable. Denies any shortness of breath. General exam; middle-aged woman, awake alert, currently no distress. On 2 L nasal cannula. Exam/Review of Systems Exam Vitals Vital Signs Date Temp Pulse Resp B/P (MAP) Pulse Ox O2 O2 Flow FiO2 Time Delivery Rate 09/08/18 70 23 99 Nasal 3.0 08:40 Cannula 09/08/18 05:00 09/08/18 97.7 04:00 09/06/18 30 20:04 Intake and Output 09/07/18 09/07/18 09/08/18 1515:00 23:00 07:00 IntakeIntake Total 350 ml 100 ml 120 ml OutputOutput Total 1200 ml 650 ml 200 ml BalanceBalance -850 ml -550 ml -80 ml Exam HEENT exam; supple neck, positive JVD. No lymphadenopathy. Midline trachea. No thyromegaly. No neck masses. Chest exam; diminished but clear breath sounds. S1-S2 audible, no murmurs. Regular rhythm. Pacemaker in left chest wall. Abdomen exam; soft, nontender. No organomegaly. Bowel sounds audible. Extremity exam; no peripheral edema clubbing. 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 Results Result Diagram: 09/08/18 0447 09/08/187 Results 24hrs Laboratory Tests Test 09/08/18 04:47 White Blood Count 8.9 Red Blood Count 4.69 Hemoglobin 13.4 Hematocrit 43.2 Mean Corpuscular Volume 92.1 Mean Corpuscular Hemoglobin 28.6 L Mean Corpuscular Hemoglobin Concent 31.0 L Red Cell Distribution Width 17.7 H Platelet Count 300 Mean Platelet Volume 10.5 H Immature Granulocytes % 0.300 Neutrophils % 68.9 Lymphocytes % 14.3 L Monocytes % 6.8 Eosinophils % 8.9 H Basophils % 0.8 Nucleated Red Blood Cells % 0.0 Immature Granulocytes # 0.030 Neutrophils # 6.1 Lymphocytes # 1.3 Monocytes # 0.6 Eosinophils # 0.8 H Basophils # 0.1 Nucleated Red Blood Cells # 0.0 Sodium Level 140 Potassium Level 4.1 Chloride Level 103 Carbon Dioxide Level 27 Anion Gap 10 Blood Urea Nitrogen 13 Creatinine 0.76 Est Glomerular Filtrat Rate mL/min > 60 Glucose Level 122 Calcium Level 9.9 Total Bilirubin 1.1 Direct Bilirubin 0.00 Indirect Bilirubin 1.1 Aspartate Amino Transf (AST/SGOT) 22 Alanine Aminotransferase (ALT/SGPT) 7 L Alkaline Phosphatase 93 Total Protein 7.6 Albumin 4.1 Globulin 3.50 H Albumin/Globulin Ratio 1.17 Medications Medication Current Medications Furosemide (Lasix) 20 mg Q8 IV Last administered on 09/08/18 06:03; Admin Dose 20 MG; Start 09/04/18 at 01:00 Nicotine (Nicoderm 7 Mg/ 24 Hr) 1 patch DAILY TRANSDERM Last administered on 09/07/18 09:02; Admin Dose 1 PATCH; Start 09/04/18 at 01:00 Carvedilol (Coreg) 3.125 mg BID PO Last administered on 09/07/18at 20:55; Admin Dose 3.125 MG; Start 09/04/18 at 09:00 Zolpidem Tartrate (Ambien) 5 mg HS MAY REPEAT X 1 PRN PO INSOMNIA Last administered on 09/04/18 21:02; Admin Dose 5 MG; Start 09/04/18 at 01:30 Pantoprazole (Protonix Tab) 40 mg DAILY@06 PO Last administered on 09/08/18 06:03; Admin Dose 40 MG; Start 09/04/18 at 10:00 Multivitamins Therapeutic (Theragran) 1 tab DAILY PO Last administered on 09/07/18 09:05; Admin Dose 1 TAB; Start 09/05/18 at 09:00 Albuterol/ Ipratropium (Duoneb) 3 ml Q8H RESP THERAPY PRN HHN SHORTNESS OF BREATH Last administered on 09/05/18 08:05; Admin Dose 3 ML; Start 09/05/18 at 06:30 Albuterol/ Ipratropium (Duoneb) 3 ml Q4H RESP THERAPY HHN Last administered on 09/08/18at 08:38; Admin Dose 3 ML; Start 09/05/18 at 09:00 Lisinopril (Zestril) 2.5 mg DAILY PO ; Start 09/07/18 at 09:00 Enoxaparin Sodium (Lovenox) 60 mg BID SC Last administered on 09/07/18 20:56; Admin Dose 60 MG; Start 09/06/18 at 21:00 TRACEE DEE Sep 08, 2018 08:57
[2018-09-08] MEDS: ENOXAPARIN 60 MG/0.6 ML SYG SC SCH ×2 (09:00→20:24)
[2018-09-08] MEDS: MULTIVITAMINS THERAPEUTIC TAB PO SCH (10:29)
[2018-09-08] MEDS: NICOTINE (7 MG/24 HR) PATCH TRANSDERM SCH (10:30)
[2018-09-08] MEDS ORDERED: LIDOCAINE 1% (MPF) 5 ML VIAL ONE (12:36)
--- NOTE | 2018-09-08 13:14 | CONS ---
Assessment/Plan Assessment/Plan Hospital Course (Demo Recall) IMP: 1.CHF-systolic acute on chronic 2.Cardiomyopathy-EF 25-30% by echo 05/22 3.pleural effusion s/p thoracentesis c/b PTX and transferred to ICU and remains 4..Hypotension-borderline ongoing and recurrent 5.Renal insufficiency/hyperkalemia-mild 6.H/O ICD-v pacing 100% 7.Tobacco dependence 8. ? COPD 9. AF/AFL REcc: -Now in ICU -On high flow O2 -Follow PTX-resolved by cxr? -Contineu klow dose zestril afterload reduction as tolerated and will hold BB as patient v aping mainly at this time -resume low dose afterload reduction as tolerated -Continue lasix diuresis as tolerated but will decraese to BID -Contineu bronchodilators -wean o2 support as possible -Continue lovenox sytemic anticoagulation for AFL in lieu of eliquis at this time Consultation Date/Type/Reason Admit Date/Time Sep 03, 2018 at 22:34 Initial Consult Date 09/04/18 Type of Consult Cardiology Reason for Consultation CHF Requesting Provider: LANNY SMITH MD Date/Time of Note DATE: 09/08/18 TIME: 13:09 Exam/Review of Systems Vital Signs Vitals Vital Signs Date Temp Pulse Resp B/P (MAP) Pulse Ox O2 O2 Flow FiO2 Time Delivery Rate 09/08/18 97.6 70 34 87/59 (68) 97 Nasal 2.0 12:00 Cannula 09/06/18 30 20:04 Intake and Output 09/07/18 09/07/18 09/08/18 1515:00 23:00 07:00 IntakeIntake Total 350 ml 100 ml 120 ml OutputOutput Total 1200 ml 650 ml 200 ml BalanceBalance -850 ml -550 ml -80 ml Exam Exam Review of Systems: CONSTITUTIONAL: No fevers, chills. PULMONARY: improving sob CARDIOVASCULAR: No chest pain/palpitations GASTROINTESTINAL: No nausea/vomiting. GENITOURINARY: No hematuria/dysuria. MUSCULOSKELETAL: No myagias/arthalgias. PSYCHIATRIC: The patient denies depression. NEUROLOGIC: No weakness Constitutional: alert Psych: no complaints ENMT: mucosa pink and moist Neck: supple, jvd (9 cm water) Respiratory: clear to auscultation Cardiovascular: other (regularly irregular) Gastrointestinal: soft, non-tender Musculoskeletal: muscle tone (normal) Extremities: edema (none) Labs Result Diagram: 09/08/1844609/08/18446 Results 24hrs Laboratory Tests Test 09/08/18 04:47 White Blood Count 8.9 Red Blood Count 4.69 Hemoglobin 13.4 Hematocrit 43.2 Mean Corpuscular Volume 92.1 Mean Corpuscular Hemoglobin 28.6 L Mean Corpuscular Hemoglobin Concent 31.0 L Red Cell Distribution Width 17.7 H Platelet Count 300 Mean Platelet Volume 10.5 H Immature Granulocytes % 0.300 Neutrophils % 68.9 Lymphocytes % 14.3 L Monocytes % 6.8 Eosinophils % 8.9 H Basophils % 0.8 Nucleated Red Blood Cells % 0.0 Immature Granulocytes # 0.030 Neutrophils # 6.1 Lymphocytes # 1.3 Monocytes # 0.6 Eosinophils # 0.8 H Basophils # 0.1 Nucleated Red Blood Cells # 0.0 Sodium Level 140 Potassium Level 4.1 Chloride Level 103 Carbon Dioxide Level 27 Anion Gap 10 Blood Urea Nitrogen 13 Creatinine 0.76 Est Glomerular Filtrat Rate mL/min > 60 Glucose Level 122 Calcium Level 9.9 Total Bilirubin 1.1 Direct Bilirubin 0.00 Indirect Bilirubin 1.1 Aspartate Amino Transf (AST/SGOT) 22 Alanine Aminotransferase (ALT/SGPT) 7 L Alkaline Phosphatase 93 Total Protein 7.6 Albumin 4.1 Globulin 3.50 H Albumin/Globulin Ratio 1.17 Medications Medications Current Medications Furosemide (Lasix) 20 mg Q8 IV Last administered on 09/08/18at 06:03; Admin Dose 20 MG; Start 09/04/18 at 01:00 Nicotine (Nicoderm 7 Mg/ 24 Hr) 1 patch DAILY TRANSDERM Last administered on 09/08/18at 10:30; Admin Dose 1 PATCH; Start 09/04/18 at 01:00 Carvedilol (Coreg) 3.125 mg BID PO Last administered on 09/07/18at 20:55; Admin Dose 3.125 MG; Start 09/04/18 at 09:00 Zolpidem Tartrate (Ambien) 5 mg HS MAY REPEAT X 1 PRN PO INSOMNIA Last administered on 09/04/18at 21:02; Admin Dose 5 MG; Start 09/04/18 at 01:30 Pantoprazole (Protonix Tab) 40 mg DAILY@06 PO Last administered on 09/08/18 06:03; Admin Dose 40 MG; Start 09/04/18 at 10:00 Multivitamins Therapeutic (Theragran) 1 tab DAILY PO Last administered on 09/08/18at 10:29; Admin Dose 1 TAB; Start 09/05/18 at 09:00 Albuterol/ Ipratropium (Duoneb) 3 ml Q8H RESP THERAPY PRN HHN SHORTNESS OF BREATH Last administered on 09/05/18 08:05; Admin Dose 3 ML; Start 09/05/18 at 06:30 Albuterol/ Ipratropium (Duoneb) 3 ml Q4H RESP THERAPY HHN Last administered on 09/08/18 08:38; Admin Dose 3 ML; Start 09/05/18 at 09:00 Lisinopril (Zestril) 2.5 mg DAILY PO ; Start 09/07/18 at 09:00 Enoxaparin Sodium (Lovenox) 60 mg BID SC Last administered on 09/07/18at 20:56; Admin Dose 60 MG; Start 09/06/18 at 21:00 ALLAN WARD Sep 08, 2018 13:14
[2018-09-09] VITALS (22 sets, daily range): BP systolic 85–110; BP diastolic 57–69; PULSE 70–76; RESP 14–36
[2018-09-09] MEDS: ALBUTEROL/IPRATROPIUM (NEB) 3 ML AMP HHN SCH ×6 (00:04→20:38)
[2018-09-09] MEDS: PANTOPRAZOLE (EC) 40 MG TAB PO SCH (05:47)
[2018-09-09] MEDS: FUROSEMIDE 20 MG INJ IV SCH ×2 (05:48→19:05)
[2018-09-09] MEDS: LISINOPRIL 5 MG TAB PO SCH (08:45)
[2018-09-09] MEDS: MULTIVITAMINS THERAPEUTIC TAB PO SCH (08:53)
[2018-09-09] MEDS: NICOTINE (7 MG/24 HR) PATCH TRANSDERM SCH (08:54)
[2018-09-09] MEDS: ENOXAPARIN 60 MG/0.6 ML SYG SC SCH ×2 (09:39→21:27)
--- NOTE | 2018-09-09 10:09 | CONS ---
Assessment/Plan Assessment/Plan Assessment/Plan (Daily) Chest x-ray was reviewed from late yesterday morning which is totally clear now. Assessment and recommendations; 1. Patient admitted with hypoxemia due to CHF exacerbation with pleural effusion, status post 2 thoracentesis on the right side. Patient also developed a small right pneumothorax with spontaneous interval resolution. 2. History of hypertension 3. History of cardiac arrhythmia, status post pacemaker placement in the past. Continue current supportive care. Transfer to medical floor. Consultation Date/Type/Reason Admit Date/Time Sep 03, 2018 at 22:34 Initial Consult Date Type of Consult Pulmonary/critical care Patient's condition is stable. Remains hemodynamically stable. Still on high flow nasal cannula at 60% FiO2. General exam; middle-aged female, awake alert, currently no distress. Requesting Provider: LANNY SMITH MD Date/Time of Note DATE: 09/09/18 TIME: 10:07 24 HR Interval Summary Free Text/Dictation Patient condition is stable. Denies any shortness of breath, chest pain, coughing or wheezing. General exam; middle-aged woman, awake and alert. Currently in no distress. Exam/Review of Systems Exam Vitals Vital Signs Date Temp Pulse Resp B/P (MAP) Pulse Ox O2 O2 Flow FiO2 Time Delivery Rate 09/09/18 70 27 96 Nasal 2.0 08:13 Cannula 09/09/18 103/60 06:00 (74) 09/09/18 98.1 04:00 09/06/18 30 20:04 Intake and Output 09/08/18 09/08/18 09/09/18 1515:00 23:00 07:00 IntakeIntake Total 50 ml OutputOutput Total 250 ml 475 ml BalanceBalance -200 ml -475 ml Exam H EENT exam; supple neck, positive JVD. No lymphadenopathy. Midline trachea. No thyromegaly. Pharynx is clear. No neck bruits. Chest exam; clear to auscultation. S1-S2 audible, no murmurs. Pacemaker in left chest wall. Abdomen exam; soft, nontender. No organomegaly. Bowel sounds are audible. Extremity exam; no peripheral edema. 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 Results Result Diagram: 09/08/18 0447 09/08/18 044 Medications Medication Current Medications Nicotine (Nicoderm 7 Mg/ 24 Hr) 1 patch DAILY TRANSDERM Last administered on 09/09/18 08:54; Admin Dose 1 PATCH; Start 09/04/18 at 01:00 Carvedilol (Coreg) 3.125 mg BID PO Last administered on 09/07/18 20:55; Admin Dose 3.125 MG; Start 09/04/18 at 09:00; Status Hold Zolpidem Tartrate (Ambien) 5 mg HS MAY REPEAT X 1 PRN PO INSOMNIA Last administered on 09/04/18 21:02; Admin Dose 5 MG; Start 09/04/18 at 01:30 Pantoprazole (Protonix Tab) 40 mg DAILY@06 PO Last administered on 09/09/18 05:47; Admin Dose 40 MG; Start 09/04/18 at 10:00 Multivitamins Therapeutic (Theragran) 1 tab DAILY PO Last administered on 09/09/18 08:53; Admin Dose 1 TAB; Start 09/05/18 at 09:00 Albuterol/ Ipratropium (Duoneb) 3 ml Q8H RESP THERAPY PRN HHN SHORTNESS OF BREATH Last administered on 09/05/18 08:05; Admin Dose 3 ML; Start 09/05/18 at 06:30 Albuterol/ Ipratropium (Duoneb) 3 ml Q4H RESP THERAPY HHN Last administered on 09/09/18 08:12; Admin Dose 3 ML; Start 09/05/18 at 09:00 Lisinopril (Zestril) 2.5 mg DAILY PO ; Start 09/07/18 at 09:00 Enoxaparin Sodium (Lovenox) 60 mg BID SC Last administered on 09/09/18 09:39; Admin Dose 60 MG; Start 09/06/18 at 21:00 Furosemide (Lasix) 20 mg BID DIURETICS IV ; Start 09/08/18 at 18:00 TRACEE DEE Sep 09, 2018 10:09
--- NOTE | 2018-09-09 10:44 | PN ---
Date/Time of Note Date/Time of Note DATE: 09/09/18 TIME: 10:37 Assessment/Plan VTE Prophylaxis Risk score (from Nsg)>0 risk: 3 SCD applied (from Nsg): Yes SCD contraindicated: other (on.) Pharmacological prophylaxis: LMWH Lines/Catheters IV Catheter Type (from Nrsg): Peripheral IV Central line still needed: No Urinary Cath still in place: No Reason Cath still needed: urinary retention, other (indicate) (Burning sensation straight cath will be done for culture sensitivity.) Assessment/Plan Hospital Course Patient was seen 1:30 PM in ICU. Chest x-ray reviewed no basilar pneumothorax as was stated in previous chest x-ray. She is doing fine we will keep in ICU repeat one more time x-rays at about 6 PM and if stable transfer to the floor. Assessment/Plan 1. Respiratory distress status post right thoracentesis. Pneumothorax resolved.s/p second thoracentesis during this admission with 850cc of fluid removal. Rather rapid reaccumulation of the fluid with the plan to remove another treatment tomorrow. 2. COPD exacerbation-still smokes. Discussed. 3. Status post left subclavian area pacemaker implantation AV sequential not checked for last 2 years. 4. Right pleural effusion-s/p one liter of pleural fluid evacuation. 5. Diarrhea for years being on antimotility medications mainly, with mild improvement.Now less frequent. 6. Episodes of constipation 7. Significant weight loss according to her about 38 kg during the last 24 years,; but by calculations it becomes like about 25-20 kg. 8. Hearing impairment 9. Permanent deconditioning with severe muscular weakness unable to get up and stand by herself with severe decrease of muscular tone was strained mass 10. Urinary and fecal incontinence; new onset UTI 11. Status post cholecystectomy 12. Nicotine addiction-making progress 13. PTSD 14. Mild elevation of the CEA 15. Kyphosis 16. Osteoporosis 17. Diabetes type 2 blood sugar improved after weight loss 18. Dehydration 19. Malnourishment 20. Noncompliance 21. Irritable bowel syndrome 22. Hemorrhoidal disease with recurrent rectal bleeding 23. Hx of paroxysmal a. fibrillation with low LVEF- on ICD 24. Tricuspid insufficiency with a very large left and right atrium on echo cardiography 25. Pulmonary hypertension with systolic pressure in the pulmonary artery 66 mm of hg. 26. Elevation of central venous pressure 27. Hyperkalemia-improved. 28. Altered level of consciousness on and off being lethargic most of the 29.new onset UTI; get culture sensitivity and start Cipro IV 500 twice daily x3 days Result Diagram: 09/08/1844609/08/18446 Subjective 24 Hr Interval Summary Free Text/Dictation Burning sensation during urination. I have difficulty to hold the urine. Now w ith chills. Constitutional: chills, diaphoresis, poor po, requiring O2; No no complaints, No improved, No disoriented, No febrile, No requiring IVF, No other Eyes: No no complaints, No pain, No discharge, No redness, No visual change, No other ENT: congestion, dysphagia; No no complaints, No bleeding, No pain, No discharge, No sore throat, No other Respiratory: cough; No no complaints, No pain, No pleuritic pain, No shortness of breath, No sputum, No wheezing, No other Cardiovascular: lightheadedness, orthopenea, palpitations, paroxysmal nocturnal dyspnea; No no complaints, No chest pain, No edema, No other Gastrointestinal: diarrhea, flatus, nausea; No no complaints, No pain, No blood, No constipation, No decreased appetite, No passing stool, No vomiting, No other Genitourinary: dysuria; No no complaints, No bleeding, No discharge, No flank pain, No hematuria, No other Musculoskeletal: back pain, bone/joint pain, neck pain; No no complaints, No restricted range of motion, No swelling, No other Skin: No no complaints, No bruising, No erythema, No laceration, No pruritis, No rash, No skin lesions, No other Neurologic: headache; No no complaints, No confusion, No dizziness, No focal-weakness, No syncope, No seizure, No other Endocrine: dry skin; No no complaints, No polyuria, No polydypsia, No temp intolerance, No other Psychological: anxiety, confusion, depression; No no complaints, No nl mood/affect, No suicidal, No other Exam/Review of Systems Exam Vitals Vital Signs Date Temp Pulse Resp B/P (MAP) Pulse Ox O2 O2 Flow FiO2 Time Delivery Rate 09/09/18 70 27 96 Nasal 2.0 08:13 Cannula 09/09/18 103/60 06:00 (74) 09/09/18 98.1 04:00 09/06/18 30 20:04 Intake and Output 09/08/18 09/08/18 09/09/18 1515:00 23:00 07:00 IntakeIntake Total 50 ml OutputOutput Total 250 ml 475 ml BalanceBalance -200 ml -475 ml Constitutional: alert, oriented, well developed, distress, frail, other (Forgetful week very passive and deconditioned.) Psych: anxiety; No no complaints, No nl mood/affect, No confusion, No depression, No suicidal, No other Head: normocephalic, atraumatic; No lacerations, No hematomas, No other Eyes: EOMI, nl lids, PERRL; No nl conjunctiva, No nl sclera, No icteric, No fundi, disc, No other ENMT: nl lips & teeth, nl nasal mucosa & septum; No nl external ears & nose, No mucosa pink and moist, No intubated, No tympanic membranes, No other Neck: jvd, bruits, thyromegaly, nuchal rigidity; No supple, No non-tender, No masses, No other Respiratory: normal air movement, congested cough, crackles/rales, diminished breath sounds (Bilaterally lower sides with friction rub.); No clear to auscultation, No intercostal retraction, No labored breathing, No respirations, No tactile fremitus, No wheezing, No other Cardiovascular: nl pulses, bruits, edema, systolic murmur; No regular rate and rhythm, No diastolic murmur, No gallop, No irregular rhythm, No jugular venous distention (JVD), No murmurs/extra sounds, No rub, No S3, No S4, No other Gastrointestinal: soft, nl liver, spleen, ascites, distended; No non-tender, No bowel sounds, No firm, No hepatomegaly, No mass, No rebound or guarding, No splenomegaly, No surgical scars, No tender, No other Genitourinary - Female: nl adnexae, nl external genitalia; No CMT, No CVA tenderness, No uterus, No other Musculoskeletal: nl gait and stance (Unable to get up and very unsteady gait severe weakness of all muscle groups with atrophy.), joint tenderness, muscle tone, muscle weakness; No nl extremities to inspection, No range of motion, No spine non-tender, No swelling, No other Extremities: cyanosis, clubbing, edema; No normal pulses, No calf tenderness, No pitting pedal edema, No palpable cord, No tenderness, No other 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: BRAZING MACHINE TENDER II-XII intact, numbness (Hearing impairment); No nl mental status, No nl speech, No nl strength, No confused, No DTR's symmetric, No focal weakness, No lethargic, No reflexes, No unresponsive, No other Medications Medication Current Medications Nicotine (Nicoderm 7 Mg/ 24 Hr) 1 patch DAILY TRANSDERM Last administered on 09/09/18 08:54; Admin Dose 1 PATCH; Start 09/04/18 at 01:00 Carvedilol (Coreg) 3.125 mg BID PO Last administered on 09/07/18 20:55; Admin Dose 3.125 MG; Start 09/04/18 at 09:00; Status Hold Zolpidem Tartrate (Ambien) 5 mg HS MAY REPEAT X 1 PRN PO INSOMNIA Last administered on 09/04/18 21:02; Admin Dose 5 MG; Start 09/04/18 at 01:30 Pantoprazole (Protonix Tab) 40 mg DAILY@06 PO Last administered on 09/09/18 05:47; Admin Dose 40 MG; Start 09/04/18 at 10:00 Multivitamins Therapeutic (Theragran) 1 tab DAILY PO Last administered on 09/09/18 08:53; Admin Dose 1 TAB; Start 09/05/18 at 09:00 Albuterol/ Ipratropium (Duoneb) 3 ml Q8H RESP THERAPY PRN HHN SHORTNESS OF BREATH Last administered on 09/05/18 08:05; Admin Dose 3 ML; Start 09/05/18 at 06:30 Albuterol/ Ipratropium (Duoneb) 3 ml Q4H RESP THERAPY HHN Last administered on 09/09/18 08:12; Admin Dose 3 ML; Start 09/05/18 at 09:00 Lisinopril (Zestril) 2.5 mg DAILY PO ; Start 09/07/18 at 09:00 Enoxaparin Sodium (Lovenox) 60 mg BID SC Last administered on 09/09/18 09:39; Admin Dose 60 MG; Start 09/06/18 at 21:00 Furosemide (Lasix) 20 mg BID DIURETICS IV ; Start 09/08/18 at 18:00 LANNY SMITH MD Sep 09, 2018 10:44
[2018-09-09] MEDS: CIPROFLOXACIN 400MG/D5W 200 ML IVPB SCH ×2 (12:35→21:00)
--- NOTE | 2018-09-09 12:35 | CONS ---
Assessment/Plan Assessment/Plan Hospital Course (Demo Recall) IMP: 1.CHF-systolic acute on chronic-improving volume status with reduced O2 requirement 2.Cardiomyopathy-EF 25-30% by echo 05/22 3.pleural effusion s/p thoracentesis c/b PTX and transferred to ICU and remains with PTX resolved by most recent CXR 4..Hypotension-borderline ongoing and recurrent. Likley more a result of low baseline EF 5.Renal insufficiency/hyperkalemia-mild 6.H/O ICD-v pacing 100% 7.Tobacco dependence 8. COPD 9. AF/AFL REcc: -In ICU but ok for tele if BP stable -Follow PTX-resolved by cxr? -Continue low dose zestril afterload reduction as tolerated and will hold BB as patient v pacing mainly at this time and has marginal BP -Continue low dose afterload reduction as tolerated only -Continue lasix diuresis as tolerated now BID -Contineu bronchodilators -Continue lovenox sytemic anticoagulation for AFL in lieu of eliquis at this time Consultation Date/Type/Reason Admit Date/Time Sep 03, 2018 at 22:34 Initial Consult Date 09/04/18 Type of Consult Cardiology Reason for Consultation CHF Requesting Provider: LANNY SMITH MD Date/Time of Note DATE: 09/09/18 TIME: 12:30 Exam/Review of Systems Vital Signs Vitals Vital Signs Date Temp Pulse Resp B/P (MAP) Pulse Ox O2 O2 Flow FiO2 Time Delivery Rate 09/09/18 70 26 89/67 (74) 92 Nasal 11:00 Cannula 09/09/18 2.0 08:13 09/09/18 97.7 08:00 09/06/18 30 20:04 Intake and Output 09/08/18 09/08/18 09/09/18 1515:00 23:00 07:00 IntakeIntake Total 50 ml OutputOutput Total 250 ml 475 ml BalanceBalance -200 ml -475 ml Exam Exam Review of Systems: CONSTITUTIONAL: No fevers, chills. PULMONARY: No sob CARDIOVASCULAR: No chest pain/palpitations GASTROINTESTINAL: No nausea/vomiting. GENITOURINARY: No hematuria/dysuria. MUSCULOSKELETAL: No myagias/arthalgias. PSYCHIATRIC: The patient denies depression. NEUROLOGIC: No weakness Constitutional: other (sleeping, easily arousaable) Psych: no complaints Head: normocephalic ENMT: mucosa pink and moist Neck: supple, jvd (9 cm water) Respiratory: diminished breath sounds (at bases/B) Cardiovascular: regular rate and rhythm Gastrointestinal: soft, non-tender Musculoskeletal: muscle tone (normal) Extremities: edema (trace bilateral) 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: other (No focal deficits) Labs Result Diagram: 09/08/1844609/08/18446 Medications Medications Current Medications Nicotine (Nicoderm 7 Mg/ 24 Hr) 1 patch DAILY TRANSDERM Last administered on 09/09/18 08:54; Admin Dose 1 PATCH; Start 09/04/18 at 01:00 Carvedilol (Coreg) 3.125 mg BID PO Last administered on 09/07/18 20:55; Admin Dose 3.125 MG; Start 09/04/18 at 09:00; Status Hold Zolpidem Tartrate (Ambien) 5 mg HS MAY REPEAT X 1 PRN PO INSOMNIA Last administered on 09/04/18 21:02; Admin Dose 5 MG; Start 09/04/18 at 01:30 Pantoprazole (Protonix Tab) 40 mg DAILY@06 PO Last administered on 09/09/18 05:47; Admin Dose 40 MG; Start 09/04/18 at 10:00 Multivitamins Therapeutic (Theragran) 1 tab DAILY PO Last administered on 09/09/18 08:53; Admin Dose 1 TAB; Start 09/05/18 at 09:00 Albuterol/ Ipratropium (Duoneb) 3 ml Q8H RESP THERAPY PRN HHN SHORTNESS OF BREATH Last administered on 09/05/18at 08:05; Admin Dose 3 ML; Start 09/05/18 at 06:30 Albuterol/ Ipratropium (Duoneb) 3 ml Q4H RESP THERAPY HHN Last administered on 09/09/18 08:12; Admin Dose 3 ML; Start 09/05/18 at 09:00 Lisinopril (Zestril) 2.5 mg DAILY PO ; Start 09/07/18 at 09:00 Enoxaparin Sodium (Lovenox) 60 mg BID SC Last administered on 09/09/18at 09:39; Admin Dose 60 MG; Start 09/06/18 at 21:00 Furosemide (Lasix) 20 mg BID DIURETICS IV ; Start 09/08/18 at 18:00 Ciprofloxacin/ Dextrose 200 ml @ 200 mls/hr Q12 IVPB ; Start 09/09/18 at 12:00; Stop 09/11/18 at 09:00 Cosyntropin (Cortrosyn) 0.25 mg ONCE ONCE IV ; Start 09/09/18 at 14:05; Stop 09/09/18 at 14:06 Montelukast Sodium (Singulair) 10 mg HS PO ; Start 09/09/18 at 21:00 Tiotropium [place] (Spiriva) 1 inh DAILY INH ; Start 09/09/18 at 13:00 ALLAN WARD Sep 09, 2018 12:35
[2018-09-09] MEDS: TIOTROPIUM 18 MCG CAPSULE INHA DEV INH SCH (13:00)
[2018-09-09] MEDS ORDERED: COSYNTROPIN 0.25 MG INJ IV ONE (14:05)
[2018-09-09] MEDS: MONTELUKAST 10 MG TAB PO SCH (21:17)
[2018-09-10] VITALS (9 sets, daily range): BP systolic 83–110; BP diastolic 52–66; PULSE 70–75; RESP 16–20
[2018-09-10] MEDS: ALBUTEROL/IPRATROPIUM (NEB) 3 ML AMP HHN SCH ×6 (01:21→21:58)
[2018-09-10] MEDS: ZOLPIDEM 5 MG TAB PO PRN (02:35)
[2018-09-10] MEDS: PANTOPRAZOLE (EC) 40 MG TAB PO SCH (05:47)
[2018-09-10] MEDS: FUROSEMIDE 20 MG INJ IV SCH ×2 (05:47→17:01)
[2018-09-10] MEDS: MULTIVITAMINS THERAPEUTIC TAB PO SCH (08:35)
[2018-09-10] MEDS: CIPROFLOXACIN 400MG/D5W 200 ML IVPB SCH ×3 (08:35→20:26)
[2018-09-10] MEDS: NICOTINE (7 MG/24 HR) PATCH TRANSDERM SCH (08:36)
[2018-09-10] MEDS: TIOTROPIUM 18 MCG CAPSULE INHA DEV INH SCH (08:37)
[2018-09-10] MEDS: LISINOPRIL 5 MG TAB PO SCH (08:37)
--- NOTE | 2018-09-10 08:42 | PN ---
Date/Time of Note Date/Time of Note DATE: 09/10/18 TIME: 08:38 Assessment/Plan VTE Prophylaxis Risk score (from Ns)>0 risk: 3 SCD applied (from Ns): No SCD contraindicated: other (on.) Pharmacological prophylaxis: other (Thoracentesis.) Lines/Catheters IV C[facility]ter Type (from [facility] [place] Lock Central line still needed: No Urinary Cath still in place: No Assessment/Plan Hospital Course transfer to the floor. Assessment/Plan 1. Respiratory distress status post right thoracentesis. Pneumothorax resolved.s/p second thoracentesis during this admission with 850cc of fluid removal. Rather rapid reaccumulation of the fluid with the plan to remove another treatment tomorrow. 2. COPD exacerbation-still smokes. Discussed. 3. Status post left subclavian area pacemaker implantation AV sequential not c hecked for last 2 years. 4. Right pleural effusion-s/p one liter of pleural fluid evacuation. 5. Diarrhea for years being on antimotility medications mainly, with mild improvement.Now less frequent. 6. Episodes of constipation 7. Significant weight loss according to her about 38 kg during the last 24 years,; but by calculations it becomes like about 25-20 kg. 8. Hearing impairment 9. Permanent deconditioning with severe muscular weakness unable to get up and stand by herself with severe decrease of muscular tone was strained mass 10. Urinary and fecal incontinence; new onset UTI 11. Status post cholecystectomy 12. Nicotine addiction-making progress 13. PTSD 14. Mild elevation of the CEA 15. Kyphosis 16. Osteoporosis 17. Diabetes type 2 blood sugar improved after weight loss 18. Dehydration 19. Malnourishment 20. Noncompliance 21. Irritable bowel syndrome 22. Hemorrhoidal disease with recurrent rectal bleeding 23. Hx of paroxysmal a. fibrillation with low LVEF- on ICD 24. Tricuspid insufficiency with a very large left and right atrium on echo cardiography 25. Pulmonary hypertension with systolic pressure in the pulmonary artery 66 mm of hg. 26. Elevation of central venous pressure 27. Hyperkalemia-improved. 28. Altered level of consciousness on and off being lethargic most of the 29.new onset UTI; get culture sensitivity and start Cipro IV 500 twice daily x3 days Result Diagram: 09/08/1844609/08/18446 Results 24hrs Laboratory Tests Test 6/9/19 14:39 09/09/18 15:15 09/09/18 16:10 09/10/18 07:56 Random Cortisol 18.7 29.6 35.6 White Blood Count Pending Red Blood Count Pending Hemoglobin Pending Hematocrit Pending Mean Corpuscular Volume Pending Mean Corpuscular Pending Hemoglobin Mean Corpuscular Pending Hemoglobin Concent Red Cell Distribution Pending Width Platelet Count Pending Mean Platelet Volume Pending Subjective 24 Hr Interval Summary Free Text/Dictation Severe weakness I am sleepy. Discussed low blood pressure issue. According to the patient she is having this pressure for years although during my follow-up it was not as low as it is now. Patient is taking beta-blockers and SIDDHARTH inhibitors for CHF it is apparent that we are going to decrease the dose to the minimal possible. Constitutional: improved, poor po, requiring O2; No no complaints, No chills, No diaphoresis, No disoriented, No febrile, No requiring IVF, No other Eyes: No no complaints, No pain, No discharge, No redness, No visual change, No other ENT: congestion; No no complaints, No bleeding, No pain, No discharge, No dysphagia, No sore throat, No other Respiratory: cough, pleuritic pain, shortness of breath; No no complaints, No pain, No sputum, No wheezing, No other Cardiovascular: No no complaints, No chest pain, No edema, No lightheadedness, No orthopenea, No palpitations, No paroxysmal nocturnal dyspnea, No other Gastrointestinal: constipation (Last today she was constipating before that she was having a diarrhea.), diarrhea, passing stool; No no complaints, No pain, No blood, No decreased appetite, No flatus, No nausea, No vomiting, No other Genitourinary: dysuria; No no complaints, No bleeding, No discharge, No flank pain, No hematuria, No other Musculoskeletal: back pain, bone/joint pain; No no complaints, No neck pain, No restricted range of motion, No swelling, No other Skin: erythema; No no complaints, No bruising, No laceration, No pruritis, No rash, No skin lesions, No other Neurologic: confusion, headache; No no complaints, No dizziness, No focal-weakness, No syncope, No seizure, No other Endocrine: polyuria; No no complaints, No polydypsia, No dry skin, No temp intolerance, No other Lymphatic: No no complaints, No adenopathy, No tender nodes, No lymphadema, No other Psychological: anxiety, confusion, depression; No no complaints, No nl mood/affect, No suicidal, No other Exam/Review of Systems Exam Vitals Vital Signs Date Temp Pulse Resp B/P (MAP) Pulse Ox O2 O2 Flow FiO2 Time Delivery Rate 09/10/18 70 20 97 Nasal 3.0 08:31 Cannula 09/10/18 98.2 110/60 07:02 (77) 09/06/18 30 20:04 Intake and Output 09/09/18 09/09/18 09/10/18 1515:00 23:00 07:00 IntakeIntake Total 560 ml 250 ml OutputOutput Total 250 ml BalanceBalance 310 ml 250 ml Constitutional: alert, oriented, well developed, distress, frail, other Psych: anxiety, confusion, depression; No no complaints, No nl mood/affect, No suicidal, No other Head: normocephalic, atraumatic; No lacerations, No hematomas, No other Eyes: EOMI, nl lids, PERRL; No nl conjunctiva, No nl sclera, No icteric, No fundi, disc, No other ENMT: nl nasal mucosa & septum; No nl external ears & nose, No nl lips & teeth, No mucosa pink and moist, No intubated, No tympanic membranes, No other Neck: jvd, bruits, thyromegaly, nuchal rigidity; No supple, No non-tender, No masses, No other Respiratory: normal air movement, crackles/rales, diminished breath sounds, labored breathing; No clear to auscultation, No congested cough, No intercostal retraction, No respirations, No tactile fremitus, No wheezing, No other Cardiovascular: regular rate and rhythm, bruits; No nl pulses, No diastolic murmur, No edema, No gallop, No irregular rhythm, No jugular venous distention (JVD), No murmurs/extra sounds, No rub, No systolic murmur, No S3, No S4, No other Gastrointestinal: soft, nl liver, spleen, bowel sounds; No non-tender, No ascites, No distended, No firm, No hepatomegaly, No mass, No rebound or guarding, No splenomegaly, No surgical scars, No tender, No other Musculoskeletal: nl gait and stance (Unable to get up without support.), joint tenderness, muscle tone, muscle weakness; No nl extremities to inspection, No range of motion, No spine non-tender, No swelling, No other Extremities: normal pulses, clubbing 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: UX ARCHITECT II-XII intact, nl speech; No nl mental status, No nl strength, No confused, No DTR's symmetric, No focal weakness, No lethargic, No numbness, No reflexes, No unresponsive, No other Skin: nl turgor (.) Lymph: nl lymph nodes (Decreased); No enlarged, No nontender, No other Results Results 24hrs Laboratory Tests Test 09/09/18 14:39 09/09/18 15:15 09/09/18 16:10 09/10/18 07:56 Random Cortisol 18.7 29.6 35.6 White Blood Count Pending Red Blood Count Pending Hemoglobin Pending Hematocrit Pending Mean Corpuscular Volume Pending Mean Corpuscular Pending Hemoglobin Mean Corpuscular Pending Hemoglobin Concent Red Cell Distribution Pending Width Platelet Count Pending Mean Platelet Volume Pending Medications Medication Current Medications Nicotine (Nicoderm 7 Mg/ 24 Hr) 1 patch DAILY TRANSDERM Last administered on 09/09/18 08:54; Admin Dose 1 PATCH; Start 09/04/18 at 01:00 Carvedilol (Coreg) 3.125 mg BID PO Last administered on 09/07/18at 20:55; Admin Dose 3.125 MG; Start 09/04/18 at 09:00; Status Hold Zolpidem Tartrate (Ambien) 5 mg HS MAY REPEAT X 1 PRN PO INSOMNIA Last administered on 09/10/18at 02:35; Admin Dose 5 MG; Start 09/04/18 at 01:30 Pantoprazole (Protonix Tab) 40 mg DAILY@06 PO Last administered on 09/10/18at 05:47; Admin Dose 40 MG; Start 09/04/18 at 10:00 Multivitamins Therapeutic (Theragran) 1 tab DAILY PO Last administered on 09/09/18 08:53; Admin Dose 1 TAB; Start 09/05/18 at 09:00 Albuterol/ Ipratropium (Duoneb) 3 ml Q8H RESP THERAPY PRN HHN SHORTNESS OF BREATH Last administered on 09/05/18 08:05; Admin Dose 3 ML; Start 09/05/18 at 06:30 Albuterol/ Ipratropium (Duoneb) 3 ml Q4H RESP THERAPY HHN Last administered on 09/10/18 08:31; Admin Dose 3 ML; Start 09/05/18 at 09:00 Lisinopril (Zestril) 2.5 mg DAILY PO ; Start 09/07/18 at 09:00 Enoxaparin Sodium (Lovenox) 60 mg BID SC Last administered on 09/09/18 21:27; Admin Dose 60 MG; Start 09/06/18 at 21:00 Furosemide (Lasix) 20 mg BID DIURETICS IV Last administered on 09/10/18 05:47; Admin Dose 20 MG; Start 09/08/18 at 18:00 Ciprofloxacin/ Dextrose 200 ml @ 200 mls/hr Q12 IVPB Last administered on 09/09/18 21:00; Admin Dose 200 MLS/HR; Start 09/09/18 at 12:00; Stop 09/11/18 at 09:00 Montelukast Sodium (Singulair) 10 mg HS PO Last administered on 09/09/18 21:17; Admin Dose 10 MG; Start 09/09/18 at 21:00 Tiotropium [place] (Spiriva) 1 inh DAILY INH ; Start 09/09/18 at 13:00 LANNY SMITH MD Sep 10, 2018 08:42
[2018-09-10] MEDS: ENOXAPARIN 60 MG/0.6 ML SYG SC SCH ×2 (08:46→20:52)
--- NOTE | 2018-09-10 13:00 | CONS ---
Assessment/Plan Assessment/Plan Hospital Course (Demo Recall) IMP: 1.CHF-systolic acute on chronic-improving volume status with reduced O2 requirement 2.Cardiomyopathy-EF 25-30% by echo 05/22 3.pleural effusion s/p thoracentesis c/b PTX and transferred to ICU and remains with PTX resolved by most recent CXR 4..Hypotension-borderline ongoing and recurrent. Likley more a result of low baseline EF 5.Renal insufficiency/hyperkalemia-mild 6.H/O ICD-v pacing 100% 7.Tobacco dependence 8. COPD 9. AF/AFL REcc: -Now on tele -Follow PTX-resolved by cxr? -Continue low dose zestril afterload reduction as tolerated and will hold BB as patient v pacing mainly at this time and has marginal BP -Continue low dose afterload reduction as tolerated only -Continue lasix diuresis as tolerated now BID which ambrosio is now receiving regularly over last 2 days with improving volume and oxygenation -Contineu bronchodilators -Continue lovenox sytemic anticoagulation for AFL in lieu of eliquis at this time and if no plans for further procedures can transition back top eliquis Consultation Date/Type/Reason Admit Date/Time Sep 03, 2018 at 22:34 Initial Consult Date 09/04/18 Type of Consult Cardiology Reason for Consultation cardiomyopathy/CHF Requesting Provider: LANNY SMITH MD Date/Time of Note DATE: 09/10/18 TIME: 12:58 Exam/Review of Systems Vital Signs Vitals Vital Signs Date Temp Pulse Resp B/P (MAP) Pulse Ox O2 O2 Flow FiO2 Time Delivery Rate 09/10/18 70 12:13 09/10/18 98.6 20 98/54 (69) 92 Nasal 11:15 Cannula 09/10/18 3.0 08:31 09/06/18 30 20:04 Intake and Output 09/09/18 09/09/18 09/10/18 1515:00 23:00 07:00 IntakeIntake Total 560 ml 250 ml OutputOutput Total 250 ml BalanceBalance 310 ml 250 ml Exam Exam Review of Systems: CONSTITUTIONAL: No fevers, chills. PULMONARY: No sob CARDIOVASCULAR: No chest pain/palpitations GASTROINTESTINAL: No nausea/vomiting. GENITOURINARY: No hematuria/dysuria. MUSCULOSKELETAL: No myagias/arthalgias. PSYCHIATRIC: The patient denies depression. NEUROLOGIC: lethargic somewhat Constitutional: alert Psych: no complaints Head: normocephalic ENMT: mucosa pink and moist Neck: supple, jvd (9 cm water) Respiratory: diminished breath sounds (at bases/B) Cardiovascular: regular rate and rhythm Gastrointestinal: soft, non-tender Musculoskeletal: muscle tone (normal) Extremities: edema (none) 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: other (No focal deficits) Labs Result Diagram: 09/10/18 0756 09/10/18 0756 Results 24hrs Laboratory Tests Test 09/09/18 14:39 09/09/18 15:15 09/09/18 16:10 09/10/18 07:56 Random Cortisol 18.7 29.6 35.6 White Blood Count 9.6 Red Blood Count 4.45 Hemoglobin 12.8 Hematocrit 40.3 Mean Corpuscular Volume 90.6 Mean Corpuscular 28.8 L Hemoglobin Mean Corpuscular 31.8 L Hemoglobin Concent Red Cell Distribution 17.2 H Width Platelet Count 298 Mean Platelet Volume 10.4 Immature Granulocytes % 0.600 H Neutrophils % 65.6 Lymphocytes % 16.9 Monocytes % 7.5 Eosinophils % 8.9 H Basophils % 0.5 Nucleated Red Blood 0.0 Cells % Immature Granulocytes # 0.060 H Neutrophils # 6.3 Lymphocytes # 1.6 Monocytes # 0.7 Eosinophils # 0.9 H Basophils # 0.1 Nucleated Red Blood 0.0 Cells # Sodium Level 139 Potassium Level 3.1 L Chloride Level 99 Carbon Dioxide Level 29 Anion Gap 11 Blood Urea Nitrogen 13 Creatinine 0.80 Est Glomerular Filtrat > 60 Rate mL/min Glucose Level 104 Calcium Level 9.2 Total Bilirubin 0.8 Direct Bilirubin 0.00 Indirect Bilirubin 0.8 Aspartate Amino 22 Transf (AST/SGOT) Alanine 17 Aminotransferase (ALT/S GPT) Alkaline Phosphatase 93 Total Protein 7.3 Albumin 3.7 Globulin 3.60 H Albumin/Globulin Ratio 1.02 Medications Medications Current Medications Nicotine (Nicoderm 7 Mg/ 24 Hr) 1 patch DAILY TRANSDERM Last administered on 09/10/18at 08:36; Admin Dose 1 PATCH; Start 09/04/18 at 01:00 Carvedilol (Coreg) 3.125 mg BID PO Last administered on 09/07/18at 20:55; Admin Dose 3.125 MG; Start 09/04/18 at 09:00; Status Hold Zolpidem Tartrate (Ambien) 5 mg HS MAY REPEAT X 1 PRN PO INSOMNIA Last administered on 09/10/18 02:35; Admin Dose 5 MG; Start 09/04/18 at 01:30 Pantoprazole (Protonix Tab) 40 mg DAILY@06 PO Last administered on 09/10/18 05:47; Admin Dose 40 MG; Start 09/04/18 at 10:00 Multivitamins Therapeutic (Theragran) 1 tab DAILY PO Last administered on 09/10/18 08:35; Admin Dose 1 TAB; Start 09/05/18 at 09:00 Albuterol/ Ipratropium (Duoneb) 3 ml Q8H RESP THERAPY PRN HHN SHORTNESS OF BREATH Last administered on 09/05/18 08:05; Admin Dose 3 ML; Start 09/05/18 at 06:30 Albuterol/ Ipratropium (Duoneb) 3 ml Q4H RESP THERAPY HHN Last administered on 09/10/18 08:31; Admin Dose 3 ML; Start 09/05/18 at 09:00 Lisinopril (Zestril) 2.5 mg DAILY PO Last administered on 09/10/18 08:37; Admin Dose 2.5 MG; Start 09/07/18 at 09:00 Enoxaparin Sodium (Lovenox) 60 mg BID SC Last administered on 09/10/18 08:46; Admin Dose 60 MG; Start 09/06/18 at 21:00 Furosemide (Lasix) 20 mg BID DIURETICS IV Last administered on 09/10/18 05:47; Admin Dose 20 MG; Start 09/08/18 at 18:00 Ciprofloxacin/ Dextrose 200 ml @ 200 mls/hr Q12 IVPB Last administered on 09/10/18 08:35; Admin Dose 200 MLS/HR; Start 09/09/18 at 12:00; Stop 09/11/18 at 09:00 Montelukast Sodium (Singulair) 10 mg HS PO Last administered on 09/09/18 21:17; Admin Dose 10 MG; Start 09/09/18 at 21:00 Tiotropium [place] (Spiriva) 1 inh DAILY INH Last administered on 09/10/18 08:37; Admin Dose 1 INH; Start 09/09/18 at 13:00 ALLAN WARD Sep 10, 2018 13:00
--- NOTE | 2018-09-10 13:46 | DS ---
Date/Time of Note Date/Time of Note DATE: 09/10/18 TIME: 13:41 Discharge Summary Admission/Discharge Info Admit Date/Time Sep 03, 2018 at 22:34 Discharge Date/Time September at 18:00pm. Discharge Diagnosis Assessment/Plan 1. Respiratory distress status post right thoracentesis. Pneumothorax resolved.s/p second thoracentesis during this admission with 850cc of fluid removal. Rather rapid reaccumulation of the fluid with the plan to remove another treatment tomorrow. 2. COPD exacerbation-still smokes. Discussed. 3. Status post left subclavian area pacemaker implantation AV sequential not checked for last 2 years. 4. Right pleural effusion-s/p one liter of pleural fluid evacuation. 5. Diarrhea for years being on antimotility medications mainly, with mild improvement.Now less frequent. 6. Episodes of constipation 7. Significant weight loss according to her about 38 kg during the last 24 years,; but by calculations it becomes like about 25-20 kg. 8. Hearing impairment 9. Permanent deconditioning with severe muscular weakness unable to get up and stand by herself with severe decrease of muscular tone was strained mass 10. Urinary and fecal incontinence; new onset UTI 11. Status post cholecystectomy 12. Nicotine addiction-making progress 13. PTSD 14. Mild elevation of the CEA 15. Kyphosis 16. Osteoporosis 17. Diabetes type 2 blood sugar improved after weight loss 18. Dehydration 19. Malnourishment 20. Noncompliance 21. Irritable bowel syndrome 22. Hemorrhoidal disease with recurrent rectal bleeding 23. Hx of paroxysmal a. fibrillation with low LVEF- on ICD 24. Tricuspid insufficiency with a very large left and right atrium on echo cardiography 25. Pulmonary hypertension with systolic pressure in the pulmonary artery 66 mm of hg. 26. Elevation of central venous pressure 27. Hyperkalemia-improved. 28. Altered level of consciousness on and off being lethargic most of the 29.new onset UTI; get culture sensitivity and start Cipro IV 500 twice daily x3 days Patient Condition: Critical Hx of Present Illness Worsening of her shortness of breath developing gradually after the last discharge more than a month ago. She felt much better after quitting more than a liter of fluid from the right pleural cavity. Viral warts last year she never felt so good in terms of improving breathing and decreasing edema of both lower extremities and being able to sleep. Seen patient patient 3 days ago at home recommended hospitalization due to of decreased breathing sounds on the right side on JVD and worsening of shortness of breath. Lasix was increased to twice a day with potassium chloride before coming to the hospital. She was having problems with the transportation I advised her not to call 911 but the consultation service with somebody we will will drive her to the hospital finally she did eat yesterday. Patient is getting also home health service. It is apparent that she continues to smoke. Occasionally uses alcohol. He forgets to take medications. Hospital Course Right thoracentesis with electrolite management . Still with low BP and severe weakness.Breathing improved with breathing treatment improved condition moderately. High risk for fall. She was hypoxemic yesterday.02 sat less than 90; On and off 88%. Home Meds Active Scripts Pantoprazole* (Pantoprazole*) 40 Mg Tablet.dr, 40 MG PO DAILY@06 for 30 Days, #30 Prov:LESLIE SMITH MD 07/19/18 Nicotine* (Nicotine* Patch) 7 mg/day Patch, 1 PATCH TRANSDERM DAILY for 28 Days, #30 Prov:LESLIE SMITH MD 07/19/18 Ubidecarenone* (Co Q-10*) 200 Mg Capsule, 200 MG PO BID for 30 Days, #60 CAP Prov:LESLIE SMITH MD 07/19/18 Reported Medications Bupropion Hcl* (Bupropion Hcl SR*) 100 Mg Tablet.sa, 100 MG PO NEEDED, TAB.SA 07/19/18 Diphenhydramine Hcl* (Benadryl*) 25 Mg Cap, 25 MG PO NEEDED PRN for ITCHING, CAP 06/27/18 Hydrocodone/Acetaminophen ([place] 10-325 Tablet) 1 Each Tablet, 1 EACH PO NEEDED, TAB 06/27/18 Lorazepam* (Lorazepam*) 1 Mg Tablet, 1 MG PO NEEDED PRN for ANXIETY, #30 TAB 06/27/18 Furosemide* (Furosemide*) 40 Mg Tablet, 40 MG PO DAILY, TAB 06/27/18 Zolpidem Tartrate* (Zolpidem Tartrate*) 10 Mg Tablet, 10 MG PO QHS PRN for SLEEP 05/29/18 Digoxin* (Digox*) 125 Mcg Tablet, 125 MG PO DAILY 05/29/18 Primary Care Provider Leslie Smith MD Time spent on discharge: > 30 minutes Pending Labs Laboratory Tests Test 09/09/18 14:39 09/09/18 15:15 09/09/18 16:10 09/10/18 07:56 Random Cortisol 18.7 ug/dl 29.6 ug/dl 35.6 ug/dl White Blood Count 9.6 10^3/ul (4.8-10.8) Red Blood Count 4.45 10^6/ul (4.20-5.40 ) Hemoglobin 12.8 g/dl (12.0-16.0) Hematocrit 40.3 % (37.0-47.0) Mean Corpuscular 90.6 Volume fl (82.0-101.0) Mean Corpuscular 28.8 Hemoglobin pg (29.0-33.0) Mean Corpuscular 31.8 Hemoglobin Concent g/dl (32.0-37.0) Red Cell 17.2 % (11.5-14.5) Distribution Width Platelet Count 298 10^3/UL (140-415) Mean Platelet 10.4 fl (7.4-10.4) Volume Immature 0.600 Granulocytes % % (0.001-0.429) Neutrophils % 65.6 % (39.0-77.0) Lymphocytes % 16.9 % (15.0-51.0) Monocytes % 7.5 % (0.0-11.0) Eosinophils % 8.9 % (0.0-7.0) Basophils % 0.5 % (0.0-2.0) Nucleated Red 0.0 Blood Cells % /100WBC (0.0-0.0) Immature 0.060 Granulocytes # 10^3/ul (0.0-0.031 ) Neutrophils # 6.3 10^3/ul (1.6-7.5) Lymphocytes # 1.6 10^3/ul (0.8-2.9) Monocytes # 0.7 10^3/ul (0.3-0.9) Eosinophils # 0.9 10^3/ul (0.0-0.5) Basophils # 0.1 10^3/ul (0.0-0.1) Nucleated Red 0.0 Blood Cells # 10^3/ul (0.0-0.0) Sodium Level 139 mmol/L (135-144) Potassium Level 3.1 mmol/L (3.5-5.1) Chloride Level 99 mmol/L (97-110) Carbon Dioxide 29 mmol/L (21-31) Level Anion Gap 11 (5-13) Blood Urea 13 mg/dl (7-20) Nitrogen Creatinine 0.80 mg/dl (0.44-1.00) Est Glomerular > 60 mL/min (>60) Filtrat Rate mL/min Glucose Level 104 mg/dl (70-220) Calcium Level 9.2 mg/dl (8.4-10.2) Total Bilirubin 0.8 mg/dl (0.2-1.3) Direct Bilirubin 0.00 mg/dl (0.00-0.20) Indirect 0.8 mg/dl (0-1.1) Bilirubin Aspartate Amino 22 IU/L (15-46) Transf (AST/SGOT) Alanine 17 IU/L (13-69) Aminotransferase ( ALT/SGPT) Alkaline 93 IU/L (42-121) Phosphatase Total Protein 7.3 g/dl (6.1-8.1) Albumin 3.7 g/dl (3.3-4.9) Globulin 3.60 g/dl (1.3-3.2) Albumin/Globulin 1.02 Ratio LESLIE SMITH MD Sep 10, 2018 13:46
--- NOTE | 2018-09-10 13:48 | CONS ---
Assessment/Plan Assessment/Plan Problems: (1) Hypotension Status: Acute Comment: I do not believe the patient has an endocrine cause for this I went ahead and did a Cortrosyn stimulation test to verify intact adrenal pituitary axis. This patient's glucocorticoid axis is intact and in addition at the blood pressure is stabilizing. As such I do not believe this patient has any type of endocrinopathy, and that does not need any type of hormonal intervention. Given the stability of this I will sign off at this time Consultation Date/Type/Reason Admit Date/Time Sep 03, 2018 at 22:34 Date of Consultation: Sep 09, 2018 Type of Consult Endocrinology Reason for Consultation Persistent hypotension Requesting Provider: LANNY SMITH MD Date/Time of Note DATE: 09/10/18 TIME: 13:45 Hx of Present Illness 57-year-old female patient admitted with multiple medical problems. In the ICU she has been difficult to wean from support. A question is raised about the possibility of adrenal insufficiency. She reports she had not had prior usage of steroids. Constitutional: no complaints Endocrine: no complaints Past Medical History Medical History: angina, colitis, congestive heart failure, coronary artery disease, diabetes, diverticulitis, gallstones, GERD, GI bleed, high cholesterol, hypertension, irritable bowel syndrome, renal disease, urinary tract infection Home Meds Active Scripts Pantoprazole* (Pantoprazole*) 40 Mg Tablet.dr, 40 MG PO DAILY@06 for 30 Days, #30 Prov:LANNY SMITH MD 07/19/18 Nicotine* (Nicotine* Patch) 7 mg/day Patch, 1 PATCH TRANSDERM DAILY for 28 Days, #30 Prov:LANNY SMITH MD 07/19/18 Ubidecarenone* (Co Q-10*) 200 Mg Capsule, 200 MG PO BID for 30 Days, #60 CAP Prov:LANNY SMITH MD 07/19/18 Reported Medications Bupropion Hcl* (Bupropion Hcl SR*) 100 Mg Tablet.sa, 100 MG PO NEEDED, TAB.SA 07/19/18 Diphenhydramine Hcl* (Benadryl*) 25 Mg Cap, 25 MG PO NEEDED PRN for ITCHING, CAP 06/27/18 Hydrocodone/Acetaminophen ([place] 10-325 Tablet) 1 Each Tablet, 1 EACH PO NEEDED, TAB 06/27/18 Lorazepam* (Lorazepam*) 1 Mg Tablet, 1 MG PO NEEDED PRN for ANXIETY, #30 TAB 06/27/18 Furosemide* (Furosemide*) 40 Mg Tablet, 40 MG PO DAILY, TAB 06/27/18 Zolpidem Tartrate* (Zolpidem Tartrate*) 10 Mg Tablet, 10 MG PO QHS PRN for SLEEP 05/29/18 Digoxin* (Digox*) 125 Mcg Tablet, 125 MG PO DAILY 05/29/18 Medications Current Medications Nicotine (Nicoderm 7 Mg/ 24 Hr) 1 patch DAILY TRANSDERM Last administered on 09/10/18 08:36; Admin Dose 1 PATCH; Start 09/04/18 at 01:00 Carvedilol (Coreg) 3.125 mg BID PO Last administered on 09/07/18 20:55; Admin Dose 3.125 MG; Start 09/04/18 at 09:00; Status Hold Zolpidem Tartrate (Ambien) 5 mg HS MAY REPEAT X 1 PRN PO INSOMNIA Last administered on 09/10/18 02:35; Admin Dose 5 MG; Start 09/04/18 at 01:30 Pantoprazole (Protonix Tab) 40 mg DAILY@06 PO Last administered on 09/10/18 05:47; Admin Dose 40 MG; Start 09/04/18 at 10:00 Multivitamins Therapeutic (Theragran) 1 tab DAILY PO Last administered on 09/10/18 08:35; Admin Dose 1 TAB; Start 09/05/18 at 09:00 Albuterol/ Ipratropium (Duoneb) 3 ml Q8H RESP THERAPY PRN HHN SHORTNESS OF BREATH Last administered on 09/05/18 08:05; Admin Dose 3 ML; Start 09/05/18 at 06:30 Albuterol/ Ipratropium (Duoneb) 3 ml Q4H RESP THERAPY HHN Last administered on 09/10/18 13:39; Admin Dose 3 ML; Start 09/05/18 at 09:00 Lisinopril (Zestril) 2.5 mg DAILY PO Last administered on 09/10/18 08:37; Admin Dose 2.5 MG; Start 09/07/18 at 09:00 Enoxaparin Sodium (Lovenox) 60 mg BID SC Last administered on 09/10/18at 08:46; Admin Dose 60 MG; Start 09/06/18 at 21:00 Furosemide (Lasix) 20 mg BID DIURETICS IV Last administered on 09/10/18at 05:47; Admin Dose 20 MG; Start 09/08/18 at 18:00 Ciprofloxacin/ Dextrose 200 ml @ 200 mls/hr Q12 IVPB Last administered on 09/10/18at 08:35; Admin Dose 200 MLS/HR; Start 09/09/18 at 12:00; Stop 09/11/18 at 09:00 Montelukast Sodium (Singulair) 10 mg HS PO Last administered on 09/09/18at 21:17; Admin Dose 10 MG; Start 09/09/18 at 21:00 Tiotropium [place] (Spiriva) 1 inh DAILY INH Last administered on 09/10/18at 08:37; Admin Dose 1 INH; Start 09/09/18 at 13:00 Allergies: Coded Allergies: No Known Drug Allergies (Verified Allergy, Unknown, 07/19/18) Past Surgical History Past Surgical Hx: noncontributory, cholecystectomy, other Social History Alcohol Use: occasionally Smoking Status: Current every day smoker Drug Use: none Exam/Review of Systems Exam Vitals Vital Signs Date Temp Pulse Resp B/P (MAP) Pulse Ox O2 O2 Flow FiO2 Time Delivery Rate 09/10/18 72 18 98 Nasal 3.0 13:39 Cannula 09/10/18 98.6 98/54 (69) 11:15 09/06/18 30 20:04 Intake and Output 09/09/18 09/09/18 09/10/18 1515:00 23:00 07:00 IntakeIntake Total 560 ml 250 ml OutputOutput Total 250 ml BalanceBalance 310 ml 250 ml Respiratory: clear to auscultation, normal air movement Cardiovascular: regular rate and rhythm, nl pulses Results Result Diagram: 09/10/18 0756 09/10/18 0756 Results 24hrs Laboratory Tests Test 09/09/18 14:39 09/09/18 15:15 09/09/18 16:10 09/10/18 07:56 Random Cortisol 18.7 29.6 35.6 White Blood Count 9.6 Red Blood Count 4.45 Hemoglobin 12.8 Hematocrit 40.3 Mean Corpuscular Volume 90.6 Mean Corpuscular 28.8 L Hemoglobin Mean Corpuscular 31.8 L Hemoglobin Concent Red Cell Distribution 17.2 H Width Platelet Count 298 Mean Platelet Volume 10.4 Immature Granulocytes % 0.600 H Neutrophils % 65.6 Lymphocytes % 16.9 Monocytes % 7.5 Eosinophils % 8.9 H Basophils % 0.5 Nucleated Red Blood 0.0 Cells % Immature Granulocytes # 0.060 H Neutrophils # 6.3 Lymphocytes # 1.6 Monocytes # 0.7 Eosinophils # 0.9 H Basophils # 0.1 Nucleated Red Blood 0.0 Cells # Sodium Level 139 Potassium Level 3.1 L Chloride Level 99 Carbon Dioxide Level 29 Anion Gap 11 Blood Urea Nitrogen 13 Creatinine 0.80 Est Glomerular Filtrat > 60 Rate mL/min Glucose Level 104 Calcium Level 9.2 Total Bilirubin 0.8 Direct Bilirubin 0.00 Indirect Bilirubin 0.8 Aspartate Amino 22 Transf (AST/SGOT) Alanine 17 Aminotransferase (ALT/S GPT) Alkaline Phosphatase 93 Total Protein 7.3 Albumin 3.7 Globulin 3.60 H Albumin/Globulin Ratio 1.02 Medications Medication Current Medications Nicotine (Nicoderm 7 Mg/ 24 Hr) 1 patch DAILY TRANSDERM Last administered on 09/10/18 08:36; Admin Dose 1 PATCH; Start 09/04/18 at 01:00 Carvedilol (Coreg) 3.125 mg BID PO Last administered on 09/07/18 20:55; Admin Dose 3.125 MG; Start 09/04/18 at 09:00; Status Hold Zolpidem Tartrate (Ambien) 5 mg HS MAY REPEAT X 1 PRN PO INSOMNIA Last admin istered on 09/10/18 02:35; Admin Dose 5 MG; Start 09/04/18 at 01:30 Pantoprazole (Protonix Tab) 40 mg DAILY@06 PO Last administered on 09/10/18 05:47; Admin Dose 40 MG; Start 09/04/18 at 10:00 Multivitamins Therapeutic (Theragran) 1 tab DAILY PO Last administered on 09/10/18 08:35; Admin Dose 1 TAB; Start 09/05/18 at 09:00 Albuterol/ Ipratropium (Duoneb) 3 ml Q8H RESP THERAPY PRN HHN SHORTNESS OF BREATH Last administered on 09/05/18 08:05; Admin Dose 3 ML; Start 09/05/18 at 06:30 Albuterol/ Ipratropium (Duoneb) 3 ml Q4H RESP THERAPY HHN Last administered on 09/10/18 13:39; Admin Dose 3 ML; Start 09/05/18 at 09:00 Lisinopril (Zestril) 2.5 mg DAILY PO Last administered on 09/10/18 08:37; Admin Dose 2.5 MG; Start 09/07/18 at 09:00 Enoxaparin Sodium (Lovenox) 60 mg BID SC Last administered on 09/10/18 08:46; Admin Dose 60 MG; Start 09/06/18 at 21:00 Furosemide (Lasix) 20 mg BID DIURETICS IV Last administered on 09/10/18 05:47; Admin Dose 20 MG; Start 09/08/18 at 18:00 Ciprofloxacin/ Dextrose 200 ml @ 200 mls/hr Q12 IVPB Last administered on 09/10/18 08:35; Admin Dose 200 MLS/HR; Start 09/09/18 at 12:00; Stop 09/11/18 at 09:00 Montelukast Sodium (Singulair) 10 mg HS PO Last administered on 09/09/18 21:17; Admin Dose 10 MG; Start 09/09/18 at 21:00 Tiotropium [place] (Spiriva) 1 inh DAILY INH Last administered on 09/10/18 08:37; Admin Dose 1 INH; Start 09/09/18 at 13:00 MILADYS NAVARRETE MD Sep 10, 2018 13:48
[2018-09-10] MEDS: MONTELUKAST 10 MG TAB PO SCH (20:19)
[2018-09-11] VITALS (13 sets, daily range): BP systolic 85–107; BP diastolic 52–67; PULSE 61–130; RESP 17–20
[2018-09-11] MEDS: ZOLPIDEM 5 MG TAB PO PRN (00:04)
--- NOTE | 2018-09-11 00:23 | PDOCDIS ---
Discharge Instructions DIAGNOSIS Discharge Diagnosis Assessment/Plan 1. Respiratory distress status post right thoracentesis. Pneumothorax resolved.s/p second thoracentesis during this admission with 850cc of fluid removal. Rather rapid reaccumulation of the fluid with the plan to remove another treatment tomorrow. 2. COPD exacerbation-still smokes. Discussed. 3. Status post left subclavian area pacemaker implantation AV sequential not checked for last 2 years. 4. Right pleural effusion-s/p one liter of pleural fluid evacuation. 5. Diarrhea for years being on antimotility medications mainly, with mild improvement.Now less frequent. 6. Episodes of constipation 7. Significant weight loss according to her about 38 kg during the last 24 years,; but by calculations it becomes like about 25-20 kg. 8. Hearing impairment 9. Permanent deconditioning with severe muscular weakness unable to get up and stand by herself with severe decrease of muscular tone was strained mass 10. Urinary and fecal incontinence; new onset UTI 11. Status post cholecystectomy 12. Nicotine addiction-making progress 13. PTSD 14. Mild elevation of the CEA 15. Kyphosis 16. Osteoporosis 17. Diabetes type 2 blood sugar improved after weight loss 18. Dehydration 19. Malnourishment 20. Noncompliance 21. Irritable bowel syndrome 22. Hemorrhoidal disease with recurrent rectal bleeding 23. Hx of paroxysmal a. fibrillation with low LVEF- on ICD 24. Tricuspid insufficiency with a very large left and right atrium on echo cardiography 25. Pulmonary hypertension with systolic pressure in the pulmonary artery 66 mm of hg. 26. Elevation of central venous pressure 27. Hyperkalemia-improved. 28. Altered level of consciousness on and off being lethargic most of the 29.new onset UTI; get culture sensitivity and start Cipro IV 500 twice daily x3 days CONDITION [id number] Patient Condition: [id number] Guarded HOME CARE INSTRUCTIONS: [id number] Diet Instructions: [id number] Bathing Restrictions: [id number] Sponge Bath FOLLOW UP/APPOINTMENTS Follow-up Plan home visit in 3-4 days. SCHOOL/WORK RELEASE May return to School/Work with: LANNY Jiménez MD Sep 11, 2018 00:23
[2018-09-11] MEDS: ALBUTEROL/IPRATROPIUM (NEB) 3 ML AMP HHN SCH ×5 (01:31→16:54)
[2018-09-11] MEDS: PANTOPRAZOLE (EC) 40 MG TAB PO SCH (05:16)
[2018-09-11] MEDS: FUROSEMIDE 20 MG INJ IV SCH ×2 (05:19→17:43)
[2018-09-11] MEDS: CIPROFLOXACIN 400MG/D5W 200 ML IVPB SCH (08:39)
[2018-09-11] MEDS: MULTIVITAMINS THERAPEUTIC TAB PO SCH (08:39)
[2018-09-11] MEDS: LISINOPRIL 5 MG TAB PO SCH (08:39)
[2018-09-11] MEDS: TIOTROPIUM 18 MCG CAPSULE INHA DEV INH SCH (08:39)
[2018-09-11] MEDS: NICOTINE (7 MG/24 HR) PATCH TRANSDERM SCH (08:40)
[2018-09-11] MEDS: ENOXAPARIN 60 MG/0.6 ML SYG SC SCH (08:45)
--- NOTE | 2018-09-11 09:45 | CONS ---
Consult Date/Type/Reason Admit Date/Time Sep 03, 2018 at 22:34 Initial Consult Date 09/09/18 Requesting Provider: LANNY SMITH MD Date/Time of Note DATE: 09/11/18 TIME: 09:42 Subjective Pt had some NSVT last night - ICD in place -stable - reports chronic SOB - re-accumulating effusion - defer to pulmonary team - pt wants to go home. ROS: No fever, no chills, no nausea, no vomiting, no diarrhea/constipation + SOB + fatigue No recent weight changes No chest pain, no PND, no orthopnea No dizziness, blurred vision No thirst, no heat or cold intolerance Objective Vitals Vital Signs Date Temp Pulse Resp B/P (MAP) Pulse Ox O2 O2 Flow FiO2 Time Delivery Rate 09/11/18 70 08:19 09/11/18 97 Nasal 3.0 07:54 Cannula 09/11/18 98.6 90/52 (65) 07:24 09/11/18 32 01:01 Intake and Output 09/10/18 09/10/18 09/11/18 1515:00 23:00 07:00 IntakeIntake Total 800 ml 750 ml OutputOutput Total 1000 ml BalanceBalance -200 ml 750 ml Exam General: WN/WD/NAD, AOx 3 HEENT: Unicetric/atraumatic/EOMI (follows commands) NECK: JVD elevated, no thyromegaly Lymph: no lymphadenopathy - ICD HEART: regular with no S3, II/ systolic murmur at apex, PMI L LUNGS: Coarse sounds, decrease sounds on R side ABD: soft, NT, ND, +BS : Intact Neuro: non focal SKIN: chronic changes EXT: trace edema Results/Medications Result Diagram: 09/10/18 0756 09/10/18 0756 Home Meds Active Scripts Pantoprazole* (Pantoprazole*) 40 Mg Tablet.dr, 40 MG PO DAILY@06 for 30 Days, #30 Prov:LANNY SMITH MD 07/19/18 Nicotine* (Nicotine* Patch) 7 mg/day Patch, 1 PATCH TRANSDERM DAILY for 28 Days, #30 Prov:LANNY SMITH MD 07/19/18 Ubidecarenone* (Co Q-10*) 200 Mg Capsule, 200 MG PO BID for 30 Days, #60 CAP Prov:LANNY SMITH MD 07/19/18 Reported Medications Bupropion Hcl* (Bupropion Hcl SR*) 100 Mg Tablet.sa, 100 MG PO NEEDED, TAB.SA 07/19/18 Diphenhydramine Hcl* (Benadryl*) 25 Mg Cap, 25 MG PO NEEDED PRN for ITCHING, CAP 06/27/18 Hydrocodone/Acetaminophen ([place] 10-325 Tablet) 1 Each Tablet, 1 EACH PO NEEDED, TAB 06/27/18 Lorazepam* (Lorazepam*) 1 Mg Tablet, 1 MG PO NEEDED PRN for ANXIETY, #30 TAB 06/27/18 Furosemide* (Furosemide*) 40 Mg Tablet, 40 MG PO DAILY, TAB 06/27/18 Zolpidem Tartrate* (Zolpidem Tartrate*) 10 Mg Tablet, 10 MG PO QHS PRN for SLEEP 05/29/18 Digoxin* (Digox*) 125 Mcg Tablet, 125 MG PO DAILY 05/29/18 Medications Current Medications Nicotine (Nicoderm 7 Mg/ 24 Hr) 1 patch DAILY TRANSDERM Last administered on 09/11/18at 08:40; Admin Dose 1 PATCH; Start 09/04/18 at 01:00 Carvedilol (Coreg) 3.125 mg BID PO Last administered on 09/07/18at 20:55; Admin Dose 3.125 MG; Start 09/04/18 at 09:00; Status Hold Zolpidem Tartrate (Ambien) 5 mg HS MAY REPEAT X 1 PRN PO INSOMNIA Last administered on 09/11/18at 00:04; Admin Dose 5 MG; Start 09/04/18 at 01:30 Pantoprazole (Protonix Tab) 40 mg DAILY@06 PO Last administered on 09/11/18 05:16; Admin Dose 40 MG; Start 09/04/18 at 10:00 Multivitamins Therapeutic (Theragran) 1 tab DAILY PO Last administered on 09/11/18at 08:39; Admin Dose 1 TAB; Start 09/05/18 at 09:00 Albuterol/ Ipratropium (Duoneb) 3 ml Q8H RESP THERAPY PRN HHN SHORTNESS OF BREATH Last administered on 09/05/18at 08:05; Admin Dose 3 ML; Start 09/05/18 at 06:30 Albuterol/ Ipratropium (Duoneb) 3 ml Q4H RESP THERAPY HHN Last administered on 09/11/18at 07:54; Admin Dose 3 ML; Start 09/05/18 at 09:00 Lisinopril (Zestril) 2.5 mg DAILY PO Last administered on 09/10/18at 08:37; Admin Dose 2.5 MG; Start 09/07/18 at 09:00 Enoxaparin Sodium (Lovenox) 60 mg BID SC Last administered on 09/10/18at 20:52; Admin Dose 60 MG; Start 09/06/18 at 21:00 Furosemide (Lasix) 20 mg BID DIURETICS IV Last administered on 09/11/18at 05:19; Admin Dose 20 MG; Start 09/08/18 at 18:00 Montelukast Sodium (Singulair) 10 mg HS PO Last administered on 09/10/18at 20:19; Admin Dose 10 MG; Start 09/09/18 at 21:00 Tiotropium [place] (Spiriva) 1 inh DAILY INH Last administered on 09/11/18at 08:39; Admin Dose 1 INH; Start 09/09/18 at 13:00 Assessment/Plan Hospital Course (Demo Recall) 1.CHF-systolic acute on chronic-improving volume status with reduced O2 requirement - better fluid status. 2.Cardiomyopathy-EF 25-30% by echo 05/22 - ICD in place 3.pleural effusion s/p thoracentesis c/b PTX and transferred to ICU and remains with PTX resolved by most recent CXR - CXR negative for Pneumo now 4..Hypotension-borderline ongoing and recurrent. Likley more a result of low baseline EF - overall unchanged 5.Renal insufficiency/hyperkalemia-mild - Cr stable 6.H/O ICD-v pacing 100% 7.Tobacco dependence - d/c advised 8. COPD - on meds 9. AF/AFL - rate controlled now MELBA REYES MD Sep 11, 2018 09:45
[2018-09-11] MEDS ORDERED: POTASSIUM CHLORIDE (SR) 20 MEQ TAB PO STA (09:46)
--- NOTE | 2018-09-11 11:51 | CONS ---
Assessment/Plan Assessment/Plan Assessment/Plan (Daily) Chest x-ray was reviewed from yesterday which is showing minimal right pleural effusion. Cardiomegaly is present. Assessment recommendations; next 1. Patient admitted with CHF exacerbation status post 2 right thoracentesis with significant interval clinical and radiological improvement. 2. History of cardiac arrhythmia, status post pacemaker placement in the past. Continue current supportive care. Further recommendations per upsetting machine operator. Currently there is no indication to perform another thoracentesis. Consider discharging the patient and repeating a chest x-ray in 1 week. If the patient has recurrent effusion on the right side, she may be a candidate for chemical pleurodesis. Consultation Date/Type/Reason Admit Date/Time Sep 03, 2018 at 22:34 Initial Consult Date Type of Consult Pulmonary/critical care Patient's condition is stable. Remains hemodynamically stable. Still on high flow nasal cannula at 60% FiO2. General exam; middle-aged female, awake alert, currently no distress. Requesting Provider: LANNY SMITH MD Date/Time of Note DATE: 09/11/18 TIME: 11:50 24 HR Interval Summary Free Text/Dictation Patient's condition is stable. Denies any shortness of breath, chest pain, coughing, wheezing. General exam; middle-aged woman, awake alert, currently in no distress. Exam/Review of Systems Exam Vitals Vital Signs Date Temp Pulse Resp B/P (MAP) Pulse Ox O2 O2 Flow FiO2 Time Delivery Rate 09/11/18 98.6 69 20 87/52 (64) 96 Nasal 11:07 Cannula 09/11/18 3.0 08:00 09/11/18 32 01:01 Intake and Output 09/10/18 09/10/18 09/11/18 1515:00 23:00 07:00 IntakeIntake Total 800 ml 750 ml OutputOutput Total 1000 ml BalanceBalance -200 ml 750 ml Exam HEENT exam; supple neck, positive JVD. No lymphadenopathy. Midline trachea. No thyromegaly. No neck masses. Patient has fair dentition. Chest exam; diminished but clear breath sounds. S1-S2 audible, no murmurs. Regular rhythm. Pacemaker in left chest wall. Abdomen exam; soft, no organomegaly. Bowel sounds audible. Scaphoid. Extremity exam; no peripheral edema clubbing. ENGRAVER MACHINE exam; no focal deficit. Results Result Diagram: 09/10/18 0756 09/10/18 0756 Medications Medication Current Medications Nicotine (Nicoderm 7 Mg/ 24 Hr) 1 patch DAILY TRANSDERM Last administered on 09/11/18 08:40; Admin Dose 1 PATCH; Start 09/04/18 at 01:00 Carvedilol (Coreg) 3.125 mg BID PO Last administered on 09/07/18 20:55; Admin Dose 3.125 MG; Start 09/04/18 at 09:00; Status Hold Zolpidem Tartrate (Ambien) 5 mg HS MAY REPEAT X 1 PRN PO INSOMNIA Last administered on 09/11/18 00:04; Admin Dose 5 MG; Start 09/04/18 at 01:30 Pantoprazole (Protonix Tab) 40 mg DAILY@06 PO Last administered on 09/11/18 05:16; Admin Dose 40 MG; Start 09/04/18 at 10:00 Multivitamins Therapeutic (Theragran) 1 tab DAILY PO Last administered on 09/11/18 08:39; Admin Dose 1 TAB; Start 09/05/18 at 09:00 Albuterol/ Ipratropium (Duoneb) 3 ml Q8H RESP THERAPY PRN HHN SHORTNESS OF BR EATH Last administered on 09/05/18 08:05; Admin Dose 3 ML; Start 09/05/18 at 06:30 Albuterol/ Ipratropium (Duoneb) 3 ml Q4H RESP THERAPY HHN Last administered on 09/11/18 07:54; Admin Dose 3 ML; Start 09/05/18 at 09:00 Lisinopril (Zestril) 2.5 mg DAILY PO Last administered on 09/10/18 08:37; Admi n Dose 2.5 MG; Start 09/07/18 at 09:00 Enoxaparin Sodium (Lovenox) 60 mg BID SC Last administered on 09/10/18 20:52; Admin Dose 60 MG; Start 09/06/18 at 21:00 Furosemide (Lasix) 20 mg BID DIURETICS IV Last administered on 09/11/18 05:19; Admin Dose 20 MG; Start 09/08/18 at 18:00 Montelukast Sodium (Singulair) 10 mg HS PO Last administered on 6/10/19at 20:19; Admin Dose 10 MG; Start 09/09/18 at 21:00 Tiotropium [place] (Spiriva) 1 inh DAILY INH Last administered on 09/11/18at 08:39; Admin Dose 1 INH; Start 09/09/18 at 13:00 TRACEE DEE Sep 11, 2018 11:51
[2018-09-11] MEDS ORDERED: LIDOCAINE 1% (MPF) 5 ML VIAL ONE (15:35)
== END 2018-09-11 21:25 | disposition home or self-care (01) | DRG 291 ==
LOC: 6WM 22:34 → ICU 09-04 12:44 → 6WM 09-09 14:27 → TEL 09-09 18:36
PROVIDERS: ADMIT Family Medicine; ATTEND Family Medicine
PROC: 0W9930Z Drainage of Right Pleural Cavity with Drainage Device, Percutaneous Approach (ICD-10-PCS; principal; 2018-09-04)
PROC: 0W9930Z Drainage of Right Pleural Cavity with Drainage Device, Percutaneous Approach (ICD-10-PCS; 2018-09-06)
PROC: 0W9930Z Drainage of Right Pleural Cavity with Drainage Device, Percutaneous Approach (ICD-10-PCS; 2018-09-08)
PROC: 0W9930Z Drainage of Right Pleural Cavity with Drainage Device, Percutaneous Approach (ICD-10-PCS; 2018-09-11)
DX: I11.0 Hypertensive heart disease with heart failure (principal); J96.21 Acute and chronic respiratory failure with hypoxia; J44.1 Chronic obstructive pulmonary disease with (acute) exacerbation; J90 Pleural effusion, not elsewhere classified; E46 Unspecified protein-calorie malnutrition; D68.69 Other thrombophilia; J95.811 Postprocedural pneumothorax; E87.2 Acidosis; N39.0 Urinary tract infection, site not specified; I50.43 Acute on chronic combined systolic (congestive) and diastolic (congestive) heart failure; I42.9 Cardiomyopathy, unspecified; Z95.0 Presence of cardiac pacemaker; Z68.26 Body mass index [BMI] 26.0-26.9, adult; R32 Unspecified urinary incontinence; R15.9 Full incontinence of feces; F43.10 Post-traumatic stress disorder, unspecified; R97.0 Elevated carcinoembryonic antigen [CEA]; E11.9 Type 2 diabetes mellitus without complications; E86.0 Dehydration; Z91.14 Patient's other noncompliance with medication regimen; K58.1 Irritable bowel syndrome with constipation; K58.0 Irritable bowel syndrome with diarrhea; K64.9 Unspecified hemorrhoids; I48.0 Paroxysmal atrial fibrillation; I07.1 Rheumatic tricuspid insufficiency; I27.20 Pulmonary hypertension, unspecified; F17.210 Nicotine dependence, cigarettes, uncomplicated; K21.9 Gastro-esophageal reflux disease without esophagitis; E87.5 Hyperkalemia
CPT/HCPCS: 36600; 71045; 71046; 71275; 76942; 80048; 80053; 80162; 81003; 82042; 82378; 82533; 82803; 82945; 83540; 83615; 83735; 83880; 84100; 84157; 84443; 85025; 85610; 85651; 85730; 86140; 87070; 87081; 87086; 87102; 87116; 88104; 88305; 89051; 94640; 94664; 97161; 97166; J0744; J1940; J2916; Q9967

== ENCOUNTER 2018-10-29 16:52 | Observation (INO) | payer MEDICARE, BC ==
[~2018-10-29] VITALS: Ht 160 cm; Wt 66.2 kg
[2018-10-29] MEDS: ALBUTEROL/IPRATROPIUM (NEB) 3 ML AMP HHN SCH (19:51)
[2018-10-29 20:30] VITALS: BP 97/64; PULSE 70; RESP 19
[2018-10-29 21:00] VITALS: Ht 160 cm; Wt 66.2 kg
[2018-10-29] MEDS ORDERED: ZOLPIDEM 5 MG TAB PO PRN (22:30)
[2018-10-29] MEDS ORDERED: DIPHENHYDRAMINE 25 MG CAP PO PRN (22:30)
[2018-10-29] MEDS ORDERED: ALPRAZOLAM 0.25 MG TAB PO PRN (22:30)
[2018-10-30] MEDS: ALBUTEROL/IPRATROPIUM (NEB) 3 ML AMP HHN SCH ×3 (01:40→14:16)
[2018-10-30 02:00] VITALS: BP 103/71; PULSE 70; RESP 19
[2018-10-30] MEDS ORDERED: HYDROCODONE/APAP (10/325) TAB PO PRN (02:30)
[2018-10-30] MEDS ORDERED: PANTOPRAZOLE (EC) 40 MG TAB PO SCH (06:00)
[2018-10-30 08:00] VITALS: BP 92/56; PULSE 70; RESP 16
--- NOTE | 2018-10-30 08:24 | CONS ---
Assessment/Plan Assessment/Plan Hospital Course (Demo Recall) Recurrent right pleural effusion: Likely from right heart failure. Awaiting thoracentesis Chronic systolic heart failure: euvolemic on exam with normal JVP NICM: EF 25-30% BiV ICD for primary prevention: ([employer], initial implant 2012, then 2014 with LV lead). Interrogation 05/30/18 normal, no events, 4.5 yrs left. Pacer dependent Paroxysmal afib: on Eliquis AV node ablation Pulm HTN with RV dysfunction: PAP 68 on echo . Multifactorial including intrinsic lung disease and left heart failure COPD Active tobacco use DM -switch lasix to bumex 1mg for better bioavailability with right heart failure/Pulm HTN -start lisinopril 5mg -continue digoxin (being used for cardiomyopathy) -restart Eliquis 5mg BID after thoracentesis Consultation Date/Type/Reason Admit Date/Time Oct 29, 2018 at 19:08 Date of Consultation: Oct 30, 2018 Type of Consult Cardiology Reason for Consultation CHF Requesting Provider: LANNY SMITH MD Date/Time of Note DATE: 10/30/18 TIME: 08:23 Hx of Present Illness 58 yo F with a h/o recurrent right pleural effusions s/p multiple thoracentesis, chronic systolic heart failure, NICM EF 25-30%, pulm HTN PAP 68 05/22, BiV ICD for primary prevention ([employer], initial implant 2012, then 2014 with LV lead), paroxysmal vs chronic afib, AV node ablation, COPD, active tobacco use, DM, who was admitted electively for right thoracentesis. She was here 6 weeks ago for the same but had pneumothorax post thoracentesis with a prolonged hospitalization. She does not think her dyspnea has improved much. She does not have chest pain. She takes propranolol sometimes for palpitations though I had explained to her in the past this is not approved for cardiomyopathy. She also takes digoxin for her cardiomyopathy. She is not on a BB or ACEI and does not like to make medication changes. She is taking her Eliquis 5mg daily instead of BID due to what she describes as bleeding in her nose, rectally, and "lungs". She also feels that the lasix 40mg is not helping and sometimes she takes 80mg and still does not make much urine. per HPI Past Medical History per hPI Home Meds Active Scripts Pantoprazole* (Pantoprazole*) 40 Mg Tablet.dr, 40 MG PO DAILY@06 for 30 Days, #30 Prov:LANNY SMITH MD 07/19/18 Nicotine* (Nicotine* Patch) 7 mg/day Patch, 1 PATCH TRANSDERM DAILY for 28 Days, #30 Prov:LANNY SMITH MD 07/19/18 Ubidecarenone* (Co Q-10*) 200 Mg Capsule, 200 MG PO BID for 30 Days, #60 CAP Prov:LANNY SMITH MD 07/19/18 Reported Medications Diphenhydramine Hcl* (Benadryl*) 25 Mg Cap, 25 MG PO NEEDED PRN for ITCHING, CAP 06/27/18 Hydrocodone/Acetaminophen ([place] 10-325 Tablet) 1 Each Tablet, 1 EACH PO NEEDED, TAB 06/27/18 Furosemide* (Furosemide*) 40 Mg Tablet, 40 MG PO DAILY, TAB 06/27/18 Zolpidem Tartrate* (Zolpidem Tartrate*) 10 Mg Tablet, 10 MG PO QHS PRN for SLEEP 05/29/18 Digoxin* (Digox*) 125 Mcg Tablet, 125 MG PO DAILY 05/29/18 Discontinued Reported Medications Bupropion Hcl* (Bupropion Hcl SR*) 100 Mg Tablet.sa, 100 MG PO NEEDED, TAB.SA 07/19/18 Lorazepam* (Lorazepam*) 1 Mg Tablet, 1 MG PO NEEDED PRN for ANXIETY, #30 TAB 06/27/18 Medications Current Medications Albuterol/ Ipratropium (Duoneb) 3 ml Q6H RESP THERAPY HHN Last administered on 10/30/18at 01:40; Admin Dose 3 ML; Start 10/29/18 at 20:00 Digoxin (Digoxin) 125 mg DAILY@1300 PO ; Start 10/30/18 at 13:00 Diphenhydramine HCl (Benadryl) 25 mg Q6H PRN PO ITCHING; Start 10/29/18 at 22:30 Furosemide (Lasix) 40 mg DAILY PO ; Start 10/30/18 at 09:00 Nicotine (Nicoderm 7 Mg/ 24 Hr) 1 patch DAILY TRANSDERM ; Start 10/30/18 at 09:00 Pantoprazole (Protonix Tab) 40 mg DAILY@06 PO ; Start 10/30/18 at 06:00 Zolpidem Tartrate (Ambien) 10 mg QHS PRN PO SLEEP; Start 10/29/18 at 22:30 Alprazolam (Xanax) 0.5 mg DAILY PRN PO ANXIETY; Start 10/29/18 at 22:30 Acetaminophen/ Hydrocodone Bitart ([place] (10/325)) 1 tab Q6H PRN PO PAIN; Start 10/30/18 at 02:30 Allergies: Coded Allergies: No Known Drug Allergies (Verified Allergy, Unknown, 07/19/18) Past Surgical History Past Surgical Hx: noncontributory, cholecystectomy, other Social History Smoking Status: Former smoker Exam/Review of Systems Vital Signs Vitals Vital Signs Date Temp Pulse Resp B/P (MAP) Pulse Ox O2 O2 Flow FiO2 Time Delivery Rate 10/30/18 98.2 70 19 103/71 100 02:00 (82) 10/30/18 21 01:41 Exam Constitutional: alert, oriented Psych: no complaints, nl mood/affect Head: normocephalic, atraumatic Neck: No jvd Respiratory: crackles/rales (right base); No clear to auscultation Cardiovascular: regular rate and rhythm, systolic murmur (2/6 MATI); No edema Gastrointestinal: soft, non-tender; No distended Musculoskeletal: No nl extremities to inspection (venous stasis changes ) 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: nl mental status, nl speech Labs Result Diagram: 10/29/18 1950 10/29/18 1950 Results 24hrs Laboratory Tests Test 10/29/18 19:50 White Blood Count 9.6 Red Blood Count 4.72 Hemoglobin 14.2 Hematocrit 42.9 Mean Corpuscular Volume 90.9 Mean Corpuscular Hemoglobin 30.1 Mean Corpuscular Hemoglobin Concent 33.1 Red Cell Distribution Width 14.5 Platelet Count 256 Mean Platelet Volume 10.4 Immature Granulocytes % 0.600 H Neutrophils % 76.6 Lymphocytes % 12.9 L Monocytes % 6.9 Eosinophils % 2.2 Basophils % 0.8 Nucleated Red Blood Cells % 0.0 Immature Granulocytes # 0.060 H Neutrophils # 7.3 Lymphocytes # 1.2 Monocytes # 0.7 Eosinophils # 0.2 Basophils # 0.1 Nucleated Red Blood Cells # 0.0 Prothrombin Time 13.6 Prothrombin Time Ratio 1.1 INR International Normalized Ratio 1.03 Sodium Level 137 Potassium Level 4.1 Chloride Level 98 Carbon Dioxide Level 26 Anion Gap 13 Blood Urea Nitrogen 19 Creatinine 0.89 Est Glomerular Filtrat Rate mL/min > 60 Glucose Level 95 Calcium Level 10.8 H Magnesium Level 2.1 Iron Level 79 Total Iron Binding Capacity 362 Percent Iron Saturation 22 Total Bilirubin 1.0 Direct Bilirubin 0.00 Indirect Bilirubin 1.0 Aspartate Amino Transf (AST/SGOT) 37 Alanine Aminotransferase (ALT/SGPT) 27 Alkaline Phosphatase 85 Total Protein 9.1 H Albumin 4.9 Globulin 4.20 H Albumin/Globulin Ratio 1.16 Carcinoembryonic Antigen 3.4 Thyroid Stimulating Hormone (TSH) 2.880 Medications Medications Current Medications Albuterol/ Ipratropium (Duoneb) 3 ml Q6H RESP THERAPY HHN Last administered on 10/30/18at 01:40; Admin Dose 3 ML; Start 10/29/18 at 20:00 Digoxin (Digoxin) 125 mg DAILY@1300 PO ; Start 10/30/18 at 13:00 Diphenhydramine HCl (Benadryl) 25 mg Q6H PRN PO ITCHING; Start 10/29/18 at 22:30 Furosemide (Lasix) 40 mg DAILY PO ; Start 10/30/18 at 09:00 Nicotine (Nicoderm 7 Mg/ 24 Hr) 1 patch DAILY TRANSDERM ; Start 10/30/18 at 09:00 Pantoprazole (Protonix Tab) 40 mg DAILY@06 PO ; Start 10/30/18 at 06:00 Zolpidem Tartrate (Ambien) 10 mg QHS PRN PO SLEEP; Start 10/29/18 at 22:30 Alprazolam (Xanax) 0.5 mg DAILY PRN PO ANXIETY; Start 10/29/18 at 22:30 Acetaminophen/ Hydrocodone Bitart ([place] (10/325)) 1 tab Q6H PRN PO PAIN; Start 10/30/18 at 02:30 KETAN GAMBOA Oct 30, 2018 08:23
[2018-10-30] MEDS ORDERED: NON-FORMULARY/PATIENT OWN MED (Ubidecarenone* (Co Q-10*) 200 MG) PO SCH (09:00)
[2018-10-30] MEDS ORDERED: FUROSEMIDE 40 MG TAB PO SCH (09:00)
[2018-10-30] MEDS ORDERED: LISINOPRIL 5 MG TAB PO SCH (09:00)
[2018-10-30] MEDS ORDERED: NICOTINE (7 MG/24 HR) PATCH TRANSDERM SCH (09:00)
[2018-10-30] MEDS ORDERED: BUMETANIDE 1 MG TAB PO SCH (09:30)
--- NOTE | 2018-10-30 09:31 | HP ---
Date/Time of Note Date/Time of Note DATE: 10/30/18 TIME: 09:26 Assessment/Plan VTE Prophylaxis Risk score (from Ns)>0 risk: 5 SCD applied (from [facility] [place]): No SCD contraindicated: other (Refused.) Pharmacological prophylaxis: LMWH (Not now due to thoracentesis.) Lines/Catheters IV Catheter Type (from [facility]): [place] [employer] line still needed: No Urinary Cath still in place: No Reason Cath still needed: urinary retention Assessment/Plan Assessment/Plan 1. Respiratory distress with hydrothorax right-sided. Plan to perform right thoracentesis. 2. COPD exacerbation-still smokes. Discussed. 3. Status post left subclavian area pacemaker implantation AV sequential not checked for last 2 years. 4. Right pleural effusion-s/p one liter of pleural fluid evacuation. 5. Diarrhea for years being on antimotility medications mainly, with mild improvement.Now less frequent. 6. Episodes of constipation 7. Significant weight loss according to her about 45 kg during the last 2 years,; but by calculations it becomes like about 30 kg. 8. Hearing impairment 9. Permanent deconditioning with severe muscular weakness unable to get up and stand by herself with severe decrease of muscular tone was strained mass 10. Urinary and fecal incontinence; new onset UTI 11. Status post cholecystectomy 12. Nicotine addiction-making progress 13. PTSD 14. Mild elevation of the CEA 15. Kyphosis 16. Osteoporosis 17. Diabetes type 2 blood sugar improved after weight loss 18. Dehydration 19. Malnourishment 20. Noncompliance 21. Irritable bowel syndrome 22. Hemorrhoidal disease with recurrent rectal bleeding 23. Hx of paroxysmal a. fibrillation with low LVEF- on ICD 24. Tricuspid insufficiency with a very large left and right atrium on echo cardiography 25. Pulmonary hypertension with systolic pressure in the pulmonary artery 66 mm of hg. 26. Elevation of central venous pressure 27. Hyperkalemia-improved. 28. Altered level of consciousness on and off being lethargic most of the 29.new onset UTI; get culture sensitivity and start Cipro IV 500 twice daily x3 days Result Diagram: 10/29/18 1950 10/29/181949 Results 24hrs Laboratory Tests Test 10/29/18 19:50 White Blood Count 9.6 Red Blood Count 4.72 Hemoglobin 14.2 Hematocrit 42.9 Mean Corpuscular Volume 90.9 Mean Corpuscular Hemoglobin 30.1 Mean Corpuscular Hemoglobin Concent 33.1 Red Cell Distribution Width 14.5 Platelet Count 256 Mean Platelet Volume 10.4 Immature Granulocytes % 0.600 H Neutrophils % 76.6 Lymphocytes % 12.9 L Monocytes % 6.9 Eosinophils % 2.2 Basophils % 0.8 Nucleated Red Blood Cells % 0.0 Immature Granulocytes # 0.060 H Neutrophils # 7.3 Lymphocytes # 1.2 Monocytes # 0.7 Eosinophils # 0.2 Basophils # 0.1 Nucleated Red Blood Cells # 0.0 Prothrombin Time 13.6 Prothrombin Time Ratio 1.1 INR International Normalized Ratio 1.03 Sodium Level 137 Potassium Level 4.1 Chloride Level 98 Carbon Dioxide Level 26 Anion Gap 13 Blood Urea Nitrogen 19 Creatinine 0.89 Est Glomerular Filtrat Rate mL/min > 60 Glucose Level 95 Calcium Level 10.8 H Magnesium Level 2.1 Iron Level 79 Total Iron Binding Capacity 362 Percent Iron Saturation 22 Total Bilirubin 1.0 Direct Bilirubin 0.00 Indirect Bilirubin 1.0 Aspartate Amino Transf (AST/SGOT) 37 Alanine Aminotransferase (ALT/SGPT) 27 Alkaline Phosphatase 85 Total Protein 9.1 H Albumin 4.9 Globulin 4.20 H Albumin/Globulin Ratio 1.16 Carcinoembryonic Antigen 3.4 Thyroid Stimulating Hormone (TSH) 2.880 HPI/ROS Admit Date/Time Admit Date/Time Oct 29, 2018 at 19:08 Hx of Present Illness Worsening of shortness of breath and weakness difficulty to lay down. Evaluated at home 3 days ago who recommended hospitalization for thoracentesis. ROS Subjective hx not possible: pt critical Constitutional: chills, fatigue, nausea, poor po; No no complaints, No improved, No diaphoresis, No disoriented, No weight change, No other Eyes: redness ENT: congestion, dysphagia, sore throat; No no complaints, No bleeding, No pain, No discharge, No other Respiratory: cough, shortness of breath; No no complaints, No pain, No pleuritic pain, No sputum, No wheezing, No other Cardiovascular: chest pain, edema, lightheadedness, palpitations, paroxysmal nocturnal dyspnea; No no complaints, No orthopenea, No other Gastrointestinal: constipation, decreased appetite, passing stool; No no complaints, No pain, No blood, No diarrhea, No flatus, No nausea, No vomiting, No other Genitourinary: dysuria; No no complaints, No bleeding, No discharge, No flank pain, No hematuria, No other Musculoskeletal: back pain, bone/joint pain; No no complaints, No neck pain, No restricted range of motion, No swelling, No other Skin: No no complaints, No bruising, No erythema, No laceration, No pruritis, No rash, No skin lesions, No other Neurologic: dizziness, headache, syncope; No no complaints, No confusion, No focal-weakness, No seizure, No other Endocrine: polydypsia, dry skin; No no complaints, No polyuria, No temp intolerance, No weight change, No other Lymphatic: No no complaints, No adenopathy, No tender nodes, No lymphadema, No other PMH/Family/Social Past Medical History Medical History: angina, congestive heart failure, coronary artery disease, diabetes, GERD, GI bleed, high cholesterol, hypothyroid, irritable bowel syndrome, peptic ulcer disease, urinary tract infection Medications Current Medications Albuterol/ Ipratropium (Duoneb) 3 ml Q6H RESP THERAPY HHN Last administered on 10/30/18at 08:43; Admin Dose 3 ML; Start 10/29/18 at 20:00 Digoxin (Digoxin) 125 mg DAILY@1300 PO ; Start 10/30/18 at 13:00 Diphenhydramine HCl (Benadryl) 25 mg Q6H PRN PO ITCHING; Start 10/29/18 at 22:30 Nicotine (Nicoderm 7 Mg/ 24 Hr) 1 patch DAILY TRANSDERM Last administered on 10/30/18at 09:19; Admin Dose 1 PATCH; Start 10/30/18 at 09:00 Pantoprazole (Protonix Tab) 40 mg DAILY@06 PO ; Start 10/30/18 at 06:00 Zolpidem Tartrate (Ambien) 10 mg QHS PRN PO SLEEP; Start 10/29/18 at 22:30 Alprazolam (Xanax) 0.5 mg DAILY PRN PO ANXIETY; Start 10/29/18 at 22:30 Acetaminophen/ Hydrocodone Bitart ([place] (10/325)) 1 tab Q6H PRN PO PAIN; Start 10/30/18 at 02:30 Bumetanide (Bumex) 1 mg DAILY PO ; Start 10/30/18 at 09:30 Lisinopril (Zestril) 5 mg DAILY PO ; Start 10/30/18 at 09:00 Coded Allergies: No Known Drug Allergies (Verified Allergy, Unknown, 07/19/18) Past Surgical History Past Surgical Hx: noncontributory, cholecystectomy, other Family History Significant Family History: no pertinent family hx Social History Alcohol Use: occasionally Smoking Status: Current every day smoker Drug Use: none Exam/Review of Systems Vital Signs Vitals Vital Signs Date Temp Pulse Resp B/P (MAP) Pulse Ox O2 O2 Flow FiO2 Time Delivery Rate 10/30/18 72 16 96 21 08:43 10/30/18 97.4 92/56 (68) 08:00 Exam Constitutional: alert, oriented, well developed, distress, frail, other (Response to questions slowly cooperative very pleasant..) Psych: anxiety, depression; No no complaints, No nl mood/affect, No confusion, No suicidal, No other Head: normocephalic, atraumatic; No lacerations, No hematomas, No other Eyes: EOMI, nl lids, PERRL; No nl conjunctiva, No nl sclera, No icteric, No fundi, disc, No other ENMT: tympanic membranes; No nl external ears & nose, No nl lips & teeth, No nl nasal mucosa & septum, No mucosa pink and moist, No intubated, No other Neck: jvd, bruits; No supple, No non-tender, No masses, No thyromegaly, No nuchal rigidity, No other Respiratory: congested cough, crackles/rales, diminished breath sounds Cardiovascular: bruits, edema, irregular rhythm, systolic murmur, other (Status post pacemaker implantation the site is intact.); No regular rate and rhythm, No nl pulses, No diastolic murmur, No gallop, No jugular venous distention (JVD), No murmurs/extra sounds, No rub, No S3, No S4 Gastrointestinal: nl liver, spleen, bowel sounds, distended Genitourinary - Female: No nl adnexae, No nl external genitalia, No CMT, No CVA tenderness, No uterus, No other Musculoskeletal: joint tenderness; No nl extremities to inspection, No nl gait and stance, No muscle tone, No muscle weakness, No range of motion, No spine non-tender, No swelling, No other Extremities: No normal pulses, No calf tenderness, No cyanosis, No clubbing, No edema, No pitting pedal edema, No palpable cord, No tenderness, No other LANNY SMITH MD Oct 30, 2018 09:31
[2018-10-30] MEDS ORDERED: LIDOCAINE 1% (MPF) 5 ML VIAL ONE (10:31)
[2018-10-30] MEDS ORDERED: ALPRAZOLAM 0.5 MG TAB PO PRN (10:34)
[2018-10-30] MEDS ORDERED: FENTAnyl 50 MCG/ML VIAL ONE (10:43)
[2018-10-30 12:00] VITALS: BP 100/67
[2018-10-30] MEDS ORDERED: DIGOXIN 0.125 MG TAB PO SCH (13:00)
--- NOTE | 2018-10-30 13:24 | CONDCODE ---
Medicare Criteria-> INP to OBS Patient still in hospital: Yes SI/IS Criteria met: Yes Attending MD agrees w/change: Yes Order entered in Pt. record: Yes Pt. does not meet Inp Criteria: Yes Medicare Inp->Obs Criteria met: Yes UR Phys Advisor eSign required: Yes I personally scribed for SAMAN THOMASON MD ([email or web address]) on 10/30/18 at 13:24. Electronically submitted by Charly Navarro [facility] ([facility]). SAMAN THOMASON MD Oct 30, 2018 13:24
--- NOTE | 2018-10-30 13:24 | CONDCODE ---
Medicare Criteria-> INP to OBS Patient still in hospital: Yes SI/IS Criteria met: Yes Attending MD agrees w/change: Yes Order entered in Pt. record: Yes Pt. does not meet Inp Criteria: Yes Medicare Inp->Obs Criteria met: Yes UR Phys Advisor eSign required: Yes I personally scribed for LANNY SMITH MD ([email or web address]) on 10/30/18 at 13:24. [facility] LANNY SMITH MD Oct 30, 2018 13:24
[2018-10-30 14:00] VITALS: BP 109/72; PULSE 76; RESP 24
[2018-10-31] MEDS ORDERED: DIGOXIN 0.125 MG TAB PO SCH (13:00)
--- NOTE | 2018-11-01 12:07 | PDOCDIS ---
Discharge Instructions CONDITION [id number] Patient Condition: [id number] Guarded HOME CARE INSTRUCTIONS: [id number] Diet Instructions: [id number] y [id number] Bathing Restrictions: [id number] Sponge Bath FOLLOW UP/APPOINTMENTS Follow-up Plan Office visit home visit with home health. SCHOOL/WORK RELEASE May return to School/Work with: None. LANNY SMITH MD Nov 01, 2018 12:07
--- NOTE | 2018-11-01 12:13 | DS ---
Date/Time of Note Date/Time of Note DATE: 11/01/18 TIME: 12:11 Discharge Summary Admission/Discharge Info Admit Date/Time Oct 29, 2018 at 19:08 Discharge Date/Time Oct 30, 2018 at 17:00 Patient Condition: Guarded Hx of Present Illness Worsening of shortness of breath and weakness difficulty to lay down. Evaluated at home 3 days ago who recommended hospitalization for thoracentesis. Hospital Course Condition improved after evacuation of the fluid. Patient felt good despite of my cautious approach with at least one day to prevent possible delay of a treatment of a pneumothorax which occurred with her during last admission. Discussed with the patient she wants to go home. I explained the absence of concept of AMA. At the time of this dictation patient already left home and immediately after the discharge she came to the office medication arrangements are done in the office setting. Complaining with probably the son. Home Meds Active Scripts Pantoprazole* (Pantoprazole*) 40 Mg Tablet.dr, 40 MG PO DAILY@06 for 30 Days, #30 Prov:LESLIE SMITH MD 07/19/18 Nicotine* (Nicotine* Patch) 7 mg/day Patch, 1 PATCH TRANSDERM DAILY for 28 Days, #30 Prov:LESLIE SMITH MD 07/19/18 Ubidecarenone* (Co Q-10*) 200 Mg Capsule, 200 MG PO BID for 30 Days, #60 CAP Prov:LESLIE SMITH MD 07/19/18 Reported Medications Diphenhydramine Hcl* (Benadryl*) 25 Mg Cap, 25 MG PO NEEDED PRN for ITCHING, CAP 06/27/18 Hydrocodone/Acetaminophen ([place] 10-325 Tablet) 1 Each Tablet, 1 EACH PO NEEDED, TAB 06/27/18 Furosemide* (Furosemide*) 40 Mg Tablet, 40 MG PO DAILY, TAB 06/27/18 Zolpidem Tartrate* (Zolpidem Tartrate*) 10 Mg Tablet, 10 MG PO QHS PRN for SLEEP 05/29/18 Digoxin* (Digox*) 125 Mcg Tablet, 125 MG PO DAILY 05/29/18 Discontinued Reported Medications Bupropion Hcl* (Bupropion Hcl SR*) 100 Mg Tablet.sa, 100 MG PO NEEDED, TAB.SA 07/19/18 Lorazepam* (Lorazepam*) 1 Mg Tablet, 1 MG PO NEEDED PRN for ANXIETY, #30 TAB 06/27/18 Follow-up Plan Office visit home visit with home health. Primary Care Provider Leslie Smith MD Time spent on discharge: > 30 minutes LESLIE SMITH MD Nov 01, 2018 12:13
== END 2018-10-30 17:00 | disposition left against medical advice (07) ==
LOC: PP2 19:08 → INTOOBSV 19:08 → PP2 19:35
PROVIDERS: ADMIT Family Medicine; ATTEND Family Medicine
DX: J90 Pleural effusion, not elsewhere classified (principal); I50.22 Chronic systolic (congestive) heart failure; I42.9 Cardiomyopathy, unspecified; I48.0 Paroxysmal atrial fibrillation; Z79.01 Long term (current) use of anticoagulants; I27.20 Pulmonary hypertension, unspecified; J44.9 Chronic obstructive pulmonary disease, unspecified; E11.9 Type 2 diabetes mellitus without complications; Z72.0 Tobacco use; Z95.810 Presence of automatic (implantable) cardiac defibrillator
CPT/HCPCS: 32555; 71045; 71046; 76942; 80053; 82042; 82378; 83540; 83735; 84443; 85025; 85610; 87070; 87102; 87116; 88104; 88305; 89051; 94640; 94664; G0378; J3010; 99217

== ENCOUNTER 2018-11-26 19:11 | Observation (INO) | payer MEDICARE, BC ==
[~2018-11-26] VITALS: Ht 160 cm; Wt 68.1 kg
[~2018-11-26 19:11] MED LIST changes: +ALPR0.25 PO; +APIX5TAB PO; -BUPR100T7 PO; -LORA1TAB PO; +PANT40TA3 PO; +SPIR100T4 PO; +ZOLP10TA PO
[2018-11-26 21:50] VITALS: BP 91/56; PULSE 72; RESP 18
[2018-11-26 22:00] VITALS: Ht 160 cm; Wt 68.1 kg
[2018-11-26] MEDS ORDERED: traMADol 50 MG TAB GTB PRN (23:30)
[2018-11-26] MEDS ORDERED: ALPRAZOLAM 0.5 MG TAB PO PRN (23:30)
[2018-11-26] MEDS ORDERED: ZOLPIDEM 5 MG TAB PO PRN (23:30)
[2018-11-26] MEDS ORDERED: HYDROCODONE/APAP (5/325) TAB PO PRN (23:30)
[2018-11-27] MEDS: ALBUTEROL/IPRATROPIUM (NEB) 3 ML AMP HHN SCH ×2 (00:52→08:00)
[2018-11-27] MEDS: ALBUMIN HUMAN 25% 100 ML IV SCH ×2 (01:43→10:08)
[2018-11-27 01:45] VITALS: BP 98/57; PULSE 68; RESP 18
[2018-11-27] MEDS ORDERED: traMADol 50 MG TAB PO PRN (02:30)
[2018-11-27] MEDS ORDERED: PANTOPRAZOLE (EC) 40 MG TAB PO SCH (06:00)
[2018-11-27 07:39] VITALS: BP 87/54; PULSE 71; RESP 18
[2018-11-27] MEDS ORDERED: NICOTINE (7 MG/24 HR) PATCH TRANSDERM SCH (09:00)
[2018-11-27] MEDS ORDERED: BUMETANIDE 1 MG TAB PO SCH (09:00)
[2018-11-27] MEDS ORDERED: SPIRONOLACTONE 50 MG TAB PO SCH (09:00)
[2018-11-27] MEDS ORDERED: HEPARIN 1000 UNITS/NS (A-LINE) 1,000 ML ONE (09:31)
[2018-11-27] MEDS ORDERED: LIDOCAINE 1% (MPF) 5 ML VIAL ONE (09:31)
[2018-11-27] MEDS ORDERED: DIGOXIN 0.125 MG TAB PO SCH (13:00)
== END 2018-11-27 13:55 | disposition home or self-care (01) ==
LOC: 2NE 20:16 → OBSVTOIN 23:19 → INTOOBSV 23:19
PROVIDERS: ADMIT Family Medicine; ATTEND Family Medicine
DX: R06.03 Acute respiratory distress (principal); J94.8 Other specified pleural conditions; J44.1 Chronic obstructive pulmonary disease with (acute) exacerbation; J90 Pleural effusion, not elsewhere classified; R19.7 Diarrhea, unspecified; K59.00 Constipation, unspecified; R63.4 Abnormal weight loss; Z68.26 Body mass index [BMI] 26.0-26.9, adult; H91.90 Unspecified hearing loss, unspecified ear; R32 Unspecified urinary incontinence; N39.0 Urinary tract infection, site not specified; F17.200 Nicotine dependence, unspecified, uncomplicated; F43.10 Post-traumatic stress disorder, unspecified; M40.209 Unspecified kyphosis, site unspecified; M81.0 Age-related osteoporosis without current pathological fracture; E11.9 Type 2 diabetes mellitus without complications
CPT/HCPCS: 32555; 71045; 71046; 80048; 80162; 81001; 81003; 82042; 83540; 83735; 85025; 85048; 85610; 85730; 87070; 87102; 87116; 93005; 94640; 94664; G0378; J1644; P9047; 88104; 88305